=== PATIENT | male | born 1935 | race Caucasian/White ===

== ENCOUNTER → 2017-02-13 | Outpatient (CLI) | payer MEDICARE, BC, SELFPAY | PROVIDERS: Visit Provider Urology | DX: R97.20 Elevated prostate specific antigen [PSA] (principal); Z12.5 Encounter for screening for malignant neoplasm of prostate | CPT/HCPCS: 36415; 84153 ==

== ENCOUNTER 2017-02-20 11:22 | Outpatient (POV) | payer MEDICARE, BC, SELFPAY | END 2017-02-20 15:34 | disposition home or self-care (01) | PROVIDERS: Family Provider Internal Medicine Adolescent Medicine; PCP Internal Medicine Adolescent Medicine; Visit Provider Urology | DX: N41.1 Chronic prostatitis (principal); R97.20 Elevated prostate specific antigen [PSA] | CPT/HCPCS: 81002; 99213 ==

== ENCOUNTER 2017-03-02 17:37 | Emergency (ER) | payer MEDICARE, BC, SELFPAY ==
[2017-03-02 18:08] LABS: Apearance,Urine Cloudy (Clear); Bilirubin,Urine Negative (Negative); Blood, Urine 4+ (Negative); Color,Urine Yellow (Yellow); Glucose,Urine (UA) Negative (Negative); Ketones,Urine Negative (Negative); PH,Urine 5.5 (5.0-8.5); Protein,Urine Trace (Negative); Specific Gravity, Urine 1.025 (1.005-1.030); UTC Leukocyte Esterase,Urine Negative (Negative); UTC Nitrate,Urine Negative (Negative); Urobilinogen,Urine 0.2 EU/dl (0.2)
[2017-03-02 18:15] VITALS: BP 134/88; PULSE 108; RESP 22; TEMP 36.9; O2SAT 99; BMI 23.0
--- NOTE | 2017-03-02 18:39 | HMH.EDUTC ---
[facility] [place] Clinical Impression: Renal calculi Disposition: Home, Self-Care Condition on Discharge: Good Instructions: DI for Kidney Stones Additional Instructions: Lengthy discussion with patient. Since symptoms have resolved, he would like to be discharged. Agrees to follow up if symptoms return. if tonight, plans to try and see PCP during Sunday hours but if unable, agrees to return to [facility]. If severe or fever develops, agrees to go to ER. If throughout the week and symptoms return, plans to see Dr. Keenan. Agrees to increase fluid intake and monitor for any change in symtpoms. Referrals: Milton Smith MD [Primary Care Provider] - (Agrees to follow up if symptoms return. if tonight, plans to try and see PCP during Sunday hours but if unable, agrees to return to [facility]. If severe or fever develops, agrees to go to ER. If throughout the week and symptoms return, plans to see Dr. Keenan. ) Time of Disposition: 18:34 Medical Decision Making Vital Signs: 03/02/17 18:15 Temperature 98.4 F Temperature Source Temporal Artery Scan Pulse Rate [Brachial] 108 H Respiratory Rate 22 Blood Pressure [Right Arm] 134/88 Blood Pressure Mean [Right Arm] 103 Blood Pressure Source [Right Arm] Automatic Cuff Blood Pressure Position [Right Arm] Sitting 02 Sat by Pulse Oximetry 99 Oxygen Delivery Method Room Air - Lab Data Lab Results 03/02/17 18:07: Urine Color Yellow, Urine Appearance Cloudy, Urine pH 5.5, Ur Specific [place] 1.025, Urine Protein Trace, Urine Glucose (UA) Negative, Urine Ketones Negative, Urine Blood 4+, Urine Nitrate Negative, Urine Bilirubin Negative, Urine Urobilinogen 0.2, Ur Leukocyte Esterase Negative - Physician Consults Physician Consulted: Dr. Smith, PCP and Dr. Keenan, Urologist Time: 18:30 (Niether are motion picture printer) - Chandana Inquiry Pt receiving controlled substance: No - Reevaluation(s) Time: 18:31 Reevaluation #1: patient remains pain free and continues to no longer have the urge to urinate. He would not like me to contact urologist oncchu or MD palacios for Dr. Smith. they will not know me and I feel better . Pt wants to be discharged home and follow up with PCP or Dr. Keenan if symptoms return. Agrees to return to [facility] this weekend if 9a-9p or ER if overnight. [facility] [place] - General Stated complaint: possible kidney infection Time Seen by Provider: 03/02/17 18:00 Mode of Arrival: Ambulatory Source of Information: Patient Limitations: No Limitations Description of Symptoms (Recalled from Triage Doc. by RN): COULDNT URINATE STARTING AROUND NOON TODAY, DOESN'T FEEL. LIKE HE'S EMPTYING HIS BLADDER. SEE'S JIMMY SOTO Symptoms (Recalled from RN notes): No Resp Symptoms (Recalled from RN notes): No Skin Symptoms (Recalled from RN notes): No MS Symptoms (Recalled from RN notes): No Functional Status (Recalled from RN notes): NA - History of Present Illness Provider Complaint: c/o I think I might have a UTI . pain in right side of scrotum radiating to abdomen and urinary hesitancy. Symptoms started around noon w/ pain. Soon after he noticed urinary frequency w/ hesitancy but also urgency. No change urine color or smell. No treatment prior to arrival. Pain worse when sitting and improved w/ standing. Denies flank pain. Denies hx of renal stones. No N/V. Lengthy hx. Hx of requiring foleys in the past due to urinary retention. Pt of Dr. Keenan. Reports a hx of PSA that jumped from 4 to 12 and now on its way down. believes at 7 now. Had been on an antibiotic fo 30 days for urine but completed that pt reports. Since providing urine sample for nurse, pain immediately resolved and no longer has constant bladder pressure and urgency he was having at home. No pain with sitting or standing. I have tried several different things since I peed and can't reproduce the pain I had been having for hours . No longer having pain in scrotum. I don't know why but I am better now . - Related Data Home Medica
--- NOTE | 2017-03-02 18:42 | ED_ITS ---
[facility] [place] Clinical Impression: Renal calculi Disposition: Home, Self-Care Condition on Discharge: Good Instructions: DI for Kidney Stones Additional Instructions: Lengthy discussion with patient. Since symptoms have resolved, he would like to be discharged. Agrees to follow up if symptoms return. if tonight, plans to try and see PCP during Sunday hours but if unable, agrees to return to [facility]. If severe or fever develops, agrees to go to ER. If throughout the week and symptoms return, plans to see Dr. Keenan. Agrees to increase fluid intake and monitor for any change in symtpoms. Referrals: Milton Smith MD [Primary Care Provider] - (Agrees to follow up if symptoms return. if tonight, plans to try and see PCP during Sunday hours but if unable , agrees to return to [facility]. If severe or fever develops, agrees to go to ER. If throughout the week and symptoms return, plans to see Dr. Keenan. ) Time of Disposition: 18:34 Medical Decision Making Vital Signs: 03/02/17 18:15 Temperature 98.4 F Temperature Source Temporal Artery Scan Pulse Rate [Brachial] 108 H Respiratory Rate 22 Blood Pressure [Right Arm] 134/88 Blood Pressure Mean [Right Arm] 103 Blood Pressure Source [Right Arm] Automatic Cuff Blood Pressure Position [Right Arm] Sitting 02 Sat by Pulse Oximetry 99 Oxygen Delivery Method Room Air - Lab Data Lab Results 03/02/17 18:07: Urine Color Yellow, Urine Appearance Cloudy, Urine pH 5.5, Ur Specific [place] 1.025, Urine Protein Trace, Urine Glucose (UA) Negative, Urine Ketones Negative, Urine Blood 4+, Urine Nitrate Negative, Urine Bilirubin Negative, Urine Urobilinogen 0.2, Ur Leukocyte Esterase Negative - Physician Consults Physician Consulted: Dr. Smith, PCP and Dr. Keenan, Urologist Time: 18:30 (Niether are survey questionnaire designer) - Chandana Inquiry Pt receiving controlled substance: No - Reevaluation(s) Time: 18:31 Reevaluation #1: patient remains pain free and continues to no longer have the urge to urinate. He would not like me to contact urologist oncchu or MD palacios for Dr. Smith. they will not know me and I feel better . Pt wants to be discharged home and follow up with PCP or Dr. Keenan if symptoms return. Agrees to return to [facility] this weekend if 9a-9p or ER if overnight. [facility] [place] H[place] - General Stated complaint: possible kidney infection Time Seen by Provider: 03/02/17 18:00 Mode of Arrival: Ambulatory Source of Information: Patient Limitations: No Limitations Description of Symptoms (Recalled from Triage Doc. by RN): COULDNT URINATE STARTING AROUND NOON TODAY, DOESN'T FEEL. LIKE HE'S EMPTYING HIS BLADDER. SEE' S JIMMY SOTO Symptoms (Recalled from RN notes): No Resp Symptoms (Recalled from RN notes): No Skin Symptoms (Recalled from RN notes): No MS Symptoms (Recalled from RN notes): No Functional Status (Recalled from RN notes): NA - History of Present Illness Provider Complaint: c/o I think I might have a UTI . pain in right side of scrotum radiating to abdomen and urinary hesitancy. Symptoms started around noon w/ pain. Soon after he noticed urinary frequency w/ hesitancy but also urgency. No change urine color or smell. No treatment prior to arrival. Pain worse when sitting and improved w/ standing. Denies flank pain. Denies hx of renal stones. No N/V. Lengthy hx. Hx of requiring foleys in the past due to urinary retention. Pt of Dr. Keenan. Reports a hx of PSA that jumped from 4 to 12 and now on its way down. believes at 7 now. Had been on an antibio
== END 2017-03-02 18:35 | disposition home or self-care (01) ==
PROVIDERS: Emergency Provider Nurse Practitioner Family; Family Provider Internal Medicine Adolescent Medicine; PCP Internal Medicine Adolescent Medicine
DX: N20.0 Calculus of kidney (principal); Z87.442 Personal history of urinary calculi; I10 Essential (primary) hypertension; Z79.899 Other long term (current) drug therapy; I25.10 Atherosclerotic heart disease of native coronary artery without angina pectoris; E78.5 Hyperlipidemia, unspecified
CPT/HCPCS: G0463; 81003; 99202

== ENCOUNTER → 2017-06-05 09:53 | Outpatient (CLI) | payer MEDICARE, BC, SELFPAY ==
--- NOTE | 2017-06-05 10:00 | CA_ITS ---
PROCEDURE: 2-D M-mode and color Doppler study INDICATIONS FOR THE TEST: Chest pain COPD Heart Murmur Tobacco Smokingex Palpitations Fatigue Syncope Edema Hypertension+Diabetes Mellitus Rheumatic Fever SOB MEJIA+Obesity Hyperlipidemia+ Family History HD Additional History hx of CHF, stents PATIENT INFORMATION HEIGHT: 72 WEIGHT: 176 GENDER: Male B/P: 123/70 2-D/M-MODE INTERPRETATION: 2-D MEASUREMENTS OBSERVED VALUES IN CMS Right Ventricular Dimension (RVDd) 2.0 Interventricular Septum (Thickness)(IVsd) 0.9 Left Ventricular Internal Dimensions(LVIDd) 5.2 Left Ventricular Posterior Wall (Thickness)(LVPWd) 1.0 Aortic Root 3.3 Aortic Cusp Separation 2.4 Left Atrial Dimensions (LAD) 3.1 2D 1. Left atrium is mildly enlarged, left ventricle is mildly dilated, visually estimated ejection fraction approximately 25-30%, there is marked hypo to akinesis involving the mid to distal septum, anterior, anteroapical, apical and inferoapical wall. 2. The right atrium and right ventricle are normal size and contractility. 3. The aortic valve is minimally thickened and fibrosed. 4. The mitral and tricuspid valve leaflets are minimally thickened. 5. The pulmonic valve is poorly 6. No significant pericardial effusion noted. DOPPLER INTERROGATION: Doppler interrogation of the aortic, mitral and tricuspid valvular presence of mild mitral and tricuspid regurgitation. Tricuspid regurgitant jet velocity insufficient for calculation of the right ventricular systolic pressure, grade 1 diastolic dysfunction seen with tissue Doppler evidence of raised left atrial pressure. CONCLUSION: 1. Mildly enlarged left atrium, mildly dilated left ventricle, severely reduced left ventricular systolic function, visually estimated ejection fraction of 25-30% with multiple segmental wall motion abnormality described above, grade 1 diastolic dysfunction seen with tissue Doppler evidence of raised left atrial pressure. 2. Mild mitral and tricuspid regurgitation. 3. No significant pericardial effusion noted.
== END ==
PROVIDERS: Family Provider Internal Medicine Adolescent Medicine; PCP Internal Medicine Adolescent Medicine; Visit Provider Internal Medicine
DX: I25.2 Old myocardial infarction (principal); I42.9 Cardiomyopathy, unspecified; I50.22 Chronic systolic (congestive) heart failure; I25.10 Atherosclerotic heart disease of native coronary artery without angina pectoris; E78.2 Mixed hyperlipidemia
CPT/HCPCS: 93306

== ENCOUNTER 2017-06-22 09:46 | Observation (INO) ==
[2017-06-22 10:32] LABS: Basophils % 0.5 % (0.1-2.0); Eosinophils # 0.3 K/mm3 (0.0-0.4); Hematocrit 42.1 % (42.0-52.0); Hemoglobin 14.2 g/dL (14.1-18.0); Lymphocytes # 1.7 K/mm3 (0.7-4.5); Lymphocytes % 20.8 K/mm3 (10-50); Mean Corpuscular HGB Conc 33.7 g/dL (31.8-35.4); Mean Corpuscular Hemoglobin 33.4 pg (27.0-31.2); Mean Platelet Volume 7.6 fl (7.4-10.4); Monocytes # 0.7 K/mm3 (0.1-1.0); Monocytes % 8.3 % (1.7-9.3); Neutrophils # 5.6 K/mm3 (1.8-7.8); Neutrophils % 67.3 % (37.0-80.0); Platelet Count 306 K/mm3 (142-424); Red Blood Count 4.25 M/mm3 (4.60-6.20); White Blood Count 8.4 K/mm3 (4.8-10.8)
--- NOTE | 2017-06-22 12:30 | Progress Note ---
[facility] Anesthesia Checklist - Patient Identification Patient Identification: Arm Band - Structural Data Admitted From: Home Planned Operative Procedure/s: biventricular pacemaker Consent for Planned Operative Procedure(s) Verified: Yes Verified Documents: Surgical Consent, History and Physical - NPO Status Verified Time NPO: 00:00 - Additional verifications Anesthesia Reactions: No - Airway Assessment C-Spine Mobility Assessed: Yes (mp2) TMJ Mobility Assessed: Yes Dentition: Good Dentition - Neurological Assessment Level of Consciousness: Awake, Alert - Anesthesia Plan Anesthesia Risk discussed: Yes Anesthesia Plan: Verified ASA Class: III Anesthesia Type: General [facility] Anesthesia HX I have reviewed the patient's past medical history: Yes Medical History: Reports:: Congestive Heart Failure, Coronary Artery Disease, Hyperlipidemia, Hypertension Denies:: Cancer, Diabetes Mellitus Type 1, Diabetes Mellitus Type 2, Internal Pacemaker, MRSA, Seizures Other Medical History: Reports: Arthritis. Denies: Blood Transfusion Reaction Laterality Cases: Left: Arthroscopy Shoulder, Total Hip Replacement, Right: Arthroscopy Hip, Bilateral: Other (shoulder replacements) Other Surgeries: Yes: Other (Cardiac Cath-stents, cholecystectomy). No: Pacemaker Amputation: No Fractures: No *Family Hx:: Cancer, Coronary Artery Disease, Heart Attack, Hypertension, Stroke
--- NOTE | 2017-06-22 14:29 | Progress Note ---
[facility] Anesthesia Record Part I Intake, IV Amount: 500 Estimated blood loss (mL): 15 Urine output (mL): 0 Blood Products used (#): none Blood Pressure: 123/75 SaO2: 97 Pulse Rate: 80 Respiratory Rate: 16 Temperature: 97.0 F Patient is:: Awake Stable to PACU at:: 14:25
--- NOTE | 2017-06-22 14:30 | Progress Note ---
[facility] Anesthesia Record Part II Discharge Time: 14:55 Destination: Medical Surgical Department PACU nurse assessment reviewed?: Yes Patient Condition:: Good Anesthesia Complications:: None
--- NOTE | 2017-06-22 14:35 | Procedure Note ---
[facility] RADIO MECHANIC APPRENTICE-D - RADIO MECHANIC APPRENTICE-D Date of Procedure:: 06/22/17 Procedures:: 1. Pocket formation for biventricular pacemaker generator with cardiac resynchronization/defibrillator therapy. 2. Placement atrial sensing and pacing lead into the right atrial appendage. 3. Placement of right ventricular sensing pacing and shocking lead in the right ventricular apex. 4. Placement of left ventricular sensing pacing lead via the coronary sinus. 5. Permanent cardiac resynchronization therapy with ICD implantation/ biventricular pacemaker. Indication for test:: Systolic Congestive Heart Failure, <35% Wide QRS > 120ms [place] Heart [employer] Class 3 Informed consent:: Obtained prior to procedure. Complications:: None EBL:: Less than 10 ml. Technique:: 1% lidocaine with epinephrine used to anesthetize the left anterior aspect of the chest. Scalpel was used to make the initial cutaneous incision while electrocautery was used to dissect down into the fascia. The fascia was lifted off the pectoralis muscle and digitally manipulated creating a pocket for the pacemaker. The patient was then placed in Trendelenburg position and subclavian vein was accessed via the Seldinger technique on 3 separate occasions. 3 wires were left into the subclavian vein. The right ventricular pacing shocking coil sheath was placed into the subclavian vein and under fluoroscopic guidance the right lingular sensing pacing shocking lead was placed into the right ventricular apex secured into place with the distal screw. After achieving excellent numbers the lead was then secured into placing using 3-0 silk. The lead was secured to the fascia also with heavy silk suture. Prior to the right ventricular lead being secured into place the sheath was peeled away from the subclavian vein. Under fluoroscopic guidance the coronary sinus was cannulated and confirmed with an injection of contrast. An 0.014 wire was then placed distally in the inferior posterior segment of the left ventricle via the coronary sinus and the left ventricular lead was advanced. After achieving excellent thresholds and interrogation numbers the sheath was then peeled away and the lead was then secured into place using silk suture. Following this, the left ventricular coil was secured in place using heavy silk and also secured to the fascia and additional 7 [place] sheath was then placed over the existing wire and an atrial sensing placing coil was placed in the right atrial appendage after achieving excellent thresholds the sheath was peeled away and the lead was secured to the fascia using heavy silk. After achieving, hemostasis, Ancef was used to flush the pocket and the 3 leads were attached to the RADIO MECHANIC APPRENTICE-D generator. The generator was then secured into place by heavy silk suture. Monocryl was used to close the subcutaneous layers while nils were used to close the subcutaneous layers while nils were used to close the cutaneous layer. Pressurized and the patient was transferred to the postop holding area in stable condition. Impression:: 1. Successful pocket formation for biventricular pacemaker generator with cardiac resynchronization/defibrillator therapy. 2. Successful placement of right atrial sensing and pacing lead into the right atrial appendage. 3. Successful placement of a right ventricular sensing, pacing, and shocking lead in the right ventricular apex. 4. Successful placement of left ventricular sensing pacing lead via the coronary sinus. 5. Successful permanent cardiac resynchronization plus AICD generator device. Interrogation:: Generator model number [id number] serial number [id number] Atrial lead model number serial number [id number] model number [id number] Right Ventricular lead model number [id number] serial number [id number] Left Ventricular lead model number [id number]/86 serial number [id number] RA: P wave 3.3 mV Threshold 690 Ohms Impedance 1.25V pulse width 0.5ms RVA: R wave 8.8 mV Threshold 840 Ohms Impedance 0.5V pulse width 0.5ms LVA: R wave Threshold 1550 Ohms Impedance 0.5V pulse width 0.5ms Mode: DDDR with base tracking of 70 maximum tracking 110 Therapies: VT-1: 150; MONITOR VT-2: 180 ATP X3 @36 , 40 VF: 214 ATP W/C @36, 40 Plan:: 1.Post-op wound care.
--- NOTE | 2017-06-22 14:49 | Cardiology Report ---
PROCEDURE: 2-D study INDICATIONS FOR THE TEST: Chest pain COPD Heart Murmur Tobacco Smoking Palpitations Fatigue Syncope Edema Hypertension Diabetes Mellitus Rheumatic Fever SOB MEJIA Obesity Hyperlipidemia Family History HD Additional History S/P PACER BIV PATIENT INFORMATION HEIGHT: 72 WEIGHT:170 GENDER: Male B/P: 2-D/M-MODE INTERPRETATION: 2-D MEASUREMENTS OBSERVED VALUES IN CMS Right Ventricular Dimension (RVDd) Interventricular Septum (Thickness)(IVsd) Left Ventricular Internal Dimensions(LVIDd) Left Ventricular Posterior Wall (Thickness)(LVPWd) Aortic Root Aortic Cusp Separation Left Atrial Dimensions (LAD) 2D 1. Left atrium is mildly enlarged, left ventricle is normal size, visually estimated ejection fraction approximately 20-25%, there is marked hypo to akinesis involving mid to distal septum, anterior anteroapical and anterolateral wall. 2. The right atrium and right ventricle are normal size and contractility, there is a pacemaker lead seen in the right atrium and right ventricle. 3. The aortic valve is minimally thickened and fibrosed. 4. The mitral and tricuspid valve leaflets are grossly normal. 5. The pulmonic valve is poorly visualized. 6. There is trivial pericardial effusion and interior echo free space seen. DOPPLER INTERROGATION: Not applicable CONCLUSION: 1. Mildly enlarged left atrium, normal left ventricular size, visually estimated ejection fraction of 45% with multiple segmental wall motion abnormality described above 2. Trivial pericardial effusion and interior echo free space seen. 3. No obvious right ventricular collapse seen .
--- NOTE | 2017-06-22 15:32 | Pharmacy Consult Notes ---
[facility] Pharmacy VTE Monitoring - Patient Demographics Admission date: 06/22/17 Report Date: 06/22/17 Time: 15:32 Allergies/Adverse Reactions: Patient Allergies morphine Allergy (Intermediate, Verified 06/22/17 10:01) HALLUCINATIONS Height: 1.83 m Weight: 77.111 kg - VTE Risk Labs: VTE Related Lab Results Hgb 14.2 g/dL (14.1-18.0) 06/22/17 10:20 Hct 42.1 % (42.0-52.0) 06/22/17 10:20 Plt Count 306 K/mm3 (142-424) 06/22/17 10:20 BUN 33 mg/dL (7-18) H 06/22/17 10:20 Creatinine 1.74 mg/dL (0.70-1.30) H 06/22/17 10:20 Estimated Creat Clear 36 mL/min (0-300) 06/22/17 10:20 Clinical Trial Participant: No - Prophylaxis VTE Prophylaxis Ordered?: Yes Types of VTE Prophylaxis: TEDS Knee High
== END 2017-06-23 14:15 | disposition home or self-care (01) ==
LOC: OR 09:46 → 2ND 09:46
PROVIDERS: ADMIT Internal Medicine; ATTEND Internal Medicine

== ENCOUNTER → 2017-07-06 10:06 | Outpatient (CLI) | payer MEDICARE, BC, SELFPAY ==
[2017-07-06 10:38] LABS: Basophils # 0.1 K/mm3 (0-0.2); Basophils % 0.7 % (0.1-2.0); Eosinophils # 0.3 K/mm3 (0.0-0.4); Eosinophils % 3.5 % (0.1-12.0); Hematocrit 38.9 % (42.0-52.0); Hemoglobin 12.9 g/dL (14.1-18.0); Lymphocytes # 1.7 K/mm3 (0.7-4.5); Lymphocytes % 18.9 K/mm3 (10-50); Mean Corpuscular HGB Conc 33.1 g/dL (31.8-35.4); Mean Corpuscular Volume 99.8 fl (80-94); Mean Platelet Volume 7.4 fl (7.4-10.4); Monocytes # 0.7 K/mm3 (0.1-1.0); Monocytes % 8.1 % (1.7-9.3); Neutrophils # 6.3 K/mm3 (1.8-7.8); Neutrophils % 68.9 % (37.0-80.0); Platelet Count 297 K/mm3 (142-424); Red Blood Count 3.89 M/mm3 (4.60-6.20); Red Cell Distribution Width 12.8 % (11.5-17.5); White Blood Count 9.1 K/mm3 (4.8-10.8)
[2017-07-06 13:17] LABS: Alanine Aminotransferase 33 U/L (12-78); Albumin Level 3.9 gm/dL (3.4-5.0); Albumin/Globulin Ratio 1.1 (1.1-1.8); Alkaline Phosphatase 168 U/L (46-116); Anion Gap 17.4 mEq/L (5-15); Aspartate Amino Transferase 33 U/L (15-37); Bilirubin,Total 0.6 mg/dL (0.2-1.0); Blood Urea Nitrogen 44 mg/dL (7-18); Calcium 9.7 mg/dL (8.5-10.1); Carbon Dioxide 23 mmol/L (21.0-32.0); Chloride 99 mmol/L (98-107); Estimated Glomerular Filt Rate 36 ml/min (>60); GFR (African American) 44 ML/MIN (>60); Globulin 3.6 gm/dl (1.3-3.2); Glucose 94 mg/dL (74-106); Sodium 133 mmol/L (136-145); Thyroid Stimulating Hormone 7.29 uIU/ml (0.358-3.740); Total Protein,Serum 7.5 gm/dL (6.4-8.2)
[2017-07-06 13:19] LABS: Potassium 6.4 mmoL/L (3.5-5.1)
== END ==
PROVIDERS: Visit Provider Internal Medicine Adolescent Medicine
DX: R23.1 Pallor (principal); R53.83 Other fatigue
CPT/HCPCS: 36415; 80053; 83735; 84443; 85025

== ENCOUNTER 2017-07-06 14:15 | Outpatient (CLI) | payer MEDICARE, BC, SELFPAY ==
[2017-07-06 14:45] VITALS: BP 113/61; PULSE 90; RESP 18; O2SAT 98
[2017-07-06 15:15] VITALS: BP 110/59; PULSE 72; RESP 18
[2017-07-06 15:45] VITALS: BP 133/72; PULSE 78; RESP 18
[2017-07-06 16:15] VITALS: BP 135/75; PULSE 71; RESP 18
[2017-07-06 16:45] VITALS: BP 140/68; PULSE 84; RESP 18
== END 2017-07-06 16:55 | disposition home or self-care (01) ==
LOC: INF 15:08
PROVIDERS: Family Provider Internal Medicine Adolescent Medicine; PCP Internal Medicine Adolescent Medicine; Visit Provider Internal Medicine Adolescent Medicine
DX: E87.5 Hyperkalemia (principal); Z79.899 Other long term (current) drug therapy
CPT/HCPCS: 36415; 80053; 83735; 84443; 85025; 96360; 96361

== ENCOUNTER → 2017-07-09 09:53 | Outpatient (CLI) | payer MEDICARE, BC, SELFPAY ==
[2017-07-09 13:09] LABS: Anion Gap 15.8 mEq/L (5-15); Blood Urea Nitrogen 25 mg/dL (7-18); Carbon Dioxide 23 mmol/L (21.0-32.0); Chloride 102 mmol/L (98-107); Creatinine,Serum 1.38 mg/dL (0.70-1.30); Estimated Glomerular Filt Rate 49 ml/min (>60); GFR (African American) 60 ML/MIN (>60); Glucose 95 mg/dL (74-106); Potassium 4.8 mmoL/L (3.5-5.1); Sodium 136 mmol/L (136-145)
== END ==
PROVIDERS: Visit Provider Internal Medicine Adolescent Medicine
DX: E87.5 Hyperkalemia (principal)
CPT/HCPCS: 36415; 80048

== ENCOUNTER → 2017-08-07 06:59 | Outpatient (CLI) | payer MEDICARE, BC, SELFPAY ==
[2017-08-07 10:58] LABS: Prostate Specific Ag Screen 9.9 ng/mL (0.0-4.0)
== END ==
PROVIDERS: Visit Provider Urology
DX: Z12.5 Encounter for screening for malignant neoplasm of prostate (principal); R97.20 Elevated prostate specific antigen [PSA]
CPT/HCPCS: 36415; G0103

== ENCOUNTER → 2017-08-14 15:45 | Outpatient (REF) | payer MEDICARE, BC, SELFPAY | LOC: LAB 15:45 | PROVIDERS: Visit Provider Urology | DX: N39.9 Disorder of urinary system, unspecified (principal); R82.90 Unspecified abnormal findings in urine | CPT/HCPCS: 87086 ==

== ENCOUNTER → 2017-09-25 19:16 | Outpatient (REF) | payer MEDICARE, BC, SELFPAY | LOC: LAB 19:16 | PROVIDERS: Visit Provider Urology | DX: N39.0 Urinary tract infection, site not specified (principal) | CPT/HCPCS: 87086 ==

== ENCOUNTER → 2017-11-12 07:16 | Outpatient (CLI) | payer MEDICARE, BC, SELFPAY ==
[2017-11-12 09:04] LABS: Prostate Specific Ag, Diagnost 11.12 ng/mL (0.0-4.0)
== END ==
PROVIDERS: PCP Internal Medicine Adolescent Medicine; Visit Provider Urology
DX: Z12.5 Encounter for screening for malignant neoplasm of prostate (principal); R97.20 Elevated prostate specific antigen [PSA]
CPT/HCPCS: 36415; 84153

== ENCOUNTER → 2017-11-20 16:57 | Outpatient (REF) | payer MEDICARE, BC, SELFPAY | LOC: LAB 16:57 | PROVIDERS: Visit Provider Urology | DX: N30.20 Other chronic cystitis without hematuria (principal); R97.20 Elevated prostate specific antigen [PSA] | CPT/HCPCS: 87086; 87088; 87186 ==

== ENCOUNTER → 2017-12-19 08:20 | Outpatient (CLI) | payer MEDICARE, BC, SELFPAY ==
[2017-12-19 10:09] LABS: Prostate Specific Ag, Diagnost 7.71 ng/mL (0.0-4.0)
== END ==
PROVIDERS: PCP Internal Medicine Adolescent Medicine; Visit Provider Urology
DX: R97.20 Elevated prostate specific antigen [PSA] (principal)
CPT/HCPCS: 36415; 84153

== ENCOUNTER 2017-12-30 05:56 | Observation (INO) ==
[2017-12-30 06:30] LABS: Basophils # 0.1 K/mm3 (0-0.2); Basophils % 0.6 % (0.1-2.0); Eosinophils # 0.2 K/mm3 (0.0-0.4); Eosinophils % 2.4 % (0.1-12.0); Hematocrit 43.7 % (42.0-52.0); Hemoglobin 13.7 g/dL (14.1-18.0); Lymphocytes # 1.2 K/mm3 (0.7-4.5); Lymphocytes % 14.4 K/mm3 (10-50); Mean Corpuscular HGB Conc 31.4 g/dL (31.8-35.4); Mean Corpuscular Hemoglobin 33.4 pg (27.0-31.2); Mean Corpuscular Volume 106.3 fl (80-94); Mean Platelet Volume 8.1 fl (7.4-10.4); Monocytes # 0.7 K/mm3 (0.1-1.0); Monocytes % 8.8 % (1.7-9.3); Neutrophils # 6.3 K/mm3 (1.8-7.8); Neutrophils % 73.9 % (37.0-80.0); Platelet Count 222 K/mm3 (142-424); Red Blood Count 4.11 M/mm3 (4.60-6.20); Red Cell Distribution Width 14.5 % (11.5-17.5); White Blood Count 8.5 K/mm3 (4.8-10.8)
--- NOTE | 2017-12-30 06:34 | Emergency Department Note ---
ED Disposition Clinical Impression: Renal insufficiency Congestive heart failure Qualifiers: Heart failure type: unspecified Heart failure chronicity: acute on chronic Qualified Code(s): I50.9 - Heart failure, unspecified Disposition: Admitted as Observation Condition on Discharge: Good - Critical Care Critical Care Time: No Attestation: On 12/30/17, the high probability of a clinically significant, sudden or life threatening deterioration of the following system(s) required my full and direct attention, intervention and personal management. The time I documented below is in addition to time spent performing reported procedures but includes the following listed in this critical care notation. Medical Decision Making - Medical Records Medical records reviewed: Yes: I reviewed the patient's medical records. - Chandana Inquiry Pt receiving controlled substance: No Vital Signs: 12/30/17 06:02 12/30/17 07:18 Temperature 97.7 F Temperature Source Oral Pulse Rate [Right Radial] 100 H 90 Respiratory Rate 14 Blood Pressure [Right Arm] 138/85 134/90 Blood Pressure Mean [Right Arm] 102 104 Blood Pressure Source [Right Arm] Automatic Cuff Automatic Cuff Blood Pressure Position [Right Arm] Sitting Sitting 02 Sat by Pulse Oximetry 98 Oxygen Delivery Method Room Air - Lab Data Lab results reviewed: Yes: I reviewed the patient's lab results. Lab Results 12/30/17 06:15: WBC 8.5, RBC 4.11 L, Hgb 13.7 L, Hct 43.7, MCV 106.3 H, MCH 33.4 H, MCHC 31.4 L, RDW 14.5, Plt Count 222, MPV 8.1, Neut % (Auto) 73.9, Lymph % (Auto) 14.4, [place] % (Auto) 8.8, Eos % (Auto) 2.4, Baso % (Auto) 0.6, Neut # (Auto) 6.3, Lymph # (Auto) 1.2, [place] # (Auto) 0.7, Eos # (Auto) 0.2, Baso # (Auto) 0.1 12/30/17 06:15: Sodium 140, Potassium 4.3, Chloride 105, Carbon Dioxide 26, Anion Gap 13.3, BUN 24 H, Creatinine 1.42 H, Estimated Creat Clear 44, Estimated GFR 48 L, Est GFR ( Amer) 58 L, Glucose 82, Calcium 8.5, Total Bilirubin 0.8, AST 23, ALT 21, Alkaline Phosphatase 103, Troponin I 0.09 H, Total Protein 6.9, Albumin 3.3 L, Globulin 3.6 H, Albumin/Globulin Ratio 0.9 L 12/30/17 06:15: Lactate 1.4 12/30/17 06:15: B-Natriuretic Peptide 1300 H 12/30/17 06:15: TSH 3.00 D, Thyroxine (T4) 9.0 Result diagrams: 12/30/17 06:15 12/30/17 06:15 Orders (Tests/Meds): ED MEDICATIONS Discontinued Medications Generic Name Dose Route Start Last Admin Trade Name Freq PRN Reason Stop Dose Admin Furosemide 20 mg 12/30/17 06:47 12/30/17 06:50 Lasix 20mg/2ml Vial IV 12/30/17 06:48 20 mg ONCE ONE Administration Furosemide 40 mg 12/30/17 07:29 Lasix 40mg/4ml Vial IV 12/30/17 07:30 ONCE ONE ORDERS Category Date Time Status Blood Culture Stat Micro 12/30/17 06:15 Received - Radiology Data #1 Image(s): Chest Image Reviewed: Yes I reviewed the patient's radiology image Preliminary Findings: Abnormal (chf) - ECG Data Tracing #1 Pacemaker function: normal pacer function - Physician Consults Physician Consulted: jeannie Reason -: Admission Resp/SOB HPI - General Chief Complaint: Shortness of Breath/Dyspnea Stated Complaint: SOA Time Seen by Provider: 12/30/17 06:20 Mode of Arrival: Ambulatory Source of Information: Patient, Spouse, Medical Record Limitations: No Limitations Description of Symptoms (Recalled from ER Triage Doc. by RN): Pt reports difficulty breathing, non productive cough and wheezing for 1 week. Pt reports tonight his breathing was worse than its ever been. 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 with hx constanza recent pacemaker Complaint: shortness of breath Onset (ago): day(s) Severity: moderate Consistency/Duration: constant Relieving factors: upright position Exacerbating factors: lying flat Known history of: congestive heart failure Associated symptoms: cough Treatment prior to arrival: none - Related Data Home oxygen amount: none Home Medications Medication Instructions Recorded Confirmed aspirin 81 mg tablet,delayed 81 mg PO DAILY 03/02/17 12/30/17 release cyanocobalamin (vit B-12) 1,000 100 mcg IM MONTHLY ml 03/06/17 12/30/17 mcg/mL injection solution carvedilol 3.125 mg tablet 6.25 mg PO BID tab 08/14/17 12/30/17 Ciprofloxacin HCl [Ciprofloxacin 500 mg PO BID 12/30/17 12/30/17 500mg Tab] Allergies Allergy/AdvReac Type Severity Reaction Status Date / Time doxycycline Allergy Intermediate Verified 12/30/17 06:08 morphine Allergy Intermediate HALLUCINATI Verified 12/30/17 06:08 [facility] History I have reviewed the patient's past medical history: Yes Medical History: Reports:: Congestive Heart Failure, Coronary Artery Disease, Hyperlipidemia, Hypertension, Internal Pacemaker Denies:: Cancer, Diabetes Mellitus Type 1, Diabetes Mellitus Type 2, MRSA, Seizures Other Medical History: Reports: Arthritis. Denies: Blood Transfusion Reaction Comment: BPH, elevated prostate Laterality Cases: Left: Arthroscopy Shoulder, Total Hip Replacement, Bilateral: Arthroscopy Hip, Other Other Surgeries: Yes: Pacemaker, Other (Cardiac Cath-stents, cholecystectomy) Amputation: No Fractures: No - Social History Smoking Status: Never smoker Tobacco Type: cigarettes #Yrs smoked (if former smoker): 20 Alcohol Intake: never Alcohol Intake Frequency:: other Occupational Status: retired Housing: house Household Members: spouse - Psychiatric History Expresses thoughts of harming self/others: None Suicide Plan Description: No Plan Family Hx:: Cancer, Coronary Artery Disease, Heart Attack, Hypertension, Stroke Comment: father, brother, sister heart disease ROS Obtained: Yes All systems reviewed & no additional complaints - Constitutional Constitutional: Denies fever(s) - Eyes Eyes: Denies change in vision - ENT Ears, Nose, Mouth, and Throat: Denies sore throat - Cardiovascular Cardiovascular: Reports as per HPI, Denies chest pain, Reports dyspnea - Respiratory Respiratory: Yes cough, Yes non-productive cough, Yes dyspnea, No coughing up blood, No pain on inspiration - Gastrointestinal Gastrointestingal: Reports: abdominal pain - Genitourinary Male Genitourinary: Denies hematuria - Musculoskeletal Musculoskeletal: Denies joint pain, Denies joint swelling - Integumentary/Breasts Skin/Breast: Denies rash - Neurologic Neurologic: Denies seizure-like activity Physical Exam - General General appearance: alert, in no apparent distress - Head Head exam: normocephalic - Eye Eye exam: Present: PERRL, EOMI - ENT ENT exam: Present: mucous membranes dry - Neck Neck exam: Present: trachea midline - Respiratory Respiratory exam: Present: normal lung sounds bilaterally. Absent: respiratory distress - Cardiovascular Cardiovascular exam: Present: regular rate, systolic murmur, +S4 - Abdominal Exam Abdominal exam: Present: soft - Extremities Exam Extremities exam: Present: full ROM - Neurological Exam Neurological exam: Present: alert, oriented X3, CN II-XII intact - Psychiatric Psychiatric exam: Absent: anxious - Skin Skin exam: Present: rash
[2017-12-30 06:47] LABS: Albumin Level 3.3 gm/dL (3.4-5.0); Albumin/Globulin Ratio 0.9 (1.1-1.8); Anion Gap 13.3 mEq/L (5-15); Bilirubin,Total 0.8 mg/dL (0.2-1.0); Calcium 8.5 mg/dL (8.5-10.1); Globulin 3.6 gm/dl (1.3-3.2); Potassium 4.3 mmoL/L (3.5-5.1); Total Protein,Serum 6.9 gm/dL (6.4-8.2)
--- NOTE | 2017-12-30 08:05 | History & Physical Report ---
*Admission Date: 12/30/17 *Chief complaint: Shortness of breath when lying down *History of present illness: Pati is an 82-year-old male with history of earlier with reduced ejection fraction, recent pacemaker placement, chronic kidney disease, who presents with 1 week of worsening shortness of breath, orthopnea, and nonproductive cough. He reports last night was the worst night so far with wheezing and inability to lay down without feeling short of breath. Came to the ER with his for assessment. Patient denies fever, syncope, chest pain, cough, lower extremity edema. Complains of orthopnea and dyspnea with exertion. Has not felt like he has had much energy since placement of his pacemaker. 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 Current heart failure treatment consists of carvedilol 6.25 twice daily. Not on any other goal-directed therapy at this time including ACEi/ARB, statin, aspirin, spironolactone [facility] History I have reviewed the patient's past medical history: Yes Medical History: Reports:: Congestive Heart Failure, Coronary Artery Disease, Hyperlipidemia, Hypertension, Internal Pacemaker Denies:: Cancer, Diabetes Mellitus Type 1, Diabetes Mellitus Type 2, MRSA, Seizures Other Medical History: Reports: Arthritis. Denies: Blood Transfusion Reaction Laterality Cases: Left: Arthroscopy Shoulder, Total Hip Replacement, Bilateral: Arthroscopy Hip, Other Other Surgeries: Yes: Pacemaker, Other (Cardiac Cath-stents, cholecystectomy) Amputation: No Fractures: No - *Social History Smoking Status: Never smoker Tobacco Type: cigarettes #Yrs smoked (if former smoker): 20 Alcohol Intake: never Alcohol Intake Frequency:: other Occupational Status: retired Housing: house Household Members: spouse - Psychiatric History Expresses thoughts of harming self/others: None Suicide Plan Description: No Plan *Family Hx:: Cancer, Coronary Artery Disease, Heart Attack, Hypertension, Stroke Review of Systems - Review of Systems Review of systems:: pertinent systems reviewed and negative unless documented below - *Neurologic Denies seizure-like activity Meds Home Medications Medication Instructions Recorded Confirmed Type aspirin 81 mg tablet,delayed 81 mg PO DAILY 03/02/17 12/30/17 History release cyanocobalamin (vit B-12) 1,000 100 mcg IM MONTHLY ml 03/06/17 12/30/17 History mcg/mL injection solution Carvedilol [Carvedilol 6.25mg Tab] 6.25 mg PO BID 12/30/17 12/30/17 History Ciprofloxacin HCl [Ciprofloxacin 500 mg PO BID 12/30/17 12/30/17 History 500mg Tab] Allergies Allergy/AdvReac Type Severity Reaction Status Date / Time doxycycline Allergy Intermediate Verified 12/30/17 06:08 morphine Allergy Intermediate HALLUCINATI Verified 12/30/17 06:08 ONS Exam Vital signs and Labs for Last 24 Hours: Temp Pulse Resp BP Pulse Ox 97.7 F 95 H 16 148/101 H 97 12/30/17 06:02 12/30/17 07:46 12/30/17 07:46 12/30/17 07:46 12/30/17 07:46 Laboratory Results - last 24 hr 12/30/17 06:15: WBC 8.5, RBC 4.11 L, Hgb 13.7 L, Hct 43.7, MCV 106.3 H, MCH 33.4 H, MCHC 31.4 L, RDW 14.5, Plt Count 222, MPV 8.1, Neut % (Auto) 73.9, Lymph % (Auto) 14.4, [place] % (Auto) 8.8, Eos % (Auto) 2.4, Baso % (Auto) 0.6, Neut # (Auto) 6.3, Lymph # (Auto) 1.2, [place] # (Auto) 0.7, Eos # (Auto) 0.2, Baso # (Auto) 0.1 12/30/17 06:15: Sodium 140, Potassium 4.3, Chloride 105, Carbon Dioxide 26, Anion Gap 13.3, BUN 24 H, Creatinine 1.42 H, Estimated Creat Clear 44, Estimated GFR 48 L, Est GFR ( Amer) 58 L, Glucose 82, Calcium 8.5, Total Bilirubin 0.8, AST 23, ALT 21, Alkaline Phosphatase 103, Troponin I 0.09 H, Total Protein 6.9, Albumin 3.3 L, Globulin 3.6 H, Albumin/Globulin Ratio 0.9 L 12/30/17 06:15: Lactate 1.4 12/30/17 06:15: B-Natriuretic Peptide 1300 H 11/04/18 06:15: TSH 3.00 D, Thyroxine (T4) 9.0 I & O for Last 24 hours: Intake & Output 12/27/17 12/28/17 12/29/17 12/30/17 23:59 23:59 23:59 22:59 Output Total 300 / 300 Balance -300 / -300 Weight 75.75 kg - *Routine HEENT Exam Head: Present: normocephalic, atraumatic Eye: Present: EOMI, PERRL ENT: Present: mucous membranes moist - *Routine Neck Exam Present: supple. Absent: JVD - *Routine Respiratory Exam Present: CTA bilaterally. Absent: rhonchi, wheezes - *Routine Cardiovascular Exam Present: Normal S1, Normal S2, tachycardia. Absent: murmur - *Routine Abdominal Exam Present: soft, normoactive bowel sounds. Absent: tenderness - *Routine Rectal Exam Patient deferred: visual exam - *Routine Exam Patient deferred: penile exam - *Routine Extremities Exam Absent: cyanosis, clubbing, edema - *Routine Skin Exam Present: intact. Absent: cyanosis, erythema - *Routine Neurological Exam Present: alert, oriented X3, CN II-XII intact. Absent: altered mental status - Routine Psychiatric Exam Present: normal affect Assessment and Plan (1) Hypertension Current visit: Yes Status: Chronic Qualifiers: Hypertension type: essential hypertension Qualified Code(s): I10 - Essential (primary) hypertension Category: Medical Code(s): I10 - Essential (primary) hypertension Chart review shows patient has had normal pressures in the past however does have history of hypertension -Pressure elevated today above goal given history of heart failure -Initiate captopril 6.25mg 3 times daily to assess response. Hold parameters communicated to nursing for blood pressures less than 110/70 -If tolerates well will transition to lisinopril 2.5 or 5 mg daily (2) Congestive heart failure Current visit: Yes Status: Chronic Qualifiers: Heart failure type: unspecified Heart failure chronicity: acute on chronic Qualified Code(s): I50.9 - Heart failure, unspecified Category: Medical Code(s): I50.9 - Heart failure, unspecified Acute exacerbation of chronic heart failure - NYHA class III heart failure. Heart failure with reduced ejection fraction last echo 20-25% in May -Repeat echocardiogram ordered -Cardiology consult placed, appreciate recommendation -Patient currently on beta-danny and aspirin, suspect he would benefit from further optimization with HARLEY inhibitor, statin, spironolactone -Initiated captopril as previously mentioned -Holding on further interventions until cardiology sees patient -Diuresed x1 today, goal net -1 L (3) Renal insufficiency Current visit: Yes Status: Chronic Category: Medical Code(s): N28.9 - Disorder of kidney and ureter, unspecified Baseline creatinine 1.3-1.4 -At baseline today -Avoid nephrotoxins, monitor fluid status -Repeat labs in the morning (4) SOB (shortness of breath) Current visit: No Status: Acute Category: Medical Code(s): R06.02 - Shortness of breath Likely due to orthopnea and CHF exacerbation, oxygen if needed (5) HLD (hyperlipidemia) Current visit: No Status: Chronic Qualifiers: Hyperlipidemia type: pure hypercholesterolemia Qualified Code(s): E78.00 - Pure hypercholesterolemia, unspecified; E78.0 - Pure hypercholesterolemia Category: Medical Code(s): E78.5 - Hyperlipidemia, unspecified Per history, not currently on statin, will discuss initiating statin with cardiology
--- NOTE | 2017-12-30 09:33 | Pharmacy Consult Notes ---
[facility] Pharmacy VTE Monitoring - Patient Demographics Admission date: 12/30/17 Report Date: 12/30/17 Time: 09:33 Allergies/Adverse Reactions: Patient Allergies doxycycline Allergy (Intermediate, Verified 12/30/17 06:08) morphine Allergy (Intermediate, Verified 12/30/17 06:08) HALLUCINATIONS Height: 1.83 m Weight: 73.936 kg Patient Problems: Current Active Problems Congestive heart failure (Acute) Renal insufficiency (Acute) Hypertension (Acute) - VTE Risk Labs: VTE Related Lab Results Hgb 13.7 g/dL (14.1-18.0) L 12/30/17 06:15 Hct 43.7 % (42.0-52.0) 12/30/17 06:15 Plt Count 222 K/mm3 (142-424) 12/30/17 06:15 BUN 24 mg/dL (7-18) H 12/30/17 06:15 Creatinine 1.42 mg/dL (0.70-1.30) H 12/30/17 06:15 Estimated Creat Clear 44 mL/min (0-300) 12/30/17 06:15 VTE Score: 2 VTE Risk Level: Very Low Risk - Prophylaxis Types of VTE Prophylaxis: TEDS Knee High (GUILLAUME HOSE ORDERED)
[2017-12-31 07:24] LABS: Anion Gap 12.1 mEq/L (5-15); Calcium 8.9 mg/dL (8.5-10.1); Potassium 4.1 mmoL/L (3.5-5.1)
[2017-12-31 07:25] LABS: Basophils % 0.5 % (0.1-2.0); Eosinophils # 0.2 K/mm3 (0.0-0.4); Eosinophils % 2.9 % (0.1-12.0); Hemoglobin 13.6 g/dL (14.1-18.0); Lymphocytes # 1.4 K/mm3 (0.7-4.5); Lymphocytes % 17.9 K/mm3 (10-50); Mean Corpuscular HGB Conc 31.6 g/dL (31.8-35.4); Mean Corpuscular Hemoglobin 33.2 pg (27.0-31.2); Mean Corpuscular Volume 105.4 fl (80-94); Mean Platelet Volume 7.5 fl (7.4-10.4); Monocytes # 0.6 K/mm3 (0.1-1.0); Monocytes % 8.4 % (1.7-9.3); Neutrophils # 5.3 K/mm3 (1.8-7.8); Neutrophils % 70.3 % (37.0-80.0); Platelet Count 185 K/mm3 (142-424); Red Blood Count 4.08 M/mm3 (4.60-6.20); Red Cell Distribution Width 14.4 % (11.5-17.5); White Blood Count 7.5 K/mm3 (4.8-10.8)
--- NOTE | 2017-12-31 08:31 | Discharge Summary ---
General - General Admission date:: 12/30/17 Discharge date: 12/31/17 HPI HPI: Pati is an 82-year-old male with history of earlier with reduced ejection fraction, recent pacemaker placement, chronic kidney disease, who presents with 1 week of worsening shortness of breath, orthopnea, and nonproductive cough. He reports last night was the worst night so far with wheezing and inability to lay down without feeling short of breath. Came to the ER with his for assessment. Patient denies fever, syncope, chest pain, cough, lower extremity edema. Complains of orthopnea and dyspnea with exertion. Has not felt like he has had much energy since placement of his pacemaker. 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 Current heart failure treatment consists of carvedilol 6.25 twice daily. Not on any other goal-directed therapy at this time including ACEi/ARB, statin, aspirin, spironolactone Hospital Course Hospital Course: Patient was given intravenous Lasix and had a brisk response with a 4 pound weight loss. This morning he feels much better, reports no wheezing when he lies down flat, he was able to lay down comfortably. Has no oxygen requirement. Examination has improved as noted below. Plan will be to discharge patient home with very low-dose lisinopril, now that he is gained weight his blood pressure is hopefully a little higher and he can tolerate this medication. Of note previous blood pressure and diuretics have been held because of low blood pressure and orthostasis. We will also do low-dose Lasix at 20 mg daily for 1 week. I will see him in the office on Sunday. Objective Vital signs: Temp Pulse Resp BP Pulse Ox 98.3 F 111 H 18 142/83 H 96 12/31/17 08:00 12/31/17 08:00 12/31/17 08:00 12/31/17 08:00 12/31/17 08:00 Narrative: Patient is pleasant, alert. Oropharynx clear, no JVD. Heart rate regular. No murmurs. Abdomen soft and nontender. Lungs are clear and well-expanded. No rash or clubbing or edema. Able to move all extremities well. Results Labs on day of discharge: Labs from last 24 hours 12/31/17 12/31/17 12/30/17 06:35 06:35 14:01 WBC 7.5 RBC 4.08 L Hgb 13.6 L Hct 43.0 MCV 105.4 H MCH 33.2 H MCHC 31.6 L RDW 14.4 Plt Count 185 MPV 7.5 Neut % (Auto) 70.3 Lymph % (Auto) 17.9 [place] % (Auto) 8.4 Eos % (Auto) 2.9 Baso % (Auto) 0.5 Neut # (Auto) 5.3 Lymph # (Auto) 1.4 [place] # (Auto) 0.6 Eos # (Auto) 0.2 Baso # (Auto) 0.0 Sodium 138 Potassium 4.1 Chloride 103 Carbon Dioxide 27 Anion Gap 12.1 BUN 26 H Creatinine 1.40 H Estimated Creat Clear 42 Estimated GFR 49 L Est GFR ( Amer) 59 Glucose 89 Calcium 8.9 Magnesium 1.8 Troponin I 0.09 H 12/30/17 11:06 WBC RBC Hgb Hct MCV MCH MCHC RDW Plt Count MPV Neut % (Auto) Lymph % (Auto) [place] % (Auto) Eos % (Auto) Baso % (Auto) Neut # (Auto) Lymph # (Auto) [place] # (Auto) Eos # (Auto) Baso # (Auto) Sodium Potassium Chloride Carbon Dioxide Anion Gap BUN Creatinine Estimated Creat Clear Estimated GFR Est GFR ( Amer) Glucose Calcium Magnesium Troponin I 0.08 H DS: Diagnosis - Discharge Diagnosis (1) Hypertension Status: Chronic (2) Congestive heart failure Status: Chronic (3) Renal insufficiency Status: Chronic (4) SOB (shortness of breath) Status: Acute (5) HLD (hyperlipidemia) Status: Chronic Discharge Plan - Patient Discharge Instructions ACTIVITY: Continue current activity DIET: low salt diet - Follow up Plan Follow up with: Milton Smith MD [Primary Care Provider] - 01/04/18 Disposition: Home, Self-Halfway Medications: Home Medications Medication Instructions Recorded Confirmed Type aspirin 81 mg tablet,delayed 81 mg PO DAILY 03/02/17 12/30/17 History release cyanocobalamin (vit B-12) 1,000 100 mcg IM MONTHLY ml 03/06/17 12/30/17 History mcg/mL injection solution Carvedilol [Carvedilol 6.25mg Tab] 6.25 mg PO BID 12/30/17 12/30/17 History Ciprofloxacin HCl [Ciprofloxacin 500 mg PO BID 12/30/17 12/30/17 History 500mg Tab] Prescriptions/Medication Reconciliation: New Furosemide [Lasix 20mg tab] 20 mg PO DAILY #30 tab Lisinopril [Lisinopril 2.5mg Tab] 2.5 mg PO DAILY #30 tab Continue cyanocobalamin (vit B-12) 1,000 mcg/mL injection solution 100 mcg IM MONTHLY ml aspirin 81 mg tablet,delayed release 81 mg PO DAILY Carvedilol [Carvedilol 6.25mg Tab] 6.25 mg PO BID Discontinued Ciprofloxacin HCl [Ciprofloxacin 500mg Tab] 500 mg PO BID
--- NOTE | 2017-12-31 09:11 | Consult Report ---
History of Present Illness Consult date: 12/31/17 Requesting physician: Milton Smith Consult reason: congestive heart failure Chief complaint: SOA Additional Medical History:: 1. Hx of CAD A. Stress Cardiolite August 2010 showed mild reversibility in the anterior wall. B. VANNA to the ostium of OM1 of the circumflex and BMS for stent edge dissection in July 2008. C. Taxus stent to the mid LAD in June 2007. D. Liberte stent to the proximal circumflex May 2007. E. Angioplasty to LAD at distal diagonal bifurcation May 2007. F. Cardiac cath, 09/2016, 1. The left main artery normal 2. The left anterior descending artery has proximal long concentric 40% stenoses with a mid vessel focal mostly eccentric 50% stenosis followed by stents which are widely patent free of in-stent restenosis. Distally there a re 40 and 50% mid vessel distal stenoses. The first diagonal artery has an ostial 70-80% stenosis and is 1.5 mm in diameter 3. The circumflex artery is a dominant vessel and has a proximal 20% st enosis mid vessel luminal irregularities. The first obtuse marginal artery is bluntly occluded at mid vessel and is 2 mm in diameter with no distal collateralization 4. The right coronary artery is a nondominant vessel tortuous and has proximal 20% mid vessel 20 and 30% relatively smooth stenoses 5. The GRANT ventriculogram reveals left ventricular dilatation with ejection fraction 35% 6. The left ventricular end-diastolic pressure 15 mmHg 2. History of cardiomyopathy and heart failure. A. Ejection fraction estimated at 45-50% by echo October 2011 B. Echo, 12/2017, preliminary EF 35% C. Echo, 05/2017, Left atrium is mildly enlarged, left ventricle is mildly dilated, visually estimated ejection fraction approximately 25-30%, there is marked hypo to akinesis involving the mid to distal septum, anterior, anteroapical, apical and inferoapical wall. The right atrium and right ventricle are normal size and contractility. The aortic valve is minimally thickened and fibrosed. The mitral and tricuspid valve leaflets are minimally thickened. The pulmonic valve is poorly visualized. No significant pericardial effusion noted. Grade 1 diastolic dysfunction seen with tissue Doppler evidence of raised left atrial pressure. Mild mitral and tricuspid regurgitation. No significant pericardial effusion noted D. [facility]. Reji BiV AICD ALUMNI RELATIONS COORDINATOR placed, 05/2017 3. Hypertension. 4. Hyperlipidemia. 5. BPH 6. Colonic polyposis now s/p colectomy with colostomy 7. History of cholelithiasis and choledocholithiasis History of present illness: 82-year-old white male with history of coronary artery disease status post previous coronary stenting, ischemic cardia myopathy with history of by V AICD implantation earlier this year admitted for increasing shortness of breath. Patient gives a history of at least 1 week of increasing shortness of breath activity and lying down to the point of needing to sit up. Sunday night he did sleep in a recliner due to the shortness of breath and a rattling with breathing. Patient did receive IV Lasix during his admission with significant improvement. This a.m. he is able to lie nearly flat with no complaints. Cardiology consulted due to heart failure. Patient has had a difficult time tolerating goal-directed therapy for his ischemic cardiomyopathy due to symptomatic low blood pressure. Cardiac troponins noted to be mildly elevated, likely secondary to congestive heart failure. [facility] History Medical History: Reports:: Congestive Heart Failure, Coronary Artery Disease, Hyperlipidemia, Hypertension, Internal Pacemaker Denies:: Cancer, Diabetes Mellitus Type 1, Diabetes Mellitus Type 2, MRSA, Seizures Other Medical History: Reports: Arthritis. Denies: Blood Transfusion Reaction Laterality Cases: Left: Arthroscopy Shoulder, Total Hip Replacement, Bilateral: Arthroscopy Hip, Other Other Surgeries: Yes: Pacemaker, Other (Cardiac Cath-stents, cholecystectomy) Amputation: No Fractures: No - *Social History Educational Level: Attended High School Smoking Status: Never smoker Tobacco Type: cigarettes #Yrs smoked (if former smoker): 20 Alcohol Intake: never Alcohol Intake Frequency:: other Occupational Status: retired Housing: house Household Members: spouse - Psychiatric History Expresses thoughts of harming self/others: None Suicide Plan Description: No Plan *Family Hx:: Cancer, Coronary Artery Disease, Heart Attack, Hypertension, Stroke Meds Home Medications Medication Instructions Recorded Confirmed Type aspirin 81 mg tablet,delayed 81 mg PO DAILY 03/02/17 12/30/17 History release cyanocobalamin (vit B-12) 1,000 100 mcg IM MONTHLY ml 03/06/17 12/30/17 History mcg/mL injection solution Carvedilol [Carvedilol 6.25mg Tab] 6.25 mg PO BID 12/30/17 12/30/17 History Allergies Allergy/AdvReac Type Severity Reaction Status Date / Time doxycycline Allergy Intermediate Verified 12/30/17 06:08 morphine Allergy Intermediate HALLUCINATI Verified 12/30/17 06:08 ONS Review of Systems - *Cardiovascular Reports shortness of breath, Reports shortness of breath with activity - *Respiratory Reports shortness of breath, Reports shortness of breath with activity - *Gastrointestinal Denies heartburn, Denies loose stools - *Genitourinary Denies blood in urine - *Musculoskeletal Denies joint pain - *Neurologic Denies seizure-like activity Exam Vital signs and Labs for Last 24 Hours: Temp Pulse Resp BP Pulse Ox 98.3 F 111 H 18 142/83 H 96 12/31/17 08:00 12/31/17 08:00 12/31/17 08:00 12/31/17 08:00 12/31/17 08:00 Laboratory Results - last 24 hr 12/30/17 11:06: Troponin I 0.08 H 12/30/17 14:01: Troponin I 0.09 H 12/31/17 06:35: WBC 7.5, RBC 4.08 L, Hgb 13.6 L, Hct 43.0, MCV 105.4 H, MCH 33.2 H, MCHC 31.6 L, RDW 14.4, Plt Count 185, MPV 7.5, Neut % (Auto) 70.3, Lymph % (Auto) 17.9, [place] % (Auto) 8.4, Eos % (Auto) 2.9, Baso % (Auto) 0.5, Neut # (Auto) 5.3, Lymph # (Auto) 1.4, [place] # (Auto) 0.6, Eos # (Auto) 0.2, Baso # (Auto) 0.0 12/31/17 06:35: Sodium 138, Potassium 4.1, Chloride 103, Carbon Dioxide 27, Anion Gap 12.1, BUN 26 H, Creatinine 1.40 H, Estimated Creat Clear 42, Estimated GFR 49 L, Est GFR ( Amer) 59, Glucose 89, Calcium 8.9, Magnesium 1.8 I & O for Last 24 hours: Intake & Output 12/28/17 12/29/17 12/30/17 12/31/17 12:59 12:59 11:59 11:59 Intake Total 600 / 600 Output Total 1600 / 1600 Balance -1000 / -1000 Weight 159 lb - *Routine HEENT Exam Head: Present: normocephalic Eye: Present: EOMI, PERRL ENT: Present: mucous membranes moist - *Routine Neck Exam Present: supple. Absent: JVD, carotid bruit - *Routine Respiratory Exam Present: CTA bilaterally. Absent: accessory muscle use, rales, rhonchi, wheezes - *Routine Cardiovascular Exam Present: RRR. Absent: murmur, gallop, rubs - *Routine Abdominal Exam Present: soft. Absent: tenderness, distended, guarding - *Routine Extremities Exam Absent: edema, calf tenderness - *Routine Neurological Exam Present: alert, oriented X3, moving all extremities Assessment and Plan (1) Hypertension Current visit: Yes Status: Chronic Qualifiers: Hypertension type: essential hypertension Qualified Code(s): I10 - Essential (primary) hypertension Category: Medical Code(s): I10 - Essential (primary) hypertension (2) Congestive heart failure Current visit: Yes Status: Chronic Qualifiers: Heart failure type: combined systolic and diastolic Heart failure chronicity: acute on chronic Qualified Code(s): I50.43 - Acute on chronic combined systolic (congestive) and diastolic (congestive) heart failure Category: Medical Code(s): I50.9 - Heart failure, unspecified (3) Renal insufficiency Current visit: Yes Status: Chronic Category: Medical Code(s): N28.9 - Disorder of kidney and ureter, unspecified (4) SOB (shortness of breath) Current visit: No Status: Acute Category: Medical Code(s): R06.02 - Shortness of breath (5) HLD (hyperlipidemia) Current visit: No Status: Chronic Qualifiers: Hyperlipidemia type: pure hypercholesterolemia Qualified Code(s): E78.00 - Pure hypercholesterolemia, unspecified; E78.0 - Pure hypercholesterolemia Category: Medical Code(s): E78.5 - Hyperlipidemia, unspecified - Assessment and plan all Dx Assessment and Plan for all problems:: 1. Patient is significantly better today. Agree with discharge home. 2. Agree with trying to reinstitute low-dose HARLEY inhibitor with lisinopril 2.5 mg daily and Lasix 20-40 mg daily as tolerated. Continue Coreg 6.25 mg twice daily. Continue aspirin 81 mg daily. 3. We would like to see the patient back in the office in 1 week for follow-up. Consider adding or substituting low-dose spironolactone and additional medication in the form of digoxin if tolerated.
--- NOTE | 2017-12-31 21:24 | Cardiology Report ---
PROCEDURE: 2-D M-mode and color Doppler study INDICATIONS FOR THE TEST: Chest pain COPD Heart Murmur Tobacco Smoking Palpitations Fatigue Syncope EdemaX HypertensionXDiabetes Mellitus Rheumatic Fever SOBXDOE Obesity HyperlipidemiaX Family History HD Additional History CHF,ICD,CAD PATIENT INFORMATION HEIGHT: 72 WEIGHT:163 GENDER: Male B/P:148/100 2-D/M-MODE INTERPRETATION: 2-D MEASUREMENTS OBSERVED VALUES IN CMS Right Ventricular Dimension (RVDd) 1.9 Interventricular Septum (Thickness)(IVsd) 1.0 Left Ventricular Internal Dimensions(LVIDd) 6.1 Left Ventricular Posterior Wall (Thickness)(LVPWd) 1.0 Aortic Root 2.8 Aortic Cusp Separation 1.8 Left Atrial Dimensions (LAD) 3.7 2D 1. Left atrium is mildly enlarged, left ventricle is mildly dilated, severely reduced left ventricular systolic function, visually estimated ejection fraction 25-30%, there is marked hypokinesis involving mid to distal septum, anterior, anteroapical and apical wall. 2. The right atrium and right ventricle are normal size and contractility, there is a pacemaker lead seen in the right atrium and right ventricle. 3. The aortic valve is minimally thickened and fibrosed. 4. The mitral and tricuspid valve leaflets are minimally thickened. 5. The pulmonic valve is poorly visualized. 6. Trivial pericardial effusion and large left-sided pleural effusion seen. DOPPLER INTERROGATION: Doppler interrogation of the aortic, mitral and tricuspid valvular presence of mild mitral and tricuspid regurgitation, calculated right ventricular systolic pressure is 54 mmHg consistent with moderate pulmonary hypertension, grade 1 diastolic dysfunction seen with tissue Doppler evidence of raised left atrial pressure. CONCLUSION: 1. Mildly enlarged left atrium, mildly dilated left ventricle, severely reduced left ventricular systolic function, visually estimated ejection fraction of 25-30% with multiple segmental wall motion abnormality, grade 1 diastolic dysfunction seen with tissue Doppler evidence of raised left atrial pressure. 2. Mild mitral and tricuspid regurgitation, calculated right ventricular systolic pressure is 54 mmHg consistent with moderate pulmonary hypertension. 3. Trivial pericardial and large left-sided pleural effusion seen.
== END 2017-12-31 09:52 | disposition home or self-care (01) ==
LOC: ER 05:56 → 2ND 05:56
PROVIDERS: ADMIT Internal Medicine Adolescent Medicine; ATTEND Internal Medicine Adolescent Medicine

== ENCOUNTER → 2018-01-09 11:12 | Outpatient (CLI) | payer MEDICARE, BC, SELFPAY ==
--- NOTE | 2018-01-09 11:13 | NM_ITS ---
History and Indications: Coronary artery disease, previous ID, hypertension, family history, shortness of breath Procedure: Patient received a 0.4 mg of intravenous Lexiscan, resting heart rate was 76 bpm resting blood pressure 137/80, with intravenous Lexiscan maximum heart rate achieved was 103 bpm which is less than 85% of the maximum predicted heart rate and a blood pressure was 126/75. With Lexiscan no symptoms recorded. Electrocardiogram: Resting electrocardiogram showed the electronically paced rhythm with Lexiscan there is less than 1.[address] segment depression noted from the baseline EKG. The EKG portion of the Lexiscan Myoview is nondiagnostic. Cardiac stress and resting SPECT images: Cardiac stress and rest SPECT images were obtained using technetium 99 Myoview 32.0 mCi stress and 10.4 mCi at rest. Gated SPECT further analysis of segmental wall motion and calculation of the ejection fraction also done. Cardiac stress and resting SPECT images show an extensive area of myocardial scarring involving the anteroapical, apex and anterolateral. And posterobasal wall. There is no significant bea-infarct ischemia. Computer derived ejection fraction is 35% with marked hypo to akinesis involving the anteroapical apex and anterolateral, lateral and inferior wall. Right ventricle is normal size and contractility. Conclusion: 1. The EKG portion of the Lexiscan Myoview is nondiagnostic. 2. Scintigraphic evidence of myocardial scarring involving the anteroapical, apex, anterolateral, inferior and posterobasal wall without significant bea-infarct ischemia. Computer derived ejection fraction 35% with segmental wall motion abnormality described above, right ventricle is normal size and contractility. 3. Abnormal Lexiscan Myoview study.
--- NOTE | 2018-01-09 15:01 | HMH.ITSHM ---
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 []vit b12 asa lisinopril lasix carvedilol
[2018-01-09 16:05] LABS: Anion Gap 0.7 mEq/L (5-15); Blood Urea Nitrogen 21 mg/dL (7-18); Calcium 9.4 mg/dL (8.5-10.1); Carbon Dioxide 27 mmol/L (21.0-32.0); Chloride 108 mmol/L (98-107); Creatinine,Serum 1.32 mg/dL (0.70-1.30); Estimated Glomerular Filt Rate 52 ml/min (>60); GFR (African American) 63 ML/MIN (>60); Glucose 91 mg/dL (74-106); Potassium 4.7 mmoL/L (3.5-5.1); Sodium 131 mmol/L (136-145)
== END ==
PROVIDERS: PCP Internal Medicine Adolescent Medicine; Visit Provider Internal Medicine Cardiovascular Disease
DX: I25.10 Atherosclerotic heart disease of native coronary artery without angina pectoris (principal); E78.00 Pure hypercholesterolemia, unspecified; I10 Essential (primary) hypertension; I25.2 Old myocardial infarction; I25.5 Ischemic cardiomyopathy; I45.10 Unspecified right bundle-branch block; I50.22 Chronic systolic (congestive) heart failure; I50.43 Acute on chronic combined systolic (congestive) and diastolic (congestive) heart failure; N28.9 Disorder of kidney and ureter, unspecified; R06.09 Other forms of dyspnea; R53.83 Other fatigue
CPT/HCPCS: 36415; 78452; 80048; 83880; 93017; A9502; J2785

== ENCOUNTER 2018-04-02 15:41 | Inpatient (IN) ==
[2018-04-02 16:03] LABS: Basophils % 0.3 % (0.1-2.0); Eosinophils # 0.1 K/mm3 (0.0-0.4); Eosinophils % 1.4 % (0.1-12.0); Hematocrit 45.2 % (42.0-52.0); Hemoglobin 14.8 g/dL (14.1-18.0); Lymphocytes # 0.8 K/mm3 (0.7-4.5); Lymphocytes % 9.1 % (10-50); Mean Corpuscular HGB Conc 32.8 g/dL (31.8-35.4); Mean Corpuscular Hemoglobin 33.2 pg (27.0-31.2); Mean Corpuscular Volume 101.1 fl (80-94); Mean Platelet Volume 7.3 fl (7.4-10.4); Monocytes % 12.5 % (1.7-9.3); Neutrophils # 6.4 K/mm3 (1.8-7.8); Neutrophils % 76.7 % (37.0-80.0); Platelet Count 220 K/mm3 (142-424); Red Blood Count 4.47 M/mm3 (4.60-6.20); White Blood Count 8.3 K/mm3 (4.8-10.8)
[2018-04-02 16:08] LABS: Anion Gap 16.9 mEq/L (5-15); Calcium 9.8 mg/dL (8.5-10.1); Potassium 4.9 mmoL/L (3.5-5.1)
--- NOTE | 2018-04-02 17:13 | Emergency Department Note ---
ED Disposition Clinical Impression: Non-ST elevation SC (NSTEMI), Syncope and collapse Disposition: Admitted As Inpatient Condition on Discharge: Fair Referrals: Milton Smith MD [Primary Care Provider] - - Critical Care Critical Care Time: Yes Attestation: On 04/02/18, the high probability of a clinically significant, sudden or life threatening deterioration of the following system(s) required my full and direct attention, intervention and personal management. The time I documented below is in addition to time spent performing reported procedures but includes the following listed in this critical care notation. Total Critical Care Time: 40 Vital system(s) involved:: Circulatory Failure My critical care processes included: Assessment & monitoring of V/S, Initial and Re-exams, Data Review/Interpretation, Coordinating Care, Medication Orders and management, Documentation Medical Decision Making - Chandana Inquiry Pt receiving controlled substance: No Vital Signs: 04/02/18 15:47 04/02/18 17:44 Temperature 98 F Temperature Source Oral Pulse Rate [Right Radial] 106 H 63 Respiratory Rate 18 18 Blood Pressure [Right Arm] 107/64 L 133/72 Blood Pressure Mean [Right Arm] 78 92 Blood Pressure Source [Right Arm] Automatic Cuff Automatic Cuff Blood Pressure Position [Right Arm] Supine Sitting 02 Sat by Pulse Oximetry 99 Oxygen Delivery Method Room Air - Lab Data Lab Results 04/02/18 15:50: WBC 8.3, RBC 4.47 L, Hgb 14.8, Hct 45.2, MCV 101.1 H, MCH 33.2 H , MCHC 32.8, RDW 13.0, Plt Count 220, MPV 7.3 L, Neut % (Auto) 76.7, Lymph % (Auto) 9.1 L, [place] % (Auto) 12.5 H, Eos % (Auto) 1.4, Baso % (Auto) 0.3, Neut # (Auto) 6.4, Lymph # (Auto) 0.8, [place] # (Auto) 1.0, Eos # (Auto) 0.1, Baso # (Auto) 0.0 04/02/18 15:50: Sodium 134 L, Potassium 4.9, Chloride 97 L, Carbon Dioxide 25, Anion Gap 16.9 H, BUN 29 H, Creatinine 1.84 H, Estimated Creat Clear 33, Estimated GFR 35 L, Est GFR ( Amer) 43 L, Glucose 137 H, Calcium 9.8 04/02/18 16:00: Troponin I 0.73 H Result diagrams: 04/02/18 15:50 04/02/18 15:50 Orders (Tests/Meds): ED MEDICATIONS Generic Name Dose Route Start Last Admin Trade Name Freq PRN Reason Stop Dose Admin Sodium Chloride 1,000 mls @ 999 mls/hr 04/02/18 17:30 04/02/18 17:20 Sod Chlor 0.9% 1000ml Bag IV 04/02/18 18:30 999 mls/hr .[id number] SHAYAN Administration Discontinued Medications Generic Name Dose Route Start Last Admin Trade Name Freq PRN Reason Stop Dose Admin Aspirin 324 mg 04/02/18 18:11 04/02/18 18:12 Aspirin 81mg Chewable Tablet PO 04/02/18 18:12 324 mg ONCE ONE Administration Ticagrelor 180 mg 04/02/18 18:29 04/02/18 18:39 Brilinta 90mg Tablet PO 04/02/18 18:30 180 mg ONCE ONE Administration ORDERS Category Date Time Status CT head/brain wo con Stat Cat Scan 04/02/18 17:22 Taken XR chest AP Stat Exams 04/02/18 17:22 Taken 12-lead EKG Request [ECG Request by /Wiley] Stat Y 04/02/18 15:54 Ordered - Radiology Data #1 Image(s): Chest Image Reviewed: Yes I reviewed the patient's radiology image Preliminary Findings: Normal/NAD - CT Data CT Scan: Head Time Received: 18:[address] Reviewed: Yes: I have viewed the radiologist's interpretation Findings Narrative: CT scan interpreted by [facility] radiologist. Faxed report received and reviewed: No acute intracranial hemorrhage. No intra-axial mass or regional mass-effect. - ECG Data Tracing #1 EKG interpreted by Rory Perez MD: Rhythm: Ventricular paced rhythm Rate: 97 No evidence of acute ischemia or injury - Physician Consults Physician Consulted: Lei Time: 18:28 Reason -: Cardiology Eval/Care Comment/Response: Brilinta 180 mg. Likely cardiac cath tomorrow Additional Consult: Sarah Time: 18:35 Reason -: Admission Comment/Response: Agrees to admit the patient to the hospital. We discussed the patient's clinical information, including history, exam, laboratory and radiology results and ED course. Per hospital procedure, I will write temporary bridge inpatient orders on the patient. Specific orders requested by the admitting physician: Per cardiology - NIYA Score for Non-Stemi Age of Patient: 80-89 years old Heart Rate: 90-109 bpm Systolic Blood Pressure: 100-119 mmHg Serum Creatinine: 1.60-1.99 mg/dl CHF Kill[place] Class: I-No CHF Other Risk Factors: Elevated Cardiac Enzymes or Biomarkers Non-Stemi Risk Score: 176 General Adult HPI - General Chief complaint: Syncope Stated complaint: Keeps passing out Time Seen by Provider: 04/02/18 17:13 Mode of Arrival: Ambulatory Limitations: No Limitations Description of Symptoms (Recalled from ER Triage Doc. by RN): syncope - History of Present Illness HPI narrative: Brought in for syncope. states that she heard a thud and found him passed out on the floor. She says he was only unconscious briefly. She got him into a chair and then he passed out again. She says she thinks he scraped his left elbow and hit his head the first time that he passed out. She was able to hold him in the chair the second time, so he did not fall. He does not remember the syncopal episode. He states that he had chest pain from 3 PM yesterday until he went to bed. He says that he took a Tums and it went away for about an hour and then came back. He took another Tums and it went away and did not return, although he says he is feels a little sore where he had the pain. No shortness of breath or diaphoresis. Today he has been weak and nauseated all day long and is not gotten out of bed until the above-noted syncopal episode. He denies chest pain today. Denies shortness of breath today. Denies current cough, fever, vomiting, or diarrhea. Patient has a pacemaker. No prior history of syncope. - Related Data Home Medications Medication Instructions Recorded Confirmed aspirin 81 mg tablet,delayed 81 mg PO DAILY 03/02/17 01/04/18 release cyanocobalamin (vit B-12) 1,000 100 mcg IM MONTHLY ml 03/06/17 01/04/18 mcg/mL injection solution Carvedilol [Carvedilol 6.25mg Tab] 6.25 mg PO BID 12/30/17 01/04/18 Furosemide [Lasix 20mg tab] 20 mg PO DAILY 04/02/18 Lisinopril [Lisinopril 2.5mg Tab] 2.5 mg PO DAILY 04/02/18 Allergies Allergy/AdvReac Type Severity Reaction Status Date / Time doxycycline Allergy Intermediate Verified 12/30/17 06:08 morphine Allergy Intermediate HALLUCINATI Verified 12/30/17 06:08 ONS [facility] History - Hepatitis A Screen Drug use history?: No High risk sexual behaviors?: No History of sexually transmitted infection?: No Currently employed?: No Childcare worker?: No Do you have indoor plumbing?: Yes Do you have electricity?: Yes Attestation statement:: This patient has been screened for Hepatitis A risk factors. I have reviewed the patient's past medical history: Yes Medical History: Reports:: Congestive Heart Failure, Coronary Artery Disease, Hyperlipidemia, Hypertension, Internal Pacemaker Denies:: Cancer, Diabetes Mellitus Type 1, Diabetes Mellitus Type 2, MRSA, Seizures Other Medical History: Reports: Arthritis. Denies: Blood Transfusion Reaction Comment: BPH, elevated prostate Laterality Cases: Left: Arthroscopy Shoulder, Total Hip Replacement, Bilateral: Arthroscopy Hip, Other Other Surgeries: Yes: Pacemaker, Other (Cardiac Cath-stents, cholecystectomy) Amputation: No Fractures: No - Social History Smoking Status: Never smoker Tobacco Type: cigarettes #Yrs smoked (if former smoker): 20 Alcohol Intake: never Alcohol Intake Frequency:: other Occupational Status: retired Housing: house Household Members: spouse Family Hx:: Cancer, Coronary Artery Disease, Heart Attack, Hypertension, Stroke Comment: father, brother, sister heart disease ROS Obtained: Yes All systems reviewed & no additional complaints - Constitutional Constitutional: Denies fever(s), Reports malaise, Reports weakness - Cardiovascular Cardiovascular: Reports chest pain, Reports fainting - Respiratory Respiratory: No dyspnea - Gastrointestinal Gastrointestingal: Reports: nausea. Denies: diarrhea, vomiting - Musculoskeletal Musculoskeletal: Denies neck pain - Neurologic Neurologic: Denies headache(s) Physical Exam - General General appearance: alert, in no apparent distress - Head Head exam: atraumatic, normocephalic - Eye Eye exam: Present: normal appearance, PERRL, EOMI - ENT ENT exam: Present: mucous membranes moist - Neck Neck exam: Present: normal inspection, full ROM, trachea midline. Absent: tenderness - Chest Chest inspection: Present: normal inspection, symmetric chest wall rise - Respiratory Respiratory exam: Present: normal lung sounds bilaterally. Absent: respiratory distress - Cardiovascular Cardiovascular exam: Present: regular rate, normal rhythm, normal heart sounds - Abdominal Exam Abdominal exam: Present: soft. Absent: distention, tenderness, guarding, rebound, rigidity - Extremities Exam Extremities exam: Present: tenderness, other (Abrasion left elbow, full range of motion without pain) - Neurological Exam Neurological exam: Present: alert, oriented X3, CN II-XII intact. Absent: motor sensory deficit - Psychiatric Psychiatric exam: Present: normal affect, normal mood - Skin Skin exam: Present: warm, dry
--- NOTE | 2018-04-03 07:56 | Pharmacy Consult Notes ---
[facility] Pharmacy VTE Monitoring - Patient Demographics Admission date: 04/02/18 Report Date: 04/03/18 Time: 07:56 Allergies/Adverse Reactions: Patient Allergies doxycycline Allergy (Intermediate, Verified 12/30/17 06:08) morphine Allergy (Intermediate, Verified 12/30/17 06:08) HALLUCINATIONS Height: 1.83 m Weight: 77.564 kg Patient Problems: Current Active Problems Non-ST elevation [place] (NSTEMI) (Acute) Syncope and collapse (Acute) - VTE Risk Labs: VTE Related Lab Results Hgb 14.8 g/dL (14.1-18.0) 04/02/18 15:50 Hct 45.2 % (42.0-52.0) 04/02/18 15:50 Plt Count 220 K/mm3 (142-424) 04/02/18 15:50 BUN 29 mg/dL (7-18) H 04/02/18 15:50 Creatinine 1.84 mg/dL (0.70-1.30) H 04/02/18 15:50 Estimated Creat Clear 33 mL/min (50-200) 04/02/18 15:50 Was VTE Risk Assessment Performed: Yes VTE Risk Level: Moderate Risk Clinical Trial Participant: No - Prophylaxis VTE Prophylaxis Ordered?: Yes Types of VTE Prophylaxis: TEDS Knee High
--- NOTE | 2018-04-03 08:04 | History & Physical Report ---
*Admission Date: 04/02/18 *Chief complaint: Chest pain/syncope *History of present illness: 83-year-old white male history of coronary disease, CHF-systolic, chronic-and hypertension who the day before admission began having some chest pain at rest. He took some Tums tablets which improved symptomatically returned. He went to bed and slept well but the next morning, yesterday he was unable to get out of bed because of weakness. He was able to get up but then did had a syncopal episode. Brought to the emergency department. Found to have elevated troponin levels consult with non-STEMI and admit hospital for further evaluation This morning he is symptom-free except for weakness. [facility] History I have reviewed the patient's past medical history: Yes Medical History: Reports:: Arrhythmia, Congestive Heart Failure, Coronary Artery Disease, Hyperlipidemia, Hypertension, Internal Pacemaker Denies:: Cancer, Diabetes Mellitus Type 1, Diabetes Mellitus Type 2, MRSA, Seizures Have you ever received a pneumonia vaccine?: Yes Have you received a flu vaccine this season?: Yes Other Medical History: Reports: Arthritis. Denies: Blood Transfusion Reaction Laterality Cases: Left: Arthroscopy Shoulder, Bilateral: Arthroscopy Hip, Total Hip Replacement, Other Other Surgeries: Yes: Cholecystectomy, Colonoscopy, Colostomy, Hernia Repair, Pacemaker, Other (Cardiac Cath-stents, cholecystectomy) Amputation: No Fractures: No - *Social History Educational Level: Completed High School Smoking Status: Former smoker Tobacco Type: cigarettes #Yrs smoked (if former smoker): 10 Alcohol Intake: never Alcohol Intake Frequency:: other Occupational Status: retired Housing: house Household Members: spouse Travel in the last 8 weeks: None - Psychiatric History Expresses thoughts of harming self/others: None Suicide Plan Description: No Plan *Family Hx:: Cancer, Coronary Artery Disease, Heart Attack, Hypertension, Stroke Review of Systems - Review of Systems Review of systems:: pertinent systems reviewed and negative unless documented below - Constitutional Reports daytime sleepiness, Denies anorexia, Denies body ache(s), Denies chills - Eyes Denies blind spots, Denies blurry vision, Denies change in vision - ENT Denies abnormal hearing - *Cardiovascular Reports chest pain, Reports chest pain at rest, Reports chest pain with activity, Reports shortness of breath, Reports shortness of breath with activity, Reports lightheadedness, Denies irregular heart rhythm, Denies leg swelling - *Respiratory Denies change in phlegm color, Denies chest congestion, Denies cough - *Gastrointestinal Denies abdominal pain, Denies belching, Denies bloating - *Genitourinary Denies difficulty urinating - *Musculoskeletal Denies abnormal walking - Integumentary/Breasts Denies acne - *Neurologic Reports fainting, Reports weakness, Denies abnormal walking, Denies headache(s) - Psychiatric Denies abnormal sleep pattern - Endocrine Denies cold intolerance - Hematologic/Lymphatic Denies easy bleeding Meds Home Medications Medication Instructions Recorded Confirmed Type aspirin 81 mg tablet,delayed 81 mg PO DAILY 03/02/17 04/02/18 History release cyanocobalamin (vit B-12) 1,000 100 mcg IM MONTHLY ml 03/06/17 04/02/18 History mcg/mL injection solution Carvedilol [Carvedilol 6.25mg Tab] 6.25 mg PO BID 12/30/17 04/02/18 History Furosemide [Lasix 20mg tab] 20 mg PO DAILY 04/02/18 04/02/18 History Lisinopril [Lisinopril 2.5mg Tab] 2.5 mg PO DAILY 04/02/18 04/02/18 History Allergies Allergy/AdvReac Type Severity Reaction Status Date / Time doxycycline Allergy Intermediate Verified 12/30/17 06:08 morphine Allergy Intermediate HALLUCINATI Verified 12/30/17 06:08 ONS Exam Vital signs and Labs for Last 24 Hours: Temp Pulse Resp BP Pulse Ox 98.6 F 85 18 102/59 L 94 L 04/03/18 04:05 04/03/18 04:05 04/03/18 04:05 04/03/18 04:05 04/03/18 04:05 Laboratory Results - last 24 hr 04/02/18 15:50: WBC 8.3, RBC 4.47 L, Hgb 14.8, Hct 45.2, MCV 101.1 H, MCH 33.2 H , MCHC 32.8, RDW 13.0, Plt Count 220, MPV 7.3 L, Neut % (Auto) 76.7, Lymph % (Auto) 9.1 L, [place] % (Auto) 12.5 H, Eos % (Auto) 1.4, Baso % (Auto) 0.3, Neut # (Auto) 6.4, Lymph # (Auto) 0.8, [place] # (Auto) 1.0, Eos # (Auto) 0.1, Baso # (Auto) 0.0 04/02/18 15:50: Sodium 134 L, Potassium 4.9, Chloride 97 L, Carbon Dioxide 25, Anion Gap 16.9 H, BUN 29 H, Creatinine 1.84 H, Estimated Creat Clear 33, Estimated GFR 35 L, Est GFR ( Amer) 43 L, Glucose 137 H, Calcium 9.8 04/02/18 16:00: Troponin I 0.73 H 04/02/18 21:41: Troponin I 0.71 H 04/03/18 00:45: Troponin I 0.87 H I & O for Last 24 hours: Intake & Output 03/31/18 04/01/18 04/02/18 04/03/18 11:59 11:59 11:59 11:59 Intake Total 370 / 370 Balance 370 / 370 Weight 170 lb 15.989 oz Narrative: Patient is awake, is normal pleasant self, oriented x3. No JVD. Oropharynx clear and moist, otherwise ENT exam is normal, lungs are clear bilaterally, heart rate regular. No murmurs or rubs. Pacemaker site looks good. Abdomen soft and nontender. No edema, clubbing or cyanosis. Neurologic examination intact including cranial nerves and peripheral strength. No skin breakdown. Assessment and Plan (1) Non-ST elevation [place] (NSTEMI) Current visit: Yes Status: Acute Category: Medical Code(s): I21.4 - Non-ST elevation (NSTEMI) myocardial infarction Agree with admission for cardiology evaluation for left heart cath. (2) Syncope and collapse Current visit: Yes Status: Acute Category: Medical Code(s): R55 - Syncope and collapse No further symptomatology and close observation. (3) Congestive heart failure Current visit: No Status: Chronic Qualifiers: Heart failure type: combined systolic and diastolic Heart failure chronicity: acute on chronic Qualified Code(s): I50.43 - Acute on chronic combined systolic (congestive) and diastolic (congestive) heart failure Category: Medical Code(s): I50.9 - Heart failure, unspecified Currently asymptomatic. Evaluate data from left heart cath.
--- NOTE | 2018-04-03 10:14 | Consult Report ---
History of Present Illness Consult date: 04/03/18 (at 0945) Requesting physician: Milton Smith Consult reason: chest pain Chief complaint: chest pain, syncope and weakness History of present illness: This is an 83-year-old white male who presented to the emergency department with complaints of syncope, weakness and chest pain. The patient states that the day before yesterday he had sudden onset of chest pain. He states that this was in the center of his chest burning sensation. The patient states that this started while he was sitting in his recliner. He got up and went to lay in the bed and the pain did not improve so he got up and took some Tums. This did improve his symptoms and he laid back down. The chest pain recurred and he took an additional dose of times and his symptoms resolved and did not recur. The following morning the patient woke up and he was very fatigued and weak. He states that he just did not even feel like getting out of bed he was so tired. The patient states that he pretty much slept the entire morning and when he did get out of bed he went to the bathroom. [place] standing at the [place] he had sudden onset of dizziness profound fatigue. The patient states that he was unable to control himself and had a syncopal episode. His states that she did witness this and he did lose consciousness for only a few seconds. She states that she was able to get him up in a chair and then he passed out again for a few seconds and then came to. This morning he has had no recurrence of his chest pain or pressure. He still complains of fatigue but states that this is not as bad as it was yesterday. He denies any shortness of breath or edema. No fever chills nausea vomiting diarrhea PND orthopnea today. He does report that when he was having the chest pain it was associated with clamminess and nausea but no vomiting. The pain was a 7 out of 10 and it did not radiate. [facility] History Medical History: Reports:: Arrhythmia, Atherosclerotic Heart Disease, Congestive Heart Failure, Coronary Artery Disease, Hyperlipidemia, Hypertension, Internal Pacemaker (AICD) Denies:: Cancer, Diabetes Mellitus Type 1, Diabetes Mellitus Type 2, MRSA, Seizures Have you ever received a pneumonia vaccine?: Yes Have you received a flu vaccine this season?: Yes Other Medical History: Reports: Arthritis. Denies: Blood Transfusion Reaction Laterality Cases: Left: Arthroscopy Shoulder, Bilateral: Arthroscopy Hip, Total Hip Replacement, Other Other Surgeries: Yes: Cholecystectomy, Colonoscopy, Colostomy, Hernia Repair, Pacemaker, Other (Cardiac Cath-stents, cholecystectomy) Amputation: No Fractures: No - *Social History Educational Level: Completed High School Smoking Status: Former smoker Tobacco Type: cigarettes #Yrs smoked (if former smoker): 10 Alcohol Intake: never Alcohol Intake Frequency:: other Occupational Status: retired Housing: house Household Members: spouse Travel in the last 8 weeks: None - Psychiatric History Expresses thoughts of harming self/others: None Suicide Plan Description: No Plan *Family Hx:: Cancer, Coronary Artery Disease, Heart Attack, Hypertension, Stroke Meds Home Medications Medication Instructions Recorded Confirmed Type aspirin 81 mg tablet,delayed 81 mg PO DAILY 03/02/17 04/02/18 History release cyanocobalamin (vit B-12) 1,000 1,000 mcg IM MONTHLY ml 03/06/17 04/03/18 History mcg/mL injection solution Carvedilol [Carvedilol 6.25mg Tab] 6.25 mg PO BID 12/30/17 04/02/18 History Furosemide [Lasix 20mg tab] 20 mg PO DAILY 04/02/18 04/02/18 History Lisinopril [Lisinopril 2.5mg Tab] 2.5 mg PO DAILY 04/02/18 04/02/18 History Allergies Allergy/AdvReac Type Severity Reaction Status Date / Time doxycycline Allergy Intermediate Verified 12/30/17 06:08 morphine Allergy Intermediate HALLUCINATI Verified 12/30/17 06:08 ONS Review of Systems - Review of Systems Review of systems:: pertinent systems reviewed and negative unless documented below - Constitutional Reports fatigue, Reports lack of energy, Reports weakness - *Cardiovascular Reports chest pain, Reports chest pain at rest, Reports chest pain with activity - *Gastrointestinal Reports nausea - Integumentary/Breasts Comments: Diaphoresis - *Neurologic Reports fainting, Reports weakness, Denies abnormal walking, Denies abnormal hearing, Denies headache(s) Exam Vital signs and Labs for Last 24 Hours: Temp Pulse Resp BP Pulse Ox 97.7 F 87 18 130/74 98 04/03/18 08:00 04/03/18 08:00 04/03/18 08:00 04/03/18 08:00 04/03/18 08:00 Laboratory Results - last 24 hr 04/02/18 15:50: WBC 8.3, RBC 4.47 L, Hgb 14.8, Hct 45.2, MCV 101.1 H, MCH 33.2 H , MCHC 32.8, RDW 13.0, Plt Count 220, MPV 7.3 L, Neut % (Auto) 76.7, Lymph % (Auto) 9.1 L, [place] % (Auto) 12.5 H, Eos % (Auto) 1.4, Baso % (Auto) 0.3, Neut # (Auto) 6.4, Lymph # (Auto) 0.8, [place] # (Auto) 1.0, Eos # (Auto) 0.1, Baso # (Auto) 0.0 04/02/18 15:50: Sodium 134 L, Potassium 4.9, Chloride 97 L, Carbon Dioxide 25, Anion Gap 16.9 H, BUN 29 H, Creatinine 1.84 H, Estimated Creat Clear 33, Estimated GFR 35 L, Est GFR ( Amer) 43 L, Glucose 137 H, Calcium 9.8 04/02/18 16:00: Troponin I 0.73 H 04/02/18 21:41: Troponin I 0.71 H 04/03/18 00:45: Troponin I 0.87 H I & O for Last 24 hours: Intake & Output 03/31/18 04/01/18 04/02/18 04/03/18 23:59 23:59 23:59 23:59 Intake Total 250 / 250 360 / 360 Balance 250 / 250 360 / 360 Weight 170 lb 5 oz 170 lb 15.989 oz Narrative: His EKG shows V pacing with a rate of 97. - Constitutional no acute distress, average body habitus, cooperative - *Routine HEENT Exam Head: Present: normocephalic, atraumatic Eye: Present: EOMI, PERRL ENT: Present: mucous membranes moist - *Routine Neck Exam Present: supple, full ROM, normal carotid upstroke. Absent: JVD, carotid bruit, lymphadenopathy - *Routine Respiratory Exam Present: CTA bilaterally - *Routine Cardiovascular Exam Present: RRR, Normal S1, Normal S2. Absent: murmur, gallop - *Routine Abdominal Exam Present: soft, normoactive bowel sounds. Absent: tenderness - *Routine Extremities Exam Present: full ROM, pulses intact, normal capillary refill. Absent: cyanosis, clubbing, edema - *Routine Skin Exam Present: intact, warm. Absent: rash - *Routine Neurological Exam Present: alert, oriented X3, CN II-XII intact. Absent: sensory deficit, motor deficit - Detailed Eye Exam Eyelids: Left normal inspection Assessment and Plan (1) Non-ST elevation [place] (NSTEMI) Current visit: Yes Status: Acute Category: Medical Code(s): I21.4 - Non-ST elevation (NSTEMI) myocardial infarction (2) Syncope and collapse Current visit: Yes Status: Acute Category: Medical Code(s): R55 - Syncope and collapse (3) Congestive heart failure Current visit: No Status: Chronic Qualifiers: Heart failure type: combined systolic and diastolic Heart failure chronicity: acute on chronic Qualified Code(s): I50.43 - Acute on chronic combined systolic (congestive) and diastolic (congestive) heart failure Category: Medical Code(s): I50.9 - Heart failure, unspecified (4) Coronary artery disease Current visit: Yes Status: Chronic Category: Medical Code(s): I25.10 - Atherosclerotic heart disease of [place] coronary artery without angina pectoris (5) Hypertensive heart disease Current visit: Yes Status: Chronic Category: Medical Code(s): I11.9 - Hypertensive heart disease without heart failure (6) AICD (automatic cardioverter/defibrillator) present Current visit: Yes Status: Chronic Category: Surgical Code(s): Z95.810 - Presence of automatic (implantable) cardiac defibrillator (7) HLD (hyperlipidemia) Current visit: No Status: Chronic Qualifiers: Hyperlipidemia type: pure hypercholesterolemia Qualified Code(s): E78.00 - Pure hypercholesterolemia, unspecified; E78.0 - Pure hypercholesterolemia Category: Medical Code(s): E78.5 - Hyperlipidemia, unspecified (8) Systolic heart failure Current visit: No Status: Chronic Qualifiers: Heart failure chronicity: chronic Qualified Code(s): I50.22 - Chronic systolic (congestive) heart failure Category: Medical Code(s): I50.20 - Unspecified systolic (congestive) heart failure - Assessment and plan all Dx Assessment and Plan for all problems:: Plan: 1. The patient was admitted with chest pain and syncope. The patient had chest pain at rest with profound fatigue and 2 episodes of syncope following his chest pain. See HPI. The patient is having typical angina/class IV angina. He has known coronary artery disease action. We will plan to proceed with left cardiac catheterization to evaluate for coronary artery disease. 2. The patient has been educated on the risks and benefits of proceeding with cardiac catheterization with right radial access. The patient has verbalized understanding and is agreeable in proceeding with the procedure. 3. The patient will remain n.p.o. in preparation for left cardiac catheterization. 4. Premedications will be administered to the patient prior to his left cardiac catheterization. 5. No IV fluids given his systolic congestive heart failure. 6. Coronary artery disease is present. 7. Blood pressure is well controlled. 8. His LDL goal is less than 55. We will get a liver and lipid panel. 9. The patient does have congestive heart failure and has an AICD in place. 10. Further recommendations will be made pending the patient response to treatment and the results of his left cardiac catheterization later today. Thank you opportunity to help participate in the care of this patient.
[2018-04-04 06:46] LABS: Basophils % 0.4 % (0.1-2.0); Eosinophils # 0.3 K/mm3 (0.0-0.4); Eosinophils % 4.3 % (0.1-12.0); Hematocrit 37.8 % (42.0-52.0); Hemoglobin 12.3 g/dL (14.1-18.0); Lymphocytes # 1.1 K/mm3 (0.7-4.5); Lymphocytes % 14.5 % (10-50); Mean Corpuscular HGB Conc 32.6 g/dL (31.8-35.4); Mean Corpuscular Hemoglobin 32.9 pg (27.0-31.2); Mean Corpuscular Volume 101.2 fl (80-94); Monocytes # 0.8 K/mm3 (0.1-1.0); Monocytes % 10.6 % (1.7-9.3); Neutrophils # 5.1 K/mm3 (1.8-7.8); Neutrophils % 70.3 % (37.0-80.0); Platelet Count 161 K/mm3 (142-424); Red Blood Count 3.73 M/mm3 (4.60-6.20); Red Cell Distribution Width 13.3 % (11.5-17.5); White Blood Count 7.3 K/mm3 (4.8-10.8)
[2018-04-04 07:02] LABS: Albumin Level 2.8 gm/dL (3.4-5.0); Anion Gap 15.1 mEq/L (5-15); Bilirubin,Direct 3.2 mg/dL (0.0-0.2); Bilirubin,Indirect 0.8 mg/dL (0.0-0.9); Chol/HDL Ratio 6.7 (1-3.5); Potassium 4.1 mmoL/L (3.5-5.1); Total Protein,Serum 6.3 gm/dL (6.4-8.2)
[2018-04-04 07:13] LABS: Calcium 8.8 mg/dL (8.5-10.1)
--- NOTE | 2018-04-04 08:22 | Progress Note ---
Subjective Date: 04/04/18 Time: 08:18 Principal diagnosis: NSTEMI Interval history: 83 yo WM in bed in NAD. No chest pain overnight. Still weak but improved. No further syncope. Exam Vital signs and Labs for Last 24 Hours: Temp Pulse Resp BP Pulse Ox 98.0 F 92 H 16 116/71 95 04/04/18 08:00 04/04/18 08:00 04/04/18 08:00 04/04/18 08:00 04/04/18 08:00 Laboratory Results - last 24 hr 04/04/18 06:03: WBC 7.3, RBC 3.73 L, Hgb 12.3 L, Hct 37.8 L, MCV 101.2 H, MCH 32.9 H, MCHC 32.6, RDW 13.3, Plt Count 161 D, MPV 7.0 L, Neut % (Auto) 70.3, Lymph % (Auto) 14.5, [place] % (Auto) 10.6 H, Eos % (Auto) 4.3, Baso % (Auto) 0.4, Neut # (Auto) 5.1, Lymph # (Auto) 1.1, [place] # (Auto) 0.8, Eos # (Auto) 0.3, Baso # (Auto) 0.0 04/04/18 06:03: Sodium 135 L, Potassium 4.1, Chloride 101, Carbon Dioxide 23, Anion Gap 15.1 H, BUN 22 H, Creatinine 1.55 H, Estimated Creat Clear 40, Estimated GFR 43 L, Est GFR ( Amer) 52 L D, Glucose 95, Calcium 8.8 D, Total Bilirubin 4.0 H, Direct Bilirubin 3.2 H, Indirect Bilirubin 0.8, AST 97 H, ALT 129 H, Alkaline Phosphatase 192 H, Total Protein 6.3 L, Albumin 2.8 L, Triglycerides 106, Cholesterol 120 L, LDL Cholesterol 81, VLDL Cholesterol 21, HDL Cholesterol 18 L, Cholesterol/HDL Ratio 6.7 H I & O for Last 24 hours: Intake & Output 04/01/18 04/02/18 04/03/18 04/04/18 11:59 11:59 11:59 11:59 Intake Total 610 / 610 840 / 840 Balance 610 / 610 840 / 840 Weight 170 lb 15.989 oz 169 lb 3 oz - *Routine HEENT Exam Head: Present: normocephalic Eye: Present: EOMI, PERRL ENT: Present: mucous membranes moist - *Routine Respiratory Exam Present: CTA bilaterally. Absent: accessory muscle use, rales, rhonchi, wheezes - *Routine Cardiovascular Exam Present: RRR. Absent: murmur, gallop, rubs - *Routine Extremities Exam Absent: edema, calf tenderness - *Routine Neurological Exam Present: alert, oriented X3, moving all extremities Progress Note: A&P (1) Non-ST elevation [place] (NSTEMI) Status: Acute Current Visit: Yes (2) Syncope and collapse Status: Acute Current Visit: Yes (3) Congestive heart failure Status: Chronic Current Visit: No (4) Coronary artery disease Status: Chronic Current Visit: Yes (5) Hypertensive heart disease Status: Chronic Current Visit: Yes (6) AICD (automatic cardioverter/defibrillator) present Status: Chronic Current Visit: Yes (7) HLD (hyperlipidemia) Status: Chronic Current Visit: No (8) Systolic heart failure Status: Chronic Current Visit: No Assessment and Plan for All Diagnoses:: OK for discharge home from Cardiology standpoint. No arrhythmias noted on telemetry. Cath reviewed with moderate CAD and no need for intervention. Medical therapy for CAD and Cardiomyopathy (EF 40-45%). Home on ASA and Brilinta, Coreg, lasix and lisinopril. RTC in 1-2 wks.
--- NOTE | 2018-04-04 09:31 | Discharge Summary ---
General - General Admission date:: 04/02/18 Discharge date: 04/04/18 HPI HPI: 83-year-old white male history of coronary disease, CHF-systolic, chronic-and hypertension who the day before admission began having some chest pain at rest. He took some Tums tablets which improved symptomatically returned. He went to bed and slept well but the next morning, yesterday he was unable to get out of bed because of weakness. He was able to get up but then did had a syncopal episode. Brought to the emergency department. Found to have elevated troponin levels consult with non-STEMI and admit hospital for further evaluation This morning he is symptom-free except for weakness. Hospital Course Hospital Course: Patient was admitted for cardiology consult. He was seen by Dr. Odom and taken for left heart cath. He was found to have moderate CAD with EF 40-45%, no intervention was warranted. See cath report for complete details. Telemetry was uneventful through they night. He denies any further chest pain. He does have some shortness of breath with ambulation which is at baseline, denies chest pain or dizziness. He is tolerating oral intake well. Discharge home with addition of Brilinta. See med rec for complete list. FU with myself in one week. FU with Cardiology in 1-2 weeks. Objective Vital signs: Temp Pulse Resp BP Pulse Ox 98.0 F 92 H 16 116/71 95 04/04/18 08:00 04/04/18 08:00 04/04/18 08:00 04/04/18 08:00 04/04/18 08:00 Narrative: Alert and oriented x3. Rate and rhythm regular. PPM site unremarkable. Lung sounds with fine crackles bilateral bases. Abdomen soft and nontender. No LE edema. Results Labs on day of discharge: Labs from last 24 hours 04/04/18 04/04/18 06:03 06:03 WBC 7.3 RBC 3.73 L Hgb 12.3 L Hct 37.8 L MCV 101.2 H MCH 32.9 H MCHC 32.6 RDW 13.3 Plt Count 161 D MPV 7.0 L Neut % (Auto) 70.3 Lymph % (Auto) 14.5 [place] % (Auto) 10.6 H Eos % (Auto) 4.3 Baso % (Auto) 0.4 Neut # (Auto) 5.1 Lymph # (Auto) 1.1 [place] # (Auto) 0.8 Eos # (Auto) 0.3 Baso # (Auto) 0.0 Sodium 135 L Potassium 4.1 Chloride 101 Carbon Dioxide 23 Anion Gap 15.1 H BUN 22 H Creatinine 1.55 H Estimated Creat Clear 40 Estimated GFR 43 L Est GFR ( Amer) 52 L D Glucose 95 Calcium 8.8 D Total Bilirubin 4.0 H Direct Bilirubin 3.2 H Indirect Bilirubin 0.8 AST 97 H ALT 129 H Alkaline Phosphatase 192 H Total Protein 6.3 L Albumin 2.8 L Triglycerides 106 Cholesterol 120 L LDL Cholesterol 81 VLDL Cholesterol 21 HDL Cholesterol 18 L Cholesterol/HDL Ratio 6.7 H DS: Diagnosis - Discharge Diagnosis (1) Non-ST elevation [place] (NSTEMI) Status: Acute (2) Syncope and collapse Status: Acute (3) Congestive heart failure Status: Chronic (4) Coronary artery disease Status: Chronic (5) Hypertensive heart disease Status: Chronic (6) AICD (automatic cardioverter/defibrillator) present Status: Chronic (7) HLD (hyperlipidemia) Status: Chronic (8) Systolic heart failure Status: Chronic Discharge Plan - Patient Discharge Instructions ACTIVITY: Other (medical laboratory 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 restrictions) DIET: continue same diet Patient Instructions: DI for Heart Attack, Heart-Healthy Diet, DI for Cardiac Catheterization, DI for Surgical Site Infection - Follow up Plan Follow up with: Priscilla Jimenez APRN [Nurse Practitioner] - 1 week Felton Odom MD [Staff Physician] - 1 week Disposition: Home, Self-Retirement Medications: Home Medications Medication Instructions Recorded Confirmed Type aspirin 81 mg tablet,delayed 81 mg PO DAILY 03/02/17 04/02/18 History release cyanocobalamin (vit B-12) 1,000 1,000 mcg IM MONTHLY ml 03/06/17 04/03/18 History mcg/mL injection solution Carvedilol [Carvedilol 6.25mg Tab] 6.25 mg PO BID 12/30/17 04/02/18 History Furosemide [Lasix 20mg tab] 20 mg PO DAILY 04/02/18 04/02/18 History Lisinopril [Lisinopril 2.5mg Tab] 2.5 mg PO DAILY 04/02/18 04/02/18 History Ticagrelor [Brilinta 90mg Tablet] 90 mg PO BID #60 tablet 04/04/18 Rx Prescriptions/Medication Reconciliation: New Ticagrelor [Brilinta 90mg Tablet] 90 mg PO BID #60 tablet Continue cyanocobalamin (vit B-12) 1,000 mcg/mL injection solution 1,000 mcg IM MONTHLY ml aspirin 81 mg tablet,delayed release 81 mg PO DAILY Carvedilol [Carvedilol 6.25mg Tab] 6.25 mg PO BID Lisinopril [Lisinopril 2.5mg Tab] 2.5 mg PO DAILY Furosemide [Lasix 20mg tab] 20 mg PO DAILY
--- NOTE | 2018-04-04 16:04 | Cardiology Report ---
PROCEDURE: 2-D M-mode and color Doppler study INDICATIONS FOR THE TEST: Chest pain + COPD Heart Murmur Tobacco Smoking Palpitations Fatigue+ Syncope Edema Hypertension+Diabetes Mellitus Rheumatic Fever SOB MEJIA Obesity Hyperlipidemia+ Family History HD Additional History cad, chf, aicd, PATIENT INFORMATION HEIGHT: 72 WEIGHT:170 GENDER: Male B/P:130/74 2-D/M-MODE INTERPRETATION: 2-D MEASUREMENTS OBSERVED VALUES IN CMS Right Ventricular Dimension (RVDd) 2.2 Interventricular Septum (Thickness)(IVsd) 1.2 Left Ventricular Internal Dimensions(LVIDd) 5.3 Left Ventricular Posterior Wall (Thickness)(LVPWd) 0.8 Aortic Root 3.5 Aortic Cusp Separation 1.9 Left Atrial Dimensions (LAD) 3.3 2D 1. Left atrium is mildly enlarged, left ventricle is mildly dilated, there is reduced left ventricular systolic function, visually estimated ejection fraction 30%, left ventricle is globally adequate. 2. The right atrium and right ventricle are mildly enlarged with normal contractility, there is an ICD lead seen right atrium and right ventricle. 3. The aortic valve is thickened and calcified leaflet continue to display good mobility. 4. The mitral and tricuspid valve leaflets are minimally thickened. 5. The pulmonic valve is poorly present. 6. No significant pericardial effusion noted. DOPPLER INTERROGATION: Doppler interrogation of the aortic, mitral and tricuspid valvular presence of mild mitral and tricuspid regurgitation, calculated right ventricular systolic pressure is 46 mm, consistent moderate pulmonary hypertension, grade 1 diastolic dysfunction seen with tissue Doppler evidence of raised left atrial pressure. CONCLUSION: 1. Mildly enlarged left atrium, mildly dilated left ventricle, visually estimated ejection fraction 30% left ventricle is globally hypokinetic. Grade 1 diastolic dysfunction seen with tissue Doppler evidence of raised left atrial pressure. 2. Mildly enlarged right ventricle with normal contractility. 3. Thickened and calcified aortic valve without aortic stenosis or aortic insufficiency. 4. Mild mitral and tricuspid regurgitation, calculated right ventricular systolic pressure is 46 mmHg consistent with moderate pulmonary hypertension. 5. No significant pericardial effusion noted.
== END 2018-04-04 11:11 | disposition home or self-care (01) | DRG 280 ==
LOC: 2ND 15:41 → ER 15:41 → OBSVTOIN 19:32 → 2ND 19:33
PROVIDERS: ADMIT Internal Medicine Adolescent Medicine; ATTEND Internal Medicine Adolescent Medicine
CPT/HCPCS: 36415; 70450; 71010; 71045; 80048; 80061; 80076; 84484; 85025; 93005; 93306; 93458; 96365; 99152; 99284; C1725; C1769; J1644; Q9966

== ENCOUNTER → 2018-04-10 11:05 | Outpatient (CLI) | payer MEDICARE, BC, SELFPAY ==
[2018-04-10 12:38] LABS: Free Thyroxine Index 2.9 ug/dL (5.93-13.13); T4 (Thyroxine) 8.8 ug/dl (4.7-13.3); Thyroid Stimulating Hormone 7.27 uIU/ml (0.358-3.740); Triiodothryronine (T3) Uptake 33 % (31-39)
== END ==
PROVIDERS: Visit Provider Internal Medicine
DX: E78.00 Pure hypercholesterolemia, unspecified (principal); I11.9 Hypertensive heart disease without heart failure; I21.4 Non-ST elevation (NSTEMI) myocardial infarction; I25.10 Atherosclerotic heart disease of native coronary artery without angina pectoris; I25.2 Old myocardial infarction; I25.5 Ischemic cardiomyopathy; I45.10 Unspecified right bundle-branch block; I50.43 Acute on chronic combined systolic (congestive) and diastolic (congestive) heart failure; R06.02 Shortness of breath; R06.09 Other forms of dyspnea; R53.83 Other fatigue; R55 Syncope and collapse; Z95.810 Presence of automatic (implantable) cardiac defibrillator
CPT/HCPCS: 36415; 84436; 84443; 84479

== ENCOUNTER → 2018-05-27 08:09 | Outpatient (CLI) | payer MEDICARE, BC, SELFPAY ==
[2018-05-27 12:35] LABS: Thyroid Stimulating Hormone 5.11 uIU/ml (0.358-3.740)
== END ==
PROVIDERS: Visit Provider Urology
DX: E03.9 Hypothyroidism, unspecified (principal)
CPT/HCPCS: 36415; 84443

== ENCOUNTER → 2018-06-25 10:13 | Outpatient (CLI) | payer MEDICARE, BC, SELFPAY ==
[2018-06-25 14:05] LABS: Free T4 (Free Thyroxine) 0.81 ng/dl (0.76-1.46)
== END ==
PROVIDERS: Visit Provider Urology
DX: E78.5 Hyperlipidemia, unspecified (principal); I21.4 Non-ST elevation (NSTEMI) myocardial infarction; I25.10 Atherosclerotic heart disease of native coronary artery without angina pectoris; I50.20 Unspecified systolic (congestive) heart failure; R06.00 Dyspnea, unspecified; Z79.899 Other long term (current) drug therapy; Z95.810 Presence of automatic (implantable) cardiac defibrillator; R39.89 Other symptoms and signs involving the genitourinary system
CPT/HCPCS: 36415; 84439; 87086

== ENCOUNTER → 2018-06-25 16:13 | Outpatient (CLI) | payer MEDICARE, BC, SELFPAY | PROVIDERS: Visit Provider Urology | DX: E03.9 Hypothyroidism, unspecified (principal); R39.89 Other symptoms and signs involving the genitourinary system | CPT/HCPCS: 36415; 84439; 87086 ==

== ENCOUNTER → 2018-06-26 09:42 | Outpatient (CLI) | payer MEDICARE, BC, SELFPAY ==
[2018-06-26 14:33] LABS: Anion Gap 18.2 mEq/L (5-15); Blood Urea Nitrogen 35 mg/dL (7-18); Calcium 9.7 mg/dL (8.5-10.1); Carbon Dioxide 23 mmol/L (21.0-32.0); Chloride 101 mmol/L (98-107); Estimated Glomerular Filt Rate 30 ml/min (>60); GFR (African American) 37 ML/MIN (>60); Glucose 101 mg/dL (74-106); Potassium 5.2 mmoL/L (3.5-5.1); Sodium 137 mmol/L (136-145); Thyroid Stimulating Hormone 5.83 uIU/ml (0.358-3.740)
== END ==
PROVIDERS: Visit Provider Urology
DX: E03.9 Hypothyroidism, unspecified (principal); I25.10 Atherosclerotic heart disease of native coronary artery without angina pectoris; R53.83 Other fatigue
CPT/HCPCS: 36415; 80048; 84443

== ENCOUNTER → 2018-08-08 07:32 | Outpatient (CLI) | payer MEDICARE, BC, SELFPAY ==
[2018-08-08 08:04] LABS: Basophils # 0.1 K/mm3 (0-0.2); Basophils % 0.6 % (0.1-2.0); Eosinophils # 0.2 K/mm3 (0.0-0.4); Eosinophils % 2.5 % (0.1-12.0); Hematocrit 45.3 % (42.0-52.0); Hemoglobin 14.9 g/dL (14.1-18.0); Lymphocytes # 1.7 K/mm3 (0.7-4.5); Mean Corpuscular Hemoglobin 32.3 pg (27.0-31.2); Mean Corpuscular Volume 98.2 fl (80-94); Mean Platelet Volume 6.9 fl (7.4-10.4); Monocytes # 0.7 K/mm3 (0.1-1.0); Monocytes % 8.9 % (1.7-9.3); Neutrophils # 5.4 K/mm3 (1.8-7.8); Platelet Count 271 K/mm3 (142-424); Red Blood Count 4.61 M/mm3 (4.60-6.20); Red Cell Distribution Width 12.5 % (11.5-17.5); White Blood Count 8.1 K/mm3 (4.8-10.8)
[2018-08-08 13:18] LABS: Alanine Aminotransferase 45 U/L (12-78); Albumin Level 3.9 gm/dL (3.4-5.0); Albumin/Globulin Ratio 1.1 (1.1-1.8); Alkaline Phosphatase 164 U/L (46-116); Anion Gap 17.1 mEq/L (5-15); Aspartate Amino Transferase 36 U/L (15-37); Bilirubin,Total 0.6 mg/dL (0.2-1.0); Blood Urea Nitrogen 33 mg/dL (7-18); Calcium 9.3 mg/dL (8.5-10.1); Carbon Dioxide 22 mmol/L (21.0-32.0); Chloride 103 mmol/L (98-107); Chol/HDL Ratio 3.9 (1-3.5); Cholesterol 130 mg/dL (140-200); Creatinine,Serum 1.97 mg/dL (0.70-1.30); Estimated Glomerular Filt Rate 33 ml/min (>60); Free Thyroxine Index 2.2 ug/dL (5.93-13.13); GFR (African American) 40 ML/MIN (>60); Globulin 3.6 gm/dl (1.3-3.2); Glucose 93 mg/dL (74-106); HDL Cholesterol 33 mg/dL (27-67); LDL Cholesterol 78 mg/dL (0-130); Potassium 5.1 mmoL/L (3.5-5.1); Sodium 137 mmol/L (136-145); Thyroid Stimulating Hormone 6.01 uIU/ml (0.358-3.740); Total Protein,Serum 7.5 gm/dL (6.4-8.2); Triglycerides 95 mg/dL (30-200); Triiodothryronine (T3) Uptake 31 % (31-39); VLDL Cholesterol 19 mg/dL (0-40)
== END ==
PROVIDERS: Visit Provider Internal Medicine Adolescent Medicine
DX: E87.5 Hyperkalemia (principal); I25.10 Atherosclerotic heart disease of native coronary artery without angina pectoris; E03.9 Hypothyroidism, unspecified
CPT/HCPCS: 36415; 80053; 80061; 84436; 84443; 84479; 85025

== ENCOUNTER 2018-09-28 08:25 | Observation (INO) ==
--- NOTE | 2018-09-28 08:43 | Emergency Department Note ---
ED Disposition Clinical Impression: Acute kidney injury, Dehydration, Dyspnea on exertion Fatigue Qualifiers: Fatigue type: chronic, unspecified Qualified Code(s): R53.82 - Chronic fatigue, unspecified Disposition: Admitted as Observation Condition on Discharge: Good Referrals: Milton Smith MD [Primary Care Provider] - - Critical Care Critical Care Time: No Attestation: On 09/28/18, the high probability of a clinically significant, sudden or life threatening deterioration of the following system(s) required my full and direct attention, intervention and personal management. The time I documented below is in addition to time spent performing reported procedures but includes the following listed in this critical care notation. Medical Decision Making - Chandana Inquiry Pt receiving controlled substance: No Vital Signs: 09/28/18 08:30 09/28/18 09:33 09/28/18 10:35 Temperature 97.8 F Temperature Source Oral Pulse Rate [Right Radial] 112 H 83 70 Respiratory Rate 24 20 20 Blood Pressure [Right Arm] 131/84 108/72 L 104/68 L Blood Pressure Mean [Right Arm] 99 84 80 Blood Pressure Source [Right Arm] Automatic Cuff Automatic Cuff Automatic Cuff Blood Pressure Position [Right Arm] Sitting Sitting Sitting 02 Sat by Pulse Oximetry 99 98 97 Oxygen Delivery Method Room Air Room Air Room Air - Lab Data Lab Results 09/28/18 08:45: WBC 8.3, RBC 4.67, Hgb 15.4, Hct 46.2, MCV 98.9 H, MCH 33.1 H, MCHC 33.4, RDW 13.2, Plt Count 331, MPV 6.8 L, Neut % (Auto) 73.1, Lymph % (Auto) 16.2, Fisher % (Auto) 8.0, Eos % (Auto) 2.1, Baso % (Auto) 0.5, Neut # (Auto) 6.1, Lymph # (Auto) 1.4, Fisher # (Auto) 0.7, Eos # (Auto) 0.2, Baso # (Auto) 0.0 09/28/18 08:45: Sodium 132 L, Potassium 5.1, Chloride 97 L, Carbon Dioxide 23, A nion Gap 17.1 H, BUN 45 H, Creatinine 2.49 H, Estimated Creat Clear 25, Estimated GFR 25 L, Est GFR ( Amer) 30 L, Glucose 110 H, Calcium 10.0, Total Bilirubin 0.7, AST 30, ALT 48, Alkaline Phosphatase 164 H, Troponin I 0.04, Total Protein 8.3 H, Albumin 3.9, Globulin 4.4 H, Albumin/Globulin Ratio 0.9 L 09/28/18 08:45: TSH 7.54 H D Result diagrams: 09/28/18 08:45 09/28/18 08:45 Orders (Tests/Meds): ED MEDICATIONS Discontinued Medications Generic Name Dose Route Start Last Admin Trade Name Freq PRN Reason Stop Dose Admin Sodium Chloride 500 ml 09/28/18 10:10 09/28/18 10:15 Sod Chlor 0.9% 1000ml Bag IV 09/28/18 10:11 500 ml BOLUS ONE Administration - Radiology Data #1 Image(s): Chest Image Reviewed: Yes I have reviewed radiologist's interpretation FINDINGS: Biventricular and right atrial pacemaker present from the left subclavian approach. Normal heart size. There are minimal atelectatic or fibrotic changes in the left lung base. The remaining lungs are clear. There are degenerative changes of the shoulders there has been a prior left shoulder replacement. IMPRESSION: As above, no change with no acute finding Dictated By: Keith Krishnamurthy MD 09/28/18 0928 - ECG Data Tracing #1 EKG interpreted by Rory Perez MD: Rhythm: Ventricular paced rhythm, demand pacer Rate: 90 Ectopy: none - Physician Consults Physician Consulted: Sarah Time: 10:10 Reason -: Pt condition Comment/Response: Requests normal saline 500 cc bolus. Reassess at that time. If patient feels up to going home, he will follow-up in the office next week. If patient does not feel well enough to go home, he will admit. - Reevaluation(s) Time: 11:28 Reevaluation #1: States he walked to the bathroom after IV fluid bolus complete. Did not feel any different. Discussed admission and he is agreeable. Medical Decision Narrative: 8:30 AM: While on the phone with Dr. Smith about a different patient, advised hi that Mr. Krueger had just signed in. States H/O CHF with recurrent exacerbations. Recent heart cath. Call him back when workup complete, he is in office until noon. General Adult HPI - General Stated complaint: SOA Time Seen by Provider: 09/28/18 09:16 - History of Present Illness HPI narrative: Patient complains of fatigue. States that for the last couple of days he feels extremely worn out, cannot hardly get going in the morning for the past 2 days. Had to rest 3 times while putting on his close this morning. With even minimal exertion he becomes extremely fatigued and has to breathe hard. He says however that "it is not difficult to breathe". Denies chest pain. Denies current illness such as fever, cough, vomiting, diarrhea. He says this is not problem, it has happened recurrently in the past. He is not sure what the cause was previously but notes that he has heart problems. He has a pacemaker, defibrillator. - Related Data Home Medications Medication Instructions Recorded Confirmed aspirin 81 mg tablet,delayed 81 mg PO DAILY 03/02/17 09/28/18 release cyanocobalamin (vit B-12) 1,000 1,000 mcg IM MONTHLY ml 03/06/17 09/28/18 mcg/mL injection solution Levothyroxine Sodium 25 mcg PO DAILY 09/28/18 09/28/18 [Levothyroxine 25mcg (0.025mg) Tab] Previous Rx's Medication Instructions Recorded furosemide 20 mg tablet 20 mg PO DAILY #30 tab 05/13/18 Allergies Allergy/AdvReac Type Severity Reaction Status Date / Time doxycycline Allergy Intermediate Verified 09/28/18 08:43 morphine Allergy Intermediate HALLUCINATI Verified 09/28/18 08:43 O[facility] History - Hepatitis A Screen Attestation statement:: This patient has been screened for Hepatitis A risk factors. I have reviewed the patient's past medical history: Yes Medical History: Reports:: Arrhythmia, Atherosclerotic Heart Disease, Congestive Heart Failure, Coronary Artery Disease, Hyperlipidemia, Hypertension, Internal Pacemaker, Myocardial Infarction Denies:: Cancer, Diabetes Mellitus Type 1, Diabetes Mellitus Type 2, MRSA, Seizures Other Medical History: Reports: Arthritis. Denies: Blood Transfusion Reaction Comment: BPH, elevated prostate Laterality Cases: Other Surgeries: Yes: Cardiac Catheterization, Cholecystectomy, Colonoscopy, Colostomy, Coronary Stent (x4), Hernia Repair, Pacemaker, Other (Cardiac Cath- stents, cholecystectomy) Amputation: No Fractures: No Comment: L Shoulder rx, L hip rx (x2), Ileostomy, Prostate Surgery, Cystoscopy, Clot evacuation - Social History Smoking Status: Former smoker Tobacco Type: cigarettes #Yrs smoked (if former smoker): 10 Alcohol Intake: never Alcohol Intake Frequency:: other Substance Use Type: denies use Occupational Status: retired Housing: house Household Members: spouse Family Hx:: Cancer, Coronary Artery Disease, Heart Attack, Hypertension, Stroke Comment: father, brother, sister heart disease ROS Obtained: Yes All systems reviewed & no additional complaints - Constitutional Constitutional: Reports fatigue, Denies fever(s), Reports lethargy, Reports malaise, Reports weakness - ENT Ears, Nose, Mouth, and Throat: Reports dry mouth (chronic) - Cardiovascular Cardiovascular: Denies chest pain, Denies edema - Respiratory Respiratory: Yes dyspnea on exertion, No excessive phlegm production, No coughing up blood Physical Exam - General General appearance: alert, in no apparent distress - Head Head exam: atraumatic, normocephalic - Eye Eye exam: Present: normal appearance, EOMI - ENT ENT exam: Present: mucous membranes dry - Neck Neck exam: Present: normal inspection, trachea midline - Chest Chest inspection: Present: normal inspection, symmetric chest wall rise - Respiratory Respiratory exam: Present: normal lung sounds bilaterally. Absent: respiratory distress - Cardiovascular Cardiovascular exam: Present: regular rate, normal rhythm, normal heart sounds - Abdominal Exam Abdominal exam: Present: soft, normal bowel sounds. Absent: distention, tenderness - Extremities Exam Extremities exam: Present: normal inspection. Absent: pedal edema - Neurological Exam Neurological exam: Present: alert, oriented X3, CN II-XII intact. Absent: motor sensory deficit - Psychiatric Psychiatric exam: Present: normal affect, normal mood - Skin Skin exam: Present: warm, dry
[2018-09-28 08:59] LABS: Basophils % 0.5 % (0.1-2.0); Eosinophils # 0.2 K/mm3 (0.0-0.4); Eosinophils % 2.1 % (0.1-12.0); Hematocrit 46.2 % (42.0-52.0); Hemoglobin 15.4 g/dL (14.1-18.0); Lymphocytes # 1.4 K/mm3 (0.7-4.5); Lymphocytes % 16.2 % (10-50); Mean Corpuscular HGB Conc 33.4 g/dL (31.8-35.4); Mean Corpuscular Volume 98.9 fl (80-94); Mean Platelet Volume 6.8 fl (7.4-10.4); Monocytes # 0.7 K/mm3 (0.1-1.0); Neutrophils # 6.1 K/mm3 (1.8-7.8); Neutrophils % 73.1 % (37.0-80.0); Platelet Count 331 K/mm3 (142-424); Red Blood Count 4.67 M/mm3 (4.60-6.20); Red Cell Distribution Width 13.2 % (11.5-17.5); White Blood Count 8.3 K/mm3 (4.8-10.8)
[2018-09-28 09:12] LABS: Albumin Level 3.9 gm/dL (3.4-5.0); Albumin/Globulin Ratio 0.9 (1.1-1.8); Anion Gap 17.1 mEq/L (5-15); Bilirubin,Total 0.7 mg/dL (0.2-1.0); Globulin 4.4 gm/dl (1.3-3.2); Total Protein,Serum 8.3 gm/dL (6.4-8.2)
[2018-09-29 07:44] LABS: Anion Gap 14.5 mEq/L (5-15)
--- NOTE | 2018-09-29 08:53 | H&P/Discharge Summary ---
General - General Admission date:: 09/28/18 Discharge date: 09/29/18 *Admission Date: 09/28/18 *Chief complaint: Weakness/fatigue *History of present illness: 83-year-old white male with ischemic cardiomyopathy, status post pacemaker placement, placed on furosemide by cardiology service several months ago, has been taking this at night for some reason, and over the past couple of weeks has noticed increasing lethargy, fatigue and dry mouth. Came to the emergency department on the day of admission with a chief complaint of dry mouth and fatigue. Found to have acute kidney injury with creatinine of 2.6 which is markedly over his baseline admitted for IV fluids and further testing as indicated. [facility] History I have reviewed the patient's past medical history: Yes Medical History: Reports:: Arrhythmia, Atherosclerotic Heart Disease, Atrial Fibrillation, Congestive Heart Failure, Coronary Artery Disease, Hyperlipidemia, Hypertension, Internal Pacemaker, Myocardial Infarction Denies:: Cancer, Diabetes Mellitus Type 1, Diabetes Mellitus Type 2, MRSA, Seizures *Have you ever received a pneumonia vaccine?: Yes *Have you received a flu vaccine this season?: Yes Other Medical History: Reports: Arthritis, Hypothyroidism, Thyroid Disease. Denies: Blood Transfusion Reaction Laterality Cases: Left: Arthroscopy Shoulder, Bilateral: Arthroscopy Hip, Total Hip Replacement, Other Other Surgeries: Yes: Cardiac Catheterization, Cholecystectomy, Colonoscopy, Colostomy, Coronary Stent (x4), Hernia Repair, Pacemaker, Other (Cardiac Cath- stents, cholecystectomy) Amputation: No Fractures: No - *Social History Smoking Status: Former smoker Tobacco Type: cigarettes # Packs/Day (cigarettes): 1 #Yrs smoked (if former smoker): 10 Alcohol Intake: former Alcohol Intake Frequency:: other Substance Use Type: denies use *Occupational Status:: retired Housing: house Household Members: spouse *Travel in the last 8 weeks: None Family Hx:: Cancer, Coronary Artery Disease, Heart Attack, Hypertension, Stroke Review of Systems - Review of Systems Review of systems:: pertinent systems reviewed and negative unless documented below This morning patient feels much better. Does complain of global weakness but no specific neurologic complaints. Denies cardiac symptoms of palpitations or chest pain. Denies pulmonary symptoms of shortness of air or wheezing. Denies GI or complaints. Denies musculoskeletal complaints. - *Neurologic Reports weakness Exam Vital signs and Labs for Last 24 Hours: Temp Pulse Resp BP Pulse Ox 97.4 F L 70 18 122/73 100 09/29/18 08:00 09/29/18 08:00 09/29/18 08:00 09/29/18 08:00 09/29/18 08:00 Laboratory Results - last 24 hr 09/28/18 08:45: WBC 8.3, RBC 4.67, Hgb 15.4, Hct 46.2, MCV 98.9 H, MCH 33.1 H, MCHC 33.4, RDW 13.2, Plt Count 331, MPV 6.8 L, Neut % (Auto) 73.1, Lymph % (Auto) 16.2, Duc[place]ne % (Auto) 8.0, Eos % (Auto) 2.1, Baso % (Auto) 0.5, Neut # (Auto) 6.1, Lymph # (Auto) 1.4, Duc[place]ne # (Auto) 0.7, Eos # (Auto) 0.2, Baso # (Auto) 0.0 09/28/18 08:45: Sodium 132 L, Potassium 5.1, Chloride 97 L, Carbon Dioxide 23, Anion Gap 17.1 H, BUN 45 H, Creatinine 2.49 H, Estimated Creat Clear 25, Estimated GFR 25 L, Est GFR ( Amer) 30 L, Glucose 110 H, Calcium 10.0, Total Bilirubin 0.7, AST 30, ALT 48, Alkaline Phosphatase 164 H, Troponin I 0.04, Total Protein 8.3 H, Albumin 3.9, Globulin 4.4 H, Albumin/Globulin Ratio 0.9 L 09/28/18 08:45: TSH 7.54 H D 09/28/18 08:45: B-Natriuretic Peptide 60 09/29/18 07:10: Sodium 133 L, Potassium 4.5, Chloride 99, Carbon Dioxide 24, Anion Gap 14.5, BUN 35 H, Creatinine 1.71 H D, Estimated Creat Clear 34, Estimated GFR 39 L, Est GFR ( Amer) 47 L D, Glucose 90, Calcium 9.0 I & O for Last 24 hours: Intake & Output 09/26/18 09/27/18 09/28/18 09/29/18 11:59 11:59 11:59 11:59 Intake Total 1671 / 1671 Balance 1671 / 1671 Weight 170 lb 158 lb 5 oz Narrative: Alert, pleasant. Oriented x3. Lungs have good air expansion. Heart rate regular. Pacemaker site appears normal. Abdomen soft and nontender. Able to move all extremities. Cranial nerves intact. No JVD and oropharynx is moist. Perfusion is good in all 4 extremities. Hospital Course Hospital Course: Patient admitted to hospital. Given IV fluids overnight. This morning creatinine is vastly improved. Blood pressure acceptable. Plan will be to discharge patient home. I have asked him to stop his furosemide. I will follow-up in my office in 3 days with lab work at that point. Results Labs on day of discharge: Labs from last 24 hours 09/29/18 09/28/18 09/28/18 07:10 08:45 08:45 WBC RBC Hgb Hct MCV MCH MCHC RDW Plt Count MPV Neut % (Auto) Lymph % (Auto) Duc[place]ne % (Auto) Eos % (Auto) Baso % (Auto) Neut # (Auto) Lymph # (Auto) Duc[place]ne # (Auto) Eos # (Auto) Baso # (Auto) Sodium 133 L Potassium 4.5 Chloride 99 Carbon Dioxide 24 Anion Gap 14.5 BUN 35 H Creatinine 1.71 H D Estimated Creat Clear 34 Estimated GFR 39 L Est GFR ( Amer) 47 L D Glucose 90 Calcium 9.0 Total Bilirubin AST ALT Alkaline Phosphatase Troponin I B-Natriuretic Peptide 60 Total Protein Albumin Globulin Albumin/Globulin Ratio TSH 7.54 H D 09/28/18 09/28/18 08:45 08:45 WBC 8.3 RBC 4.67 Hgb 15.4 Hct 46.2 MCV 98.9 H MCH 33.1 H MCHC 33.4 RDW 13.2 Plt Count 331 MPV 6.8 L Neut % (Auto) 73.1 Lymph % (Auto) 16.2 Duchesne % (Auto) 8.0 Eos % (Auto) 2.1 Baso % (Auto) 0.5 Neut # (Auto) 6.1 Lymph # (Auto) 1.4 Duc[place]ne # (Auto) 0.7 Eos # (Auto) 0.2 Baso # (Auto) 0.0 Sodium 132 L Potassium 5.1 Chloride 97 L Carbon Dioxide 23 Anion Gap 17.1 H BUN 45 H Creatinine 2.49 H Estimated Creat Clear 25 Estimated GFR 25 L Est GFR ( Amer) 30 L Glucose 110 H Calcium 10.0 Total Bilirubin 0.7 AST 30 ALT 48 Alkaline Phosphatase 164 H Troponin I 0.04 B-Natriuretic Peptide Total Protein 8.3 H Albumin 3.9 Globulin 4.4 H Albumin/Globulin Ratio 0.9 L TSH DS: Diagnosis - Discharge Diagnosis (1) Ischemic cardiomyopathy Status: Acute (2) Acute kidney injury Status: Acute (3) Dehydration Status: Acute Discharge Plan - Patient Discharge Instructions ACTIVITY: Continue current activity DIET: continue same diet Patient Instructions: DI for Dehydration -- Adult, Acute Renal Failure - Follow up Plan Follow up with: Milton Smith MD [Primary Care Provider] - 10/02/18 2:00 pm Disposition: Home, Self-[facility] Medications: Home Medications Medication Instructions Recorded Confirmed Type aspirin 81 mg tablet,delayed 81 mg PO DAILY 03/02/17 09/28/18 History release cyanocobalamin (vit B-12) 1,000 1,000 mcg IM MONTHLY ml 03/06/17 09/28/18 History mcg/mL injection solution furosemide 20 mg tablet 20 mg PO DAILY #30 tab 05/13/18 09/28/18 Rx Carvedilol [Carvedilol 6.25mg Tab] 6.25 mg PO BID 09/28/18 09/28/18 History Levothyroxine Sodium 25 mcg PO DAILY 09/28/18 09/28/18 History [Levothyroxine 25mcg (0.025mg) Tab] Levothyroxine Sodium 50 mcg PO DAILY #30 tab 09/29/18 Rx [Levothyroxine 50mcg (0.05mg) Tab] Prescriptions/Medication Reconciliation: New Levothyroxine Sodium [Levothyroxine 50mcg (0.05mg) Tab] 50 mcg PO DAILY #30 tab Continued cyanocobalamin (vit B-12) 1,000 mcg/mL injection solution 1,000 mcg IM MONTHLY ml aspirin 81 mg tablet,delayed release 81 mg PO DAILY Carvedilol [Carvedilol 6.25mg Tab] 6.25 mg PO BID Discontinued furosemide 20 mg tablet 20 mg PO DAILY #30 tab Levothyroxine Sodium [Levothyroxine 25mcg (0.025mg) Tab] 25 mcg PO DAILY
== END 2018-09-29 11:17 | disposition home or self-care (01) ==
LOC: ER 08:25 → 2ND 08:25
PROVIDERS: ADMIT Internal Medicine Adolescent Medicine; ATTEND Internal Medicine Adolescent Medicine
CPT/HCPCS: 71010; 71045; 80048; 80053; 83880; 84443; 84484; 85025; 93005; 96365; 99284; G0378

== ENCOUNTER → 2018-10-02 11:25 | Outpatient (CLI) | payer MEDICARE, BC, SELFPAY ==
[2018-10-02 11:52] LABS: Anion Gap 16.2 mEq/L (5-15); Blood Urea Nitrogen 29 mg/dL (7-18); Calcium 9.7 mg/dL (8.5-10.1); Carbon Dioxide 23 mmol/L (21.0-32.0); Chloride 99 mmol/L (98-107); Creatinine,Serum 1.95 mg/dL (0.70-1.30); Estimated Glomerular Filt Rate 33 ml/min (>60); GFR (African American) 40 ML/MIN (>60); Glucose 90 mg/dL (74-106); Potassium 5.2 mmoL/L (3.5-5.1); Sodium 133 mmol/L (136-145)
[2018-10-02 11:57] LABS: Basophils # 0.1 K/mm3 (0-0.2); Basophils % 0.6 % (0.1-2.0); Eosinophils # 0.3 K/mm3 (0.0-0.4); Eosinophils % 2.9 % (0.1-12.0); Hematocrit 44.2 % (42.0-52.0); Hemoglobin 14.8 g/dL (14.1-18.0); Lymphocytes # 1.6 K/mm3 (0.7-4.5); Lymphocytes % 18.6 % (10-50); Mean Corpuscular HGB Conc 33.4 g/dL (31.8-35.4); Mean Corpuscular Hemoglobin 33.4 pg (27.0-31.2); Mean Corpuscular Volume 99.9 fl (80-94); Mean Platelet Volume 6.7 fl (7.4-10.4); Monocytes # 0.8 K/mm3 (0.1-1.0); Monocytes % 9.5 % (1.7-9.3); Neutrophils # 5.8 K/mm3 (1.8-7.8); Neutrophils % 68.4 % (37.0-80.0); Platelet Count 303 K/mm3 (142-424); Red Blood Count 4.43 M/mm3 (4.60-6.20); Red Cell Distribution Width 13.1 % (11.5-17.5); White Blood Count 8.5 K/mm3 (4.8-10.8)
== END ==
PROVIDERS: Visit Provider Internal Medicine Adolescent Medicine
DX: N17.9 Acute kidney failure, unspecified (principal)
CPT/HCPCS: 36415; 80048; 85025

== ENCOUNTER → 2018-10-08 08:44 | Outpatient (CLI) | payer MEDICARE, BC, SELFPAY ==
[2018-10-08 14:04] LABS: Anion Gap 19.4 mEq/L (5-15); Blood Urea Nitrogen 44 mg/dL (7-18); Calcium 9.7 mg/dL (8.5-10.1); Carbon Dioxide 20 mmol/L (21.0-32.0); Chloride 95 mmol/L (98-107); Creatinine,Serum 2.35 mg/dL (0.70-1.30); Estimated Glomerular Filt Rate 27 ml/min (>60); GFR (African American) 32 ML/MIN (>60); Glucose 103 mg/dL (74-106); Potassium 5.4 mmoL/L (3.5-5.1); Sodium 129 mmol/L (136-145)
== END ==
PROVIDERS: Visit Provider Internal Medicine Adolescent Medicine
DX: N17.9 Acute kidney failure, unspecified (principal)
CPT/HCPCS: 36415; 80048

== ENCOUNTER 2018-10-09 10:32 | Observation (INO) ==
--- NOTE | 2018-10-09 11:26 | Pharmacy Consult Notes ---
[facility] Pharmacy VTE Monitoring - Patient Demographics Admission date: 10/09/18 Report Date: 10/09/18 Time: 11:26 Allergies/Adverse Reactions: Patient Allergies doxycycline Allergy (Intermediate, Verified 09/28/18 08:43) morphine Allergy (Intermediate, Verified 09/28/18 08:43) HALLUCINATIONS Height: 1.83 m Weight: 72.235 kg - VTE Risk Clinical Trial Participant: No - Prophylaxis VTE Prophylaxis Ordered?: Yes Types of VTE Prophylaxis: TEDS Knee High
[2018-10-09 11:54] LABS: Basophils # 0.1 K/mm3 (0-0.2); Basophils % 0.6 % (0.1-2.0); Eosinophils # 0.2 K/mm3 (0.0-0.4); Eosinophils % 2.6 % (0.1-12.0); Hematocrit 47.4 % (42.0-52.0); Hemoglobin 15.5 g/dL (14.1-18.0); Lymphocytes # 1.2 K/mm3 (0.7-4.5); Lymphocytes % 14.5 % (10-50); Mean Corpuscular HGB Conc 32.6 g/dL (31.8-35.4); Mean Platelet Volume 6.9 fl (7.4-10.4); Monocytes # 0.6 K/mm3 (0.1-1.0); Monocytes % 6.8 % (1.7-9.3); Neutrophils # 6.2 K/mm3 (1.8-7.8); Neutrophils % 75.4 % (37.0-80.0); Platelet Count 357 K/mm3 (142-424); Red Blood Count 4.79 M/mm3 (4.60-6.20); Red Cell Distribution Width 13.2 % (11.5-17.5); White Blood Count 8.2 K/mm3 (4.8-10.8)
--- NOTE | 2018-10-09 11:59 | History & Physical Report ---
*Admission Date: 10/09/18 *Chief complaint: Weakness, fatigue *History of present illness: Patient here for followup of his recent admission to the hospital with acute kidney injury and prerenal azotemia, initially felt better last week and his creatinine had remained stable around 1.7. His back for a recheck and have labs done yesterday. Unfortunately, has lost 3 pounds, continues to feel very weak and fatigued. He wakes up in the morning and almost immediately feels tired. He notes that he has been "drinking enough water to float." His agrees that he has ramped up his fluid intake. In the office I reviewed his labs from yesterday showing sodium 129, creatinine elevated to 2.35, I will admit patient for IV saline, nephrology consultation and further renal evaluation. [facility] History I have reviewed the patient's past medical history: Yes Medical History: Reports:: Arrhythmia, Atherosclerotic Heart Disease, Atrial Fibrillation, Congestive Heart Failure (EF 20-30%), Coronary Artery Disease, Hyperlipidemia, Hypertension, Internal Pacemaker, Myocardial Infarction Denies:: Cancer, Diabetes Mellitus Type 1, Diabetes Mellitus Type 2, MRSA, Seizures *Have you ever received a pneumonia vaccine?: Yes *Have you received a flu vaccine this season?: Yes Other Medical History: Reports: Arthritis, Hypothyroidism, Thyroid Disease. Denies: Blood Transfusion Reaction Comment:: Poor toleration of diuretics and HARLEY-I in past - low bp and fatigue Laterality Cases: Left: Arthroscopy Shoulder, Bilateral: Arthroscopy Hip, Total Hip Replacement, Other Other Surgeries: Yes: Cardiac Catheterization, Cholecystectomy, Colonoscopy, Colostomy, Coronary Stent (x4), Hernia Repair, Pacemaker, Other (Cardiac Cath- stents, cholecystectomy) Amputation: No Fractures: No - *Social History Educational Level: Completed High School Smoking Status: Former smoker Tobacco Type: cigarettes # Packs/Day (cigarettes): 1 #Yrs smoked (if former smoker): 10 Alcohol Intake: never Alcohol Intake Frequency:: other Substance Use Type: denies use *Occupational Status:: retired Housing: house Household Members: spouse *Travel in the last 8 weeks: None - Psychiatric History Expresses thoughts of harming self/others: None Suicide Plan Description: No Plan Family Hx:: Cancer, Coronary Artery Disease, Heart Attack, Hypertension, Stroke Review of Systems - Review of Systems Review of systems:: pertinent systems reviewed and negative unless documented below - Constitutional Reports fatigue, Reports lack of energy, Reports malaise, Denies anorexia, Denies body ache(s), Denies fever(s), Denies night sweats - Eyes Denies blind spots, Denies blurry vision - ENT Denies abnormal hearing, Denies poor balance, Denies ear discharge, Denies ear pain - *Cardiovascular Reports shortness of breath, Reports shortness of breath with activity, Denies chest pain, Denies chest pain with activity, Denies leg pain with activity, Denies excessive sweating, Denies generalized swelling, Denies irregular heart rhythm, Denies shortness of breath when lying down, Denies rapid, pounding, or irregular heartbeat - *Respiratory Reports shortness of breath with activity, Denies change in phlegm color, Denies chest congestion, Denies shortness of breath, Denies excessive phlegm production - *Gastrointestinal Denies abdominal pain, Denies change in stools, Denies loose stools - *Genitourinary Denies difficulty urinating, Denies painful urination, Denies blood in urine, Denies decreased urination - *Musculoskeletal Denies joint pain Meds Home Medications Medication Instructions Recorded Confirmed Type aspirin 81 mg tablet,delayed 81 mg PO DAILY 03/02/17 10/09/18 History release cyanocobalamin (vit B-12) 1,000 1,000 mcg IM MONTHLY ml 03/06/17 10/09/18 History mcg/mL injection solution Carvedilol [Carvedilol 6.25mg Tab] 6.25 mg PO BID 09/28/18 10/09/18 History Levothyroxine Sodium 50 mcg PO DAILY #30 tab 09/29/18 10/09/18 Rx [Levothyroxine 50mcg (0.05mg) Tab] Allergies Allergy/AdvReac Type Severity Reaction Status Date / Time doxycycline Allergy Intermediate Verified 09/28/18 08:43 morphine Allergy Intermediate HALLUCINATI Verified 09/28/18 08:43 ONS Exam Vital signs and Labs for Last 24 Hours: Temp Pulse Resp BP Pulse Ox 98.0 F 87 18 124/75 99 10/09/18 11:07 10/09/18 11:07 10/09/18 11:07 10/09/18 11:07 10/09/18 11:07 I & O for Last 24 hours: Intake & Output 10/06/18 10/07/18 10/08/18 10/09/18 11:59 11:59 11:59 11:59 Weight 159 lb 4 oz - Constitutional no acute distress, average body habitus, thin, chronically ill appearing - *Routine HEENT Exam Head: Present: normocephalic Eye: Present: EOMI, conjunctivae pink ENT: Present: mucous membranes moist, dentition normal - *Routine Neck Exam Present: supple. Absent: lymphadenopathy - *Routine Respiratory Exam Present: CTA bilaterally - *Routine Cardiovascular Exam Present: RRR - *Routine Abdominal Exam Present: soft, normoactive bowel sounds. Absent: tenderness - *Routine Extremities Exam Absent: cyanosis, clubbing, edema - *Routine Skin Exam Present: warm. Absent: rash - *Routine Neurological Exam Present: alert, oriented X3 Assessment and Plan (1) Hyponatremia Current visit: Yes Status: Acute Category: Medical Code(s): E87.1 - Hypo- osmolality and hyponatremia ADmit to [facility] for NS infusion... renal evaluation (2) Acute kidney injury Current visit: No Status: Acute Category: Medical Code(s): N17.9 - Acute kidney failure, unspecified Creatinine up yesterday... repeat today... Renal evaluation today (3) Dehydration Current visit: No Status: Acute Category: Medical Code(s): E86.0 - Dehydration (4) Ischemic cardiomyopathy Current visit: No Status: Acute Category: Medical Code(s): I25.5 - Ischemic cardiomyopathy Stable... close monitoring with IVF
[2018-10-09 13:25] LABS: Calcium 9.8 mg/dL (8.5-10.1)
[2018-10-09 13:55] LABS: Phosphorous 4.2 mg/dL (2.4-4.9)
--- NOTE | 2018-10-09 14:18 | Electrocardiograph Report ---
APPROVED REPORT Exam: Resting ECG HR:76 bpm ECG Measurements Heart Rate 76 AXES [place] 114 P 66 QRSd 140 QRS 265 QT 418 T84 QTc 470 <Conclusion> Electronic ventricular pacemaker Electronically signed by : Milton Smith, 10/09/2018 13:44:40
[2018-10-09 18:35] LABS: Microscopic, Urine URINE MICROSCOPIC (MICROSCOPIC)
[2018-10-09 18:37] LABS: Appearance,Urine CLEAR (Clear); Bilirubin,Urine Negative (Negative); Blood, Urine Negative (Negative); Color,Urine YELLOW (Yellow); Glucose,Urine (UA) Negative (Negative); Ketones,Urine Negative (Negative); Leukocyte Esterase,Urine TRACE (Negative); PH,Urine 5.5 (5.0-8.5); Protein,Urine Negative (Negative); Urobilinogen,Urine 0.2 EU/dl (0.2)
[2018-10-09 18:51] LABS: Bacteria,Urine Trace /lpf; Squamous Epithelial Cell,Urine Occasional #/hpf (0-5)
[2018-10-09 18:52] LABS: Fine Granular Casts,Urine Occasional #/lpf (0)
[2018-10-10 07:18] LABS: Anion Gap 13.9 mEq/L (5-15)
[2018-10-10 07:59] LABS: Calcium 8.8 mg/dL (8.5-10.1)
--- NOTE | 2018-10-10 08:39 | Progress Note ---
Internal Medicine - PN: Subj *Date: 10/10/18 *Time: 08:37 Interval history: Patient feels better than yesterday, continues to feel somewhat tired, oral intake has been good. Exam Vital signs and Labs for Last 24 Hours: Temp Pulse Resp BP Pulse Ox 97.9 F 71 17 109/67 L 97 10/10/18 03:53 10/10/18 03:53 10/10/18 03:53 10/10/18 03:53 10/10/18 03:53 Laboratory Results - last 24 hr 10/09/18 11:20: WBC 8.2, RBC 4.79, Hgb 15.5, Hct 47.4, MCV 99.0 H, MCH 32.3 H, MCHC 32.6, RDW 13.2, Plt Count 357, MPV 6.9 L, Neut % (Auto) 75.4, Lymph % (Auto) 14.5, [place] % (Auto) 6.8, Eos % (Auto) 2.6, Baso % (Auto) 0.6, Neut # (Auto) 6.2, Lymph # (Auto) 1.2, [place] # (Auto) 0.6, Eos # (Auto) 0.2, Baso # (Auto) 0.1 10/09/18 11:20: Sodium 131 L, Potassium 5.0, Chloride 97 L, Carbon Dioxide 19 L, Anion Gap 20.0 H, BUN 50 H, Creatinine 2.30 H, Estimated Creat Clear 25, Estimated GFR 27 L, Est GFR ( Amer) 33 L, Glucose 67 L, Calcium 9.8, Phosphorus 4.2, Magnesium 2.1 10/09/18 15:25: Urine Eosinophils Absent 10/09/18 15:25: Urine Color Yellow, Urine Appearance Clear, Urine pH 5.5, Ur Specific [place] 1.020, Urine Protein Negative, Urine Glucose (UA) Negative, Urine Ketones Negative, Urine Blood Negative, Urine Nitrate Positive, Urine Bilirubin Negative, Urine Urobilinogen 0.2, Ur Leukocyte Esterase Trace, Urine WBC 10-20, Ur Squamous Epith Cells Occasional, Urine Bacteria Trace, Hyaline Casts 3-5, Fine Granular Casts Occasional 10/10/18 06:55: Sodium 134 L, Potassium 4.9, Chloride 102, Carbon Dioxide 23 D, BUN 37 H D, Creatinine 1.69 H D, Glucose 86 D, Calcium 8.8 D I & O for Last 24 hours: Intake & Output 10/07/18 10/08/18 10/09/18 10/10/18 11:59 11:59 11:59 11:59 Intake Total 1998 Output Total 200 / 200 Balance 1799 / 179 Weight 159 lb 4 oz 159 lb 5 oz Narrative: Patient is pleasant, oriented, appears slightly fatigued. Hydration status however, is good. Lungs are clear, heart rate regular. Pacemaker site looks normal. Abdomen soft and nontender. No JVD. Oropharynx clear. No distal edema and perfusion is good. Assessment and Plan (1) Hyponatremia Current visit: Yes Status: Acute Category: Medical Code(s): E87.1 - Hypo- osmolality and hyponatremia (2) Acute kidney injury Current visit: No Status: Acute Category: Medical Code(s): N17.9 - Acute kidney failure, unspecified (3) Dehydration Current visit: No Status: Acute Category: Medical Code(s): E86.0 - Dehydration (4) Ischemic cardiomyopathy Current visit: No Status: Acute Category: Medical Code(s): I25.5 - Ischemic cardiomyopathy - Assessment and plan all Dx Assessment and Plan for all problems:: Patient has improved with IV saline. Kidney function has improved and his hyponatremia has essentially resolved. However I am very concerned about patient's continued hyponatremia and electrolyte disturbance, unfortunately nephrology consultation is unavailable as was scheduled yesterday, but fortunately patient's kidneys appear normal on ultrasonography and urinalysis is unrevealing. I plan to start low-dose Aldactone today to see if this will help with sodium retention and fluid balance, continue normal saline at a lower rate and possible discharge tomorrow.
[2018-10-11 07:17] LABS: Basophils % 0.4 % (0.1-2.0); Eosinophils # 0.2 K/mm3 (0.0-0.4); Eosinophils % 2.8 % (0.1-12.0); Hematocrit 38.5 % (42.0-52.0); Hemoglobin 12.5 g/dL (14.1-18.0); Lymphocytes % 16.1 % (10-50); Mean Corpuscular HGB Conc 32.5 g/dL (31.8-35.4); Mean Corpuscular Volume 99.5 fl (80-94); Mean Platelet Volume 6.8 fl (7.4-10.4); Monocytes # 0.7 K/mm3 (0.1-1.0); Monocytes % 11.3 % (1.7-9.3); Neutrophils # 4.5 K/mm3 (1.8-7.8); Neutrophils % 69.4 % (37.0-80.0); Platelet Count 246 K/mm3 (142-424); Red Blood Count 3.87 M/mm3 (4.60-6.20); Red Cell Distribution Width 13.4 % (11.5-17.5); White Blood Count 6.4 K/mm3 (4.8-10.8)
[2018-10-11 07:23] LABS: Anion Gap 13.6 mEq/L (5-15); Calcium 8.9 mg/dL (8.5-10.1)
--- NOTE | 2018-10-11 08:37 | Discharge Summary ---
General - General Admission date:: 10/09/18 Discharge date: 10/11/18 HPI HPI: Patient here for followup of his recent admission to the hospital with acute kidney injury and prerenal azotemia, initially felt better last week and his creatinine had remained stable around 1.7. His back for a recheck and have labs done yesterday. Unfortunately, has lost 3 pounds, continues to feel very weak and fatigued. He wakes up in the morning and almost immediately feels tired. He notes that he has been "drinking enough water to float." His agrees that he has ramped up his fluid intake. In the office I reviewed his labs from yesterday showing sodium 129, creatinine elevated to 2.35, I will admit patient for IV saline, nephrology consultation and further renal evaluation. Hospital Course Hospital Course: Patient was admitted and did well with IV fluids. His hyponatremia resolved and his acute kidney injury also resolved. Given the patient's repetitive pattern of hyponatremia in the face of seemingly adequate oral intake and his CHF history I started spironolactone 25 mg twice daily to help with electrolyte imbalance and possible renin/angiotensin issues given his intolerance to HARLEY inhibitors. He tolerated this well overnight with minimal IV fluid administration and this morning his creatinine is slightly improved and his sodium levels remained normal. Plan will be to discharge home on carvedilol, Aldactone and regular aspirin dosage. I will see him in 3 days with a BMP that morning. Objective Vital signs: Temp Pulse Resp BP Pulse Ox 98.2 F 75 18 119/69 98 10/11/18 04:00 10/11/18 04:00 10/11/18 04:00 10/11/18 04:00 10/11/18 04:00 Narrative: Patient is pleasant, alert, lungs are clear bilaterally, heart rate regular without murmurs. No rashes noted. No edema. Oropharynx clear. No JVD. Neurologically intact and pleasant. Results Labs on day of discharge: Labs from last 24 hours 10/11/18 10/11/18 10/10/18 06:55 06:55 06:55 WBC 6.4 RBC 3.87 L Hgb 12.5 L Hct 38.5 L MCV 99.5 H MCH 32.4 H MCHC 32.5 RDW 13.4 Plt Count 246 D MPV 6.8 L Neut % (Auto) 69.4 Lymph % (Auto) 16.1 [place] % (Auto) 11.3 H Eos % (Auto) 2.8 Baso % (Auto) 0.4 Neut # (Auto) 4.5 Lymph # (Auto) 1.0 [place] # (Auto) 0.7 Eos # (Auto) 0.2 Baso # (Auto) 0.0 Sodium 134 L Potassium 4.6 Chloride 102 Carbon Dioxide 23 Anion Gap 13.6 13.9 BUN 27 H D Creatinine 1.60 H Estimated Creat Clear 36 34 Estimated GFR 42 L 39 L Est GFR ( Amer) 50 L 47 L D Glucose 89 Calcium 8.9 Preliminary micro results at discharge 10/09/18 15:25 Urine Culture - Preliminary Urine,Clean Catch NO GROWTH AFTER 24 HOURS DS: Diagnosis - Discharge Diagnosis (1) Hyponatremia Status: Resolved (2) Acute kidney injury Status: Resolved (3) Dehydration Status: Resolved (4) Ischemic cardiomyopathy Status: Chronic Discharge Plan - Patient Discharge Instructions ACTIVITY: Continue current activity DIET: continue same diet Patient Instructions: Acute Renal Failure, DI for Hyponatremia, Hyponatremia- Adult - Follow up Plan Follow up with: Milton Smith MD [Primary Care Provider] - 10/14/18 Disposition: Home, Self-Alf Medications: Home Medications Medication Instructions Recorded Confirmed Type aspirin 81 mg tablet,delayed 81 mg PO DAILY 03/02/17 10/09/18 History release cyanocobalamin (vit B-12) 1,000 1,000 mcg IM MONTHLY ml 03/06/17 10/09/18 History mcg/mL injection solution Carvedilol [Carvedilol 6.25mg Tab] 6.25 mg PO BID 09/28/18 10/09/18 History Levothyroxine Sodium 50 mcg PO DAILY #30 tab 09/29/18 10/09/18 Rx [Levothyroxine 50mcg (0.05mg) Tab] Spironolactone [Aldactone 25mg Tab] 25 mg PO BID #60 tab 10/11/18 Rx Prescriptions/Medication Reconciliation: New Spironolactone [Aldactone 25mg Tab] 25 mg PO BID #60 tab Continued cyanocobalamin (vit B-12) 1,000 mcg/mL injection solution 1,000 mcg IM MONTHLY ml aspirin 81 mg tablet,delayed release 81 mg PO DAILY Carvedilol [Carvedilol 6.25mg Tab] 6.25 mg PO BID Levothyroxine Sodium [Levothyroxine 50mcg (0.05mg) Tab] 50 mcg PO DAILY #30 tab Other Amb Orders: Basic Metabolic Panel Time Frame: 10/14/18, Facility: [facility], Location: Laboratory - Problem Reconciliation Problems Reviewed?: Yes
[2018-10-11 09:21] VITALS: BP 121/59
== END 2018-10-11 12:28 | disposition home or self-care (01) ==
LOC: 2ND
PROVIDERS: ADMIT Internal Medicine Adolescent Medicine; ATTEND Internal Medicine Adolescent Medicine
DX: N39.0 Urinary tract infection, site not specified; Z79.899 Other long term (current) drug therapy; I48.91 Unspecified atrial fibrillation; E86.0 Dehydration; Z95.5 Presence of coronary angioplasty implant and graft; I11.0 Hypertensive heart disease with heart failure; N17.9 Acute kidney failure, unspecified; I25.10 Atherosclerotic heart disease of native coronary artery without angina pectoris; I25.5 Ischemic cardiomyopathy; Z87.891 Personal history of nicotine dependence; I25.2 Old myocardial infarction; E87.1 Hypo-osmolality and hyponatremia; I50.9 Heart failure, unspecified; Z95.0 Presence of cardiac pacemaker; E03.9 Hypothyroidism, unspecified
CPT/HCPCS: 36415; 76770; 80048; 81001; 83735; 84100; 85025; 87086; 87088; 87186; 87205; 93005; G0378

== ENCOUNTER → 2018-10-14 08:18 | Outpatient (CLI) | payer MEDICARE, BC, SELFPAY ==
[2018-10-14 10:18] LABS: Anion Gap 18.2 mEq/L (5-15); Blood Urea Nitrogen 30 mg/dL (7-18); Calcium 9.4 mg/dL (8.5-10.1); Carbon Dioxide 22 mmol/L (21.0-32.0); Chloride 103 mmol/L (98-107); Creatinine,Serum 1.92 mg/dL (0.70-1.30); Estimated Glomerular Filt Rate 34 ml/min (>60); GFR (African American) 41 ML/MIN (>60); Glucose 93 mg/dL (74-106); Potassium 5.2 mmoL/L (3.5-5.1); Sodium 138 mmol/L (136-145)
[2018-10-14 10:41] LABS: Basophils % 0.4 % (0.1-2.0); Eosinophils # 0.6 K/mm3 (0.0-0.4); Eosinophils % 8.1 % (0.1-12.0); Hematocrit 41.6 % (42.0-52.0); Hemoglobin 13.3 g/dL (14.1-18.0); Lymphocytes # 0.7 K/mm3 (0.7-4.5); Mean Corpuscular Hemoglobin 32.2 pg (27.0-31.2); Mean Corpuscular Volume 100.8 fl (80-94); Mean Platelet Volume 7.3 fl (7.4-10.4); Monocytes # 0.9 K/mm3 (0.1-1.0); Monocytes % 11.1 % (1.7-9.3); Neutrophils # 5.7 K/mm3 (1.8-7.8); Neutrophils % 71.4 % (37.0-80.0); Platelet Count 287 K/mm3 (142-424); Red Blood Count 4.13 M/mm3 (4.60-6.20); Red Cell Distribution Width 13.4 % (11.5-17.5); White Blood Count 7.9 K/mm3 (4.8-10.8)
== END ==
PROVIDERS: Visit Provider Internal Medicine Adolescent Medicine
DX: N17.9 Acute kidney failure, unspecified (principal); I50.22 Chronic systolic (congestive) heart failure
CPT/HCPCS: 36415; 80048; 85025

== ENCOUNTER 2018-10-21 08:06 | Inpatient (IN) ==
[2018-10-21 08:26] LABS: Basophils % 0.3 % (0.1-2.0); Eosinophils # 1.1 K/mm3 (0.0-0.4); Eosinophils % 11.9 % (0.1-12.0); Hematocrit 40.5 % (42.0-52.0); Lymphocytes # 1.8 K/mm3 (0.7-4.5); Mean Corpuscular Volume 100.5 fl (80-94); Mean Platelet Volume 7.7 fl (7.4-10.4); Monocytes # 0.6 K/mm3 (0.1-1.0); Monocytes % 6.5 % (1.7-9.3); Neutrophils # 5.6 K/mm3 (1.8-7.8); Neutrophils % 61.3 % (37.0-80.0); Platelet Count 308 K/mm3 (142-424); Red Blood Count 4.03 M/mm3 (4.60-6.20); Red Cell Distribution Width 13.3 % (11.5-17.5); White Blood Count 9.2 K/mm3 (4.8-10.8)
[2018-10-21 08:34] LABS: Anion Gap 19.2 mEq/L (5-15); Blood Urea Nitrogen 55 mg/dL (7-18); Calcium 9.5 mg/dL (8.5-10.1); Carbon Dioxide 21 mmol/L (21.0-32.0); Chloride 97 mmol/L (98-107); Glucose 111 mg/dL (74-106); Sodium 132 mmol/L (136-145)
--- NOTE | 2018-10-21 11:48 | Pharmacy Consult Notes ---
[facility] Pharmacy VTE Monitoring - Patient Demographics Admission date: 10/21/18 Report Date: 10/21/18 Time: 11:48 Allergies/Adverse Reactions: Patient Allergies doxycycline Allergy (Intermediate, Verified 09/28/18 08:43) morphine Allergy (Intermediate, Verified 09/28/18 08:43) HALLUCINATIONS Height: 1.83 m Weight: 72.206 kg - VTE Risk Labs: VTE Related Lab Results Hgb 13.0 g/dL (14.1-18.0) L 10/21/18 08:08 Hct 40.5 % (42.0-52.0) L 10/21/18 08:08 Plt Count 308 K/mm3 (142-424) 10/21/18 08:08 BUN 55 mg/dL (7-18) H 10/21/18 08:08 Creatinine 4.04 mg/dL (0.70-1.30) H 10/21/18 08:08 Was VTE Risk Assessment Performed: Yes VTE Score: 4 VTE Risk Level: Low Risk - Prophylaxis VTE Prophylaxis Ordered?: Yes Types of VTE Prophylaxis: TEDS Knee High Location of Applied Device: Bilateral Lower Extremeties - VTE Diagnosis Confirmed Treatment or plan recommended: Continue Current Treatment
--- NOTE | 2018-10-21 13:56 | History & Physical Report ---
*Admission Date: 10/21/18 *Chief complaint: Acute kidney injury *History of present illness: 83-year-old white male with history of diverting colostomy for resection of colon cancer many years ago, ischemic cardiomyopathy with baseline ejection fraction 20 to 30%, and chronic renal insufficiency, stage II at baseline, who over the past couple of months has struggled with increasing problems with dehydration, hyponatremia and recurrent elevation of creatinine. He is required a couple of admissions to hospital for IV fluids, and most recently was discharged last week. Because of hyponatremia and need for ongoing CHF therapy we started spironolactone on patient at a low dose initially he tolerated this well but over the weekend became somewhat more tired. Came to the office today, labs were checked with creatinine elevation up to 4.04, which is well over his baseline-more than doubled. Patient is admitted to hospital for IV fluids and cessation of this medication. Of note patient has been off lisinopril for the past several weeks because of hyponatremia and kidney injury, and we have also discontinued Lasix because of the above problems. His only medication before starting spironolactone was low- dose carvedilol and levothyroxine and aspirin therapy. Previous admissions included a renal ultrasound which was unremarkable except for some cortical thinning consistent with medical renal disease. No evidence of obstruction was noted. He also had a urinary tract infection at that point and has a history of BPH with recurrent prostatitis, this has been treated and his symptoms have improved. He reports no symptoms of obstruction because of hesitancy or nocturia. Plan to be to admit to hospital for IV fluids and further medication adjustment. [facility] History I have reviewed the patient's past medical history: Yes Medical History: Reports:: Arrhythmia, Atherosclerotic Heart Disease, Atrial Fibrillation, Congestive Heart Failure (EF 20-30%), Coronary Artery Disease, Hyperlipidemia, Hypertension, Internal Pacemaker, Myocardial Infarction Denies:: Cancer, Diabetes Mellitus Type 1, Diabetes Mellitus Type 2, MRSA, Seizures *Have you ever received a pneumonia vaccine?: Yes *Have you received a flu vaccine this season?: No Other Medical History: Reports: Arthritis, Hypothyroidism, Thyroid Disease. Denies: Blood Transfusion Reaction Laterality Cases: Left: Arthroscopy Shoulder, Bilateral: Arthroscopy Hip, Total Hip Replacement, Other Other Surgeries: Yes: Cardiac Catheterization, Cholecystectomy, Colonoscopy, Colostomy, Coronary Stent (x4), Hernia Repair, Pacemaker, Other (Cardiac Cath- stents, cholecystectomy) Amputation: No Fractures: No - *Social History Educational Level: Completed High School Smoking Status: Former smoker Tobacco Type: cigarettes # Packs/Day (cigarettes): 1 #Yrs smoked (if former smoker): 10 Alcohol Intake: never Alcohol Intake Frequency:: other Substance Use Type: denies use *Occupational Status:: retired Housing: house Household Members: spouse *Travel in the last 8 weeks: None - Psychiatric History Expresses thoughts of harming self/others: None Family Hx:: Cancer, Coronary Artery Disease, Heart Attack, Hypertension, Stroke Review of Systems - Review of Systems Review of systems:: pertinent systems reviewed and negative unless documented below - Constitutional Reports fatigue, Reports weakness, Denies anorexia, Denies fever(s), Denies headache(s) - Eyes Denies blind spots, Denies blurry vision - ENT Denies poor balance - *Cardiovascular Denies chest pain, Denies excessive sweating, Denies shortness of breath - *Respiratory Reports shortness of breath with activity, Denies change in phlegm color, Denies excessive phlegm production - *Gastrointestinal Denies abdominal pain, Denies change in stools - *Genitourinary Denies difficulty urinating, Denies blood in urine, Denies decreased urination - *Musculoskeletal Denies abnormal walking, Denies joint pain Meds Home Medications Medication Instructions Recorded Confirmed Type aspirin 81 mg tablet,delayed 81 mg PO DAILY 03/02/17 10/21/18 History release cyanocobalamin (vit B-12) 1,000 1,000 mcg IM MONTHLY ml 03/06/17 10/21/18 Hi story mcg/mL injection solution Carvedilol [Carvedilol 6.25mg Tab] 3.125 mg PO BID 09/28/18 10/21/18 History Levothyroxine Sodium 50 mcg PO DAILY 10/21/18 10/21/18 History [Levothyroxine 50mcg (0.05mg) Tab] Spironolactone [Aldactone 25mg Tab] 25 mg PO BID 10/21/18 10/21/18 History Allergies Allergy/AdvReac Type Severity Reaction Status Date / Time doxycycline Allergy Intermediate Verified 09/28/18 08:43 morphine Allergy Intermediate HALLUCINATI Verified 09/28/18 08:43 ONS Exam Vital signs and Labs for Last 24 Hours: Temp Pulse Resp BP Pulse Ox 97.9 F 74 20 127/79 100 10/21/18 10:09 10/21/18 10:09 10/21/18 10:09 10/21/18 10:09 10/21/18 10:09 Laboratory Results - last 24 hr 10/21/18 08:08: Sodium 132 L, Potassium 5.2 H, Chloride 97 L, Carbon Dioxide 21, Anion Gap 19.2 H, BUN 55 H, Creatinine 4.04 H, Estimated GFR 14 L*, Est GFR ( Amer) 17 L*, Glucose 111 H, Calcium 9.5 10/21/18 08:08: WBC 9.2, RBC 4.03 L, Hgb 13.0 L, Hct 40.5 L, MCV 100.5 H, MCH 32.2 H, MCHC 32.0, RDW 13.3, Plt Count 308, MPV 7.7, Neut % (Auto) 61.3, Lymph % (Auto) 20.0, [place] % (Auto) 6.5, Eos % (Auto) 11.9, Baso % (Auto) 0.3, Neut # (Auto) 5.6, Lymph # (Auto) 1.8, [place] # (Auto) 0.6, Eos # (Auto) 1.1 H, Baso # (Auto) 0.0 I & O for Last 24 hours: Intake & Output 10/19/18 10/20/18 10/21/18 10/22/18 11:59 11:59 11:59 11:59 Weight 159 lb 3 oz Narrative: Patient is pleasant. Talkative. Alert, oriented x3. Cranial nerves are intact. Lungs are clear with good air movement. Heart rate regular. Abdomen soft, colostomy bag in the right lower quadrant seems to be functioning well. Good distal perfusion. Slightly poor skin turgor. Peripheral nerves show good power and sensation. Assessment and Plan (1) CAD (coronary artery disease) Current visit: No Status: Chronic Qualifiers: Coronary Disease-Associated Artery/Lesion type: [place] artery [place] vs. transplanted heart: [place] heart Associated angina: without angina Qualified Code(s): I25.10 - Atherosclerotic heart disease of [place] coronary artery withou t angina pectoris Category: Medical Code(s): I25.10 - Atherosclerotic heart disease of [place] coronary artery without angina pectoris Stable on current medication. However, I wonder if carvedilol could be causing some hyponatremia issues in the long-term as this is been his only consistent medication over time. Hold beta-danny tonight. Rehydrate. (2) Hypothyroidism Current visit: No Status: Chronic Qualifiers: Hypothyroidism type: unspecified Qualified Code(s): E03.9 - Hypothyroidism, unspecified Category: Medical Code(s): E03.9 - Hypothyroidism, unspecified (3) Renal insufficiency Current visit: No Status: Chronic Category: Medical Code(s): N28.9 - Disorder of kidney and ureter, unspecified Significant elevation of creatinine. Cautious IV fluids. Hold Aldactone. (4) Systolic heart failure Current visit: No Status: Chronic Qualifiers: Heart failure chronicity: chronic Qualified Code(s): I50.22 - Chronic systolic (congestive) heart failure Category: Medical Code(s): I50.20 - Unspecified systolic (congestive) heart failure Secondary to ischemic disease. See plan above (5) Acute kidney injury Current visit: No Status: Resolved Category: Medical Code(s): N17.9 - Acute kidney failure, unspecified
--- NOTE | 2018-10-21 16:05 | Electrocardiograph Report ---
APPROVED REPORT Exam: Resting ECG HR:74 bpm ECG Measurements Heart Rate 74 AXES [place] 114 P 56 QRSd 136 QRS -85 QT 442 T87 QTc 490 <Conclusion> Electronic ventricular pacemaker Electronically signed by : José Miguel Monterroso, 10/21/2018 16:04:46
[2018-10-22 06:14] LABS: Basophils % 0.3 % (0.1-2.0); Eosinophils # 0.8 K/mm3 (0.0-0.4); Hematocrit 35.2 % (42.0-52.0); Lymphocytes # 1.8 K/mm3 (0.7-4.5); Lymphocytes % 21.4 % (10-50); Mean Corpuscular HGB Conc 31.9 g/dL (31.8-35.4); Mean Corpuscular Volume 100.4 fl (80-94); Mean Platelet Volume 6.9 fl (7.4-10.4); Monocytes # 0.6 K/mm3 (0.1-1.0); Monocytes % 7.4 % (1.7-9.3); Platelet Count 252 K/mm3 (142-424); Red Blood Count 3.51 M/mm3 (4.60-6.20); Red Cell Distribution Width 13.3 % (11.5-17.5); White Blood Count 8.3 K/mm3 (4.8-10.8)
[2018-10-22 06:19] LABS: Anion Gap 14.9 mEq/L (5-15)
[2018-10-22 07:01] LABS: Calcium 8.3 mg/dL (8.5-10.1)
[2018-10-22 07:05] LABS: Hemoglobin 11.4 g/dL (14.1-18.0)
--- NOTE | 2018-10-22 07:14 | Progress Note ---
Internal Medicine - PN: Subj *Date: 10/22/18 *Time: 09:01 Interval history: No acute events overnight. Blood pressure stable. Improvement in renal function with rehydration. No fevers, emesis, SOA, diarrhea. Exam Vital signs and Labs for Last 24 Hours: Temp Pulse Resp BP Pulse Ox 97.8 F 80 16 115/57 L 98 10/22/18 04:00 10/22/18 04:00 10/22/18 04:00 10/22/18 04:00 10/22/18 04:00 Laboratory Results - last 24 hr 10/21/18 08:08: Sodium 132 L, Potassium 5.2 H, Chloride 97 L, Carbon Dioxide 21, Anion Gap 19.2 H, BUN 55 H, Creatinine 4.04 H, Estimated GFR 14 L*, Est GFR ( Amer) 17 L*, Glucose 111 H, Calcium 9.5 10/21/18 08:08: WBC 9.2, RBC 4.03 L, Hgb 13.0 L, Hct 40.5 L, MCV 100.5 H, MCH 32.2 H, MCHC 32.0, RDW 13.3, Plt Count 308, MPV 7.7, Neut % (Auto) 61.3, Lymph % (Auto) 20.0, [place] % (Auto) 6.5, Eos % (Auto) 11.9, Baso % (Auto) 0.3, Neut # (Auto) 5.6, Lymph # (Auto) 1.8, [place] # (Auto) 0.6, Eos # (Auto) 1.1 H, Baso # (Auto) 0.0 10/22/18 05:35: WBC 8.3, RBC 3.51 L, Hgb 11.4 L D, Hct 35.2 L, MCV 100.4 H, MCH 32.1 H, MCHC 31.9, RDW 13.3, Plt Count 252, MPV 6.9 L, Neut % (Auto) 61.0, Lymph % (Auto) 21.4, [place] % (Auto) 7.4, Eos % (Auto) 10.0, Baso % (Auto) 0.3, Neut # (Auto) 5.0, Lymph # (Auto) 1.8, [place] # (Auto) 0.6, Eos # (Auto) 0.8 H, Baso # (Auto) 0.0 10/22/18 05:35: Sodium 135 L, Potassium 4.9, Chloride 105, Carbon Dioxide 20 L, Anion Gap 14.9, BUN 45 H, Creatinine 2.62 H D, Estimated Creat Clear 22, Estimated GFR 24 L, Est GFR ( Amer) 28 L D, Glucose 84 D, Calcium 8.3 L D I & O for Last 24 hours: Intake & Output 10/19/18 10/20/18 10/21/18 10/22/18 23:59 23:59 23:59 23:59 Intake Total 251 / 251 1824 / 1824 Output Total 400 / 400 Balance 251 / 251 1424 / 1424 Weight 72.206 kg 71.838 kg Narrative: Patient is pleasant. Talkative. Alert, oriented x3. Cranial nerves are intact. Lungs are clear with good air movement. Heart rate regular. Abdomen soft, colostomy bag in the right lower quadrant seems to be functioning well. Good distal perfusion. Improved skin turgor Assessment and Plan (1) CAD (coronary artery disease) Current visit: No Status: Chronic Qualifiers: Coronary Disease-Associated Artery/Lesion type: [place] artery [place] vs. [place] ansplanted heart: [place] heart Associated angina: without angina Qualified Code(s): I25.10 - Atherosclerotic heart disease of [place] coronary artery without angina pectoris Category: Medical Code(s): I25.10 - Atherosclerotic heart disease of [place] coronary artery without angina pectoris (2) Hypothyroidism Current visit: No Status: Chronic Qualifiers: Hypothyroidism type: unspecified Qualified Code(s): E03.9 - Hypothyroidism, unspecified Category: Medical Code(s): E03.9 - Hypothyroidism, unspecified (3) Renal insufficiency Current visit: No Status: Chronic Category: Medical Code(s): N28.9 - Disorder of kidney and ureter, unspecified (4) Systolic heart failure Current visit: No Status: Chronic Qualifiers: Heart failure chronicity: chronic Qualified Code(s): I50.22 - Chronic systolic (congestive) heart failure Category: Medical Code(s): I50.20 - Unspecified systolic (congestive) heart failure (5) Acute kidney injury Current visit: No Status: Resolved Category: Medical Code(s): N17.9 - Acute kidney failure, unspecified - Assessment and plan all Dx Assessment and Plan for all problems:: Significant improvement in kidney function, still not back to baseline. Blood pressure doing well with holding medications. Continues to require inpatient management. Will monitor for another 24 hours. If shows improvement in kidney function again and tolerance of p.o. nutrition/fluids with stable blood pressure, will plan for discharge tomorrow
[2018-10-23 06:29] LABS: Basophils % 0.3 % (0.1-2.0); Eosinophils # 0.8 K/mm3 (0.0-0.4); Eosinophils % 10.7 % (0.1-12.0); Hematocrit 34.5 % (42.0-52.0); Lymphocytes # 1.7 K/mm3 (0.7-4.5); Lymphocytes % 22.8 % (10-50); Monocytes # 0.6 K/mm3 (0.1-1.0); Monocytes % 8.6 % (1.7-9.3); Neutrophils # 4.2 K/mm3 (1.8-7.8); Neutrophils % 57.6 % (37.0-80.0); Platelet Count 250 K/mm3 (142-424); Red Blood Count 3.38 M/mm3 (4.60-6.20); Red Cell Distribution Width 13.4 % (11.5-17.5); White Blood Count 7.3 K/mm3 (4.8-10.8)
[2018-10-23 06:47] LABS: Anion Gap 13.8 mEq/L (5-15); Calcium 8.4 mg/dL (8.5-10.1)
--- NOTE | 2018-10-23 07:38 | Progress Note ---
Internal Medicine - PN: Subj *Date: 10/23/18 *Time: 07:37 Interval history: Patient overall feels good. Eating and drinking well. IV infusing easily. No signs or symptoms of fluid overload. Exam Vital signs and Labs for Last 24 Hours: Temp Pulse Resp BP Pulse Ox 98.4 F 82 18 118/66 98 10/23/18 04:00 10/23/18 04:00 10/23/18 04:00 10/23/18 04:00 10/23/18 04:00 Laboratory Results - last 24 hr 10/23/18 05:34: WBC 7.3, RBC 3.38 L, Hgb 11.0 L, Hct 34.5 L, MCV 102.0 H, MCH 32.7 H, MCHC 32.0, RDW 13.4, Plt Count 250, MPV 7.0 L, Neut % (Auto) 57.6, Lymph % (Auto) 22.8, [place] % (Auto) 8.6, Eos % (Auto) 10.7, Baso % (Auto) 0.3, Neut # (Auto) 4.2, Lymph # (Auto) 1.7, [place] # (Auto) 0.6, Eos # (Auto) 0.8 H, Baso # (Auto) 0.0 10/23/18 05:34: Sodium 140, Potassium 4.8, Chloride 110 H, Carbon Dioxide 21, Anion Gap 13.8, BUN 30 H D, Creatinine 1.86 H D, Estimated Creat Clear 32, Estimated GFR 35 L, Est GFR ( Amer) 42 L D, Glucose 85, Calcium 8.4 L I & O for Last 24 hours: Intake & Output 10/20/18 10/21/18 10/22/18 10/23/18 11:59 11:59 11:59 11:59 Intake Total 2315 / 2315 1819 / 1819 Output Total 400 / 400 700 / 700 Balance 1914 / 1914 1119 / 1119 Weight 159 lb 3 oz 158 lb 6 oz 164 lb 3 oz Narrative: Lungs are clear. Heart rate regular. Previous murmur noted. Abdomen soft. No JVD. Oropharynx clear. No edema noted in the feet. Alert, oriented. Neurologic exam intact. Assessment and Plan (1) CAD (coronary artery disease) Current visit: No Status: Chronic Qualifiers: Coronary Disease-Associated Artery/Lesion type: [place] artery [place] vs. transplanted heart: [place] heart Associated angina: without angina Qualified Code(s): I25.10 - Atherosclerotic heart disease of [place] coronary artery without angina pectoris Category: Medical Code(s): I25.10 - Atherosclerotic heart disease of [place] coronary artery without angina pectoris (2) Hypothyroidism Current visit: No Status: Chronic Qualifiers: Hypothyroidism type: unspecified Qualified Code(s): E03.9 - Hypothyroidism, unspecified Category: Medical Code(s): E03.9 - Hypothyroidism, unspecified (3) Renal insufficiency Current visit: No Status: Chronic Category: Medical Code(s): N28.9 - Disorder of kidney and ureter, unspecified (4) Systolic heart failure Current visit: No Status: Chronic Qualifiers: Heart failure chronicity: chronic Qualified Code(s): I50.22 - Chronic systolic (congestive) heart failure Category: Medical Code(s): I50.20 - Unspecified systolic (congestive) heart failure (5) Acute kidney injury Current visit: No Status: Resolved Category: Medical Code(s): N17.9 - Acute kidney failure, unspecified - Assessment and plan all Dx Assessment and Plan for all problems:: Overall improving. Stop IV fluids. Hold on blood pressure reduction medicine to see if this improves kidney perfusion. I discussed the case by phone yesterday with Dr. Galdamez and nephrology who suggested checking cortisol and continuing off blood pressure medication. If patient able to do well without IV fluids will consider discharge tomorrow on no blood pressure medication.
[2018-10-24 06:47] LABS: Anion Gap 14.2 mEq/L (5-15); Calcium 8.5 mg/dL (8.5-10.1)
--- NOTE | 2018-10-24 08:37 | Discharge Summary ---
General - General Admission date:: 10/21/18 Discharge date: 10/24/18 HPI HPI: 83-year-old white male with history of diverting colostomy for resection of colon cancer many years ago, ischemic cardiomyopathy with baseline ejection fraction 20 to 30%, and chronic renal insufficiency, stage II at baseline, who over the past couple of months has struggled with increasing problems with dehydration, hyponatremia and recurrent elevation of creatinine. He is required a couple of admissions to hospital for IV fluids, and most recently was discharged last week. Because of hyponatremia and need for ongoing CHF therapy we started spironolactone on patient at a low dose initially he tolerated this well but over the weekend became somewhat more tired. Came to the office today, labs were checked with creatinine elevation up to 4.04, which is well over his baseline-more than doubled. Patient is admitted to hospital for IV fluids and cessation of this medication. Of note patient has been off lisinopril for the past several weeks because of hyponatremia and kidney injury, and we have also discontinued Lasix because of the above problems. His only medication before starting spironolactone was low- dose carvedilol and levothyroxine and aspirin therapy. Previous admissions included a renal ultrasound which was unremarkable except for some cortical thinning consistent with medical renal disease. No evidence of obstruction was noted. He also had a urinary tract infection at that point and has a history of BPH with recurrent prostatitis, this has been treated and his symptoms have improved. He reports no symptoms of obstruction because of hesitancy or nocturia. Plan to be to admit to hospital for IV fluids and further medication adjustment. Hospital Course Hospital Course: Patient was admitted, IV fluids were administered to reverse his acute kidney injury and this was successful. Obviously diuretics were held. Because of his persistently low-but at goal for his CHF-blood pressure carvedilol was also discontinued, hopefully to help low flow state the kidneys. Over the next couple of days he improved. And yesterday we discontinued IV fluids and only administered levothyroxine and aspirin. This morning his creatinine is continued to improve, down to 1.68. Blood pressure is acceptable. Plan to be discharged home on no medications except levothyroxine and aspirin. I will see him on Sunday with a BMP and monitor blood pressure. If blood pressure rises to intolerable levels would consider different agent other than carvedilol which perhaps has caused a low flow state with abnormal perfusion to the kidneys. Objective Vital signs: Temp Pulse Resp BP Pulse Ox 97.4 F L 87 15 124/69 99 10/24/18 04:00 10/24/18 04:00 10/24/18 04:00 10/24/18 04:00 10/24/18 04:00 Narrative: Patient is, as always, very pleasant, talkative, knowledgeable about his condition. Feels good. Lungs have good air movement. Heart rate regular. Abdomen soft, no edema or clubbing. Neurologically intact. Skin intact. ENT negative, no JVD. Results Labs on day of discharge: Labs from last 24 hours 10/24/18 06:08 Sodium 137 Potassium 4.2 Chloride 106 Carbon Dioxide 21 Anion Gap 14.2 BUN 21 H D Creatinine 1.63 H Estimated Creat Clear 37 Estimated GFR 41 L Est GFR ( Amer) 49 L Glucose 92 Calcium 8.5 DS: Diagnosis - Discharge Diagnosis (1) CAD (coronary artery disease) Status: Chronic (2) Hypothyroidism Status: Chronic (3) Renal insufficiency Status: Resolved (4) Systolic heart failure Status: Chronic (5) Acute kidney injury Status: Resolved Discharge Plan - Patient Discharge Instructions ACTIVITY: Continue current activity DIET: continue same diet Patient Instructions: Acute Renal Failure - Follow up Plan Follow up with: Milton Smith MD [Primary Care Provider] - 10/28/18 4:00 pm Disposition: Home, Self-Prison Medications: Home Medications Medication Instructions Recorded Confirmed Type aspirin 81 mg tablet,delayed 81 mg PO DAILY 03/02/17 10/21/18 History release cyanocobalamin (vit B-12) 1,000 1,000 mcg IM MONTHLY ml 03/06/17 10/21/18 History mcg/mL injection solution Carvedilol [Carvedilol 6.25mg Tab] 3.125 mg PO BID 09/28/18 10/21/18 History Levothyroxine Sodium 50 mcg PO DAILY 10/21/18 10/21/18 History [Levothyroxine 50mcg (0.05mg) Tab] Spironolactone [Aldactone 25mg Tab] 25 mg PO BID 10/21/18 10/21/18 History Prescriptions/Medication Reconciliation: Continued cyanocobalamin (vit B-12) 1,000 mcg/mL injection solution 1,000 mcg IM MONTHLY ml aspirin 81 mg tablet,delayed release 81 mg PO DAILY Levothyroxine Sodium [Levothyroxine 50mcg (0.05mg) Tab] 50 mcg PO DAILY Discontinued Carvedilol [Carvedilol 6.25mg Tab] 3.125 mg PO BID Spironolactone [Aldactone 25mg Tab] 25 mg PO BID Other Amb Orders: Basic Metabolic Panel Time Frame: 10/28/18, Location: None Selected - Problem Reconciliation Problems Reviewed?: Yes
== END 2018-10-24 10:10 | disposition home or self-care (01) | DRG 683 ==
LOC: 2ND 08:06 → LAB 08:06 → OBSVTOIN 09:16 → 2ND 09:33
PROVIDERS: ADMIT Internal Medicine Adolescent Medicine; ATTEND Internal Medicine Adolescent Medicine
DX: T50.0X5A Adverse effect of mineralocorticoids and their antagonists, initial encounter; I48.91 Unspecified atrial fibrillation; I25.10 Atherosclerotic heart disease of native coronary artery without angina pectoris; E03.9 Hypothyroidism, unspecified; I25.2 Old myocardial infarction; N17.9 Acute kidney failure, unspecified; Z95.5 Presence of coronary angioplasty implant and graft; I50.22 Chronic systolic (congestive) heart failure; I11.0 Hypertensive heart disease with heart failure; Z95.0 Presence of cardiac pacemaker; T44.7X5A Adverse effect of beta-adrenoreceptor antagonists, initial encounter

== ENCOUNTER → 2018-10-28 14:00 | Outpatient (CLI) | payer MEDICARE, BC, SELFPAY ==
[2018-10-28 14:27] LABS: Blood Urea Nitrogen 26 mg/dL (7-18); Calcium 8.9 mg/dL (8.5-10.1); Carbon Dioxide 23 mmol/L (21.0-32.0); Chloride 102 mmol/L (98-107); Creatinine,Serum 1.66 mg/dL (0.70-1.30); Estimated Glomerular Filt Rate 40 ml/min (>60); GFR (African American) 48 ML/MIN (>60); Glucose 94 mg/dL (74-106); Sodium 138 mmol/L (136-145)
== END ==
LOC: OUTP 14:02 → LAB 14:04
PROVIDERS: PCP Internal Medicine Adolescent Medicine; Visit Provider Internal Medicine Adolescent Medicine
DX: N28.9 Disorder of kidney and ureter, unspecified (principal)
CPT/HCPCS: 80048

== ENCOUNTER 2018-11-04 07:17 | Outpatient (CLI) | payer MEDICARE, BC, SELFPAY ==
[2018-11-04] VITALS (8 sets, daily range): BP systolic 115–151; BP diastolic 72–90; PULSE 82–99; RESP 18–22; TEMP 36.6–36.7; O2SAT 96–99
[2018-11-04 07:33] LABS: Basophils # 0.1 K/mm3 (0-0.2); Basophils % 0.7 % (0.1-2.0); Eosinophils # 0.3 K/mm3 (0.0-0.4); Eosinophils % 3.3 % (0.1-12.0); Hematocrit 42.2 % (42.0-52.0); Lymphocytes # 1.6 K/mm3 (0.7-4.5); Mean Corpuscular HGB Conc 33.1 g/dL (31.8-35.4); Mean Corpuscular Hemoglobin 33.1 pg (27.0-31.2); Mean Corpuscular Volume 100.1 fl (80-94); Monocytes # 0.8 K/mm3 (0.1-1.0); Monocytes % 10.1 % (1.7-9.3); Neutrophils # 5.3 K/mm3 (1.8-7.8); Neutrophils % 65.9 % (37.0-80.0); Platelet Count 380 K/mm3 (142-424); Red Blood Count 4.22 M/mm3 (4.60-6.20); Red Cell Distribution Width 13.3 % (11.5-17.5); White Blood Count 8.1 K/mm3 (4.8-10.8)
[2018-11-04 09:27] LABS: Alanine Aminotransferase 67 U/L (12-78); Albumin Level 3.9 gm/dL (3.4-5.0); Alkaline Phosphatase 162 U/L (46-116); Anion Gap 21.5 mEq/L (5-15); Aspartate Amino Transferase 46 U/L (15-37); Bilirubin,Total 0.8 mg/dL (0.2-1.0); Blood Urea Nitrogen 40 mg/dL (7-18); Calcium 9.6 mg/dL (8.5-10.1); Carbon Dioxide 19 mmol/L (21.0-32.0); Chloride 95 mmol/L (98-107); Creatinine,Serum 2.45 mg/dL (0.70-1.30); Estimated Glomerular Filt Rate 25 ml/min (>60); GFR (African American) 31 ML/MIN (>60); Globulin 3.8 gm/dl (1.3-3.2); Glucose 108 mg/dL (74-106); Potassium 5.5 mmoL/L (3.5-5.1); Sodium 130 mmol/L (136-145); Total Protein,Serum 7.7 gm/dL (6.4-8.2)
== END 2018-11-04 13:45 | disposition home or self-care (01) ==
LOC: LAB 07:18 → INF 10:11
PROVIDERS: PCP Internal Medicine Adolescent Medicine; Visit Provider Internal Medicine Adolescent Medicine
DX: I50.22 Chronic systolic (congestive) heart failure (principal); N18.2 Chronic kidney disease, stage 2 (mild)
CPT/HCPCS: 36415; 80053; 85025; 96360; 96361; J2405

== ENCOUNTER 2018-11-06 07:34 | Outpatient (CLI) | payer MEDICARE, BC, SELFPAY ==
[2018-11-06 08:29] LABS: Anion Gap 16.7 mEq/L (5-15); Blood Urea Nitrogen 29 mg/dL (7-18); Calcium 9.3 mg/dL (8.5-10.1); Carbon Dioxide 22 mmol/L (21.0-32.0); Chloride 100 mmol/L (98-107); Creatinine,Serum 1.89 mg/dL (0.70-1.30); Estimated Glomerular Filt Rate 34 ml/min (>60); GFR (African American) 42 ML/MIN (>60); Glucose 92 mg/dL (74-106); Potassium 4.7 mmoL/L (3.5-5.1); Sodium 134 mmol/L (136-145)
[2018-11-06 10:10] VITALS: BP 113/66; PULSE 104; RESP 24; TEMP 36.4; O2SAT 99
[2018-11-06 10:50] VITALS: BP 124/75; PULSE 95; RESP 20; O2SAT 100
[2018-11-06 11:45] VITALS: BP 127/76; PULSE 89; RESP 20; O2SAT 99
[2018-11-06 13:00] VITALS: BP 124/68; PULSE 88; RESP 20; O2SAT 99
[2018-11-06 14:15] VITALS: BP 128/70; PULSE 89; RESP 20; O2SAT 99
== END 2018-11-06 14:10 | disposition home or self-care (01) ==
PROVIDERS: Visit Provider Internal Medicine Adolescent Medicine
DX: N17.9 Acute kidney failure, unspecified (principal)
CPT/HCPCS: 36415; 80048; 96360; 96361; 96365; 96366

== ENCOUNTER 2018-11-09 08:05 | Outpatient (CLI) | payer MEDICARE, BC, SELFPAY ==
[2018-11-09 08:10] VITALS: BP 134/79; PULSE 95; RESP 17; TEMP 36.8; O2SAT 99
[2018-11-09 08:40] VITALS: BMI 21.8
[2018-11-09 13:07] VITALS: BP 130/75; PULSE 95; RESP 17; TEMP 36.8; O2SAT 99
== END 2018-11-09 13:09 | disposition hospice, home (50) ==
LOC: INF 08:07
PROVIDERS: PCP Internal Medicine Adolescent Medicine; Visit Provider Internal Medicine Adolescent Medicine
DX: I50.22 Chronic systolic (congestive) heart failure (principal); N18.2 Chronic kidney disease, stage 2 (mild)
CPT/HCPCS: 96360; 96361

== ENCOUNTER → 2018-11-11 07:32 | Outpatient (CLI) | payer MEDICARE, BC, SELFPAY ==
[2018-11-11 10:34] LABS: Anion Gap 19.2 mEq/L (5-15); Blood Urea Nitrogen 14 mg/dL (7-18); Calcium 9.3 mg/dL (8.5-10.1); Carbon Dioxide 20 mmol/L (21.0-32.0); Chloride 102 mmol/L (98-107); Creatinine,Serum 1.49 mg/dL (0.70-1.30); Estimated Glomerular Filt Rate 45 ml/min (>60); GFR (African American) 55 ML/MIN (>60); Glucose 87 mg/dL (74-106); Potassium 4.2 mmoL/L (3.5-5.1); Sodium 137 mmol/L (136-145)
== END ==
PROVIDERS: Visit Provider Internal Medicine Adolescent Medicine
DX: I50.22 Chronic systolic (congestive) heart failure (principal); N18.2 Chronic kidney disease, stage 2 (mild)
CPT/HCPCS: 36415; 80048

== ENCOUNTER 2018-11-14 08:47 | Outpatient (CLI) | payer MEDICARE, BC, SELFPAY ==
[2018-11-14 08:40] VITALS: BP 131/72; PULSE 115; RESP 18; O2SAT 97
[2018-11-14 09:50] VITALS: BP 146/88; PULSE 93; RESP 18; O2SAT 96
[2018-11-14 11:00] VITALS: BP 163/114; PULSE 86; RESP 18
[2018-11-14 12:00] VITALS: BP 157/96; PULSE 94; RESP 18
[2018-11-14 12:55] VITALS: BP 136/71; PULSE 94; RESP 18
== END 2018-11-14 12:55 | disposition home or self-care (01) ==
LOC: INF 08:47
PROVIDERS: PCP Internal Medicine Adolescent Medicine; Visit Provider Internal Medicine Adolescent Medicine
DX: N17.9 Acute kidney failure, unspecified (principal)
CPT/HCPCS: 96360; 96361

== ENCOUNTER 2018-11-18 08:31 | Outpatient (CLI) | payer MEDICARE, BC, SELFPAY ==
[2018-11-18 10:10] VITALS: BP 139/94; PULSE 104; RESP 20; TEMP 36.9; O2SAT 95
[2018-11-18 10:33] LABS: Anion Gap 18.3 mEq/L (5-15); Blood Urea Nitrogen 19 mg/dL (7-18); Calcium 9.2 mg/dL (8.5-10.1); Carbon Dioxide 22 mmol/L (21.0-32.0); Chloride 101 mmol/L (98-107); Creatinine,Serum 1.65 mg/dL (0.70-1.30); Estimated Glomerular Filt Rate 40 ml/min (>60); GFR (African American) 49 ML/MIN (>60); Glucose 104 mg/dL (74-106); Potassium 4.3 mmoL/L (3.5-5.1); Sodium 137 mmol/L (136-145)
[2018-11-18 11:10] VITALS: BP 138/74; PULSE 68; RESP 20; TEMP 36.9; O2SAT 98
[2018-11-18 12:10] VITALS: BP 138/74; PULSE 68; RESP 20; TEMP 36.9; O2SAT 95
[2018-11-18 13:10] VITALS: BP 112/74; PULSE 68; RESP 20; TEMP 36.9; O2SAT 95
[2018-11-18 14:00] VITALS: BP 110/74; PULSE 68; RESP 20; TEMP 36.9
== END 2018-11-18 14:10 | disposition home or self-care (01) ==
LOC: LAB 08:32 → INF 08:44
PROVIDERS: PCP Internal Medicine Adolescent Medicine; Visit Provider Nurse Practitioner Family
DX: I50.22 Chronic systolic (congestive) heart failure (principal); N18.2 Chronic kidney disease, stage 2 (mild)
CPT/HCPCS: 36415; 80048; 96360; 96361

== ENCOUNTER 2018-11-22 08:07 | Outpatient (CLI) | payer MEDICARE, BC, SELFPAY ==
[2018-11-22 08:09] VITALS: BMI 21.7
[2018-11-22 08:37] VITALS: BP 143/84; PULSE 90; RESP 18; O2SAT 97
[2018-11-22 08:46] LABS: Basophils # 0.1 K/mm3 (0-0.2); Basophils % 0.8 % (0.1-2.0); Eosinophils # 0.3 K/mm3 (0.0-0.4); Eosinophils % 5.1 % (0.1-12.0); Hematocrit 39.2 % (42.0-52.0); Hemoglobin 11.8 g/dL (14.1-18.0); Lymphocytes # 1.2 K/mm3 (0.7-4.5); Lymphocytes % 18.6 % (10-50); Mean Corpuscular HGB Conc 30.2 g/dL (31.8-35.4); Mean Corpuscular Hemoglobin 31.6 pg (27.0-31.2); Mean Corpuscular Volume 104.6 fl (80-94); Mean Platelet Volume 7.7 fl (7.4-10.4); Monocytes # 0.5 K/mm3 (0.1-1.0); Monocytes % 7.5 % (1.7-9.3); Neutrophils # 4.4 K/mm3 (1.8-7.8); Platelet Count 340 K/mm3 (142-424); Red Blood Count 3.75 M/mm3 (4.60-6.20); Red Cell Distribution Width 14.3 % (11.5-17.5); White Blood Count 6.5 K/mm3 (4.8-10.8)
[2018-11-22 08:55] LABS: Anion Gap 15.5 mEq/L (5-15); Blood Urea Nitrogen 25 mg/dL (7-18); Calcium 9.3 mg/dL (8.5-10.1); Carbon Dioxide 23 mmol/L (21.0-32.0); Chloride 102 mmol/L (98-107); Creatinine Clearance Estimated 31 mL/min (50-200); Creatinine,Serum 1.86 mg/dL (0.70-1.30); Estimated Glomerular Filt Rate 35 ml/min (>60); GFR (African American) 42 ML/MIN (>60); Glucose 107 mg/dL (74-106); Potassium 4.5 mmoL/L (3.5-5.1); Sodium 136 mmol/L (136-145)
[2018-11-22 09:30] VITALS: BP 150/86; PULSE 85; RESP 18
[2018-11-22 10:39] VITALS: BP 147/85; PULSE 79; RESP 18
[2018-11-22 11:30] VITALS: BP 154/84; PULSE 70; RESP 18
[2018-11-22 12:40] VITALS: BP 134/67; PULSE 78; RESP 18; O2SAT 96
[2018-11-22 13:02] LABS: Creatinine,Urine Random 231 mg/dL (20-320)
[2018-11-22 20:48] LABS: Microscopic, Urine URINE MICROSCOPIC (MICROSCOPIC)
[2018-11-22 20:50] LABS: Appearance,Urine CLEAR (Clear); Bilirubin,Urine Negative (Negative); Blood, Urine Negative (Negative); Color,Urine YELLOW (Yellow); Glucose,Urine (UA) Negative (Negative); Ketones,Urine Negative (Negative); Leukocyte Esterase,Urine Negative (Negative); Nitrate,Urine Negative (Negative); PH,Urine 5.5 (5.0-8.5); Protein,Urine Negative (Negative); Specific Gravity, Urine 1.025 (1.005-1.030); Urobilinogen,Urine 0.2 EU/dl (0.2)
[2018-11-22 20:58] LABS: Bacteria,Urine 4+ /lpf; Squamous Epithelial Cell,Urine Occasional #/hpf (0-5); WBC,Urine Occasional #/hpf (0-3)
[2018-11-22 20:59] LABS: Amorphous Sediment,Urine 3+ /lpf
[2018-11-23 15:37] LABS: Vitamin D 25 Hydroxy 27.2 ng/mL (30.0-100.0)
[2018-11-26 07:02] LABS: Parathyroid Hormone Intact 19 pg/mL (15-65)
[2018-11-26 14:14] LABS: Albumin, U 14.9 % (.); Alpha-1-Globulin, U 1.8 % (.); Alpha-2-Globulin, U 15.3 % (.); Beta Globulin, U 34.1 % (.); Gamma Globulin, U 33.9 % (.); M-Spike, % Not Observed % (Not Observed); Protein,Total,Urine 16.9 mg/dL (Not Estab.)
== END 2018-11-22 12:40 | disposition home or self-care (01) ==
LOC: INF 08:07
PROVIDERS: Internal Medicine Nephrology; Visit Provider Internal Medicine Adolescent Medicine
DX: N18.3 Chronic kidney disease, stage 3 (moderate) (principal); N17.9 Acute kidney failure, unspecified; R82.90 Unspecified abnormal findings in urine
CPT/HCPCS: 80048; 81001; 82570; 82652; 83970; 84156; 84166; 85025; 87086; 96360; 96361

== ENCOUNTER → 2018-11-28 15:28 | Outpatient (POV) | payer MEDICARE, BC, SELFPAY | PROVIDERS: Visit Provider Internal Medicine Nephrology | DX: Z00.00 Encounter for general adult medical examination without abnormal findings (principal) ==

== ENCOUNTER 2018-11-29 08:00 | Outpatient (CLI) | payer MEDICARE, BC, SELFPAY ==
[2018-11-29] VITALS (8 sets, daily range): BP systolic 107–141; BP diastolic 72–79; PULSE 69–90; RESP 16–18; O2SAT 99
== END 2018-11-29 12:20 | disposition home or self-care (01) ==
LOC: INF 08:28
PROVIDERS: Visit Provider Internal Medicine Adolescent Medicine
DX: N17.9 Acute kidney failure, unspecified (principal)
CPT/HCPCS: 96360; 96361

== ENCOUNTER 2018-12-06 07:59 | Outpatient (CLI) | payer MEDICARE, BC, SELFPAY ==
[2018-12-06 08:05] VITALS: BP 130/81; PULSE 94; RESP 18; O2SAT 99
[2018-12-06 10:10] VITALS: BP 156/90; PULSE 70; RESP 18
[2018-12-06 12:10] VITALS: BP 139/69; PULSE 88; O2SAT 96
== END 2018-12-06 12:10 | disposition home or self-care (01) ==
LOC: INF 07:59
PROVIDERS: Visit Provider Internal Medicine Adolescent Medicine
DX: N17.9 Acute kidney failure, unspecified (principal)
CPT/HCPCS: 96360; 96361

== ENCOUNTER 2018-12-13 08:00 | Outpatient (CLI) | payer MEDICARE, BC, SELFPAY ==
[2018-12-13] VITALS (9 sets, daily range): BP systolic 112–138; BP diastolic 64–77; PULSE 69–90; RESP 16–18; O2SAT 100
== END 2018-12-13 12:30 | disposition home or self-care (01) ==
LOC: INF 08:06
PROVIDERS: Visit Provider Internal Medicine Adolescent Medicine
DX: N17.9 Acute kidney failure, unspecified (principal)
CPT/HCPCS: 96360; 96361

== ENCOUNTER 2018-12-20 07:04 | Outpatient (CLI) | payer MEDICARE, BC, SELFPAY ==
[2018-12-20] VITALS (10 sets, daily range): BP systolic 106–125; BP diastolic 56–74; PULSE 69–79; RESP 16–20; TEMP 36.5–36.6; O2SAT 96–98
[2018-12-20 08:34] LABS: Prostate Specific Ag Screen 11.8 ng/mL (0.0-4.0)
== END 2018-12-20 12:45 | disposition home or self-care (01) ==
LOC: INF 07:05
PROVIDERS: Visit Provider Internal Medicine Adolescent Medicine
DX: Z12.5 Encounter for screening for malignant neoplasm of prostate (principal); N40.0 Benign prostatic hyperplasia without lower urinary tract symptoms; N17.9 Acute kidney failure, unspecified
CPT/HCPCS: 36415; 96360; 96361; G0103

== ENCOUNTER 2018-12-25 06:10 | Inpatient (IN) ==
[2018-12-25 06:41] LABS: Microscopic, Urine URINE MICROSCOPIC (MICROSCOPIC)
[2018-12-25 06:43] LABS: Appearance,Urine SL CLOUDY (Clear); Blood, Urine Negative (Negative); Color,Urine DK YELLOW (Yellow); Glucose,Urine (UA) Negative (Negative); Ketones,Urine TRACE (Negative); Leukocyte Esterase,Urine 1+ (Negative); Protein,Urine TRACE (Negative); Specific Gravity, Urine 1.025 (1.005-1.030); Urobilinogen,Urine 0.2 EU/dl (0.2)
[2018-12-25 06:49] LABS: Basophils % 0.4 % (0.1-2.0); Eosinophils # 0.3 K/mm3 (0.0-0.4); Eosinophils % 2.9 % (0.1-12.0); Hematocrit 46.6 % (42.0-52.0); Hemoglobin 15.2 g/dL (14.1-18.0); Lymphocytes # 1.5 K/mm3 (0.7-4.5); Lymphocytes % 17.8 % (10-50); Mean Corpuscular HGB Conc 32.7 g/dL (31.8-35.4); Mean Corpuscular Volume 102.6 fl (80-94); Mean Platelet Volume 7.8 fl (7.4-10.4); Monocytes # 0.8 K/mm3 (0.1-1.0); Neutrophils % 69.9 % (37.0-80.0); Platelet Count 454 K/mm3 (142-424); Red Blood Count 4.54 M/mm3 (4.60-6.20); Red Cell Distribution Width 12.9 % (11.5-17.5); White Blood Count 8.5 K/mm3 (4.8-10.8)
[2018-12-25 06:51] LABS: Bilirubin,Urine Negative (Negative)
[2018-12-25 06:52] LABS: Bacteria,Urine 1+ /lpf; RBC,Urine Occasional #/hpf (0-3)
[2018-12-25 07:06] LABS: Albumin Level 4.2 gm/dL (3.4-5.0); Albumin/Globulin Ratio 0.8 (1.1-1.8); Bilirubin,Total 0.6 mg/dL (0.2-1.0); Total Protein,Serum 9.2 gm/dL (6.4-8.2)
--- NOTE | 2018-12-25 07:15 | Emergency Department Note ---
ED Disposition Clinical Impression: ERWIN (acute kidney injury), Right bundle branch block UTI (urinary tract infection) Qualifiers: Urinary tract infection type: site unspecified Hematuria presence: without hematuria Qualified Code(s): N39.0 - Urinary tract infection, site not specified Disposition: Admitted as Observation Condition on Discharge: Fair - Critical Care Critical Care Time: No Attestation: On 12/25/18, the high probability of a clinically significant, sudden or life threatening deterioration of the following system(s) required my full and direct attention, intervention and personal management. The time I documented below is in addition to time spent performing reported procedures but includes the following listed in this critical care notation. Medical Decision Making - Medical Records Medical records reviewed: Yes: I reviewed the patient's medical records. - Chandana Inquiry Pt receiving controlled substance: No Vital Signs: 12/25/18 06:27 12/25/18 07:07 Temperature 97.8 F Temperature Source Oral Pulse Rate [Right Radial] 102 H 77 Respiratory Rate 20 Blood Pressure [Right Arm] 139/83 117/70 Blood Pressure Mean [Right Arm] 101 85 Blood Pressure Source [Right Arm] Automatic Cuff Blood Pressure Position [Right Arm] Sitting 02 Sat by Pulse Oximetry 98 Oxygen Delivery Method Room Air - Lab Data Lab results reviewed: Yes: I reviewed the patient's lab results. Lab Results 12/25/18 06:25: Urine Color Dk yellow, Urine Appearance Sl cloudy, Urine pH 6.0, Ur Specific [place] 1.025, Urine Protein Trace, Urine Glucose (UA) Negative, Urine Ketones Trace, Urine Blood Negative, Urine Nitrate Positive, Urine Bilirubin Negative, Urine Urobilinogen 0.2, Ur Leukocyte Esterase 1+ A, Urine RBC Occasional, Urine WBC 10-20, Ur Squamous Epith Cells 3-5, Urine Bacteria 1+ 12/25/18 06:30: Influenza Type A Ag Negative, Influenza Type B Ag Negative 12/25/18 06:32: WBC 8.5, RBC 4.54 L, Hgb 15.2, Hct 46.6, MCV 102.6 H, MCH 33.5 H , MCHC 32.7, RDW 12.9, Plt Count 454 H, MPV 7.8, Neut % (Auto) 69.9, Lymph % (Auto) 17.8, [place] % (Auto) 9.0, Eos % (Auto) 2.9, Baso % (Auto) 0.4, Neut # (Auto) 6.0, Lymph # (Auto) 1.5, [place] # (Auto) 0.8, Eos # (Auto) 0.3, Baso # (Auto) 0.0 12/25/18 06:32: Sodium 129 L, Potassium 5.0, Chloride 94 L, Carbon Dioxide 20 L, Anion Gap 20.0 H, BUN 54 H, Creatinine 3.56 H, Estimated Creat Clear 16, Estimated GFR 17 L*, Est GFR ( Amer) 20 L, Glucose 110 H, Calcium 10.0, Total Bilirubin 0.6, AST 36, ALT 44, Alkaline Phosphatase 174 H, Troponin I 0.10 H, Total Protein 9.2 H, Albumin 4.2, Globulin 5.0 H, Albumin/Globulin Ratio 0.8 L 12/25/18 06:32: Lactate 2.9 H Result diagrams: 12/25/18 06:32 12/25/18 06:32 Orders (Tests/Meds): ED MEDICATIONS Generic Name Dose Route Start Last Admin Trade Name Freq PRN Reason Stop Dose Admin Sodium Chloride 1,000 mls @ 999 mls/hr 12/25/18 06:45 12/25/18 07:06 Sod Chlor 0.9% 1000ml Bag IV 12/25/18 07:45 999 mls/hr .[id number] SHAYAN Administration Sodium Chloride 1,000 mls @ 150 mls/hr 12/25/18 07:30 Sod Chlor 0.9% 1000ml Bag IV 01/24/19 07:29 .[id number] SHAYAN Levofloxacin/Dextrose 500 mg in 100 mls @ 100 mls/hr 12/25/18 07:30 Levaquin 500mg/100ml Premix IV 01/08/19 07:29 Q24H SHAYAN Protocol ORDERS Category Date Time Status CT head/brain wo con Stat Cat Scan 12/25/18 06:32 Taken XR chest AP Stat Exams 12/25/18 06:32 Taken B-Type Natriuretic Peptide Stat Lab 12/25/18 06:32 Received Blood Culture Stat Micro 12/25/18 06:35 Received Urine Culture Stat Micro 12/25/18 06:25 Received - Radiology Data #1 Image(s): Chest Image Reviewed: Yes I reviewed the patient's radiology image Preliminary Findings: Abnormal (chronic changes ) - CT Data CT Scan: Head Time Received: 07:[address] Reviewed: Yes: I have viewed the radiologist's interpretation Preliminary Findings: Abnormal (hyperdense mca) - ECG Data Tracing #1 Arrhythmias present: sinus tach Ischemic changes: non-specific ST-T wave changes Conduction abnormalities present: RBBB - Physician Consults Physician Consulted: silviano Reason -: Admission Weakness HPI - General Chief complaint: Weakness Stated complaint: Weakness, SOB Time Seen by Provider: 12/25/18 06:50 Mode of Arrival: Wheelchair Source of Information: Patient Limitations: Physical Limitations Description of Symptoms (Recalled from ER Triage Doc. by RN): pt states that he receives regular iv fluid infusions here due to recurrent dehydration. pt states that he has been decreased to one infusion per week. pt states that his last one was on sunday. pt states that sunday night he began feeling weak and having shortness of breath and doesnt feel like "holding his head up." pt and family deny fever. - History of Present Illness HPI Narrative: this wm who has been getting op iv fluids with last about 5 days ago presents with weakness but no vomiting and no fever - he has sob but feels it is at baseline - has known renal disease MD Complaint: generalized weakness Onset (ago): day(s) Duration: constant Location: generalized Migration: none Severity: moderate Associated symptoms: denies other symptoms - Related Data Home Medications Medication Instructions Recorded Confirmed aspirin 81 mg tablet,delayed 81 mg PO DAILY 03/02/17 12/25/18 release cyanocobalamin (vit B-12) 1,000 1,000 mcg IM MONTHLY ml 03/06/17 12/25/18 mcg/mL injection solution Carvedilol [Carvedilol 3.125mg Tab] 3.125 mg PO BID 11/29/18 12/25/18 Previous Rx's Medication Instructions Recorded levothyroxine 50 mcg tablet 50 mcg PO DAILY #30 tab 11/04/18 Allergies Allergy/AdvReac Type Severity Reaction Status Date / Time doxycycline Allergy Intermediate Verified 12/25/18 06:31 morphine Allergy Intermediate HALLUCINATI Verified 12/25/18 06:31 [facility] History - Hepatitis A Screen Drug use history?: No High risk sexual behaviors?: No History of sexually transmitted infection?: No Currently employed?: No Childcare worker?: No Do you have indoor plumbing?: Yes Do you have electricity?: Yes Attestation statement:: This patient has been screened for Hepatitis A risk factors. I have reviewed the patient's past medical history: Yes Medical History: Reports:: Arrhythmia, Atherosclerotic Heart Disease, Atrial Fibrillation, Congestive Heart Failure (EF 20-30%), Coronary Artery Disease, Hyperlipidemia, Hypertension, Internal Pacemaker, Myocardial Infarction Denies:: Cancer, Diabetes Mellitus Type 1, Diabetes Mellitus Type 2, MRSA, Seizures Other Medical History: Reports: Anemia, Arthritis, Hypothyroidism, Thyroid Disease. Denies: Blood Transfusion Reaction Comment: Poor toleration of diuretics and HARLEY-I in past - low bp and fatigue Laterality Cases: Left: Arthroscopy Shoulder, Bilateral: Arthroscopy Hip, Total Hip Replacement, Other Other Surgeries: Yes: Cardiac Catheterization, Cholecystectomy, Colonoscopy, Colon Resection, Colostomy, Coronary Stent, Hernia Repair, Pacemaker, Other (Cardiac Cath-stents, cholecystectomy) Amputation: No Fractures: No Comment: L Shoulder rx, L hip rx (x2), Ileostomy, Prostate Surgery, Cystoscopy, Clot evacuation - Social History Smoking Status: Former smoker Tobacco Type: cigarettes # Packs/Day (cigarettes): 1 #Yrs smoked (if former smoker): 10 Alcohol Intake: never Alcohol Intake Frequency:: 0-2 drinks per day Substance Use Type: denies use Occupational Status: retired Housing: house Household Members: spouse Family Hx:: Cancer, Coronary Artery Disease, Heart Attack, Hypertension, Stroke Comment: father, brother, sister heart disease ROS Obtained: Yes All systems reviewed & no additional complaints - Constitutional Constitutional: Reports as per HPI, Denies fever(s), Reports weakness - Eyes Eyes: Denies change in vision - ENT Ears, Nose, Mouth, and Throat: Denies sore throat - Cardiovascular Cardiovascular: Denies chest pain, Reports dyspnea - Respiratory Respiratory: No cough - Gastrointestinal Gastrointestingal: Denies: abdominal pain - Genitourinary Male Genitourinary: Denies hematuria - Musculoskeletal Musculoskeletal: Denies joint swelling - Integumentary/Breasts Skin/Breast: Denies rash - Neurologic Neurologic: Denies focal weakness, Denies seizure-like activity, Reports w eakness Physical Exam - General General appearance: alert, in no apparent distress - Head Head exam: normocephalic - Eye Eye exam: Present: PERRL, EOMI. Absent: scleral icterus - ENT ENT exam: Present: mucous membranes dry - Neck Neck exam: Present: trachea midline - Respiratory Respiratory exam: Present: other (dec bs bilat ). Absent: respiratory distress - Cardiovascular Cardiovascular exam: Present: regular rate, systolic murmur, +S4 - Abdominal Exam Abdominal exam: Present: soft, other (ileosty) - Extremities Exam Extremities exam: Absent: pedal edema, calf tenderness - Neurological Exam Neurological exam: Present: alert, oriented X3, CN II-XII intact - Psychiatric Psychiatric exam: Present: normal affect - Skin Skin exam: Absent: rash
--- NOTE | 2018-12-25 07:48 | Pharmacy Consult Notes ---
[facility] Pharmacy VTE Monitoring - Patient Demographics Admission date: 12/25/18 Report Date: 12/25/18 Time: 07:48 Allergies/Adverse Reactions: Patient Allergies doxycycline Allergy (Intermediate, Verified 12/25/18 06:31) morphine Allergy (Intermediate, Verified 12/25/18 06:31) HALLUCINATIONS Height: 1.83 m Weight: 72.575 kg Patient Problems: Current Active Problems (Last Reviewed 04/03/18 @ 09:53 by Anaid Johnson RN) ERWIN (acute kidney injury) (Acute) UTI (urinary tract infection) (Acute) Right bundle branch block (Acute) - VTE Risk Labs: VTE Related Lab Results Hgb 15.2 g/dL (14.1-18.0) 12/25/18 06:32 Hct 46.6 % (42.0-52.0) 12/25/18 06:32 Plt Count 454 K/mm3 (142-424) H 12/25/18 06:32 BUN 54 mg/dL (7-18) H 12/25/18 06:32 Creatinine 3.56 mg/dL (0.70-1.30) H 12/25/18 06:32 Estimated Creat Clear 16 mL/min (50-200) 12/25/18 06:32 - Prophylaxis VTE Prophylaxis Ordered?: Yes Types of VTE Prophylaxis: TEDS Knee High Location of Applied Device: Bilateral Lower Extremeties - VTE Diagnosis Confirmed Treatment or plan recommended: Continue Current Treatment
--- NOTE | 2018-12-25 17:42 | History & Physical Report ---
*Admission Date: 12/25/18 *Chief complaint: Weakness/dysuria *History of present illness: 83-year-old white male with history of CHF, ejection fraction in the mid 20 range, currently maintained on low-dose carvedilol, with history of several non- STEMI's, as well as a colostomy in the remote past with chronic volume loss and chronic acute kidney injury/prerenal azotemia. He has been managed over the past 4 months with twice weekly volume infusions with normal saline in the outpatient setting which has kept his creatinine below 2.0. He is done well with this, and we have also referred him to [facility] nephrology who has agreed with this approach, and have scheduled him for some other diagnostic testing and reevaluation in the next couple of weeks. Unfortunately, over the past week he did not get a saline infusion, has felt very weak and rundown, noticed that he had a fever and some diarrhea through his colostomy bag over the last 48 hours and came to the emergency department this morning where he was hypotensive, creatinine above 3 and had evidence of a urinary tract infection. Admitted to the hospital for IV fluids and IV antibiotics. [facility] History I have reviewed the patient's past medical history: Yes Medical History: Reports:: Arrhythmia, Atherosclerotic Heart Disease, Atrial Fibrillation, Congestive Heart Failure, Coronary Artery Disease, Hyperlipidemia, Hypertension, Internal Pacemaker, Myocardial Infarction Denies:: Cancer, Diabetes Mellitus Type 1, Diabetes Mellitus Type 2, MRSA, Seizures *Have you ever received a pneumonia vaccine?: Yes *Have you received a flu vaccine this season?: Yes Other Medical History: Reports: Anemia, Arthritis, Hypothyroidism, Thyroid Disease. Denies: Blood Transfusion Reaction Laterality Cases: Left: Arthroscopy Shoulder, Bilateral: Arthroscopy Hip, Total Hip Replacement, Other Other Surgeries: Yes: Cardiac Catheterization, Cholecystectomy, Colonoscopy, Colon Resection, Colostomy, Coronary Stent, Hernia Repair, Pacemaker, Other (Cardiac Cath-stents, cholecystectomy) Amputation: No Fractures: No - *Social History Educational Level: Completed High School Smoking Status: Former smoker Tobacco Type: cigarettes # Packs/Day (cigarettes): 1 #Yrs smoked (if former smoker): 10 Smoking End Date: 50 years ago Alcohol Intake: never Alcohol Intake Frequency:: 0-2 drinks per day Substance Use Type: denies use *Occupational Status:: retired Housing: house Household Members: spouse *Travel in the last 8 weeks: None Family Hx:: Cancer, Heart Attack, Hyperlipidemia, Hypertension, Kidney Disease, Stroke Review of Systems - Review of Systems Review of systems:: pertinent systems reviewed and negative unless documented below - Constitutional Reports anorexia, Reports body ache(s), Reports fatigue, Reports fever(s), Reports weakness, Denies headache(s), Denies increased appetite, Denies weight gain - Eyes Denies blind spots, Denies dry eyes - ENT Denies abnormal hearing, Denies poor balance - *Cardiovascular Denies chest pain, Denies excessive sweating, Denies shortness of breath, Denies generalized swelling - *Respiratory Denies change in phlegm color, Denies chest congestion, Denies cough, Denies shortness of breath - *Gastrointestinal Reports change in stools, Denies abdominal pain - *Genitourinary Reports difficulty urinating, Reports decreased urination, Denies frequent nighttime urination - *Musculoskeletal Denies abnormal walking - *Neurologic Reports weakness, Denies localized weakness, Denies seizure-like activity Meds Home Medications Medication Instructions Recorded Confirmed Type aspirin 81 mg tablet,delayed 81 mg PO DAILY 03/02/17 12/25/18 History release cyanocobalamin (vit B-12) 1,000 1,000 mcg IM MONTHLY ml 03/06/17 12/25/18 History mcg/mL injection solution levothyroxine 50 mcg tablet 50 mcg PO DAILY #30 tab 11/04/18 12/25/18 Rx Carvedilol [Carvedilol 3.125mg Tab] 3.125 mg PO BID 11/29/18 12/25/18 History Allergies Allergy/AdvReac Type Severity Reaction Status Date / Time doxycycline Allergy Intermediate Verified 12/25/18 06:31 morphine Allergy Intermediate HALLUCINATI Verified 12/25/18 06:31 ONS Exam Vital signs and Labs for Last 24 Hours: Temp Pulse Resp BP Pulse Ox 98.3 F 73 16 107/57 L 98 12/25/18 15:51 12/25/18 15:51 12/25/18 15:51 12/25/18 15:51 12/25/18 15:51 Laboratory Results - last 24 hr 12/25/18 06:25: Urine Color Dk yellow, Urine Appearance Sl cloudy, Urine pH 6.0, Ur Specific [place] 1.025, Urine Protein Trace, Urine Glucose (UA) Negative, Urine Ketones Trace, Urine Blood Negative, Urine Nitrate Positive, Urine Bilirubin Negative, Urine Urobilinogen 0.2, Ur Leukocyte Esterase 1+ A, Urine RBC Occasional, Urine WBC 10-20, Ur Squamous Epith Cells 3-5, Urine Bacteria 1+ 12/25/18 06:30: Influenza Type A Ag Negative, Influenza Type B Ag Negative 12/25/18 06:32: WBC 8.5, RBC 4.54 L, Hgb 15.2, Hct 46.6, MCV 102.6 H, MCH 33.5 H , MCHC 32.7, RDW 12.9, Plt Count 454 H, MPV 7.8, Neut % (Auto) 69.9, Lymph % (Auto) 17.8, [place] % (Auto) 9.0, Eos % (Auto) 2.9, Baso % (Auto) 0.4, Neut # (Aut o) 6.0, Lymph # (Auto) 1.5, [place] # (Auto) 0.8, Eos # (Auto) 0.3, Baso # (Auto) 0.0 12/25/18 06:32: Sodium 129 L, Potassium 5.0, Chloride 94 L, Carbon Dioxide 20 L, Anion Gap 20.0 H, BUN 54 H, Creatinine 3.56 H, Estimated Creat Clear 16, Estimated GFR 17 L*, Est GFR ( Amer) 20 L, Glucose 110 H, Calcium 10.0, Total Bilirubin 0.6, AST 36, ALT 44, Alkaline Phosphatase 174 H, Troponin I 0.10 H, Total Protein 9.2 H, Albumin 4.2, Globulin 5.0 H, Albumin/Globulin Ratio 0.8 L 12/25/18 06:32: Lactate 2.9 H 12/25/18 06:32: B-Natriuretic Peptide 62 12/25/18 10:55: Lactate 2.7 H 12/25/18 13:49: Lactate 1.6 I & O for Last 24 hours: Intake & Output 12/23/18 12/24/18 12/25/18 12/26/18 11:59 11:59 11:59 11:59 Intake Total 240 / 240 Output Total 400 / 400 Balance -160 / -160 Weight 148 lb 3.997 oz Narrative: Patient is pleasant, alert, oriented x3. Appears fatigued and dehydrated. Dry oral mucosa, flat neck veins. No sinus tenderness. Lungs have good air movement. Heart rate regular, rate controlled, soft 2/6 ejection murmur as previously noted. Good distal perfusion, skin is dry but intact. Neurologic exam nonfocal. Colostomy bag in the right lower quadrant functioning well. Assessment and Plan (1) ERWIN (acute kidney injury) Current visit: Yes Status: Acute Category: Medical Code(s): N17.9 - Acute kidney failure, unspecified Significant ERWIN related to probable volume loss. Cautiously replace with normal saline. Follow electrolytes tomorrow. (2) UTI (urinary tract infection) Current visit: Yes Status: Acute Qualifiers: Urinary tract infection type: site unspecified Hematuria presence: without hematuria Qualified Code(s): N39.0 - Urinary tract infection, site not specified Category: Medical Code(s): N39.0 - Urinary tract infection, site not specified Antibiotics started. Await urine and blood cultures (3) Syncope and collapse Current visit: No Status: Acute Category: Medical Code(s): R55 - Syncope and collapse From volume loss. Replace as noted. (4) Systolic CHF, chronic Current visit: Yes Status: Acute Category: Medical Code(s): I50.22 - Chronic systolic (congestive) heart failure Very cautiously watch fluid status given history of reduced EF
[2018-12-26 06:20] LABS: Basophils % 0.5 % (0.1-2.0); Eosinophils # 0.3 K/mm3 (0.0-0.4); Eosinophils % 3.7 % (0.1-12.0); Hematocrit 37.3 % (42.0-52.0); Lymphocytes # 1.4 K/mm3 (0.7-4.5); Mean Corpuscular HGB Conc 31.9 g/dL (31.8-35.4); Mean Corpuscular Volume 102.7 fl (80-94); Mean Platelet Volume 7.9 fl (7.4-10.4); Monocytes # 0.6 K/mm3 (0.1-1.0); Monocytes % 8.4 % (1.7-9.3); Neutrophils # 4.9 K/mm3 (1.8-7.8); Neutrophils % 68.4 % (37.0-80.0); Platelet Count 268 K/mm3 (142-424); Red Blood Count 3.63 M/mm3 (4.60-6.20); White Blood Count 7.1 K/mm3 (4.8-10.8)
[2018-12-26 06:29] LABS: Anion Gap 13.5 mEq/L (5-15)
[2018-12-26 06:58] LABS: Calcium 8.4 mg/dL (8.5-10.1)
[2018-12-26 07:06] LABS: Hemoglobin 11.8 g/dL (14.1-18.0)
--- NOTE | 2018-12-26 09:03 | Discharge Summary ---
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 He has been managed over the past 4 months with twice weekly volume infusions with normal saline in the outpatient setting which has kept his creatinine below 2.0. He is done well with this, and we have also referred him to [facility] nephrology who has agreed with this approach, and have scheduled him for some other diagnostic testing and reevaluation in the next couple of weeks. Unfortunately, over the past week he did not get a saline infusion, has felt very weak and rundown, noticed that he had a fever and some diarrhea through his colostomy bag over the last 48 hours and came to the emergency department this morning where he was hypotensive, creatinine above 3 and had evidence of a ur inary tract infection. Admitted to the hospital for IV fluids and IV antibiotics. <Cory Dixon - 12/26/18 09:03> Hospital Course Hospital Course: Admitted to [facility] - IV infusions given... felt better... treated with IV abx for UA abnormalities. [place] better - creatinine improved.... Urine and blood cultures negative. DC today with PO levaquin for 5 days, f/u with NS infusion next week and with nephrology next week. <Milton Smith - 12/27/18 08:12> Objective Vital signs: Temp Pulse Resp BP Pulse Ox 97.8 F 89 17 118/67 99 12/27/18 04:00 12/27/18 04:00 12/27/18 04:00 12/27/18 04:00 12/27/18 04:00 <Milton Smith - 12/27/18 08:12> Temp Pulse Resp BP Pulse Ox 97.8 F 76 18 109/64 L 100 12/26/18 04:00 12/26/18 04:00 12/26/18 04:00 12/26/18 04:00 12/26/18 04:00 <Cory Dixon - 12/26/18 09:03> no acute distress, average body habitus <Milton Smith - 12/27/18 08:12> - *Routine HEENT Exam Head: Present: normocephalic <Milton Smith 12/27/18 08:12> Eye: Present: EOMI, PERRL. Absent: scleral injection <Milton Smith 08:12> - *Routine Neck Exam Present: supple, full ROM <Milton Smith 12/27/18 08:12> - *Routine Respiratory Exam Present: CTA bilaterally. Absent: accessory muscle use <Milton Smith 12/27/18 08:12> - *Routine Cardiovascular Exam Present: RRR <Milton Smith 12/27/18 08:12> - *Routine Abdominal Exam Present: soft <Milton Smith 12/27/18 08:12> - *Routine Extremities Exam Absent: cyanosis, clubbing, edema <Milton Smith 12/27/18 08:12> Results Labs on day of discharge: Labs from last 24 hours 12/27/18 12/27/18 12/27/18 06:34 06:34 06:34 WBC 6.1 RBC 3.22 L Hgb 10.6 L Hct 34.0 L MCV 105.6 H MCH 32.8 H MCHC 31.1 L RDW 13.0 Plt Count 245 MPV 7.4 Neut % (Auto) 67.2 Lymph % (Auto) 19.2 [place] % (Auto) 9.3 Eos % (Auto) 3.9 Baso % (Auto) 0.4 Neut # (Auto) 4.1 Lymph # (Auto) 1.2 [place] # (Auto) 0.6 Eos # (Auto) 0.2 Baso # (Auto) 0.0 Sodium 136 Potassium 4.1 Chloride 108 H Carbon Dioxide 19 L Anion Gap 13.1 BUN 31 H D Creatinine 1.60 H D Estimated Creat Clear 35 Estimated GFR 42 L Est GFR ( Amer) 50 L D Glucose 82 Calcium 7.9 L Magnesium 1.3 L D Preliminary micro results at discharge 12/25/18 06:35 Blood Culture - Preliminary Blood NO GROWTH AFTER 48 HOURS 12/25/18 06:35 Blood Culture - Preliminary Blood NO GROWTH AFTER 48 HOURS <Milton Smith - 12/27/18 08:12> Labs from last 24 hours 12/26/18 12/26/18 12/25/18 06:04 06:04 13:49 WBC 7.1 RBC 3.63 L Hgb 11.8 L D Hct 37.3 L MCV 102.7 H MCH 32.7 H MCHC 31.9 RDW 13.0 Plt Count 268 D MPV 7.9 Neut % (Auto) 68.4 Lymph % (Auto) 19.0 [place] % (Auto) 8.4 Eos % (Auto) 3.7 Baso % (Auto) 0.5 Neut # (Auto) 4.9 Lymph # (Auto) 1.4 [place] # (Auto) 0.6 Eos # (Auto) 0.3 Baso # (Auto) 0.0 Sodium 131 L Potassium 4.5 Chloride 102 Carbon Dioxide 20 L Anion Gap 13.5 BUN 48 H Creatinine 2.15 H D Estimated Creat Clear 26 Estimated GFR 30 L Est GFR ( Amer) 36 L D Glucose 83 D Lactate 1.6 Calcium 8.4 L D Magnesium 1.5 12/25/18 10:55 WBC RBC Hgb Hct MCV MCH MCHC RDW Plt Count MPV Neut % (Auto) Lymph % (Auto) [place] % (Auto) Eos % (Auto) Baso % (Auto) Neut # (Auto) Lymph # (Auto) [place] # (Auto) Eos # (Auto) Baso # (Auto) Sodium Potassium Chloride Carbon Dioxide Anion Gap BUN Creatinine Estimated Creat Clear Estimated GFR Est GFR ( Amer) Glucose Lactate 2.7 H Calcium Magnesium Preliminary micro results at discharge 12/25/18 06:25 Urine Culture - Preliminary Urine,Clean Catch NO GROWTH AFTER 24 HOURS <Cory Dixon - 12/26/18 09:03> DS: Diagnosis - Discharge Diagnosis (1) ERWIN (acute kidney injury) Status: Acute (2) UTI (urinary tract infection) Status: Acute (3) Syncope and collapse Status: Acute (4) Systolic CHF, chronic Status: Acute <Cory Dixon - 12/26/18 09:03> (1) ERWIN (acute kidney injury) Status: Acute (2) UTI (urinary tract infection) Status: Acute (3) Syncope and collapse Status: Acute (4) Systolic CHF, chronic Status: Acute <iMlton Smith - 12/27/18 08:12> Discharge Plan - Patient Discharge Instructions ACTIVITY: Continue current activity <Milton Smith - 12/27/18 08:12> DIET: continue same diet <Milton Smith - 12/27/18 08:12> Patient Instructions: Urinary Tract Infection, Heart Failure, DI for Acute Kidney Injury <Milton Smith - 12/27/18 08:12> Forms: <Milton Smith - 12/27/18 08:12> - Follow up Plan Follow up with: Milton Smith MD [Primary Care Provider] - 01/03/19 11:00 am <Milton Smith - 12/27/18 08:12> Disposition: Home, Self-Care <Milton Smith - 12/27/18 08:12> Home Medications: Home Medications Medication Instructions Recorded Confirmed Type aspirin 81 mg tablet,delayed 81 mg PO DAILY 03/02/17 12/25/18 History release cyanocobalamin (vit B-12) 1,000 1,000 mcg IM MONTHLY ml 03/06/17 12/25/18 History mcg/mL injection solution levothyroxine 50 mcg tablet 50 mcg PO DAILY #30 tab 11/04/18 12/25/18 Rx Carvedilol [Carvedilol 3.125mg Tab] 3.125 mg PO BID 11/29/18 12/25/18 History levoFLOXacin [Levaquin 250mg 250 mg PO DAILY #5 tab 12/27/18 Rx tab] <Milton Smith - 12/27/18 08:12> Prescriptions/Medication Reconciliation: New levoFLOXacin [Levaquin 250mg tab] 250 mg PO DAILY #5 tab Continued cyanocobalamin (vit B-12) 1,000 mcg/mL injection solution 1,000 mcg IM MONTHLY ml aspirin 81 mg tablet,delayed release 81 mg PO DAILY levothyroxine 50 mcg tablet 50 mcg PO DAILY #30 tab Carvedilol [Carvedilol 3.125mg Tab] 3.125 mg PO BID <Milton Smith - 11/01/19 08:12> - Problem Reconciliation Problems Reviewed?: Yes <Milton Smith - 12/27/18 08:12> Yes <Cory Dixon - 12/26/18 09:03>
--- NOTE | 2018-12-26 13:39 | Progress Note ---
Internal Medicine - PN: Subj *Date: 12/26/18 *Time: 08:30 Interval history: Pati is Exam Vital signs and Labs for Last 24 Hours: Temp Pulse Resp BP Pulse Ox 97.7 F 91 H 20 109/51 L 99 12/26/18 08:00 12/26/18 08:00 12/26/18 08:00 12/26/18 08:00 12/26/18 08:00 Laboratory Results - last 24 hr 12/25/18 13:49: Lactate 1.6 12/26/18 06:04: WBC 7.1, RBC 3.63 L, Hgb 11.8 L D, Hct 37.3 L, MCV 102.7 H, MCH 32.7 H, MCHC 31.9, RDW 13.0, Plt Count 268 D, MPV 7.9, Neut % (Auto) 68.4, Lymph % (Auto) 19.0, [place] % (Auto) 8.4, Eos % (Auto) 3.7, Baso % (Auto) 0.5, Neut # (Auto) 4.9, Lymph # (Auto) 1.4, [place] # (Auto) 0.6, Eos # (Auto) 0.3, Baso # (Auto) 0.0 12/26/18 06:04: Sodium 131 L, Potassium 4.5, Chloride 102, Carbon Dioxide 20 L, Anion Gap 13.5, BUN 48 H, Creatinine 2.15 H D, Estimated Creat Clear 26, Estimated GFR 30 L, Est GFR ( Amer) 36 L D, Glucose 83 D, Calcium 8.4 L D, Magnesium 1.5 I & O for Last 24 hours: Intake & Output 12/23/18 12/24/18 12/25/18 12/26/18 23:59 23:59 23:59 23:59 Intake Total 1842 / 1842 2257 / 2257 Output Total 400 / 400 Balance 1442 / 1442 2257 / 2257 Weight 67.245 kg 69.173 kg Microbiology Reports for the Last 24 Hours: Microbiology 12/25/18 06:25 Urine,Clean Catch Urine Culture - Preliminary NO GROWTH AFTER 24 HOURS Narrative: Patient is pleasant, alert, oriented x3. Appears fatigued, but in no acute distress MMM Lungs have good air movement. Heart rate regular, rate controlled, soft 2/6 ejection murmur as previously noted. Good distal perfusion, skin is dry but intact. Neurologic exam nonfocal. Colostomy bag in the right lower quadrant functioning well. Assessment and Plan (1) ERWIN (acute kidney injury) Current visit: Yes Status: Acute Category: Medical Code(s): N17.9 - Acute kidney failure, unspecified Significant improvement, baseline creatinine 1.6-1.8. 2.1 this morning with significant improvement over admission. We will plan to resume biweekly outpatient infusions after discharge (2) UTI (urinary tract infection) Current visit: Yes Status: Acute Qualifiers: Urinary tract infection type: site unspecified Hematuria presence: without hematuria Qualified Code(s): N39.0 - Urinary tract infection, site not specified Category: Medical Code(s): N39.0 - Urinary tract infection, site not specified Urine culture with no growth at 24 hours. If no growth by 48 hours, will not treat any further for UTI (3) Syncope and collapse Current visit: No Status: Acute Category: Medical Code(s): R55 - Syncope and collapse (4) Systolic CHF, chronic Current visit: Yes Status: Acute Category: Medical Code(s): I50.22 - Chronic systolic (congestive) heart failure - Assessment and plan all Dx Assessment and Plan for all problems:: 83-year-old gentleman with chronic kidney disease, high output ostomy, admitted for dehydration and ERWIN. Kidney function with significant improvement. Plan to keep 1 more night to finish an additional dose of IV antibiotics and monitor for kidney improvement in the morning. Further management pending assessment in the morning
[2018-12-27 07:07] LABS: Basophils % 0.4 % (0.1-2.0); Eosinophils # 0.2 K/mm3 (0.0-0.4); Eosinophils % 3.9 % (0.1-12.0); Hemoglobin 10.6 g/dL (14.1-18.0); Lymphocytes # 1.2 K/mm3 (0.7-4.5); Lymphocytes % 19.2 % (10-50); Mean Corpuscular HGB Conc 31.1 g/dL (31.8-35.4); Mean Corpuscular Volume 105.6 fl (80-94); Mean Platelet Volume 7.4 fl (7.4-10.4); Monocytes # 0.6 K/mm3 (0.1-1.0); Monocytes % 9.3 % (1.7-9.3); Neutrophils # 4.1 K/mm3 (1.8-7.8); Neutrophils % 67.2 % (37.0-80.0); Platelet Count 245 K/mm3 (142-424); Red Blood Count 3.22 M/mm3 (4.60-6.20); White Blood Count 6.1 K/mm3 (4.8-10.8)
[2018-12-27 07:33] LABS: Anion Gap 13.1 mEq/L (5-15); Calcium 7.9 mg/dL (8.5-10.1)
[2018-12-27 09:12] LABS: Microscopic, Urine URINE MICROSCOPIC (MICROSCOPIC)
[2018-12-27 09:40] LABS: Appearance,Urine SL CLOUDY (Clear); Bilirubin,Urine Negative (Negative); Blood, Urine Negative (Negative); Color,Urine YELLOW (Yellow); Glucose,Urine (UA) Negative (Negative); Ketones,Urine Negative (Negative); Leukocyte Esterase,Urine 2+ (Negative); PH,Urine 5.5 (5.0-8.5); Protein,Urine Negative (Negative); Specific Gravity, Urine 1.025 (1.005-1.030); Urobilinogen,Urine 0.2 EU/dl (0.2)
[2018-12-27 10:05] LABS: Bacteria,Urine 1+ /lpf; WBC,Urine 20-50 #/hpf (0-3)
--- NOTE | 2018-12-28 11:37 | Electrocardiograph Report ---
APPROVED REPORT Exam: Resting ECG HR:102 bpm ECG Measurements Heart Rate 102 AXES VT 128 P 64 QRSd 162 QRS -82 QT 386 T86 QTc 503 <Conclusion> Sinus tachycardia Left axis deviation Right bundle branch block LAHB Abnormal ECG Electronically signed by : José Miguel Monterroso, 12/28/2018 11:37:33
== END 2018-12-27 10:28 | disposition home or self-care (01) | DRG 291 ==
LOC: ER 06:10 → 2ND 07:23
PROVIDERS: ADMIT Internal Medicine Adolescent Medicine; ATTEND Internal Medicine Adolescent Medicine
CPT/HCPCS: 36415; 70450; 71010; 71045; 80048; 80053; 81001; 82570; 83605; 83735; 83880; 84155; 84484; 85025; 87040; 87086; 87088; 87186; 87275; 87276; 93005; 96365; 96367; 99285; J1956

== ENCOUNTER 2018-12-31 08:02 | Outpatient (CLI) | payer MEDICARE, BC, SELFPAY ==
[2018-12-31 08:04] VITALS: BMI 21.7
[2018-12-31 08:15] VITALS: BP 149/76; PULSE 98; RESP 18; O2SAT 99
[2018-12-31 08:37] LABS: Anion Gap 13.9 mEq/L (5-15); Blood Urea Nitrogen 17 mg/dL (7-18); Calcium 8.6 mg/dL (8.5-10.1); Carbon Dioxide 24 mmol/L (21.0-32.0); Chloride 103 mmol/L (98-107); Creatinine Clearance Estimated 38 mL/min (50-200); Creatinine,Serum 1.52 mg/dL (0.70-1.30); Estimated Glomerular Filt Rate 44 ml/min (>60); GFR (African American) 53 ML/MIN (>60); Glucose 109 mg/dL (74-106); Potassium 3.9 mmoL/L (3.5-5.1); Sodium 137 mmol/L (136-145)
[2018-12-31 09:15] VITALS: BP 141/76; PULSE 78; RESP 18
[2018-12-31 10:15] VITALS: BP 134/72; PULSE 86; RESP 18
== END 2018-12-31 10:15 | disposition home or self-care (01) ==
LOC: INF 08:02
PROVIDERS: Visit Provider Internal Medicine Adolescent Medicine
DX: N18.2 Chronic kidney disease, stage 2 (mild) (principal)
CPT/HCPCS: 80048; 96360; 96361

== ENCOUNTER → 2019-01-02 14:23 | Outpatient (POV) | payer MEDICARE, BC, SELFPAY | PROVIDERS: Visit Provider Internal Medicine Nephrology | DX: Z00.00 Encounter for general adult medical examination without abnormal findings (principal) ==

== ENCOUNTER 2019-01-03 08:12 | Outpatient (CLI) | payer MEDICARE, BC, SELFPAY ==
[2019-01-03 08:25] VITALS: BP 119/72; PULSE 85; RESP 18; TEMP 36.7; O2SAT 100
[2019-01-03 08:55] VITALS: BP 131/65; PULSE 69; RESP 18
[2019-01-03 09:25] VITALS: BP 128/67; PULSE 73; RESP 18
[2019-01-03 09:55] VITALS: BP 134/78; PULSE 72; RESP 18
[2019-01-03 10:25] VITALS: BP 134/71; PULSE 69; RESP 18
== END 2019-01-03 10:35 | disposition home or self-care (01) ==
LOC: INF 08:12
PROVIDERS: Visit Provider Internal Medicine Adolescent Medicine
DX: N18.9 Chronic kidney disease, unspecified (principal)
CPT/HCPCS: 96360; 96361

== ENCOUNTER 2019-01-07 08:06 | Outpatient (CLI) | payer MEDICARE, BC, SELFPAY ==
[2019-01-07 08:15] VITALS: BP 141/69; PULSE 90; RESP 18; O2SAT 98
[2019-01-07 10:20] VITALS: BP 137/78; PULSE 83; RESP 18; O2SAT 98
== END 2019-01-07 10:20 | disposition home or self-care (01) ==
LOC: INF 08:06
PROVIDERS: Visit Provider Internal Medicine Adolescent Medicine
DX: N18.9 Chronic kidney disease, unspecified (principal)
CPT/HCPCS: 96360; 96361

== ENCOUNTER 2019-01-14 08:04 | Outpatient (CLI) | payer MEDICARE, BC, SELFPAY ==
[2019-01-14 08:36] VITALS: BP 134/73; PULSE 94; RESP 18; TEMP 36.6; O2SAT 97
[2019-01-14 08:56] VITALS: BP 131/70; PULSE 91; RESP 18; O2SAT 98
[2019-01-14 09:26] VITALS: BP 136/74; PULSE 90; RESP 18; O2SAT 97
[2019-01-14 09:56] VITALS: BP 132/71; PULSE 93; RESP 18; O2SAT 98
[2019-01-14 10:35] VITALS: BP 132/63; PULSE 86; RESP 18; O2SAT 97
== END 2019-01-14 10:39 | disposition home or self-care (01) ==
LOC: INF 08:04
PROVIDERS: Visit Provider Internal Medicine Adolescent Medicine
DX: N18.9 Chronic kidney disease, unspecified (principal); E86.0 Dehydration
CPT/HCPCS: 96360; 96361

== ENCOUNTER 2019-01-17 08:00 | Outpatient (CLI) | payer MEDICARE, BC, SELFPAY ==
[2019-01-17 08:25] VITALS: BP 112/74; PULSE 94; RESP 18; O2SAT 98
[2019-01-17 08:55] VITALS: BP 124/60; PULSE 86; RESP 16
[2019-01-17 09:25] VITALS: BP 122/67; PULSE 73; RESP 16
[2019-01-17 09:55] VITALS: BP 118/69; PULSE 77; RESP 16
[2019-01-17 10:25] VITALS: BP 115/69; PULSE 73; RESP 16
== END 2019-01-17 10:40 | disposition home or self-care (01) ==
LOC: INF 08:08
PROVIDERS: Visit Provider Internal Medicine Adolescent Medicine
DX: N18.9 Chronic kidney disease, unspecified (principal)
CPT/HCPCS: 96360; 96361; J1642

== ENCOUNTER 2019-01-20 08:04 | Outpatient (CLI) | payer MEDICARE, BC, SELFPAY ==
[2019-01-20 08:20] VITALS: BP 135/76; PULSE 92; RESP 18
[2019-01-20 10:28] VITALS: BP 135/71; PULSE 76; RESP 18
== END 2019-01-20 10:28 | disposition home or self-care (01) ==
LOC: INF 08:05
PROVIDERS: Visit Provider Internal Medicine Adolescent Medicine
DX: N18.9 Chronic kidney disease, unspecified (principal)
CPT/HCPCS: 96360; 96361; J1642

== ENCOUNTER 2019-01-22 08:00 | Outpatient (CLI) | payer MEDICARE, BC, SELFPAY ==
[2019-01-22 08:04] VITALS: BMI 21.7
[2019-01-22 08:25] VITALS: BP 139/69; PULSE 81; RESP 18; O2SAT 98
[2019-01-22 10:30] VITALS: BP 145/75; PULSE 70; RESP 18
[2019-01-22 14:33] LABS: Prostate Specific Ag, Diagnost 9.52 ng/mL (0.0-4.0)
== END 2019-01-22 12:45 | disposition home or self-care (01) ==
LOC: INF 08:00
PROVIDERS: Urology; Visit Provider Internal Medicine Adolescent Medicine
DX: N18.9 Chronic kidney disease, unspecified (principal); R97.20 Elevated prostate specific antigen [PSA]
CPT/HCPCS: 84153; 96360; 96361; 96375; J1642

== ENCOUNTER 2019-01-27 08:07 | Outpatient (CLI) | payer MEDICARE, BC, SELFPAY ==
[2019-01-27 08:15] VITALS: BP 123/72; PULSE 79; RESP 18; TEMP 36.6; O2SAT 99
[2019-01-27 08:45] VITALS: BP 122/75; PULSE 75; RESP 18; TEMP 36.6; O2SAT 100
[2019-01-27 09:15] VITALS: BP 129/72; PULSE 72; RESP 16; TEMP 36.6; O2SAT 99
[2019-01-27 09:45] VITALS: BP 132/74; PULSE 70; RESP 16; TEMP 36.7; O2SAT 99
[2019-01-27 10:15] VITALS: BP 125/76; PULSE 72; RESP 18; TEMP 36.7; O2SAT 98
[2019-01-27 10:25] VITALS: BP 128/72; PULSE 75; RESP 18; TEMP 36.7; O2SAT 100
== END 2019-01-27 10:25 | disposition home or self-care (01) ==
LOC: INF 08:07
PROVIDERS: Visit Provider Internal Medicine Adolescent Medicine
DX: N18.9 Chronic kidney disease, unspecified (principal)
CPT/HCPCS: 96360; 96361; J1642

== ENCOUNTER 2019-01-31 10:07 | Outpatient (CLI) | payer MEDICARE, BC, SELFPAY ==
[2019-01-31 10:15] VITALS: BP 153/82; PULSE 79; RESP 18; O2SAT 99
[2019-01-31 12:29] VITALS: BP 143/81; PULSE 83; RESP 18; O2SAT 99
== END 2019-01-31 12:29 | disposition home or self-care (01) ==
LOC: INF 10:07
PROVIDERS: Visit Provider Internal Medicine Adolescent Medicine
DX: N18.9 Chronic kidney disease, unspecified (principal)
CPT/HCPCS: 96360; 96361; J1642

== ENCOUNTER 2019-02-04 08:56 | Outpatient (CLI) | payer MEDICARE, BC, SELFPAY ==
[2019-02-04 08:25] VITALS: BP 137/78; PULSE 92; RESP 18; TEMP 36.6; O2SAT 98
[2019-02-04 09:17] VITALS: BP 132/80; PULSE 85; RESP 18; TEMP 36.7; O2SAT 98
[2019-02-04 10:25] VITALS: BP 124/73; PULSE 79; RESP 16; TEMP 36.6; O2SAT 97
== END 2019-02-04 10:30 | disposition home or self-care (01) ==
LOC: INF 08:57
PROVIDERS: PCP Internal Medicine Adolescent Medicine; Visit Provider Internal Medicine Adolescent Medicine
DX: N18.9 Chronic kidney disease, unspecified (principal)
CPT/HCPCS: 96360; 96361; J1642

== ENCOUNTER 2019-02-07 08:12 | Outpatient (CLI) | payer MEDICARE, BC, SELFPAY ==
[2019-02-07 08:19] VITALS: BP 129/77; PULSE 92; RESP 18; TEMP 36.6; O2SAT 98
[2019-02-07 09:00] VITALS: BP 125/75; PULSE 90; RESP 18; TEMP 36.6; O2SAT 98
[2019-02-07 09:45] VITALS: BP 132/76; PULSE 80; RESP 16
[2019-02-07 10:20] VITALS: BP 119/68; PULSE 79; RESP 18; TEMP 36.7; O2SAT 97
== END 2019-02-07 10:25 | disposition home or self-care (01) ==
LOC: INF 08:12
PROVIDERS: Visit Provider Internal Medicine Adolescent Medicine
DX: N18.9 Chronic kidney disease, unspecified (principal)
CPT/HCPCS: 96360; 96361; J1642

== ENCOUNTER 2019-02-11 08:49 | Outpatient (CLI) | payer MEDICARE, BC, SELFPAY ==
[2019-02-11 09:11] VITALS: BP 109/73; PULSE 84; RESP 18; TEMP 36.4; O2SAT 99
[2019-02-11 09:30] VITALS: BP 124/73; PULSE 75; RESP 18; TEMP 36.6; O2SAT 98
[2019-02-11 10:00] VITALS: BP 112/69; PULSE 78; RESP 20; TEMP 36.6; O2SAT 99
[2019-02-11 10:30] VITALS: BP 119/72; PULSE 75; RESP 20; TEMP 36.6; O2SAT 98
[2019-02-11 10:50] VITALS: BP 126/65; PULSE 80; RESP 18; TEMP 36.5; O2SAT 99
== END 2019-02-11 10:55 | disposition home or self-care (01) ==
LOC: INF 08:49
PROVIDERS: Visit Provider Internal Medicine Adolescent Medicine
DX: E86.0 Dehydration (principal); N18.9 Chronic kidney disease, unspecified
CPT/HCPCS: 96360; 96361; J1642

== ENCOUNTER 2019-02-14 08:00 | Outpatient (CLI) | payer MEDICARE, BC, SELFPAY ==
[2019-02-14 08:20] VITALS: BP 130/73; PULSE 87; RESP 18; O2SAT 99
[2019-02-14 08:50] VITALS: BP 124/73; PULSE 83; RESP 18
[2019-02-14 09:20] VITALS: BP 106/83; PULSE 80; RESP 18
[2019-02-14 10:20] VITALS: BP 131/76; PULSE 78; RESP 18
== END 2019-02-14 10:30 | disposition home or self-care (01) ==
LOC: INF 08:09
PROVIDERS: Visit Provider Internal Medicine Adolescent Medicine
DX: N18.9 Chronic kidney disease, unspecified (principal); E86.0 Dehydration
CPT/HCPCS: 96360; 96361; J1642

== ENCOUNTER 2019-02-17 08:09 | Outpatient (CLI) | payer MEDICARE, BC, SELFPAY ==
[2019-02-17 08:17] VITALS: BP 125/76; PULSE 93; RESP 18
[2019-02-17 10:31] VITALS: BP 144/62; PULSE 82; RESP 18
== END 2019-02-17 10:31 | disposition home or self-care (01) ==
LOC: INF 08:09
PROVIDERS: Visit Provider Internal Medicine Adolescent Medicine
DX: N18.9 Chronic kidney disease, unspecified (principal); E86.0 Dehydration
CPT/HCPCS: 96360; 96361; J1642

== ENCOUNTER 2019-02-21 08:00 | Outpatient (CLI) | payer MEDICARE, BC, SELFPAY ==
[2019-02-21 08:15] VITALS: BP 124/80; PULSE 89; RESP 18; O2SAT 98
[2019-02-21 08:45] VITALS: BP 116/67; PULSE 86; RESP 18
[2019-02-21 09:15] VITALS: BP 127/75; PULSE 81; RESP 16
[2019-02-21 09:45] VITALS: BP 121/66; PULSE 73; RESP 16
[2019-02-21 10:15] VITALS: BP 115/67; PULSE 74; RESP 16
== END 2019-02-21 10:30 | disposition home or self-care (01) ==
LOC: INF 08:09
PROVIDERS: Visit Provider Internal Medicine Adolescent Medicine
DX: N18.9 Chronic kidney disease, unspecified (principal)
CPT/HCPCS: 96360; 96361; J1642

== ENCOUNTER 2019-02-25 08:11 | Outpatient (CLI) | payer MEDICARE, BC, SELFPAY ==
[2019-02-25 08:15] VITALS: BP 131/67; PULSE 95; RESP 18
[2019-02-25 10:25] VITALS: BP 139/69; PULSE 84; RESP 18
== END 2019-02-25 10:31 | disposition home or self-care (01) ==
LOC: INF 08:11
PROVIDERS: Visit Provider Internal Medicine Adolescent Medicine
DX: N18.9 Chronic kidney disease, unspecified (principal); Z45.2 Encounter for adjustment and management of vascular access device
CPT/HCPCS: 96360; 96361; J1642

== ENCOUNTER 2019-02-28 08:13 | Outpatient (CLI) | payer MEDICARE, BC, SELFPAY ==
[2019-02-28 08:23] VITALS: BP 125/72; PULSE 80; RESP 18; TEMP 36.3; O2SAT 98
[2019-02-28 09:20] VITALS: BP 106/60; PULSE 74; RESP 18; TEMP 36.6; O2SAT 98
[2019-02-28 10:30] VITALS: BP 129/69; PULSE 75; RESP 16; TEMP 36.5; O2SAT 99
== END 2019-02-28 10:30 | disposition home or self-care (01) ==
LOC: INF 08:13
PROVIDERS: Visit Provider Internal Medicine Adolescent Medicine
DX: N18.9 Chronic kidney disease, unspecified (principal); E86.0 Dehydration
CPT/HCPCS: 96360; 96361; J1642

== ENCOUNTER 2019-03-04 08:14 | Outpatient (CLI) | payer MEDICARE, BC, SELFPAY ==
[2019-03-04 08:26] VITALS: BP 126/75; PULSE 86; RESP 18; TEMP 36.4; O2SAT 99
[2019-03-04 09:15] VITALS: BP 132/76; PULSE 79; RESP 18; TEMP 36.6; O2SAT 98
[2019-03-04 10:25] VITALS: BP 129/78; PULSE 82; RESP 18; TEMP 36.6; O2SAT 99
== END 2019-03-04 10:28 | disposition home or self-care (01) ==
LOC: INF 08:15
PROVIDERS: Visit Provider Internal Medicine Adolescent Medicine
DX: N18.9 Chronic kidney disease, unspecified (principal); E86.0 Dehydration
CPT/HCPCS: 96360; 96361; J1642

== ENCOUNTER → 2019-03-09 11:00 | Observation (INO) ==
[2019-03-05 17:42] LABS: Basophils % 0.1 % (0.1-2.0); Eosinophils # 0.2 K/mm3 (0.0-0.4); Eosinophils % 1.8 % (0.1-12.0); Hematocrit 39.1 % (42.0-52.0); Hemoglobin 12.6 g/dL (14.1-18.0); Lymphocytes # 1.3 K/mm3 (0.7-4.5); Lymphocytes % 10.9 % (10-50); Mean Corpuscular HGB Conc 32.3 g/dL (31.8-35.4); Mean Corpuscular Volume 100.9 fl (80-94); Mean Platelet Volume 7.7 fl (7.4-10.4); Monocytes # 0.8 K/mm3 (0.1-1.0); Monocytes % 6.5 % (1.7-9.3); Neutrophils # 9.9 K/mm3 (1.8-7.8); Neutrophils % 80.6 % (37.0-80.0); Platelet Count 244 K/mm3 (142-424); Red Blood Count 3.88 M/mm3 (4.60-6.20); Red Cell Distribution Width 13.1 % (11.5-17.5); White Blood Count 12.2 K/mm3 (4.8-10.8)
[2019-03-05 17:54] LABS: Anion Gap 18.4 mEq/L (5-15); Calcium 8.8 mg/dL (8.5-10.1)
[2019-03-05 18:00] LABS: Microscopic, Urine URINE MICROSCOPIC (MICROSCOPIC)
[2019-03-05 18:04] LABS: Appearance,Urine CLEAR (Clear); Bilirubin,Urine Negative (Negative); Blood, Urine 3+ (Negative); Color,Urine YELLOW (Yellow); Glucose,Urine (UA) Negative (Negative); Ketones,Urine Negative (Negative); Leukocyte Esterase,Urine Negative (Negative); PH,Urine 5.5 (5.0-8.5); Protein,Urine 2+ (Negative); Urobilinogen,Urine 0.2 EU/dl (0.2)
--- NOTE | 2019-03-05 18:18 | History & Physical Report ---
*Admission Date: 03/05/19 *Chief complaint: Difficulty urinating, left flank pain *History of present illness: 84-year-old white male with history of stage III NYHA CHF, chronic kidney disease secondary to recurrent prerenal azotemia/acute kidney injury currently receiving saline infusions 2 times weekly in the [facility] infusion department through [facility], and hypothyroidism along with colostomy in the remote past, who presented to my office today with a chief complaint of being unable to urinate over the past 12 hours. He reports that over the past 12 hours has been feeling poorly, some vague abdominal pain centered in the left flank, and has not had a good movement from his colostomy. He is also been unable to relieve his sensation of bladder fullness. In the office he was found to have normal vital signs and be in no acute distress but urine sample that he was able to produce in a very small amount revealed hematuria, and he had left flank tenderness. He was added to hospital for further diagnostic testing. [facility] History I have reviewed the patient's past medical history: Yes Medical History: Reports:: Arrhythmia, Atherosclerotic Heart Disease, Atrial Fibrillation, Cardiomyopathy, Congestive Heart Failure, Coronary Artery Disease, Hyperlipidemia, Hypertension, Internal Pacemaker, Myocardial Infarction Denies:: Cancer, Diabetes Mellitus Type 1, Diabetes Mellitus Type 2, MRSA, Seizures *Have you ever received a pneumonia vaccine?: Yes *Have you received a flu vaccine this season?: Yes Other Medical History: Reports: Anemia, Arthritis, Hypothyroidism, Thyroid Disease. Denies: Blood Transfusion Reaction Laterality Cases: Left: Arthroscopy Shoulder, Bilateral: Arthroscopy Hip, Total Hip Replacement, Other Other Surgeries: Yes: Cardiac Catheterization, Cardiac Surgery, Cholecystectomy, Colonoscopy, Colon Resection, Colostomy, Coronary Stent, Hernia Repair, Pacemaker, Other (Cardiac Cath-stents, cholecystectomy) Amputation: No Fractures: No - *Social History Smoking Status: Former smoker Tobacco Type: cigarettes # Packs/Day (cigarettes): 1 #Yrs smoked (if former smoker): 10 Alcohol Intake: never Alcohol Intake Frequency:: 0-2 drinks per day Substance Use Type: denies use *Occupational Status:: retired Housing: house Household Members: spouse *Travel in the last 8 weeks: None Family Hx:: Cancer, Heart Attack, Hyperlipidemia, Hypertension, Kidney Disease, Stroke Review of Systems - Review of Systems Review of systems:: pertinent systems reviewed and negative unless documented below Patient denies symptoms other than dysuria, difficulty urinating and abdominal pain. Otherwise 10 point review of systems otherwise negative Meds Home Medications Medication Instructions Recorded Confirmed Type aspirin 81 mg tablet,delayed 81 mg PO DAILY 03/02/17 03/04/19 History release cyanocobalamin (vitamin B-12) 1,000 mcg IM MONTHLY ml 03/06/17 02/21/19 History 1,000 mcg/mL injection solution levothyroxine 50 mcg tablet 50 mcg PO DAILY #30 tab 11/04/18 03/04/19 Rx carvediloL [Carvedilol 3.125mg Tab] 3.125 mg PO BID 11/29/18 03/04/19 History Allergies Allergy/AdvReac Type Severity Reaction Status Date / Time doxycycline Allergy Intermediate Verified 03/04/19 08:51 morphine Allergy Intermediate HALLUCINATI Verified 03/04/19 08:51 ONS Exam Vital signs and Labs for Last 24 Hours: Temp Pulse Resp BP Pulse Ox 97.8 F 101 H 21 151/86 H 99 03/05/19 16:22 03/05/19 16:22 03/05/19 16:22 03/05/19 16:22 03/05/19 16:22 Laboratory Results - last 24 hr 03/05/19 17:30: WBC 12.2 H, RBC 3.88 L, Hgb 12.6 L, Hct 39.1 L, MCV 100.9 H, MCH 32.6 H, MCHC 32.3, RDW 13.1, Plt Count 244, MPV 7.7, Neut % (Auto) 80.6 H, Lymph % (Auto) 10.9, [place] % (Auto) 6.5, Eos % (Auto) 1.8, Baso % (Auto) 0.1, Neut # (Auto) 9.9 H, Lymph # (Auto) 1.3, [place] # (Auto) 0.8, Eos # (Auto) 0.2, Baso # (Auto) 0.0 03/05/19 17:30: Sodium 138, Potassium 4.4, Chloride 104, Carbon Dioxide 20 L, Anion Gap 18.4 H, BUN 21 H, Creatinine 1.55 H, Estimated Creat Clear 36, Estimated GFR 43 L, Est GFR ( Amer) 52 L, Glucose 98, Calcium 8.8, Magnesium 1.4 03/05/19 17:50: Urine Color Yellow, Urine Appearance Clear, Urine pH 5.5, Ur Specific [place] 1.020, Urine Protein 2+, Urine Glucose (UA) Negative, Urine Ketones Negative, Urine Blood 3+, Urine Nitrate Negative, Urine Bilirubin Negative, Urine Urobilinogen 0.2, Ur Leukocyte Esterase Negative I & O for Last 24 hours: Intake & Output 03/03/19 03/04/19 03/05/19 03/06/19 11:59 11:59 11:59 11:59 Weight 157 lb 8 oz Narrative: Patient is alert. Pleasant. Oriented x3. Appears slightly dehydrated but has no vital sign abnormalities. No JVD. Lungs have good air movement. Heart rate regular. Pacemaker site looks good and is in appropriate position. Abdomen is soft and nontender. Minimal left flank tenderness. No right-sided tenderness. Suprapubic area slightly distended. Patient has no distal edema or clubbing, skin turgor is appropriate Neurologic exam intact Assessment and Plan (1) Hypothyroidism (acquired) Current visit: Yes Status: Acute Category: Medical Code(s): E03.9 - Hypothyroidism, unspecified Clinically euthyroid, continue current thyroid replacement at hospital, does complicate all aspects of his care (2) Hematuria Current visit: Yes Status: Acute Category: Medical Code(s): R31.9 - Hematuria, unspecified Patient subjected to stone protocol kidney CT scan. Initial reading does not show stone, questionable passed stone versus some kinking of the left ureter with evident hydronephrosis. Urology consultation tomorrow. Seth catheter has been placed, and is draining bloody urine. (3) Colostomy status Current visit: Yes Status: Acute Category: Surgical Code(s): Z93.3 - Colostomy status Complicates all aspects of his care (4) Renal calculi Current visit: No Status: Acute Category: Medical Code(s): N20.0 - Calculus of kidney Remote history, possible recurrence? (5) Systolic CHF, chronic Current visit: No Status: Acute Category: Medical Code(s): I50.22 - Chronic systolic (congestive) heart failure Currently euvolemic. Continue low-dose beta-danny (6) Kidney disease, chronic, stage III (GFR 30-59 ml/min) Current visit: Yes Status: Acute Category: Medical Code(s): N18.3 - Chronic kidney disease, stage 3 (moderate) Complicates all aspects of his care. Appears to be stable. May need further saline infusions depending on colostomy output status
[2019-03-05 18:40] LABS: Bacteria,Urine Trace /lpf; RBC,Urine TNTC #/hpf (0-3); Squamous Epithelial Cell,Urine Occasional #/hpf (0-5); WBC,Urine Occasional #/hpf (0-3)
[2019-03-06 06:28] LABS: Basophils % 0.3 % (0.1-2.0); Eosinophils # 0.3 K/mm3 (0.0-0.4); Eosinophils % 3.6 % (0.1-12.0); Hemoglobin 11.8 g/dL (14.1-18.0); Lymphocytes # 1.5 K/mm3 (0.7-4.5); Lymphocytes % 16.2 % (10-50); Mean Corpuscular HGB Conc 32.9 g/dL (31.8-35.4); Mean Corpuscular Volume 101.2 fl (80-94); Mean Platelet Volume 8.4 fl (7.4-10.4); Monocytes # 0.9 K/mm3 (0.1-1.0); Monocytes % 9.1 % (1.7-9.3); Neutrophils # 6.7 K/mm3 (1.8-7.8); Neutrophils % 70.8 % (37.0-80.0); Platelet Count 238 K/mm3 (142-424); Red Blood Count 3.56 M/mm3 (4.60-6.20); Red Cell Distribution Width 13.1 % (11.5-17.5); White Blood Count 9.5 K/mm3 (4.8-10.8)
[2019-03-06 06:55] LABS: Anion Gap 13.3 mEq/L (5-15); Calcium 8.6 mg/dL (8.5-10.1)
--- NOTE | 2019-03-06 07:52 | Pharmacy Consult Notes ---
[facility] Pharmacy VTE Monitoring - Patient Demographics Admission date: 03/05/19 Report Date: 03/06/19 Time: 07:52 Allergies/Adverse Reactions: Patient Allergies doxycycline Allergy (Intermediate, Verified 03/04/19 08:51) morphine Allergy (Intermediate, Verified 03/04/19 08:51) HALLUCINATIONS Height: 1.83 m Weight: 71.668 kg Patient Problems: Current Active Problems (Last Reviewed 04/03/18 @ 09:53 by Anaid Johnson RN) Hypothyroidism (acquired) (Acute) Hematuria (Acute) Colostomy status (Acute) Kidney disease, chronic, stage III (GFR 30-59 ml/min) (Acute) - VTE Risk Labs: VTE Related Lab Results Hgb 11.8 g/dL (14.1-18.0) L 03/06/19 06:14 Hct 36.0 % (42.0-52.0) L 03/06/19 06:14 Plt Count 238 K/mm3 (142-424) 03/06/19 06:14 BUN 19 mg/dL (7-18) H 03/06/19 06:14 Creatinine 1.38 mg/dL (0.70-1.30) H 03/06/19 06:14 Estimated Creat Clear 41 mL/min (50-200) 03/06/19 06:14 VTE Risk Level: Very Low Risk - Prophylaxis VTE Prophylaxis Ordered?: Yes Types of VTE Prophylaxis: TEDS Knee High Location of Applied Device: Bilateral Lower Extremeties - VTE Diagnosis Confirmed Treatment or plan recommended: Continue Current Treatment
--- NOTE | 2019-03-06 08:19 | Progress Note ---
Internal Medicine - PN: Carolyn *Date: 03/06/19 *Time: 08:18 Interval history: Patient rested overnight. No CP -- no SOA Exam Vital signs and Labs for Last 24 Hours: Temp Pulse Resp BP Pulse Ox 98.2 F 82 16 130/74 97 03/06/19 04:00 03/06/19 04:00 03/06/19 04:00 03/06/19 04:00 03/06/19 04:00 Laboratory Results - last 24 hr 03/05/19 17:30: WBC 12.2 H, RBC 3.88 L, Hgb 12.6 L, Hct 39.1 L, MCV 100.9 H, MCH 32.6 H, MCHC 32.3, RDW 13.1, Plt Count 244, MPV 7.7, Neut % (Auto) 80.6 H, Lymph % (Auto) 10.9, [place] % (Auto) 6.5, Eos % (Auto) 1.8, Baso % (Auto) 0.1, Neut # (Auto) 9.9 H, Lymph # (Auto) 1.3, [place] # (Auto) 0.8, Eos # (Auto) 0.2, Baso # (Auto) 0.0 03/05/19 17:30: Sodium 138, Potassium 4.4, Chloride 104, Carbon Dioxide 20 L, Anion Gap 18.4 H, BUN 21 H, Creatinine 1.55 H, Estimated Creat Clear 36, Estimated GFR 43 L, Est GFR ( Amer) 52 L, Glucose 98, Calcium 8.8, Magnesium 1.4 03/05/19 17:50: Urine Color Yellow, Urine Appearance Clear, Urine pH 5.5, Ur Specific [place] 1.020, Urine Protein 2+, Urine Glucose (UA) Negative, Urine Ketones Negative, Urine Blood 3+, Urine Nitrate Negative, Urine Bilirubin Negative, Urine Urobilinogen 0.2, Ur Leukocyte Esterase Negative, Urine RBC Tntc, Urine WBC Occasional, Ur Squamous Epith Cells Occasional, Urine Bacteria Trace 03/06/19 06:14: WBC 9.5, RBC 3.56 L, Hgb 11.8 L, Hct 36.0 L, MCV 101.2 H, MCH 33.3 H, MCHC 32.9, RDW 13.1, Plt Count 238, MPV 8.4, Neut % (Auto) 70.8, Lymph % (Auto) 16.2, [place] % (Auto) 9.1, Eos % (Auto) 3.6, Baso % (Auto) 0.3, Neut # (Auto) 6.7, Lymph # (Auto) 1.5, [place] # (Auto) 0.9, Eos # (Auto) 0.3, Baso # (Auto) 0.0 03/06/19 06:14: Sodium 138, Potassium 4.3, Chloride 107, Carbon Dioxide 22, Anion Gap 13.3, BUN 19 H, Creatinine 1.38 H, Estimated Creat Clear 41, Estimated GFR 49 L, Est GFR ( Amer) 60, Glucose 87, Calcium 8.6 I & O for Last 24 hours: Intake & Output 03/03/19 03/04/19 03/05/19 03/06/19 11:59 11:59 11:59 11:59 Intake Total 647 / 647 Output Total 800 / 800 Balance -153 / -153 Weight 158 lb Narrative: Patient is pleasant, oriented x3. Lungs clear. Heart rate regular. Abdomen soft, colostomy bag empty. Seth catheter draining dark-colored bloody urine. No distal edema or clubbing. Assessment and Plan (1) Hypothyroidism (acquired) Current visit: Yes Status: Acute Category: Medical Code(s): E03.9 - Hypothyroidism, unspecified (2) Hematuria Current visit: Yes Status: Acute Category: Medical Code(s): R31.9 - Hematuria, unspecified (3) Colostomy status Current visit: Yes Status: Acute Category: Surgical Code(s): Z93.3 - Colostomy status (4) Renal calculi Current visit: No Status: Acute Category: Medical Code(s): N20.0 - Calculus of kidney (5) Systolic CHF, chronic Current visit: No Status: Acute Category: Medical Code(s): I50.22 - Chronic systolic (congestive) heart failure (6) Kidney disease, chronic, stage III (GFR 30-59 ml/min) Current visit: Yes Status: Acute Category: Medical Code(s): N18.3 - Chronic kidney disease, stage 3 (moderate) - Assessment and plan all Dx Assessment and Plan for all problems:: Kidney function looks good. Better than baseline. Await urology evaluation for abnormal ureter/possible kidney stone work-up
--- NOTE | 2019-03-06 12:56 | Electrocardiograph Report ---
APPROVED REPORT Exam: Resting ECG HR:87 bpm ECG Measurements Heart Rate 87 AXES [place] 116 P 49 QRSd 136 QRS -81 QT 406 T77 QTc 488 <Conclusion> Electronic ventricular pacemaker Electronically signed by : Milton Smith, 03/06/2019 12:56:13
--- NOTE | 2019-03-06 16:35 | Consult Report ---
*Admission Date: 03/05/19 *Reason for consult:: Left renal colic with possible left ureteral stone *History of present illness: 84-year-old white male admitted last evening with left renal colic. CT scan shows a possible 3 mm stone at the left UVJ. He has had a history of a hip replacement in foreign bodies there obscure the pelvic CT somewhat. There is evidence of hydroureteronephrosis on the left side however. White count is normal and is kidney function is slightly elevated at 1.38. His urinalysis does show 3+ blood. He was admitted for pain control and today feels better. A Seth catheter was placed due to some difficulty urinating at the time he came in. There is dark bloody urine in the bag today. He states that this began after the catheter was placed. Patient is on aspirin. [facility] History Medical History: Reports:: Arrhythmia, Atherosclerotic Heart Disease, Atrial Fibrillation, Cardiomyopathy, Congestive Heart Failure, Coronary Artery Disease, Hyperlipidemia, Hypertension, Internal Pacemaker, Myocardial Infarction Denies:: Cancer, Diabetes Mellitus Type 1, Diabetes Mellitus Type 2, MRSA, Seizures *Have you ever received a pneumonia vaccine?: Yes *Have you received a flu vaccine this season?: Yes Other Medical History: Reports: Anemia, Arthritis, Hypothyroidism, Thyroid Disease. Denies: Blood Transfusion Reaction Laterality Cases: Left: Arthroscopy Shoulder, Bilateral: Arthroscopy Hip, Total Hip Replacement, Other Other Surgeries: Yes: Cardiac Catheterization, Cardiac Surgery, Cholecystectomy, Colonoscopy, Colon Resection, Colostomy, Coronary Stent, Hernia Repair, Pacemaker, Other (Cardiac Cath-stents, cholecystectomy) Amputation: No Fractures: No - *Social History Educational Level: Completed High School Smoking Status: Former smoker Tobacco Type: cigarettes # Packs/Day (cigarettes): 1 #Yrs smoked (if former smoker): 10 Alcohol Intake: never Alcohol Intake Frequency:: 0-2 drinks per day Substance Use Type: denies use *Occupational Status:: retired Housing: house Household Members: spouse *Travel in the last 8 weeks: None Family Hx:: Cancer, Heart Attack, Hyperlipidemia, Hypertension, Kidney Disease, Stroke Review of Systems - Review of Systems Review of systems:: pertinent systems reviewed and negative unless documented below Meds Home Medications Medication Instructions Recorded Confirmed Type aspirin 81 mg tablet,delayed 81 mg PO DAILY 03/02/17 03/05/19 History release cyanocobalamin (vitamin B-12) 1,000 mcg IM MONTHLY ml 03/06/17 03/05/19 History 1,000 mcg/mL injection solution levothyroxine 50 mcg tablet 50 mcg PO DAILY #30 tab 11/04/18 03/05/19 Rx carvediloL [Carvedilol 6.25mg Tab] 3.125 mg PO BID 03/06/19 03/06/19 History Allergies Allergy/AdvReac Type Severity Reaction Status Date / Time doxycycline Allergy Intermediate Verified 03/04/19 08:51 morphine Allergy Intermediate HALLUCINATI Verified 03/04/19 08:51 ONS Exam Vital signs and Labs for Last 24 Hours: Temp Pulse Resp BP Pulse Ox 98.1 F 96 H 16 132/76 98 03/06/19 15:56 03/06/19 15:56 03/06/19 15:56 03/06/19 15:56 03/06/19 15:56 Laboratory Results - last 24 hr 03/05/19 17:30: WBC 12.2 H, RBC 3.88 L, Hgb 12.6 L, Hct 39.1 L, MCV 100.9 H, MCH 32.6 H, MCHC 32.3, RDW 13.1, Plt Count 244, MPV 7.7, Neut % (Auto) 80.6 H, Lymph % (Auto) 10.9, Grady % (Auto) 6.5, Eos % (Auto) 1.8, Baso % (Auto) 0.1, Neut # (Auto) 9.9 H, Lymph # (Auto) 1.3, Grady # (Auto) 0.8, Eos # (Auto) 0.2, Baso # (Auto) 0.0 03/05/19 17:30: Sodium 138, Potassium 4.4, Chloride 104, Carbon Dioxide 20 L, Anion Gap 18.4 H, BUN 21 H, Creatinine 1.55 H, Estimated Creat Clear 36, Estimated GFR 43 L, Est GFR ( Amer) 52 L, Glucose 98, Calcium 8.8, Magnesium 1.4 03/05/19 17:50: Urine Color Yellow, Urine Appearance Clear, Urine pH 5.5, Ur Specific Central 1.020, Urine Protein 2+, Urine Glucose (UA) Negative, Urine Ketones Negative, Urine Blood 3+, Urine Nitrate Negative, Urine Bilirubin Negative, Urine Urobilinogen 0.2, Ur Leukocyte Esterase Negative, Urine RBC Tntc, Urine WBC Occasional, Ur Squamous Epith Cells Occasional, Urine Bacteria Trace 03/06/19 06:14: WBC 9.5, RBC 3.56 L, Hgb 11.8 L, Hct 36.0 L, MCV 101.2 H, MCH 33.3 H, MCHC 32.9, RDW 13.1, Plt Count 238, MPV 8.4, Neut % (Auto) 70.8, Lymph % (Auto) 16.2, Grady % (Auto) 9.1, Eos % (Auto) 3.6, Baso % (Auto) 0.3, Neut # (Auto) 6.7, Lymph # (Auto) 1.5, Grady # (Auto) 0.9, Eos # (Auto) 0.3, Baso # (Auto) 0.0 03/06/19 06:14: Sodium 138, Potassium 4.3, Chloride 107, Carbon Dioxide 22, Anion Gap 13.3, BUN 19 H, Creatinine 1.38 H, Estimated Creat Clear 41, Estimated GFR 49 L, Est GFR ( Amer) 60, Glucose 87, Calcium 8.6 I & O for Last 24 hours: Intake & Output 03/03/19 03/04/19 03/05/19 03/06/19 23:59 23:59 23:59 23:59 Intake Total 153 / 153 734 / 734 Output Total 1200 / 1200 Balance 153 / 153 -466 / -466 Weight 71.441 kg 71.668 kg Narrative: Well-nourished white male in no apparent distress Pupils equal round reactive to light Head is normocephalic Neck is symmetric Normal respiratory effort Abdomen normal to visual inspection Alert and oriented x3 Internal Medicine - CN: Reslt - Labs CBC & Chem 7: 03/06/19 06:14 03/06/19 06:14 Labs: Short CBC 03/05/19 03/06/19 Range/Units 17:30 06:14 WBC 12.2 H 9.5 (4.8-10.8) K/mm3 Hgb 12.6 L 11.8 L (14.1-18.0) g/dL Hct 39.1 L 36.0 L (42.0-52.0) % Plt Count 244 238 (142-424) K/mm3 [facility] 03/05/19 03/06/19 17:30 06:14 Sodium 138 138 Potassium 4.4 4.3 Chloride 104 107 Carbon Dioxide 20 L 22 BUN 21 H 19 H Creatinine 1.55 H 1.38 H Glucose 98 87 Calcium 8.8 8.6 Urine 03/05/19 Range/Units 17:50 Urine Color Yellow (Yellow) Urine Appearance Clear (Clear) Urine pH 5.5 (5.0-8.5) Ur Specific Central 1.020 (1.005-1.030) Urine Protein 2+ (Negative) Urine Glucose (UA) Negative (Negative) Assessment and Plan (1) Hypothyroidism (acquired) Current visit: Yes Status: Acute Category: Medical Code(s): E03.9 - Hypothyroidism, unspecified (2) Hematuria Current visit: Yes Status: Acute Category: Medical Code(s): R31.9 - Hematuria, unspecified (3) Colostomy status Current visit: Yes Status: Acute Category: Surgical Code(s): Z93.3 - Colostomy status (4) Renal calculi Current visit: No Status: Acute Category: Medical Code(s): N20.0 - Calculus of kidney (5) Systolic CHF, chronic Current visit: No Status: Acute Category: Medical Code(s): I50.22 - Chronic systolic (congestive) heart failure (6) Kidney disease, chronic, stage III (GFR 30-59 ml/min) Current visit: Yes Status: Acute Category: Medical Code(s): N18.3 - Chronic kidney disease, stage 3 (moderate) (7) Ureteral stone with hydronephrosis Current visit: Yes Status: Acute Category: Medical Code(s): N13.2 - Hydronephrosis with renal and ureteral calculous obstruction - Assessment and plan all Dx Assessment and Plan for all problems:: 84-year-old white male with 3 mm left UVJ stone. Patient feels much better today than it did at presentation. We discussed treatment options at this time. We decided to observe overnight in hopes that he will passed a stone while here. We will strain his urine. Will reassess in the morning. Seth placement is the likely cause of current blood in his urine. Recommend keeping that overnight.
--- NOTE | 2019-03-07 08:53 | Progress Note ---
Internal Medicine - PN: Subj *Date: 03/07/19 *Time: 08:52 Interval history: Patient feels good, has eaten well. Seth catheter has cleared in regards to drainage. Has some pain in the Seth when he sits up in a chair Exam Vital signs and Labs for Last 24 Hours: Temp Pulse Resp BP Pulse Ox 97.6 F 101 H 18 130/77 99 03/07/19 08:00 03/07/19 08:00 03/07/19 08:00 03/07/19 08:00 03/07/19 08:00 I & O for Last 24 hours: Intake & Output 03/04/19 03/05/19 03/06/19 03/07/19 11:59 11:59 11:59 11:59 Intake Total 647 / 647 2399 / 2399 Output Total 800 / 800 400 / 400 Balance -153 / -153 1998 Weight 158 lb 160 lb 1 oz Narrative: Heart rate regular. Lungs clear, abdomen soft. No edema. Seth catheter draining clear yellow urine Assessment and Plan (1) Hypothyroidism (acquired) Current visit: Yes Status: Acute Category: Medical Code(s): E03.9 - Hypothyroidism, unspecified (2) Hematuria Current visit: Yes Status: Acute Category: Medical Code(s): R31.9 - Hematuria, unspecified (3) Colostomy status Current visit: Yes Status: Acute Category: Surgical Code(s): Z93.3 - Colostomy status (4) Renal calculi Current visit: No Status: Acute Category: Medical Code(s): N20.0 - Calculus of kidney (5) Systolic CHF, chronic Current visit: No Status: Acute Category: Medical Code(s): I50.22 - Chroni c systolic (congestive) heart failure (6) Kidney disease, chronic, stage III (GFR 30-59 ml/min) Current visit: Yes Status: Acute Category: Medical Code(s): N18.3 - Chronic kidney disease, stage 3 (moderate) (7) Ureteral stone with hydronephrosis Current visit: Yes Status: Acute Category: Medical Code(s): N13.2 - Hydronephrosis with renal and ureteral calculous obstruction - Assessment and plan all Dx Assessment and Plan for all problems:: Ureteral stone may have passed. Follow-up with urology today. Hopefully catheter can come out.
--- NOTE | 2019-03-07 14:43 | Progress Note ---
[facility] Anesthesia Checklist - Patient Identification Patient Identification: Arm Band, Verbal (Name & ) - Structural Data Admitted From: Inpatient Planned Operative Procedure/s: Cystoscopy Consent for Planned Operative Procedure(s) Verified: Yes Verified Documents: Surgical Consent, History and Physical - NPO Status Verified Time NPO: 00:00 - Chart Verification Results Verified: CBC, BMP - Additional verifications Anesthesia Reactions: No Hx Blood Transfusions: Yes Blood Transfusion Reaction: No - Airway Assessment C-Spine Mobility Assessed: Yes (limited neck ROM) TMJ Mobility Assessed: Yes Dentition: Poor Dentition - Neurological Assessment Level of Consciousness: Awake, Alert, Appropriate, Follows Commands Hx Seizures: No Numbness or tingling in extremities: No - Anesthesia Plan Anesthesia Risk discussed: Yes Anesthesia Plan: Verified ASA Class: III Anesthesia Type: General [facility] History I have reviewed the patient's past medical history: Yes Medical History: Reports:: Arrhythmia, Atherosclerotic Heart Disease, Atrial Fibrillation, Cardiomyopathy, Congestive Heart Failure, Coronary Artery Disease, Hyperlipidemia, Hypertension, Internal Pacemaker, Myocardial Infarction Denies:: Cancer, Diabetes Mellitus Type 1, Diabetes Mellitus Type 2, MRSA, Seizures *Have you ever received a pneumonia vaccine?: Yes *Have you received a flu vaccine this season?: Yes Other Medical History: Reports: Anemia, Arthritis, Hypothyroidism, Thyroid Disease. Denies: Blood Transfusion Reaction Anesthesia experience/problems:: none Laterality Cases: Left: Arthroscopy Shoulder, Bilateral: Arthroscopy Hip, Total Hip Replacement, Other Other Surgeries: Yes: Cardiac Catheterization, Cardiac Surgery, Cholecystectomy, Colonoscopy, Colon Resection, Colostomy, Coronary Stent, Hernia Repair, Pacemaker, Other (Cardiac Cath-stents, cholecystectomy) Amputation: No Fractures: No - *Social History Educational Level: Completed High School Smoking Status: Former smoker Tobacco Type: cigarettes # Packs/Day (cigarettes): 1 #Yrs smoked (if former smoker): 10 Alcohol Intake: never Alcohol Intake Frequency:: 0-2 drinks per day Substance Use Type: denies use *Occupational Status:: retired Housing: house Household Members: spouse *Travel in the last 8 weeks: None Family Hx:: Cancer, Heart Attack, Hyperlipidemia, Hypertension, Kidney Disease, Stroke
--- NOTE | 2019-03-07 15:42 | Progress Note ---
[facility] Anesthesia Record Part I Intake, IV Amount: 400 Estimated blood loss (mL): 0 Urine output (mL): 0 Blood Products used (#): none Blood Pressure: 123/69 SaO2: 96 Pulse Rate: 85 Respiratory Rate: 20 Temperature: 97.5 F Patient is:: Drowsy, Stable Stable to PACU at:: 15:37
--- NOTE | 2019-03-07 16:25 | Operative Note ---
Date of procedure: 03/07/19 Pre-op Diagnosis:: Left flank pain Post-op Diagnosis:: Multiple bladder stones Procedure performed:: Cystolitholopaxy multiple bladder stones/left ureteroscopy Surgeon:: Artemio Marcelino MD ETL ANALYST:: Milton Malcolm Anesthesia: GETA Estimated blood loss (mL): 0 Clinical Note:: 84-year-old white male admitted with left renal colic. CT scan indicates possible small left distal ureteral stone. Operative findings:: Multiple bladder stones were identified in the bladder. No evidence of a ureteral stone on the left side was noted. Operative note:: Patient taken to the operating room after informed consent was obtained. Placed in the operating table in the supine position general anesthesia administered. The indwelling Seth catheter was removed. Preoperative antibiotics and sequential compression devices placed. He was then placed into the dorsal lithotomy position and padded appropriately. Prepped in the standard surgical fashion. A 22 Welsh cystoscope was placed into the urethra and passed to the prostatic urethra where evidence of a prior TURP was noted. The bladder neck was a little tight but we were able to pass the 22 scope and no difficulty. The bladder was examined in a systematic fashion. Of note were multiple stones in the base of the bladder. They were orange in color and is an aggregate size of over 2 cm. Most of the stones were pea-sized. No mucosal abnormalities were noted. Ureteral orifices noted in their normal anatomic position. There was evidence of some trabeculation. The rigid graspers were attached to the 30 degree lens and smaller stones were able to be removed without difficulty. Some of the larger stones had to be broken with the graspers and then removed. We were able to fragment and removed all the stone fragments with use of the grasping forceps and all the debris was irrigated free with the Urovac. We then turned our attention to the left ureter. A 0.035 guidewire passed into the left ureteral orifice and into the renal pelvis without difficulty. The ureteral orifice was too narrow for the rigid cystoscope to pass so it was dilated with a 4 x 15 mm UroMax balloon dilator for 1 minute. The balloon then deflated and removed and the rigid ureteroscope was replaced and we were able to pass the scope up to the mid ureter now and no evidence of a stone was noted. There was some stenosis of the mid ureter but I was able to visualize above the stenosis as it was not that tight and there is no evidence of a stone above that. Scope then removed and the cystoscope was replaced. There was reflux of urine from the left ureteral orifice so a stent was not placed. No residual stones were noted in the bladder. The cystoscope removed and a 18 Welsh coud Seth was passed into the bladder without difficulty. 10 cc placed into the balloon. Urojet was placed into the urethra prior to the Seth. Patient tolerated procedure well there are no complications. Specimens were sent off for analysis. Condition: stable Disposition: PACU Specimens:: Bladder stones Complications:: None
--- NOTE | 2019-03-07 19:48 | Progress Note ---
[facility] Anesthesia Record Part II Discharge Time: 16:07 Destination: Surgical Day Care (OP Surgery) PACU nurse assessment reviewed?: Yes Patient Condition:: Good Anesthesia Complications:: None Swallowing reflex intact?: Yes Cyanosis?: No Blood Pressure: 157/86 Pulse Rate: 94 Temperature: 98.3 F Mental Status: Alert & Oriented Pain level:: 0 Nausea and/or vomitting:: None Intake, IV Amount: 0
--- NOTE | 2019-03-08 09:38 | Progress Note ---
Internal Medicine - PN: Subj *Date: 03/08/19 *Time: 09:37 Interval history: Patient did well overnight after urologic procedure. Procedure note reviewed and appreciated. Patient's urine has been somewhat tea colored but good urine flow in the Seth bag. He has no complaints of cardiac or pulmonary issues or GI complaints. Exam Vital signs and Labs for Last 24 Hours: Temp Pulse Resp BP Pulse Ox 98.2 F 73 16 132/77 97 03/08/19 08:00 03/08/19 08:00 03/08/19 08:00 03/08/19 08:00 03/08/19 08:00 I & O for Last 24 hours: Intake & Output 03/05/19 03/06/19 03/07/19 03/08/19 11:59 11:59 11:59 11:59 Intake Total 647 / 647 2399 / 2399 2158 / 2158 Output Total 800 / 800 400 / 400 1275 / 1275 Balance -153 / -153 1998 883 / 883 Weight 158 lb 160 lb 1 oz 160 lb 7 oz Narrative: Pleasant, talkative, heart rate regular, lungs clear, abdomen soft, Seth catheter draining tea colored urine. No edema or clubbing. Neurologically intact Assessment and Plan (1) Hypothyroidism (acquired) Current visit: Yes Status: Acute Category: Medical Code(s): E03.9 - Hypothyroidism, unspecified (2) Hematuria Current visit: Yes Status: Acute Category: Medical Code(s): R31.9 - Hematuria, unspecified (3) Colostomy status Current visit: Yes Status: Acute Category: Surgical Code(s): Z93.3 - Colostomy status (4) Renal calculi Current visit: No Status: Acute Category: Medical Code(s): N20.0 - Calculus of kidney (5) Systolic CHF, chronic Current visit: No Status: Acute Category: Medical Code(s): I50.22 - Child Welfare Consultant yu systolic (congestive) heart failure (6) Kidney disease, chronic, stage III (GFR 30-59 ml/min) Current visit: Yes Status: Acute Category: Medical Code(s): N18.3 - Chronic kidney disease, stage 3 (moderate) (7) Ureteral stone with hydronephrosis Current visit: Yes Status: Acute Category: Medical Code(s): N13.2 - Hydronephrosis with renal and ureteral calculous obstruction - Assessment and plan all Dx Assessment and Plan for all problems:: Multiple stones removed yesterday. Ureter seem to be clear, please see urology op note for details. Plan for voiding trial today with removal of catheter. If able to urinate well and normal labs tomorrow will DC.
[2019-03-09 06:23] LABS: Basophils % 0.2 % (0.1-2.0); Eosinophils # 0.2 K/mm3 (0.0-0.4); Eosinophils % 1.3 % (0.1-12.0); Hematocrit 35.8 % (42.0-52.0); Hemoglobin 11.4 g/dL (14.1-18.0); Lymphocytes # 1.8 K/mm3 (0.7-4.5); Lymphocytes % 14.4 % (10-50); Mean Corpuscular HGB Conc 31.9 g/dL (31.8-35.4); Mean Corpuscular Volume 102.3 fl (80-94); Mean Platelet Volume 8.2 fl (7.4-10.4); Monocytes # 0.8 K/mm3 (0.1-1.0); Monocytes % 6.5 % (1.7-9.3); Neutrophils # 9.5 K/mm3 (1.8-7.8); Neutrophils % 77.6 % (37.0-80.0); Platelet Count 260 K/mm3 (142-424); White Blood Count 12.2 K/mm3 (4.8-10.8)
[2019-03-09 06:29] LABS: Anion Gap 15.7 mEq/L (5-15); Calcium 8.2 mg/dL (8.5-10.1)
--- NOTE | 2019-03-09 07:57 | Discharge Summary ---
General - General Admission date:: 03/05/19 Discharge date: 03/09/19 HPI HPI: 84-year-old white male with history of stage III NYHA CHF, chronic kidney disease secondary to recurrent prerenal azotemia/acute kidney injury currently receiving saline infusions 2 times weekly in the [facility] infusion department through [facility], and hypothyroidism along with colostomy in the remote past, who presented to my office today with a chief complaint of being unable to urinate over the past 12 hours. He reports that over the past 12 hours has been feeling poorly, some vague abdominal pain centered in the left flank, and has not had a good movement from his colostomy. He is also been unable to relieve his sensation of bladder fullness. In the office he was found to have normal vital signs and be in no acute distress but urine sample that he was able to produce in a very small amount revealed hematuria, and he had left flank tenderness. He was added to hospital for further diagnostic testing. Hospital Course Hospital Course: Seth catheter was placed, with some difficulty, but urine flow was restored. CT scan showed evidence of distal ureter stone and urology was consulted. They performed ureteroscopy which revealed multiple stones in the bladder, the left ureter was dilated but not stented and no stones were visualized proximal to the dilatation area. Please see report below. Patient taken to the operating room after informed consent was obtained. Placed in the operating table in the supine position general anesthesia administered. The indwelling Seth catheter was removed. Preoperative antibiotics and sequential compression devices placed. He was then placed into the dorsal lithotomy position and padded appropriately. Prepped in the standard surgical fashion. A 22 Italian cystoscope was placed into the urethra and passed to the prostatic urethra where evidence of a prior TURP was noted. The bladder neck was a little tight but we were able to pass the 22 scope and no difficulty. The bladder was examined in a systematic fashion. Of note were multiple stones in the base of the bladder. They were orange in color and is an aggregate size of over 2 cm. Most of the stones were pea-sized. No mucosal abnormalities were noted. Ureteral orifices noted in their normal anatomic position. There was evidence of some trabeculation. The rigid graspers were attached to the 30 degree lens and smaller stones were able to be removed without difficulty. Some of the larger stones had to be broken with the graspers and then removed. We were able to fragment and removed all the stone fragments with use of the grasping forceps and all the debris was irrigated free with the Urovac. We then turned our attention to the left ureter. A 0.035 guidewire passed into the left ureteral orifice and into the renal pelvis without difficulty. The ureteral orifice was too narrow for the rigid cystoscope to pass so it was dilated with a 4 x 15 mm UroMax balloon dilator for 1 minute. The balloon then deflated and removed and the rigid ureteroscope was replaced and we were able to pass the scope up to the mid ureter now and no evidence of a stone was noted. There was some stenosis of the mid ureter but I was able to visualize above the stenosis as it was not that tight and there is no evidence of a stone above that. Scope then removed and the cystoscope was replaced. There was reflux of urine from the left ureteral orifice so a stent was not placed. No residual stones were noted in the bladder. The cystoscope removed and a 18 Italian coud Seth was passed into the bladder without difficulty. 10 cc placed into the balloon. Urojet was placed into the urethra prior to the Seth. Patient tolerated procedure well there are no complications. Specimens were sent off for analysis. Patient was watched overnight, Seth catheter was removed the next morning he was able to void throughout the day. This morning he is doing well, voiding well, no blood. He will be discharged home with his current medications and close follow-up in my office. Objective Vital signs: Temp Pulse Resp BP Pulse Ox 97.8 F 78 17 123/73 98 03/09/19 04:00 03/09/19 04:00 03/09/19 04:00 03/09/19 04:00 03/09/19 04:00 no acute distress, thin - *Routine HEENT Exam Head: Present: normocephalic, atraumatic Eye: Present: EOMI, PERRL - *Routine Neck Exam Present: supple - *Routine Respiratory Exam Present: CTA bilaterally. Absent: accessory muscle use - *Routine Cardiovascular Exam Present: RRR, Normal S1, Normal S2 - *Routine Abdominal Exam Present: soft, normoactive bowel sounds. Absent: tenderness - *Routine Extremities Exam Present: edema. Absent: cyanosis, clubbing - *Routine Skin Exam Present: intact, cyanosis Results Labs on day of discharge: Labs from last 24 hours 03/09/19 03/09/19 05:45 05:45 WBC 12.2 H D RBC 3.50 L Hgb 11.4 L Hct 35.8 L MCV 102.3 H MCH 32.6 H MCHC 31.9 RDW 13.0 Plt Count 260 MPV 8.2 Neut % (Auto) 77.6 Lymph % (Auto) 14.4 [place] % (Auto) 6.5 Eos % (Auto) 1.3 Baso % (Auto) 0.2 Neut # (Auto) 9.5 H Lymph # (Auto) 1.8 [place] # (Auto) 0.8 Eos # (Auto) 0.2 Baso # (Auto) 0.0 Sodium 136 Potassium 3.7 Chloride 104 Carbon Dioxide 20 L Anion Gap 15.7 H BUN 30 H D Creatinine 1.42 H Estimated Creat Clear 42 Estimated GFR 48 L Est GFR ( Amer) 58 L Glucose 88 Calcium 8.2 L DS: Diagnosis - Discharge Diagnosis (1) Hypothyroidism (acquired) Status: Chronic (2) Hematuria Status: Resolved (3) Colostomy status Status: Chronic (4) Renal calculi Status: Resolved (5) Systolic CHF, chronic Status: Chronic (6) Kidney disease, chronic, stage III (GFR 30-59 ml/min) Status: Chronic (7) Ureteral stone with hydronephrosis Status: Resolved Discharge Plan - Patient Discharge Instructions ACTIVITY: Continue current activity DIET: continue same diet Patient Instructions: DI for Hematuria, DI for Flank Pain - Follow up Plan Follow up with: Milton Smith MD [Primary Care Provider] - Disposition: Home, Self-Custodial Medications: Home Medications Medication Instructions Recorded Confirmed Type aspirin 81 mg tablet,delayed 81 mg PO DAILY 03/02/17 03/05/19 History release cyanocobalamin (vitamin B-12) 1,000 mcg IM MONTHLY ml 03/06/17 03/05/19 History 1,000 mcg/mL injection solution levothyroxine 50 mcg tablet 50 mcg PO DAILY #30 tab 11/04/18 03/05/19 Rx carvediloL [Carvedilol 6.25mg Tab] 3.125 mg PO BID 03/06/19 03/06/19 History Prescriptions/Medication Reconciliation: Continued cyanocobalamin (vitamin B-12) 1,000 mcg/mL injection solution 1,000 mcg IM MONTHLY ml aspirin 81 mg tablet,delayed release 81 mg PO DAILY levothyroxine 50 mcg tablet 50 mcg PO DAILY #30 tab carvediloL [Carvedilol 6.25mg Tab] 3.125 mg PO BID - Problem Reconciliation Problems Reviewed?: Yes
== END | disposition home or self-care (01) ==
LOC: 2ND
PROVIDERS: ADMIT Internal Medicine Adolescent Medicine; ATTEND Internal Medicine Adolescent Medicine
DX: Z95.0 Presence of cardiac pacemaker; I13.0 Hypertensive heart and chronic kidney disease with heart failure and stage 1 through stage 4 chronic kidney disease, or unspecified chronic kidney disease; Z88.1 Allergy status to other antibiotic agents; Z79.899 Other long term (current) drug therapy; E03.9 Hypothyroidism, unspecified; Z82.49 Family history of ischemic heart disease and other diseases of the circulatory system; Z87.891 Personal history of nicotine dependence; N13.2 Hydronephrosis with renal and ureteral calculous obstruction; R31.9 Hematuria, unspecified; N18.3 Chronic kidney disease, stage 3 (moderate); N21.0 Calculus in bladder; I25.2 Old myocardial infarction; I50.22 Chronic systolic (congestive) heart failure; Z95.5 Presence of coronary angioplasty implant and graft; Z93.3 Colostomy status; Z88.5 Allergy status to narcotic agent; I25.10 Atherosclerotic heart disease of native coronary artery without angina pectoris; I48.91 Unspecified atrial fibrillation
CPT/HCPCS: 36415; 74000; 74018; 74176; 74450; 80048; 81001; 82370; 83735; 85025; 93005; G0378; J1642; J2405; Q9967

== ENCOUNTER 2019-03-11 08:24 | Outpatient (CLI) | payer MEDICARE, BC, SELFPAY ==
[2019-03-11 08:20] VITALS: BP 142/71; PULSE 84; RESP 18; TEMP 36.4; O2SAT 99
[2019-03-11 08:26] VITALS: BMI 21.7
[2019-03-11 08:50] VITALS: BP 135/74; PULSE 79; RESP 18; TEMP 36.6; O2SAT 98
[2019-03-11 08:58] LABS: Basophils % 0.4 % (0.1-2.0); Eosinophils # 0.3 K/mm3 (0.0-0.4); Eosinophils % 4.7 % (0.1-12.0); Hemoglobin 11.1 g/dL (14.1-18.0); Lymphocytes # 1.5 K/mm3 (0.7-4.5); Lymphocytes % 20.8 % (10-50); Mean Corpuscular HGB Conc 32.6 g/dL (31.8-35.4); Mean Corpuscular Hemoglobin 32.8 pg (27.0-31.2); Mean Corpuscular Volume 100.7 fl (80-94); Mean Platelet Volume 8.2 fl (7.4-10.4); Monocytes # 0.7 K/mm3 (0.1-1.0); Monocytes % 10.2 % (1.7-9.3); Neutrophils # 4.4 K/mm3 (1.8-7.8); Neutrophils % 63.8 % (37.0-80.0); Platelet Count 255 K/mm3 (142-424); Red Blood Count 3.38 M/mm3 (4.60-6.20); Red Cell Distribution Width 13.1 % (11.5-17.5)
[2019-03-11 09:15] LABS: Alanine Aminotransferase 69 U/L (12-78); Albumin Level 2.8 gm/dL (3.4-5.0); Albumin/Globulin Ratio 0.8 (1.1-1.8); Alkaline Phosphatase 161 U/L (46-116); Anion Gap 14.9 mEq/L (5-15); Aspartate Amino Transferase 105 U/L (15-37); Bilirubin,Total 0.6 mg/dL (0.2-1.0); Blood Urea Nitrogen 19 mg/dL (7-18); Calcium 8.5 mg/dL (8.5-10.1); Carbon Dioxide 22 mmol/L (21.0-32.0); Chloride 104 mmol/L (98-107); Creatinine Clearance Estimated 47 mL/min (50-200); Creatinine,Serum 1.25 mg/dL (0.70-1.30); Estimated Glomerular Filt Rate 55 ml/min (>60); Free Thyroxine Index 3.3 ug/dL (5.93-13.13); GFR (African American) 67 ML/MIN (>60); Globulin 3.3 gm/dl (1.3-3.2); Glucose 134 mg/dL (74-106); Potassium 3.9 mmoL/L (3.5-5.1); Sodium 137 mmol/L (136-145); T4 (Thyroxine) 8.2 ug/dl (4.7-13.3); Thyroid Stimulating Hormone 1.66 uIU/ml (0.358-3.740); Total Protein,Serum 6.1 gm/dL (6.4-8.2); Triiodothryronine (T3) Uptake 40 % (31-39)
[2019-03-11 09:20] VITALS: BP 140/72; PULSE 80; RESP 16
[2019-03-11 09:50] VITALS: BP 138/79; PULSE 74; RESP 18; TEMP 36.6; O2SAT 99
[2019-03-11 10:35] VITALS: BP 140/76; PULSE 76; RESP 18; TEMP 36.6; O2SAT 98
== END 2019-03-11 10:35 | disposition home or self-care (01) ==
LOC: INF 08:24
PROVIDERS: Visit Provider Internal Medicine Adolescent Medicine
DX: N18.2 Chronic kidney disease, stage 2 (mild) (principal); I50.22 Chronic systolic (congestive) heart failure; E03.9 Hypothyroidism, unspecified
CPT/HCPCS: 80053; 84436; 84443; 84479; 85025; 96360; 96361; J1642

== ENCOUNTER 2019-03-14 08:06 | Outpatient (CLI) | payer MEDICARE, BC, SELFPAY ==
[2019-03-14 08:10] VITALS: BP 127/80; PULSE 89; RESP 18
[2019-03-14 10:30] VITALS: BP 131/76; PULSE 85; RESP 18
== END 2019-03-14 10:30 | disposition home or self-care (01) ==
LOC: INF 08:06
PROVIDERS: Visit Provider Internal Medicine Adolescent Medicine
DX: N18.9 Chronic kidney disease, unspecified (principal)
CPT/HCPCS: 96360; 96361; J1642

== ENCOUNTER 2019-03-18 08:05 | Outpatient (CLI) | payer MEDICARE, BC, SELFPAY ==
[2019-03-18 08:10] VITALS: BP 142/71; PULSE 89; RESP 18; O2SAT 100
[2019-03-18 10:21] VITALS: BP 138/80; PULSE 84; RESP 18
== END 2019-03-18 10:22 | disposition home or self-care (01) ==
LOC: INF 08:05
PROVIDERS: Visit Provider Internal Medicine Adolescent Medicine
DX: N18.9 Chronic kidney disease, unspecified (principal); E86.0 Dehydration
CPT/HCPCS: 96360; 96361; J1642

== ENCOUNTER 2019-03-21 08:09 | Outpatient (CLI) | payer MEDICARE, BC, SELFPAY ==
[2019-03-21 08:18] VITALS: BMI 21.9
[2019-03-21 08:22] VITALS: BP 137/74; PULSE 83; RESP 18; O2SAT 98
[2019-03-21 10:30] VITALS: BP 126/79; PULSE 85; RESP 18
[2019-03-22 09:46] LABS: PSA, Free 1.14 ng/mL; Prostate Specific Ag 9.8 ng/mL (0.0-4.0)
== END 2019-03-21 10:30 | disposition home or self-care (01) ==
LOC: INF 08:09
PROVIDERS: Urology; Visit Provider Internal Medicine Adolescent Medicine
DX: N18.9 Chronic kidney disease, unspecified (principal); R97.20 Elevated prostate specific antigen [PSA]
CPT/HCPCS: 84153; 84154; 96360; 96361; J1642

== ENCOUNTER 2019-03-25 07:59 | Outpatient (CLI) | payer MEDICARE, BC, SELFPAY ==
[2019-03-25 08:10] VITALS: BP 140/78; PULSE 89; RESP 18; O2SAT 98
[2019-03-25 10:15] VITALS: BP 138/91; PULSE 89; RESP 18; O2SAT 98
== END 2019-03-25 10:16 | disposition home or self-care (01) ==
LOC: INF 07:59
PROVIDERS: Visit Provider Internal Medicine Adolescent Medicine
DX: N18.9 Chronic kidney disease, unspecified (principal)
CPT/HCPCS: 96360; 96361; J1642

== ENCOUNTER 2019-03-27 08:15 | Outpatient (CLI) | payer MEDICARE, BC, SELFPAY ==
[2019-03-27 08:30] VITALS: BP 119/70; PULSE 85; RESP 18; TEMP 36.4; O2SAT 99
[2019-03-27 09:00] VITALS: BP 122/69; PULSE 84; RESP 18; O2SAT 98
[2019-03-27 09:30] VITALS: BP 117/69; PULSE 81; RESP 20; O2SAT 99
[2019-03-27 10:00] VITALS: BP 116/70; PULSE 80; RESP 20; O2SAT 98
[2019-03-27 10:30] VITALS: BP 121/73; PULSE 86; RESP 20; O2SAT 99
== END 2019-03-27 10:30 | disposition home or self-care (01) ==
LOC: INF 08:15
PROVIDERS: Visit Provider Internal Medicine Adolescent Medicine
DX: N18.9 Chronic kidney disease, unspecified (principal)
CPT/HCPCS: 96360; 96361; J1642

== ENCOUNTER 2019-04-01 07:59 | Outpatient (CLI) | payer MEDICARE, BC, SELFPAY ==
[2019-04-01 08:05] VITALS: BP 131/68; PULSE 93; RESP 18; TEMP 36.3; O2SAT 97
[2019-04-01 09:00] VITALS: BP 114/66; PULSE 80; RESP 18; TEMP 36.6; O2SAT 98
[2019-04-01 10:15] VITALS: BP 122/76; PULSE 75; RESP 18; TEMP 36.6; O2SAT 98
== END 2019-04-01 10:15 | disposition home or self-care (01) ==
LOC: INF 07:59
PROVIDERS: Visit Provider Internal Medicine Adolescent Medicine
DX: N18.9 Chronic kidney disease, unspecified (principal)
CPT/HCPCS: 96360; 96361; J1642

== ENCOUNTER 2019-04-04 07:58 | Outpatient (CLI) | payer MEDICARE, BC, SELFPAY ==
[2019-04-04 08:07] VITALS: BP 138/76; PULSE 84; RESP 18; O2SAT 98
[2019-04-04 10:10] VITALS: BP 135/88; PULSE 90; RESP 18; O2SAT 100
== END 2019-04-04 10:10 | disposition home or self-care (01) ==
LOC: INF 07:58
PROVIDERS: Visit Provider Internal Medicine Adolescent Medicine
DX: N18.9 Chronic kidney disease, unspecified (principal)
CPT/HCPCS: 96360; 96361; J1642

== ENCOUNTER 2019-04-08 08:02 | Outpatient (CLI) | payer MEDICARE, BC, SELFPAY ==
[2019-04-08 08:05] VITALS: BP 137/76; PULSE 89; RESP 18; TEMP 36.4; O2SAT 97
[2019-04-08 09:05] VITALS: BP 129/71; PULSE 86; RESP 18; TEMP 36.6; O2SAT 98
[2019-04-08 10:15] VITALS: BP 135/74; PULSE 82; RESP 16; TEMP 36.6; O2SAT 98
== END 2019-04-08 10:22 | disposition home or self-care (01) ==
LOC: INF 08:02
PROVIDERS: Visit Provider Internal Medicine Adolescent Medicine
DX: N18.9 Chronic kidney disease, unspecified (principal)
CPT/HCPCS: 96360; 96361; J1642

== ENCOUNTER 2019-04-11 08:07 | Outpatient (CLI) | payer MEDICARE, BC, SELFPAY ==
[2019-04-11 08:15] VITALS: BP 132/71; PULSE 68; RESP 18; O2SAT 99
[2019-04-11 10:30] VITALS: BP 141/84; PULSE 82; RESP 18
== END 2019-04-11 10:30 | disposition home or self-care (01) ==
LOC: INF 08:07
PROVIDERS: Visit Provider Internal Medicine Adolescent Medicine
DX: N18.9 Chronic kidney disease, unspecified (principal)
CPT/HCPCS: 96360; 96361; J1642

== ENCOUNTER 2019-04-15 08:04 | Outpatient (CLI) | payer MEDICARE, BC, SELFPAY ==
[2019-04-15 08:12] VITALS: BP 139/77; PULSE 89; RESP 18
[2019-04-15 10:20] VITALS: BP 139/84; PULSE 85; RESP 18
== END 2019-04-15 10:20 | disposition home or self-care (01) ==
LOC: INF 08:04
PROVIDERS: Visit Provider Internal Medicine Adolescent Medicine
DX: N18.9 Chronic kidney disease, unspecified (principal)
CPT/HCPCS: 96360; 96361; J1642

== ENCOUNTER 2019-04-18 08:10 | Outpatient (CLI) | payer MEDICARE, BC, SELFPAY ==
[2019-04-18 08:22] VITALS: BP 137/80; PULSE 89; RESP 18; TEMP 36.4; O2SAT 98
[2019-04-18 09:50] VITALS: BP 134/81; PULSE 87; RESP 18; TEMP 36.5; O2SAT 99
[2019-04-18 10:30] VITALS: BP 132/75; PULSE 85; RESP 16; TEMP 36.5; O2SAT 98
== END 2019-04-18 10:30 | disposition home or self-care (01) ==
LOC: INF 08:10
PROVIDERS: Visit Provider Internal Medicine Adolescent Medicine
DX: Z45.2 Encounter for adjustment and management of vascular access device (principal); N18.9 Chronic kidney disease, unspecified
CPT/HCPCS: 96360; 96361; J1642

== ENCOUNTER 2019-04-22 08:12 | Outpatient (CLI) | payer MEDICARE, BC, SELFPAY ==
[2019-04-22 08:20] VITALS: BP 121/75; PULSE 90; RESP 20; TEMP 36.9; O2SAT 95
[2019-04-22 09:20] VITALS: BP 110/70; PULSE 88; RESP 20; TEMP 36.9; O2SAT 95
[2019-04-22 10:20] VITALS: BP 110/70; PULSE 78; RESP 20; TEMP 36.9; O2SAT 95
== END 2019-04-22 10:30 | disposition home or self-care (01) ==
LOC: INF 08:12
PROVIDERS: Visit Provider Internal Medicine Adolescent Medicine
DX: N18.9 Chronic kidney disease, unspecified (principal)
CPT/HCPCS: 96360; 96361; J1642

== ENCOUNTER 2019-04-25 08:01 | Outpatient (CLI) | payer MEDICARE, BC, SELFPAY ==
[2019-04-25 08:09] VITALS: BP 135/70; PULSE 92; RESP 18; TEMP 36.5; O2SAT 98
[2019-04-25 09:00] VITALS: BP 121/74; PULSE 86; RESP 18; TEMP 36.6; O2SAT 98
[2019-04-25 10:15] VITALS: BP 141/82; PULSE 82; RESP 16; TEMP 36.6; O2SAT 99
== END 2019-04-25 10:20 | disposition home or self-care (01) ==
LOC: INF 08:01
PROVIDERS: Visit Provider Internal Medicine Adolescent Medicine
DX: N18.9 Chronic kidney disease, unspecified (principal)
CPT/HCPCS: 96360; 96361; J1642

== ENCOUNTER 2019-04-29 08:05 | Outpatient (CLI) | payer MEDICARE, BC, SELFPAY ==
[2019-04-29 08:06] VITALS: BMI 21.1
[2019-04-29 08:15] VITALS: BP 123/64; PULSE 86; RESP 18; O2SAT 99
[2019-04-29 08:27] LABS: Basophils # 0.1 K/mm3 (0-0.2); Basophils % 0.7 % (0.1-2.0); Eosinophils # 0.4 K/mm3 (0.0-0.4); Eosinophils % 6.3 % (0.1-12.0); Hematocrit 41.4 % (42.0-52.0); Hemoglobin 13.2 g/dL (14.1-18.0); Lymphocytes # 1.4 K/mm3 (0.7-4.5); Lymphocytes % 20.3 % (10-50); Mean Corpuscular HGB Conc 31.9 g/dL (31.8-35.4); Mean Corpuscular Hemoglobin 32.6 pg (27.0-31.2); Mean Corpuscular Volume 102.2 fl (80-94); Mean Platelet Volume 7.9 fl (7.4-10.4); Monocytes # 0.7 K/mm3 (0.1-1.0); Monocytes % 9.5 % (1.7-9.3); Neutrophils # 4.5 K/mm3 (1.8-7.8); Neutrophils % 63.3 % (37.0-80.0); Platelet Count 229 K/mm3 (142-424); Red Blood Count 4.05 M/mm3 (4.60-6.20)
[2019-04-29 08:29] LABS: Chloride 106 mmol/L (98-107); Sodium 140 mmol/L (136-145)
[2019-04-29 08:30] LABS: Albumin Level 3.9 g/dl (3.5-5.0); Potassium 4.6 mmoL/L (3.5-5.1)
[2019-04-29 08:32] LABS: Anion Gap 15.6 mEq/L (5-15); Blood Urea Nitrogen 19 mg/dl (9-20); Carbon Dioxide 23 mmol/L (22.0-30.0); Creatinine Clearance Estimated 41 mL/min (50-200); Estimated Glomerular Filt Rate 48 ml/min (>60); GFR (African American) 59 ML/MIN (>60)
[2019-04-29 08:33] LABS: Calcium 9.3 mg/dl (8.4-10.2); Glucose 98 mg/dl (74-100); Phosphorous 3.6 mg/dl (2.5-4.5)
[2019-04-29 10:25] VITALS: BP 141/82; PULSE 72; RESP 18; O2SAT 98
[2019-04-29 11:33] LABS: Microscopic, Urine URINE MICROSCOPIC (MICROSCOPIC)
[2019-04-29 11:36] LABS: Appearance,Urine CLEAR (Clear); Bilirubin,Urine Negative (Negative); Blood, Urine Negative (Negative); Color,Urine YELLOW (Yellow); Glucose,Urine (UA) Negative (Negative); Ketones,Urine Negative (Negative); Leukocyte Esterase,Urine Negative (Negative); Nitrate,Urine Negative (Negative); Protein,Urine Negative (Negative); Specific Gravity, Urine >= 1.030 (1.005-1.030); Urobilinogen,Urine 0.2 EU/dl (0.2)
[2019-04-29 11:49] LABS: Creatinine,Urine Random 180 mg/dL (Not Estab.)
[2019-04-29 11:52] LABS: Bacteria,Urine Trace /lpf; Squamous Epithelial Cell,Urine Occasional #/hpf (0-5)
== END 2019-04-29 10:25 | disposition home or self-care (01) ==
LOC: INF 08:05
PROVIDERS: Internal Medicine Nephrology; Visit Provider Internal Medicine Adolescent Medicine
DX: N18.3 Chronic kidney disease, stage 3 (moderate) (principal)
CPT/HCPCS: 80069; 81001; 82570; 84155; 85025; 96360; 96361; J1642

== ENCOUNTER 2019-05-02 08:00 | Outpatient (CLI) | payer MEDICARE, BC, SELFPAY ==
[2019-05-02 08:15] VITALS: BP 128/75; PULSE 85; RESP 18; O2SAT 97
[2019-05-02 10:25] VITALS: BP 139/74; PULSE 83; RESP 18; O2SAT 98
== END 2019-05-02 10:25 | disposition home or self-care (01) ==
LOC: INF 08:11
PROVIDERS: Visit Provider Internal Medicine Adolescent Medicine
DX: N18.9 Chronic kidney disease, unspecified (principal)
CPT/HCPCS: 96360; 96361; J1642

== ENCOUNTER 2019-05-04 15:24 | Observation (INO) ==
--- NOTE | 2019-05-04 15:46 | Emergency Department Note ---
ED Disposition Clinical Impression: Acute dyspnea, Dyspnea on minimal exertion, AICD (automatic cardioverter/defibrillator) present, Dyspnea on exertion Acute exacerbation of CHF (congestive heart failure) Qualifiers: Heart failure type: unspecified Qualified Code(s): I50.9 - Heart failure, unspecified Congestive heart failure Qualifiers: Heart failure type: unspecified Heart failure chronicity: acute on chronic Qualified Code(s): I50.9 - Heart failure, unspecified Disposition: Admitted as Observation Condition on Discharge: Fair Referrals: Milton Smith MD [Primary Care Provider] - Time of Disposition: 18:43 - Critical Care Critical Care Time: No Attestation: On 05/04/19, the high probability of a clinically significant, sudden or life threatening deterioration of the following system(s) required my full and direct attention, intervention and personal management. The time I documented below is in addition to time spent performing reported procedures but includes the following listed in this critical care notation. Medical Decision Making - Chandana Inquiry Pt receiving controlled substance: No Vital Signs: 05/04/19 15:25 Temperature 98.3 F Temperature Source Oral Pulse Rate [Radial] 102 H Respiratory Rate 20 Blood Pressure [Right Arm] 139/67 Blood Pressure Mean [Right Arm] 91 Blood Pressure Source [Right Arm] Automatic Cuff Blood Pressure Position [Right Arm] Sitting 02 Sat by Pulse Oximetry 94 L Oxygen Delivery Method Room Air - Lab Data Lab results reviewed: Yes: I reviewed the patient's lab results. Lab Results 05/04/19 15:30: WBC 8.0, RBC 3.96 L, Hgb 12.9 L, Hct 39.4 L, MCV 99.7 H, MCH 32.7 H, MCHC 32.8, RDW 13.0, Plt Count 228, MPV 8.0, Neut % (Auto) 69.2, Lymph % (Auto) 18.5, [place] % (Auto) 9.6 H, Eos % (Auto) 2.4, Baso % (Auto) 0.3, Neut # (Auto) 5.6, Lymph # (Auto) 1.5, [place] # (Auto) 0.8, Eos # (Auto) 0.2, Baso # (Auto) 0.0 05/04/19 15:30: Sodium 135 L, Potassium 4.6, Chloride 105, Carbon Dioxide 21 L, Anion Gap 13.6, BUN 20, Creatinine 1.50 H, Estimated Creat Clear 39, Estimated GFR 45 L, Est GFR ( Amer) 54 L, Glucose 123 H, Calcium 9.3, Total Bilirubin 0.7, AST 26, ALT 14, Alkaline Phosphatase 86, Total Protein 6.6, Albumin 3.8, Globulin 2.8, Albumin/Globulin Ratio 1.4 05/04/19 15:30: Lactate 2.1 05/04/19 15:30: D-Dimer 1440 H* 05/04/19 15:30: NT-Pro-B Natriuret Pep 4840 H Result diagrams: 05/04/19 15:30 05/04/19 15:30 Orders (Tests/Meds): ED MEDICATIONS Generic Name Dose Route Start Last Admin Trade Name Freq PRN Reason Stop Dose Admin Sodium Chloride 1,000 mls @ 999 mls/hr 05/04/19 17:45 05/04/19 17:53 Sod Chlor 0.9% 1000ml Bag IV 05/04/19 18:45 999 mls/hr .[id number] SHAYAN Administration Discontinued Medications Generic Name Dose Route Start Last Admin Trade Name Freq PRN Reason Stop Dose Admin Furosemide 40 mg 05/04/19 18:28 Lasix 40mg/4ml Vial IV 05/04/19 18:29 ONCE ONE Ioversol 70 ml 05/04/19 17:37 05/04/19 17:40 Rad-Optiray 350 150ml Vial IV 05/04/19 17:38 70 ml ONCE ONE Administration Sodium Chloride 10 ml 05/04/19 17:37 05/04/19 17:39 Rad-Saline Flush 10ml Syringe IV 05/04/19 17:38 10 ml ONCE ONE Administration ORDERS Category Date Time Status CTA Chest [CT angio chest] Stat Cat Scan 05/04/19 16:42 Taken XR chest 2V Stat Exams 05/04/19 15:35 Taken Urinalysis and Microscopic Stat Lab 05/04/19 16:48 Ordered Blood Culture Stat Micro 05/04/19 15:35 Received 12-lead EKG Request [ECG Request by /Wiley] Stat Y 05/04/19 15:35 Ordered - Radiology Data #1 Image(s): Chest Image Reviewed: Yes I reviewed the patient's radiology image Mild bibasilar haziness suggestive of pulmonary congestion - CT Data CT Scan: Chest Time Received: 18:[address] Reviewed: Yes: I have reviewed the patient's CT results Findings Narrative: No evidence of pulmonary embolism. Increased interlobular septal thickening in both lungs suspicious for pulmonary edema. Small bilateral pleural effusion. Age-indeterminate loss of height of the T7 vertebral body. - ECG Data Tracing #1 Electronic pacemaker beat with a heart rate of 96 bpm. - Physician Consults Physician Consulted: Dr. Mathis Time: 18:43 Reason -: Admission Comment/Response: Discussed with Dr. Mathis regarding the patient and plan to get the patient admitted to the floor. Resp/SOB HPI - General Chief Complaint: Shortness of Breath/Dyspnea Stated Complaint: SOB Time Seen by Provider: 05/04/19 15:35 Mode of Arrival: Ambulatory Source of Information: Patient Limitations: No Limitations Description of Symptoms (Recalled from ER Triage Doc. by RN): Shortness of breath for approx 1 week. States he just feels winded. - History of Present Illness 84-year-old male presents with chief complaint of having shortness of breath for the last 1 week. He states he has been having shortness of breath with minimal exertion. Even while continuing minimal conversing he gets short of breath. By walking up to 10 to 15 feet he gets short of breath. Shortness of breath has been getting persistent. Denies having any fever or chills. Denies having any nausea or vomiting. Denies having any increased swelling of the legs. Denies having any acute weight gain. Denies having any chest pain. Patient has history of coronary artery disease with pacemaker in place. MD Complaint: shortness of breath Onset (ago): week(s) Severity: moderate Consistency/Duration: constant Relieving factors: rest Exacerbating factors: exertion Associated symptoms: denies other symptoms Treatment prior to arrival: none - Related Data Home Medications Medication Instructions Recorded Confirmed aspirin 81 mg tablet,delayed 81 mg PO DAILY 03/02/17 05/02/19 release cyanocobalamin (vitamin B-12) 1,000 mcg IM MONTHLY ml 03/06/17 05/02/19 1,000 mcg/mL injection solution carvediloL [Carvedilol 6.25mg Tab] 3.125 mg PO BID 03/06/19 05/02/19 Previous Rx's Medication Instructions Recorded levothyroxine 50 mcg tablet 50 mcg PO DAILY #30 tab 11/04/18 Allergies Allergy/AdvReac Type Severity Reaction Status Date / Time doxycycline Allergy Intermediate Verified 04/18/19 09:51 morphine Allergy Intermediate HALLUCINATI Verified 04/18/19 09:51 ONS [facility] History - Hepatitis A Screen Drug use history?: No High risk sexual behaviors?: No History of sexually transmitted infection?: No Currently employed?: No Childcare worker?: No Do you have indoor plumbing?: Yes Do you have electricity?: Yes Attestation statement:: This patient has been screened for Hepatitis A risk factors. I have reviewed the patient's past medical history: Yes Medical History: Reports:: Arrhythmia, Atherosclerotic Heart Disease, Atrial Fibrillation, Cardiomyopathy, Congestive Heart Failure, Coronary Artery Disease, Hyperlipidemia, Hypertension, Internal Pacemaker, Myocardial Infarction, Palpitations Denies:: Cancer, Diabetes Mellitus Type 1, Diabetes Mellitus Type 2, MRSA, Seizures Other Medical History: Reports: Anemia, Arthritis, Hypothyroidism, Thyroid Disease. Denies: Blood Transfusion Reaction Comment: Poor toleration of diuretics and HARLEY-I in past - low bp and fatigue Laterality Cases: Left: Arthroscopy Shoulder, Bilateral: Arthroscopy Hip, Total Hip Replacement, Other Other Surgeries: Yes: Appendectomy, Cancer Surgery, Cardiac Catheterization, Cardiac Surgery, Cholecystectomy, Colonoscopy, Colon Resection, Coronary Stent, EGD, Hernia Repair (bilateral inguinal hernia), Pacemaker, Other (ileostomy)Comment Only: Colostomy (ileostomy) Amputation: No Fractures: No Comment: L Shoulder rx, L hip rx (x2), Ileostomy, Prostate Surgery, Cystoscopy, Clot evacuation,defibrillator - Social History Educational Level: Completed High School Smoking Status: Never smoker Tobacco Type: cigarettes # Packs/Day (cigarettes): 1 #Yrs smoked (if former smoker): 10 Alcohol Intake: never Alcohol Intake Frequency:: 0-2 drinks per day Substance Use Type: denies use Occupational Status: other Housing: house Household Members: spouse Family Hx:: Cancer, Heart Attack, Hyperlipidemia, Hypertension, Kidney Disease, Stroke Comment: father, brother, sister heart disease ROS Obtained: Yes All systems reviewed & no additional complaints Physical Exam - General General appearance: alert, in no apparent distress - Head Head exam: atraumatic, normocephalic, normal inspection - Eye Eye exam: Present: normal appearance, PERRL, EOMI - ENT ENT exam: Present: normal exam, normal oropharynx, mucous membranes moist, normal external ear exam - Neck Neck exam: Present: normal inspection, full ROM, trachea midline - Chest Chest inspection: Present: normal inspection, symmetric chest wall rise. Absent: tenderness - Respiratory Respiratory exam: Present: normal lung sounds bilaterally. Absent: respiratory distress - Cardiovascular Cardiovascular exam: Present: regular rate, normal rhythm. Absent: JVD - Abdominal Exam Abdominal exam: Present: soft, normal bowel sounds. Absent: distention, tenderness, guarding - Extremities Exam Extremities exam: Present: normal inspection, full ROM, normal capillary refill. Absent: calf tenderness - Back Exam Back exam: Present: normal inspection, full ROM. Absent: tenderness - Neurological Exam Neurological exam: Present: alert, oriented X3, CN II-XII intact - Psychiatric Psychiatric exam: Present: normal affect, normal mood - Skin Skin exam: Present: warm, dry, intact, normal color
[2019-05-04 16:10] LABS: Albumin Level 3.8 g/dl (3.5-5.0); Albumin/Globulin Ratio 1.4 (1.1-1.8); Anion Gap 13.6 mEq/L (5-15); Basophils % 0.3 % (0.1-2.0); Bilirubin,Total 0.7 mg/dl (0.2-1.3); Calcium 9.3 mg/dl (8.4-10.2); Eosinophils # 0.2 K/mm3 (0.0-0.4); Eosinophils % 2.4 % (0.1-12.0); Globulin 2.8 g/dL (1.3-3.2); Hematocrit 39.4 % (42.0-52.0); Hemoglobin 12.9 g/dL (14.1-18.0); Lymphocytes # 1.5 K/mm3 (0.7-4.5); Lymphocytes % 18.5 % (10-50); Mean Corpuscular HGB Conc 32.8 g/dL (31.8-35.4); Mean Corpuscular Volume 99.7 fl (80-94); Monocytes # 0.8 K/mm3 (0.1-1.0); Monocytes % 9.6 % (1.7-9.3); Neutrophils # 5.6 K/mm3 (1.8-7.8); Neutrophils % 69.2 % (37.0-80.0); Platelet Count 228 K/mm3 (142-424); Red Blood Count 3.96 M/mm3 (4.60-6.20); Total Protein,Serum 6.6 g/dl (6.3-8.2)
[2019-05-04 19:01] LABS: Microscopic, Urine URINE MICROSCOPIC (MICROSCOPIC)
[2019-05-04 19:21] LABS: Appearance,Urine CLEAR (Clear); Bilirubin,Urine Negative (Negative); Blood, Urine Negative (Negative); Color,Urine YELLOW (Yellow); Glucose,Urine (UA) Negative (Negative); Ketones,Urine Negative (Negative); Leukocyte Esterase,Urine Negative (Negative); Protein,Urine Negative (Negative); Urobilinogen,Urine 0.2 EU/dl (0.2)
[2019-05-04 19:23] LABS: Amorphous Sediment,Urine Trace /lpf
[2019-05-05 04:18] LABS: Basophils # 0.1 K/mm3 (0-0.2); Basophils % 0.8 % (0.1-2.0); Eosinophils # 0.4 K/mm3 (0.0-0.4); Eosinophils % 5.8 % (0.1-12.0); Hematocrit 37.2 % (42.0-52.0); Hemoglobin 12.3 g/dL (14.1-18.0); Lymphocytes # 1.6 K/mm3 (0.7-4.5); Mean Corpuscular Volume 98.7 fl (80-94); Mean Platelet Volume 8.2 fl (7.4-10.4); Monocytes # 0.8 K/mm3 (0.1-1.0); Monocytes % 10.5 % (1.7-9.3); Neutrophils # 4.4 K/mm3 (1.8-7.8); Platelet Count 199 K/mm3 (142-424); Red Blood Count 3.77 M/mm3 (4.60-6.20); White Blood Count 7.3 K/mm3 (4.8-10.8)
[2019-05-05 04:32] LABS: Anion Gap 11.2 mEq/L (5-15)
--- NOTE | 2019-05-05 07:25 | Pharmacy Consult Notes ---
[facility] Pharmacy VTE Monitoring - Patient Demographics Admission date: 05/05/19 Report Date: 05/05/19 Time: 07:24 Allergies/Adverse Reactions: Patient Allergies doxycycline Allergy (Intermediate, Verified 04/18/19 09:51) morphine Allergy (Intermediate, Verified 04/18/19 09:51) HALLUCINATIONS Height: 1.83 m Weight: 71.441 kg Patient Problems: Current Active Problems (Last Reviewed 04/03/18 @ 09:53 by Anaid Johnson RN) Congestive heart failure (Chronic) AICD (automatic cardioverter/defibrillator) present (Chronic) Dyspnea on exertion (Acute) Acute dyspnea (Acute) Dyspnea on minimal exertion (Acute) Acute exacerbation of CHF (congestive heart failure) (Acute) - VTE Risk Labs: VTE Related Lab Results Hgb 12.3 g/dL (14.1-18.0) L 05/05/19 04:07 Hct 37.2 % (42.0-52.0) L 05/05/19 04:07 Plt Count 199 K/mm3 (142-424) 05/05/19 04:07 BUN 22 mg/dl (9-20) H 05/05/19 04:07 Creatinine 1.60 mg/dl (0.66-1.25) H 05/05/19 04:07 Estimated Creat Clear 35 mL/min (50-200) 05/05/19 04:07 Was VTE Risk Assessment Performed: Yes VTE Score: 7 VTE Risk Level: Moderate Risk Clinical Trial Participant: No - Prophylaxis VTE Prophylaxis Ordered?: Yes Types of VTE Prophylaxis: TEDS Knee High
--- NOTE | 2019-05-05 08:02 | History & Physical Report ---
*Admission Date: 05/05/19 *Chief complaint: Dyspnea on exertion *History of present illness: 84-year-old white male with history of CHF with ejection fraction 20 to 25% with short gut syndrome/chronic renal insufficiency currently managed with recurrent saline infusions as an outpatient who has been fairly stable over the past year. Unfortunately he has been doing more physical activity with a recent illness of his , and may have been not as compliant with dietary restrictions and has become short of air over the past week or so. This has become increasingly problematic with exertion and at rest. Came to the emergency department. Noted to have effusions and pulmonary edema on chest x-ray, elevated BNP levels, admitted to hospital for CHF exacerbation. Of note d-dimer levels were also high, and CT angiogram was negative in the ER for pulmonary embolism. [facility] History I have reviewed the patient's past medical history: Yes Medical History: Reports:: Arrhythmia, Atherosclerotic Heart Disease, Atrial Fibrillation, Cardiomyopathy, Congestive Heart Failure, Coronary Artery Disease, Hyperlipidemia, Hypertension, Internal Pacemaker, Myocardial Infarction, Palpitations Denies:: Cancer, Diabetes Mellitus Type 1, Diabetes Mellitus Type 2, MRSA, Seizures *Have you ever received a pneumonia vaccine?: Yes *Have you received a flu vaccine this season?: Yes Other Medical History: Reports: Anemia, Arthritis, Hypothyroidism, Thyroid Disease. Denies: Blood Transfusion Reaction Laterality Cases: Left: Arthroscopy Shoulder, Bilateral: Arthroscopy Hip, Total Hip Replacement, Other Other Surgeries: Yes: Appendectomy, Cancer Surgery, Cardiac Catheterization, Cardiac Surgery, Cholecystectomy, Colonoscopy, Colon Resection, Coronary Stent, EGD, Hernia Repair (bilateral inguinal hernia), Pacemaker, Other (ileostomy, Kidney stones removed)Comment Only: Colostomy (ileostomy) Amputation: No Fractures: No - *Social History Educational Level: Completed High School Smoking Status: Never smoker Tobacco Type: cigarettes # Packs/Day (cigarettes): 1 #Yrs smoked (if former smoker): 10 Alcohol Intake: never Alcohol Intake Frequency:: 0-2 drinks per day Substance Use Type: denies use *Occupational Status:: retired Housing: house Household Members: spouse *Travel in the last 8 weeks: None Family Hx:: Cancer, Heart Attack, Hypertension, Stroke Review of Systems - Review of Systems Review of systems:: pertinent systems reviewed and negative unless documented below Meds Home Medications Medication Instructions Recorded Confirmed Type aspirin 81 mg tablet,delayed 81 mg PO DAILY 03/02/17 05/04/19 History release cyanocobalamin (vitamin B-12) 1,000 mcg IM MONTHLY ml 03/06/17 05/04/19 History 1,000 mcg/mL injection solution levothyroxine 50 mcg tablet 50 mcg PO DAILY #30 tab 11/04/18 05/04/19 Rx carvediloL [Carvedilol 6.25mg Tab] 3.125 mg PO BID 03/06/19 05/04/19 History Allergies Allergy/AdvReac Type Severity Reaction Status Date / Time doxycycline Allergy Intermediate Verified 04/18/19 09:51 morphine Allergy Intermediate HALLUCINATI Verified 04/18/19 09:51 ONS Exam Vital signs and Labs for Last 24 Hours: Temp Pulse Resp BP Pulse Ox 97.7 F 87 16 125/77 95 05/05/19 04:04 05/05/19 04:04 05/05/19 04:04 05/05/19 04:04 05/05/19 04:04 Laboratory Results - last 24 hr 05/04/19 15:30: WBC 8.0, RBC 3.96 L, Hgb 12.9 L, Hct 39.4 L, MCV 99.7 H, MCH 32.7 H, MCHC 32.8, RDW 13.0, Plt Count 228, MPV 8.0, Neut % (Auto) 69.2, Lymph % (Auto) 18.5, [place] % (Auto) 9.6 H, Eos % (Auto) 2.4, Baso % (Auto) 0.3, Neut # (Auto) 5.6, Lymph # (Auto) 1.5, [place] # (Auto) 0.8, Eos # (Auto) 0.2, Baso # (Auto) 0.0 05/04/19 15:30: Sodium 135 L, Potassium 4.6, Chloride 105, Carbon Dioxide 21 L, Anion Gap 13.6, BUN 20, Creatinine 1.50 H, Estimated Creat Clear 39, Estimated GFR 45 L, Est GFR ( Amer) 54 L, Glucose 123 H, Calcium 9.3, Total Bilirubin 0.7, AST 26, ALT 14, Alkaline Phosphatase 86, Total Protein 6.6, Albumin 3.8, Globulin 2.8, Albumin/Globulin Ratio 1.4 05/04/19 15:30: Lactate 2.1 05/04/19 15:30: D-Dimer 1440 H* 05/04/19 15:30: NT-Pro-B Natriuret Pep 4840 H 05/04/19 18:58: Urine Color Yellow, Urine Appearance Clear, Urine pH 5.0, Ur Specific [place] 1.020, Urine Protein Negative, Urine Glucose (UA) Negative, Urine Ketones Negative, Urine Blood Negative, Urine Nitrate Negative, Urine Bilirubin Negative, Urine Urobilinogen 0.2, Ur Leukocyte Esterase Negative, Urine WBC 3-5, Amorphous Sediment Trace 05/04/19 20:10: Lactate 1.0 05/04/19 22:15: Troponin I 0.06 H 05/05/19 04:07: WBC 7.3, RBC 3.77 L, Hgb 12.3 L, Hct 37.2 L, MCV 98.7 H, MCH 32.5 H, MCHC 33.0, RDW 13.0, Plt Count 199, MPV 8.2, Neut % (Auto) 61.0, Lymph % (Auto) 22.0, [place] % (Auto) 10.5 H, Eos % (Auto) 5.8, Baso % (Auto) 0.8, Neut # (Auto) 4.4, Lymph # (Auto) 1.6, [place] # (Auto) 0.8, Eos # (Auto) 0.4, Baso # (Auto) 0.1 05/05/19 04:07: Sodium 135 L, Potassium 4.2, Chloride 106, Carbon Dioxide 22, Anion Gap 11.2, BUN 22 H, Creatinine 1.60 H, Estimated Creat Clear 35, Estimated GFR 41 L, Est GFR ( Amer) 50 L, Glucose 85 D, Calcium 9.0, Troponin I 0.05 H I & O for Last 24 hours: Intake & Output 05/02/19 05/03/19 05/04/19 05/05/19 10:59 10:59 11:59 11:59 Intake Total 1500 / 1500 Output Total 1500 / 1500 Balance 0 / 0 Weight 157 lb 8 oz Narrative: Patient is pleasant, alert, oriented x3. No JVD. Lungs have good air movement. Minimal rhonchi in both bases. Heart rate regular. Abdomen soft and nontender. No peripheral edema. No neurologic deficits. Assessment and Plan (1) Acute exacerbation of CHF (congestive heart failure) Current visit: Yes Status: Acute Qualifiers: Heart failure type: unspecified Qualified Code(s): I50.9 - Heart failure, unspecified Category: Medical Code(s): I50.9 - Heart failure, unspecified CHF exacerbation. Repeat echocardiogram today. Input from cardiology appreciated. If echo worsens we will get formal consult. Change carvedilol to bisoprolol. Follow labs tomorrow morning.
--- NOTE | 2019-05-05 08:41 | Electrocardiograph Report ---
APPROVED REPORT Exam: Resting ECG HR:96 bpm ECG Measurements Heart Rate 96 AXES [place] 118 P 46 QRSd 120 QRS -90 QT 402 T72 QTc 507 <Conclusion> Electronic ventricular pacemaker Electronically signed by : José Miguel Monterroso, 05/05/2019 08:41:38
[2019-05-06 06:24] LABS: Basophils # 0.1 K/mm3 (0-0.2); Basophils % 0.7 % (0.1-2.0); Eosinophils # 0.5 K/mm3 (0.0-0.4); Hematocrit 40.7 % (42.0-52.0); Lymphocytes # 1.8 K/mm3 (0.7-4.5); Mean Corpuscular HGB Conc 31.8 g/dL (31.8-35.4); Mean Corpuscular Volume 101.3 fl (80-94); Mean Platelet Volume 7.7 fl (7.4-10.4); Monocytes # 0.8 K/mm3 (0.1-1.0); Monocytes % 9.3 % (1.7-9.3); Neutrophils # 5.1 K/mm3 (1.8-7.8); Neutrophils % 61.9 % (37.0-80.0); Platelet Count 226 K/mm3 (142-424); Red Blood Count 4.02 M/mm3 (4.60-6.20); Red Cell Distribution Width 13.1 % (11.5-17.5); White Blood Count 8.3 K/mm3 (4.8-10.8)
--- NOTE | 2019-05-06 09:18 | Discharge Summary ---
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 Unfortunately he has been doing more physical activity with a recent illness of his , and may have been not as compliant with dietary restrictions and has become short of air over the past week or so. This has become increasingly problematic with exertion and at rest. Came to the emergency department. Noted to have effusions and pulmonary edema on chest x-ray, elevated BNP levels, admitted to hospital for CHF exacerbation. Of note d-dimer levels were also high, and CT angiogram was negative in the ER for pulmonary embolism. Hospital Course Hospital Course: Patient was admitted, diuresed with IV Lasix with a 2 pound weight loss and resultant improvement in his dyspnea symptoms. Echocardiogram was repeated which revealed EF 35 to 40%, slightly improved over baseline. We switched his carvedilol to bisoprolol to drop pulse rate a little lower to allow his pacemaker to capture more beats and to hopefully drive heart rate and this was successful. He felt much better this morning. Patient will be discharged home today. I will see him on Sunday after his saline infusion which we will cut down to 500 mL's and review BMP and BNP date at that point. Objective Vital signs: Temp Pulse Resp BP Pulse Ox 97.9 F 80 18 114/70 96 05/06/19 07:57 05/06/19 07:57 05/06/19 08:00 05/06/19 07:57 05/06/19 08:00 no acute distress - *Routine HEENT Exam Head: Present: normocephalic Eye: Present: EOMI, PERRL ENT: Present: mucous membranes moist - *Routine Neck Exam Present: supple - *Routine Respiratory Exam Present: CTA bilaterally - *Routine Cardiovascular Exam Present: RRR - *Routine Abdominal Exam Present: soft, normoactive bowel sounds. Absent: tenderness - *Routine Extremities Exam Absent: cyanosis, clubbing, edema - *Routine Skin Exam Present: warm. Absent: rash - Detailed Eye Exam Eyelids: Bilateral normal inspection Results Labs on day of discharge: Labs from last 24 hours 05/06/19 05/06/19 05/05/19 06:00 06:00 11:19 WBC 8.3 RBC 4.02 L Hgb 13.0 L Hct 40.7 L MCV 101.3 H MCH 32.2 H MCHC 31.8 RDW 13.1 Plt Count 226 MPV 7.7 Neut % (Auto) 61.9 Lymph % (Auto) 22.0 [place] % (Auto) 9.3 Eos % (Auto) 6.0 Baso % (Auto) 0.7 Neut # (Auto) 5.1 Lymph # (Auto) 1.8 [place] # (Auto) 0.8 Eos # (Auto) 0.5 H Baso # (Auto) 0.1 Sodium 136 Potassium 4.0 Chloride 103 Carbon Dioxide 23 Anion Gap 14.0 BUN 22 H Creatinine 1.50 H Estimated Creat Clear 37 Estimated GFR 45 L Est GFR ( Amer) 54 L Glucose 79 POC Glucose 114 H Calcium 9.0 DS: Diagnosis - Discharge Diagnosis (1) Acute exacerbation of CHF (congestive heart failure) Status: Resolved Discharge Plan - Patient Discharge Instructions ACTIVITY: Continue current activity DIET: continue same diet Patient Instructions: DI for Heart Failure, DI for Shortness of Breath - Follow up Plan Follow up with: Milton Smith MD [Primary Care Provider] - 05/09/19 Disposition: Home, Self-Detention Medications: Home Medications Medication Instructions Recorded Confirmed Type aspirin 81 mg tablet,delayed 81 mg PO DAILY 03/02/17 05/04/19 History release cyanocobalamin (vitamin B-12) 1,000 mcg IM MONTHLY ml 03/06/17 05/04/19 History 1,000 mcg/mL injection solution levothyroxine 50 mcg tablet 50 mcg PO DAILY #30 tab 11/04/18 05/04/19 Rx carvediloL [Carvedilol 6.25mg Tab] 3.125 mg PO BID 03/06/19 05/04/19 History bisoproloL fumarate [Zebeta 5mg 5 mg PO DAILY #30 tab 05/06/19 Rx tablet] Prescriptions/Medication Reconciliation: New bisoproloL fumarate [Zebeta 5mg tablet] 5 mg PO DAILY #30 tab Continued cyanocobalamin (vitamin B-12) 1,000 mcg/mL injection solution 1,000 mcg IM MONTHLY ml aspirin 81 mg tablet,delayed release 81 mg PO DAILY levothyroxine 50 mcg tablet 50 mcg PO DAILY #30 tab Discontinued carvediloL [Carvedilol 6.25mg Tab] 3.125 mg PO BID - Problem Reconciliation Problems Reviewed?: Yes
== END 2019-05-06 11:48 | disposition home or self-care (01) ==
LOC: ER 15:24 → 2ND 15:24
PROVIDERS: ADMIT Family Medicine; ATTEND Internal Medicine Adolescent Medicine
CPT/HCPCS: 71020; 71046; 71275; 80048; 80053; 81001; 82962; 83605; 83880; 84484; 85025; 85378; 87040; 93005; 93306; 96365; 96375; 99285; G0378; J1642; Q9967

== ENCOUNTER 2019-05-09 08:04 | Outpatient (CLI) | payer MEDICARE, BC, SELFPAY ==
[2019-05-09 08:05] VITALS: BMI 21.3
[2019-05-09 08:20] VITALS: BP 116/68; PULSE 79; RESP 18; O2SAT 100
[2019-05-09 08:49] LABS: Blood Urea Nitrogen 30 mg/dl (9-20); Calcium 9.3 mg/dl (8.4-10.2); Carbon Dioxide 23 mmol/L (22.0-30.0); Creatinine Clearance Estimated 39 mL/min (50-200); Estimated Glomerular Filt Rate 45 ml/min (>60); GFR (African American) 54 ML/MIN (>60); Glucose 101 mg/dl (74-100); Potassium 4.4 mmoL/L (3.5-5.1); Sodium 139 mmol/L (136-145)
[2019-05-09 08:58] LABS: NT Pro Brain Natriuretic Pep. 4600 pg/mL (0-450)
[2019-05-09 09:11] LABS: Anion Gap 16.4 mEq/L (5-15); Chloride 104 mmol/L (98-107)
[2019-05-09 10:22] VITALS: BP 120/70; PULSE 76; RESP 20; O2SAT 100
[2019-05-09 10:34] LABS: Prostate Specific Ag, Diagnost 7.29 ng/ml (0.0-4.0)
== END 2019-05-09 10:25 | disposition home or self-care (01) ==
LOC: INF 08:04
PROVIDERS: Urology; Visit Provider Internal Medicine Adolescent Medicine
DX: R97.20 Elevated prostate specific antigen [PSA] (principal); I50.9 Heart failure, unspecified; N18.3 Chronic kidney disease, stage 3 (moderate)
CPT/HCPCS: 80048; 83880; 84153; 96360; 96361; J1642

== ENCOUNTER 2019-05-13 08:13 | Outpatient (CLI) | payer MEDICARE, BC, SELFPAY ==
[2019-05-13 08:13] VITALS: BMI 21.7
[2019-05-13 08:20] VITALS: BP 113/65; PULSE 70; RESP 20; TEMP 36.9; O2SAT 95
[2019-05-13 08:52] LABS: Chloride 106 mmol/L (98-107); Potassium 4.7 mmoL/L (3.5-5.1); Sodium 138 mmol/L (136-145)
[2019-05-13 08:55] LABS: Anion Gap 14.7 mEq/L (5-15); Blood Urea Nitrogen 26 mg/dl (9-20); Carbon Dioxide 22 mmol/L (22.0-30.0); Creatinine Clearance Estimated 40 mL/min (50-200); Estimated Glomerular Filt Rate 45 ml/min (>60); GFR (African American) 54 ML/MIN (>60)
[2019-05-13 08:56] LABS: Calcium 8.9 mg/dl (8.4-10.2); Glucose 93 mg/dl (74-100)
[2019-05-13 09:05] LABS: NT Pro Brain Natriuretic Pep. 6820 pg/mL (0-450)
[2019-05-13 09:30] VITALS: BP 112/67; PULSE 74; RESP 20; TEMP 36.4
== END 2019-05-13 09:50 | disposition home or self-care (01) ==
LOC: INF 08:14
PROVIDERS: Visit Provider Internal Medicine Adolescent Medicine
DX: I50.22 Chronic systolic (congestive) heart failure (principal); N18.9 Chronic kidney disease, unspecified
CPT/HCPCS: 80048; 83880; 96360; 96375; J1642

== ENCOUNTER 2019-05-16 08:01 | Outpatient (CLI) | payer MEDICARE, BC, SELFPAY ==
[2019-05-16 08:04] VITALS: BMI 21.7
[2019-05-16 08:23] LABS: Chloride 105 mmol/L (98-107); Potassium 4.8 mmoL/L (3.5-5.1); Sodium 138 mmol/L (136-145)
[2019-05-16 08:26] LABS: Alanine Aminotransferase 16 U/L (12-78); Albumin Level 3.7 g/dl (3.5-5.0); Albumin/Globulin Ratio 1.3 (1.1-1.8); Alkaline Phosphatase 102 U/L (38-126); Anion Gap 16.8 mEq/L (5-15); Aspartate Amino Transferase 25 U/L (17-59); Bilirubin,Total 0.4 mg/dl (0.2-1.3); Blood Urea Nitrogen 27 mg/dl (9-20); Carbon Dioxide 21 mmol/L (22.0-30.0); Creatinine Clearance Estimated 37 mL/min (50-200); Estimated Glomerular Filt Rate 41 ml/min (>60); GFR (African American) 50 ML/MIN (>60); Globulin 2.9 g/dL (1.3-3.2); Total Protein,Serum 6.6 g/dl (6.3-8.2)
[2019-05-16 08:27] LABS: Calcium 9.1 mg/dl (8.4-10.2); Glucose 106 mg/dl (74-100)
[2019-05-16 08:36] LABS: NT Pro Brain Natriuretic Pep. 6730 pg/mL (0-450)
== END 2019-05-16 09:18 | disposition home or self-care (01) ==
LOC: INF 08:01
PROVIDERS: Visit Provider Internal Medicine Adolescent Medicine
DX: I50.9 Heart failure, unspecified (principal); N18.9 Chronic kidney disease, unspecified
CPT/HCPCS: 80053; 83880; J1642

== ENCOUNTER 2019-05-20 08:02 | Outpatient (CLI) | payer MEDICARE, BC, SELFPAY ==
[2019-05-20 08:03] VITALS: BMI 21.1
[2019-05-20 08:23] LABS: Chloride 103 mmol/L (98-107); Sodium 138 mmol/L (136-145)
[2019-05-20 08:24] LABS: Potassium 4.7 mmoL/L (3.5-5.1)
[2019-05-20 08:26] LABS: Blood Urea Nitrogen 23 mg/dl (9-20); Creatinine Clearance Estimated 36 mL/min (50-200); Estimated Glomerular Filt Rate 41 ml/min (>60); GFR (African American) 50 ML/MIN (>60)
[2019-05-20 08:27] LABS: Anion Gap 13.7 mEq/L (5-15); Calcium 9.3 mg/dl (8.4-10.2); Carbon Dioxide 26 mmol/L (22.0-30.0); Glucose 79 mg/dl (74-100)
[2019-05-20 08:36] LABS: NT Pro Brain Natriuretic Pep. 4020 pg/mL (0-450)
[2019-05-20 08:55] VITALS: BP 109/61; PULSE 61; RESP 18; O2SAT 99
[2019-05-20 11:05] VITALS: BP 130/79; PULSE 74; RESP 18
== END 2019-05-20 11:05 | disposition home or self-care (01) ==
LOC: INF 08:02
PROVIDERS: Visit Provider Internal Medicine Adolescent Medicine
DX: I50.22 Chronic systolic (congestive) heart failure (principal); I50.9 Heart failure, unspecified
CPT/HCPCS: 80048; 83880; 96360; 96361; J1642

== ENCOUNTER 2019-05-23 07:59 | Outpatient (CLI) | payer MEDICARE, BC, SELFPAY ==
[2019-05-23 08:00] VITALS: BMI 21.1
[2019-05-23 08:24] LABS: Chloride 103 mmol/L (98-107); Potassium 4.4 mmoL/L (3.5-5.1); Sodium 138 mmol/L (136-145)
[2019-05-23 08:27] LABS: Anion Gap 14.4 mEq/L (5-15); Blood Urea Nitrogen 27 mg/dl (9-20); Calcium 9.4 mg/dl (8.4-10.2); Carbon Dioxide 25 mmol/L (22.0-30.0); Creatinine Clearance Estimated 36 mL/min (50-200); Estimated Glomerular Filt Rate 41 ml/min (>60); GFR (African American) 50 ML/MIN (>60); Glucose 103 mg/dl (74-100)
[2019-05-23 08:36] LABS: NT Pro Brain Natriuretic Pep. 3320 pg/mL (0-450)
== END 2019-05-23 09:25 | disposition home or self-care (01) ==
LOC: INF 07:59
PROVIDERS: Visit Provider Internal Medicine Adolescent Medicine
DX: I50.9 Heart failure, unspecified (principal); Z45.2 Encounter for adjustment and management of vascular access device
CPT/HCPCS: 80048; 83880; J1642

== ENCOUNTER 2019-05-27 07:59 | Outpatient (CLI) | payer MEDICARE, BC, SELFPAY ==
[2019-05-27 08:05] VITALS: BMI 21.1
[2019-05-27 08:20] LABS: Chloride 102 mmol/L (98-107); Sodium 138 mmol/L (136-145)
[2019-05-27 08:21] LABS: Potassium 4.4 mmoL/L (3.5-5.1)
[2019-05-27 08:23] LABS: Blood Urea Nitrogen 31 mg/dl (9-20); Creatinine Clearance Estimated 38 mL/min (50-200); Estimated Glomerular Filt Rate 45 ml/min (>60); GFR (African American) 54 ML/MIN (>60)
[2019-05-27 08:24] LABS: Anion Gap 14.4 mEq/L (5-15); Calcium 9.4 mg/dl (8.4-10.2); Carbon Dioxide 26 mmol/L (22.0-30.0); Glucose 118 mg/dl (74-100)
[2019-05-27 08:33] LABS: NT Pro Brain Natriuretic Pep. 2600 pg/mL (0-450)
[2019-05-27 08:47] VITALS: BP 133/67; PULSE 64; RESP 18; O2SAT 98
[2019-05-27 10:56] VITALS: BP 128/71; PULSE 68; RESP 18
== END 2019-05-27 10:56 | disposition home or self-care (01) ==
LOC: INF 07:59
PROVIDERS: Visit Provider Internal Medicine Adolescent Medicine
DX: I50.22 Chronic systolic (congestive) heart failure (principal); N18.9 Chronic kidney disease, unspecified
CPT/HCPCS: 80048; 83880; 96360; 96361; J1642

== ENCOUNTER 2019-05-30 08:06 | Outpatient (CLI) | payer MEDICARE, BC, SELFPAY ==
[2019-05-30 08:13] VITALS: BMI 21.1
[2019-05-30 08:27] LABS: Chloride 104 mmol/L (98-107); Potassium 4.3 mmoL/L (3.5-5.1); Sodium 139 mmol/L (136-145)
[2019-05-30 08:30] LABS: Anion Gap 15.3 mEq/L (5-15); Blood Urea Nitrogen 32 mg/dl (9-20); Calcium 9.4 mg/dl (8.4-10.2); Carbon Dioxide 24 mmol/L (22.0-30.0); Creatinine Clearance Estimated 38 mL/min (50-200); Estimated Glomerular Filt Rate 45 ml/min (>60); GFR (African American) 54 ML/MIN (>60); Glucose 121 mg/dl (74-100)
[2019-05-30 08:40] LABS: NT Pro Brain Natriuretic Pep. 2530 pg/mL (0-450)
== END 2019-05-30 08:55 | disposition home or self-care (01) ==
LOC: INF 08:06
PROVIDERS: Visit Provider Internal Medicine Adolescent Medicine
DX: I50.9 Heart failure, unspecified (principal); N18.9 Chronic kidney disease, unspecified
CPT/HCPCS: 80048; 83880; J1642

== ENCOUNTER 2019-06-03 08:05 | Outpatient (CLI) | payer MEDICARE, BC, SELFPAY ==
[2019-06-03 08:06] VITALS: BMI 21.1
[2019-06-03 08:37] LABS: Basophils # 0.1 K/mm3 (0-0.2); Basophils % 0.8 % (0.1-2.0); Chloride 102 mmol/L (98-107); Chloride 104 mmol/L (98-107); Eosinophils # 0.4 K/mm3 (0.0-0.4); Eosinophils % 5.6 % (0.1-12.0); Hemoglobin 14.1 g/dL (14.1-18.0); Lymphocytes # 1.2 K/mm3 (0.7-4.5); Lymphocytes % 18.5 % (10-50); Mean Corpuscular HGB Conc 32.1 g/dL (31.8-35.4); Mean Corpuscular Hemoglobin 31.7 pg (27.0-31.2); Mean Corpuscular Volume 98.7 fl (80-94); Mean Platelet Volume 8.1 fl (7.4-10.4); Monocytes # 0.7 K/mm3 (0.1-1.0); Monocytes % 9.8 % (1.7-9.3); Neutrophils # 4.4 K/mm3 (1.8-7.8); Neutrophils % 65.3 % (37.0-80.0); Platelet Count 208 K/mm3 (142-424); Potassium 4.4 mmoL/L (3.5-5.1); Red Blood Count 4.46 M/mm3 (4.60-6.20); Red Cell Distribution Width 12.7 % (11.5-17.5); Sodium 137 mmol/L (136-145); White Blood Count 6.7 K/mm3 (4.8-10.8)
[2019-06-03 08:38] LABS: Potassium 4.4 mmoL/L (3.5-5.1); Sodium 138 mmol/L (136-145)
[2019-06-03 08:40] LABS: Anion Gap 14.4 mEq/L (5-15); Blood Urea Nitrogen 27 mg/dl (9-20); Blood Urea Nitrogen 28 mg/dl (9-20); Calcium 9.5 mg/dl (8.4-10.2); Carbon Dioxide 23 mmol/L (22.0-30.0); Creatinine Clearance Estimated 41 mL/min (50-200); Estimated Glomerular Filt Rate 48 ml/min (>60); GFR (African American) 59 ML/MIN (>60); Glucose 107 mg/dl (74-100)
[2019-06-03 08:41] LABS: Anion Gap 17.4 mEq/L (5-15); Calcium 9.5 mg/dl (8.4-10.2); Carbon Dioxide 23 mmol/L (22.0-30.0); Glucose 106 mg/dl (74-100); Phosphorous 3.6 mg/dl (2.5-4.5)
[2019-06-03 08:50] LABS: NT Pro Brain Natriuretic Pep. 2520 pg/mL (0-450)
[2019-06-03 09:22] LABS: Microscopic, Urine URINE MICROSCOPIC (MICROSCOPIC)
[2019-06-03 09:23] LABS: Appearance,Urine CLEAR (Clear); Bilirubin,Urine Negative (Negative); Blood, Urine TRACE-I (Negative); Color,Urine YELLOW (Yellow); Glucose,Urine (UA) Negative (Negative); Ketones,Urine Negative (Negative); Leukocyte Esterase,Urine Negative (Negative); Nitrate,Urine Negative (Negative); PH,Urine 5.5 (5.0-8.5); Protein,Urine Negative (Negative); Specific Gravity, Urine 1.025 (1.005-1.030); Urobilinogen,Urine 0.2 EU/dl (0.2)
[2019-06-03 09:30] LABS: Bacteria,Urine Trace /lpf; Squamous Epithelial Cell,Urine Occasional #/hpf (0-5)
[2019-06-03 09:38] LABS: Creatinine,Urine Random 85 mg/dL (Not Estab.)
[2019-06-04 07:33] LABS: Vitamin D 25 Hydroxy 32.3 ng/mL (30.0-100.0)
[2019-06-04 15:59] LABS: Parathyroid Hormone Intact 36 pg/mL (15-65)
== END 2019-06-03 09:15 | disposition home or self-care (01) ==
LOC: INF 08:05
PROVIDERS: Internal Medicine Nephrology; Visit Provider Internal Medicine Adolescent Medicine
DX: I50.9 Heart failure, unspecified (principal); N28.9 Disorder of kidney and ureter, unspecified
CPT/HCPCS: 80048; 80069; 81001; 82570; 82652; 83880; 83970; 84155; 85025; J1642

== ENCOUNTER → 2019-06-13 08:12 | Outpatient (CLI) | payer MEDICARE, BC, SELFPAY ==
[2019-06-13 08:13] VITALS: BMI 21.1
[2019-06-13 08:31] LABS: Chloride 105 mmol/L (98-107); Potassium 4.9 mmoL/L (3.5-5.1); Sodium 139 mmol/L (136-145)
[2019-06-13 08:34] LABS: Anion Gap 16.9 mEq/L (5-15); Blood Urea Nitrogen 39 mg/dl (9-20); Calcium 9.4 mg/dl (8.4-10.2); Carbon Dioxide 22 mmol/L (22.0-30.0); Creatinine Clearance Estimated 36 mL/min (50-200); Estimated Glomerular Filt Rate 41 ml/min (>60); GFR (African American) 50 ML/MIN (>60); Glucose 86 mg/dl (74-100)
[2019-06-13 08:43] LABS: NT Pro Brain Natriuretic Pep. 2590 pg/mL (0-450)
[2019-06-13 08:55] VITALS: BP 134/72; PULSE 63; RESP 18; O2SAT 99
[2019-06-13 11:10] VITALS: BP 128/70; PULSE 60; RESP 18; TEMP 36.8; O2SAT 99
== END ==
PROVIDERS: Visit Provider Internal Medicine Adolescent Medicine
DX: I50.9 Heart failure, unspecified (principal); N28.9 Disorder of kidney and ureter, unspecified
CPT/HCPCS: 80048; 83880; 96360; 96361; J1642

== ENCOUNTER 2019-06-20 08:05 | Outpatient (CLI) | payer MEDICARE, BC, SELFPAY ==
[2019-06-20 08:06] VITALS: BMI 20.7
[2019-06-20 08:29] LABS: Chloride 106 mmol/L (98-107); Potassium 4.2 mmoL/L (3.5-5.1); Sodium 139 mmol/L (136-145)
[2019-06-20 08:32] LABS: Anion Gap 13.2 mEq/L (5-15); Blood Urea Nitrogen 23 mg/dl (9-20); Calcium 9.5 mg/dl (8.4-10.2); Carbon Dioxide 24 mmol/L (22.0-30.0); Creatinine Clearance Estimated 42 mL/min (50-200); Estimated Glomerular Filt Rate 48 ml/min (>60); GFR (African American) 59 ML/MIN (>60); Glucose 118 mg/dl (74-100)
[2019-06-20 08:42] LABS: NT Pro Brain Natriuretic Pep. 2260 pg/mL (0-450)
[2019-06-20 08:55] VITALS: BP 135/66; PULSE 71; RESP 18; O2SAT 97
[2019-06-20 10:05] VITALS: BP 130/69; PULSE 68; RESP 20; O2SAT 98
== END 2019-06-20 10:05 | disposition home or self-care (01) ==
LOC: INF 08:05
PROVIDERS: Visit Provider Internal Medicine Adolescent Medicine
DX: I50.9 Heart failure, unspecified (principal); N28.9 Disorder of kidney and ureter, unspecified; Z45.2 Encounter for adjustment and management of vascular access device
CPT/HCPCS: 80048; 83880; 96360; J1642

== ENCOUNTER → 2019-06-27 08:09 | Outpatient (CLI) | payer MEDICARE, BC, SELFPAY ==
[2019-06-27 08:17] VITALS: BMI 21.1
[2019-06-27 08:29] LABS: Chloride 104 mmol/L (98-107); Sodium 138 mmol/L (136-145)
[2019-06-27 08:30] LABS: Potassium 4.6 mmoL/L (3.5-5.1)
[2019-06-27 08:33] LABS: Anion Gap 14.6 mEq/L (5-15); Blood Urea Nitrogen 24 mg/dl (9-20); Calcium 9.3 mg/dl (8.4-10.2); Carbon Dioxide 24 mmol/L (22.0-30.0); Creatinine Clearance Estimated 44 mL/min (50-200); Estimated Glomerular Filt Rate 53 ml/min (>60); GFR (African American) 64 ML/MIN (>60); Glucose 111 mg/dl (74-100)
[2019-06-27 08:43] LABS: NT Pro Brain Natriuretic Pep. 1710 pg/mL (0-450)
[2019-06-27 09:00] VITALS: BP 132/42; PULSE 70; RESP 18; TEMP 36.4; O2SAT 100
[2019-06-27 10:05] VITALS: BP 125/70; PULSE 91; RESP 18; O2SAT 96
== END ==
PROVIDERS: Visit Provider Internal Medicine Adolescent Medicine
DX: I50.9 Heart failure, unspecified (principal); N28.9 Disorder of kidney and ureter, unspecified
CPT/HCPCS: 80048; 83880; 96360; J1642

== ENCOUNTER 2019-07-04 08:07 | Outpatient (CLI) | payer MEDICARE, BC, SELFPAY ==
[2019-07-04 08:08] VITALS: BMI 21.3
[2019-07-04 08:27] LABS: Chloride 105 mmol/L (98-107); Potassium 4.6 mmoL/L (3.5-5.1); Sodium 139 mmol/L (136-145)
[2019-07-04 08:30] LABS: Anion Gap 15.6 mEq/L (5-15); Blood Urea Nitrogen 26 mg/dl (9-20); Calcium 9.1 mg/dl (8.4-10.2); Carbon Dioxide 23 mmol/L (22.0-30.0); Creatinine Clearance Estimated 34 mL/min (50-200); Estimated Glomerular Filt Rate 39 ml/min (>60); GFR (African American) 47 ML/MIN (>60); Glucose 110 mg/dl (74-100)
[2019-07-04 08:39] LABS: NT Pro Brain Natriuretic Pep. 2080 pg/mL (0-450)
[2019-07-04 09:00] VITALS: BP 123/70; PULSE 71; RESP 18; O2SAT 100
[2019-07-04 10:15] VITALS: BP 120/74; PULSE 73; RESP 18; O2SAT 100
== END 2019-07-04 10:15 | disposition home or self-care (01) ==
LOC: INF 08:07
PROVIDERS: PCP Internal Medicine Adolescent Medicine; Visit Provider Internal Medicine Adolescent Medicine
DX: I50.9 Heart failure, unspecified (principal); N28.9 Disorder of kidney and ureter, unspecified
CPT/HCPCS: 80048; 83880; 96360; J1642

== ENCOUNTER 2019-07-11 08:00 | Outpatient (CLI) | payer MEDICARE, BC, SELFPAY ==
[2019-07-11 08:04] VITALS: BMI 21.1
[2019-07-11 08:24] LABS: Chloride 105 mmol/L (98-107); Potassium 4.6 mmoL/L (3.5-5.1); Sodium 137 mmol/L (136-145)
[2019-07-11 08:27] LABS: Anion Gap 12.6 mEq/L (5-15); Blood Urea Nitrogen 22 mg/dl (9-20); Calcium 9.4 mg/dl (8.4-10.2); Carbon Dioxide 24 mmol/L (22.0-30.0); Creatinine Clearance Estimated 41 mL/min (50-200); Estimated Glomerular Filt Rate 48 ml/min (>60); GFR (African American) 59 ML/MIN (>60); Glucose 121 mg/dl (74-100)
[2019-07-11 08:37] LABS: NT Pro Brain Natriuretic Pep. 2030 pg/mL (0-450)
== END 2019-07-11 09:20 | disposition home or self-care (01) ==
LOC: INF 08:02
PROVIDERS: Visit Provider Internal Medicine Adolescent Medicine
DX: I50.9 Heart failure, unspecified (principal)
CPT/HCPCS: 80048; 83880; J1642

== ENCOUNTER → 2019-07-18 08:06 | Outpatient (CLI) | payer MEDICARE, BC, SELFPAY ==
[2019-07-18 08:09] VITALS: BMI 22.4
[2019-07-18 08:26] LABS: Chloride 105 mmol/L (98-107); Potassium 4.5 mmoL/L (3.5-5.1); Sodium 136 mmol/L (136-145)
[2019-07-18 08:29] LABS: Anion Gap 8.5 mEq/L (5-15); Blood Urea Nitrogen 22 mg/dl (9-20); Calcium 8.9 mg/dl (8.4-10.2); Carbon Dioxide 27 mmol/L (22.0-30.0); Creatinine Clearance Estimated 46 mL/min (50-200); Estimated Glomerular Filt Rate 53 ml/min (>60); GFR (African American) 64 ML/MIN (>60); Glucose 90 mg/dl (74-100)
[2019-07-18 08:39] LABS: NT Pro Brain Natriuretic Pep. 1810 pg/mL (0-450)
[2019-07-18 08:45] VITALS: BP 131/76; PULSE 70; RESP 18; O2SAT 100
[2019-07-18 09:55] VITALS: BP 129/78; PULSE 72; RESP 18; O2SAT 100
== END ==
PROVIDERS: Visit Provider Internal Medicine Adolescent Medicine
DX: Z45.2 Encounter for adjustment and management of vascular access device (principal); I50.9 Heart failure, unspecified
CPT/HCPCS: 80048; 83880; 96360; J1642

== ENCOUNTER → 2019-07-24 08:03 | Outpatient (CLI) | payer MEDICARE, BC, SELFPAY ==
[2019-07-24 08:05] VITALS: BMI 21.7
[2019-07-24 08:27] LABS: Anion Gap 12.7 mEq/L (5-15); Blood Urea Nitrogen 31 mg/dl (9-20); Calcium 9.2 mg/dl (8.4-10.2); Carbon Dioxide 24 mmol/L (22.0-30.0); Chloride 106 mmol/L (98-107); Creatinine Clearance Estimated 35 mL/min (50-200); Estimated Glomerular Filt Rate 39 ml/min (>60); GFR (African American) 47 ML/MIN (>60); Glucose 95 mg/dl (74-100); Potassium 4.7 mmoL/L (3.5-5.1); Sodium 138 mmol/L (136-145)
[2019-07-24 08:36] LABS: NT Pro Brain Natriuretic Pep. 2050 pg/mL (0-450)
[2019-07-24 08:45] VITALS: BP 131/66; PULSE 89; RESP 18; O2SAT 98
[2019-07-24 09:55] VITALS: BP 128/65; PULSE 85; RESP 18; O2SAT 97
== END ==
PROVIDERS: Visit Provider Internal Medicine Adolescent Medicine
DX: I50.9 Heart failure, unspecified (principal); N28.9 Disorder of kidney and ureter, unspecified
CPT/HCPCS: 80048; 83880; 96360; J1642

== ENCOUNTER 2019-08-01 09:00 | Outpatient (CLI) | payer MEDICARE, BC, SELFPAY ==
[2019-08-01 09:11] VITALS: BMI 22.4
[2019-08-01 09:37] LABS: Chloride 105 mmol/L (98-107)
[2019-08-01 09:38] LABS: Potassium 4.6 mmoL/L (3.5-5.1); Sodium 140 mmol/L (136-145)
[2019-08-01 09:40] LABS: Blood Urea Nitrogen 25 mg/dl (9-20); Creatinine Clearance Estimated 42 mL/min (50-200); Estimated Glomerular Filt Rate 48 ml/min (>60); GFR (African American) 59 ML/MIN (>60)
[2019-08-01 09:41] LABS: Anion Gap 12.6 mEq/L (5-15); Calcium 9.3 mg/dl (8.4-10.2); Carbon Dioxide 27 mmol/L (22.0-30.0); Glucose 86 mg/dl (74-100)
[2019-08-01 09:50] LABS: NT Pro Brain Natriuretic Pep. 2070 pg/mL (0-450)
[2019-08-01 10:05] VITALS: BP 112/67; PULSE 70; RESP 18; O2SAT 97
[2019-08-01 11:05] VITALS: BP 142/85; PULSE 69; RESP 18; O2SAT 98
== END 2019-08-01 11:05 | disposition home or self-care (01) ==
LOC: INF 09:05
PROVIDERS: Visit Provider Internal Medicine Adolescent Medicine
DX: I50.9 Heart failure, unspecified (principal)
CPT/HCPCS: 80048; 83880; 96360; J1642

== ENCOUNTER 2019-08-08 08:06 | Outpatient (CLI) | payer MEDICARE, BC, SELFPAY ==
[2019-08-08 08:07] VITALS: BMI 21.1
[2019-08-08 08:24] LABS: Chloride 107 mmol/L (98-107); Potassium 4.7 mmoL/L (3.5-5.1); Sodium 139 mmol/L (136-145)
[2019-08-08 08:27] LABS: Blood Urea Nitrogen 23 mg/dl (9-20); Creatinine Clearance Estimated 38 mL/min (50-200); Estimated Glomerular Filt Rate 45 ml/min (>60); GFR (African American) 54 ML/MIN (>60)
[2019-08-08 08:28] LABS: Anion Gap 12.7 mEq/L (5-15); Carbon Dioxide 24 mmol/L (22.0-30.0); Glucose 73 mg/dl (74-100)
[2019-08-08 08:37] LABS: NT Pro Brain Natriuretic Pep. 2260 pg/mL (0-450)
[2019-08-08 08:50] VITALS: BP 141/81; PULSE 70; RESP 18; O2SAT 96
[2019-08-08 10:06] VITALS: BP 145/81; PULSE 68; RESP 18; O2SAT 98
== END 2019-08-08 10:06 | disposition home or self-care (01) ==
LOC: INF 08:06
PROVIDERS: Visit Provider Internal Medicine Adolescent Medicine
DX: I50.9 Heart failure, unspecified (principal); N28.9 Disorder of kidney and ureter, unspecified
CPT/HCPCS: 80048; 83880; 96360; J1642

== ENCOUNTER 2019-08-15 08:00 | Outpatient (CLI) | payer MEDICARE, BC, SELFPAY ==
[2019-08-15 08:05] VITALS: BMI 21.7
[2019-08-15 08:30] LABS: Chloride 105 mmol/L (98-107)
[2019-08-15 08:31] LABS: Potassium 4.6 mmoL/L (3.5-5.1); Sodium 137 mmol/L (136-145)
[2019-08-15 08:34] LABS: Anion Gap 12.6 mEq/L (5-15); Blood Urea Nitrogen 23 mg/dl (9-20); Calcium 8.6 mg/dl (8.4-10.2); Carbon Dioxide 24 mmol/L (22.0-30.0); Creatinine Clearance Estimated 41 mL/min (50-200); Estimated Glomerular Filt Rate 48 ml/min (>60); GFR (African American) 59 ML/MIN (>60); Glucose 97 mg/dl (74-100)
[2019-08-15 08:43] LABS: NT Pro Brain Natriuretic Pep. 1430 pg/mL (0-450)
[2019-08-15 08:55] VITALS: BP 143/73; PULSE 71; RESP 18; TEMP 36.4; O2SAT 97
[2019-08-15 10:05] VITALS: BP 139/70; PULSE 70; RESP 18; O2SAT 98
== END 2019-08-15 10:05 | disposition home or self-care (01) ==
LOC: INF 08:04
PROVIDERS: Visit Provider Internal Medicine Adolescent Medicine
DX: I50.9 Heart failure, unspecified (principal)
CPT/HCPCS: 80048; 83880; 96360; J1642

== ENCOUNTER 2019-08-22 08:00 | Outpatient (CLI) | payer MEDICARE, BC, SELFPAY ==
[2019-08-22 08:13] VITALS: BMI 21.1
[2019-08-22 08:48] LABS: Chloride 105 mmol/L (98-107); Sodium 139 mmol/L (136-145)
[2019-08-22 08:49] LABS: Potassium 4.4 mmoL/L (3.5-5.1)
[2019-08-22 08:51] LABS: Anion Gap 13.4 mEq/L (5-15); Blood Urea Nitrogen 26 mg/dl (9-20); Carbon Dioxide 25 mmol/L (22.0-30.0); Creatinine Clearance Estimated 41 mL/min (50-200); Estimated Glomerular Filt Rate 48 ml/min (>60); GFR (African American) 59 ML/MIN (>60)
[2019-08-22 08:52] LABS: Calcium 8.9 mg/dl (8.4-10.2); Glucose 97 mg/dl (74-100)
[2019-08-22 09:01] LABS: NT Pro Brain Natriuretic Pep. 1310 pg/mL (0-450)
[2019-08-22 09:15] VITALS: BP 130/73; PULSE 69; RESP 18; TEMP 36.2; O2SAT 100
[2019-08-22 09:45] VITALS: BP 140/82; PULSE 69; RESP 18
[2019-08-22 10:15] VITALS: BP 131/78; PULSE 70; RESP 18
== END 2019-08-22 10:25 | disposition home or self-care (01) ==
LOC: INF 08:11
PROVIDERS: Visit Provider Internal Medicine Adolescent Medicine
DX: I50.9 Heart failure, unspecified (principal)
CPT/HCPCS: 80048; 83880; 96360; J1642

== ENCOUNTER 2019-08-29 08:00 | Outpatient (CLI) | payer MEDICARE, BC, SELFPAY ==
[2019-08-29 08:09] VITALS: BMI 22.4
[2019-08-29 08:34] LABS: Chloride 105 mmol/L (98-107); Potassium 4.5 mmoL/L (3.5-5.1); Sodium 138 mmol/L (136-145)
[2019-08-29 08:37] LABS: Anion Gap 12.5 mEq/L (5-15); Blood Urea Nitrogen 25 mg/dl (9-20); Carbon Dioxide 25 mmol/L (22.0-30.0); Creatinine Clearance Estimated 40 mL/min (50-200); Estimated Glomerular Filt Rate 45 ml/min (>60); GFR (African American) 54 ML/MIN (>60); Glucose 190 mg/dl (74-100)
[2019-08-29 08:54] LABS: NT Pro Brain Natriuretic Pep. 1660 pg/mL (0-450)
[2019-08-29 09:22] VITALS: BP 114/86; PULSE 79; RESP 18; O2SAT 99
[2019-08-29 10:30] VITALS: BP 120/85; PULSE 81; RESP 18; O2SAT 98
== END 2019-08-29 10:35 | disposition home or self-care (01) ==
LOC: INF 08:08
PROVIDERS: Visit Provider Internal Medicine Adolescent Medicine
DX: I50.9 Heart failure, unspecified (principal)
CPT/HCPCS: 80048; 83880; 96360; J1642

== ENCOUNTER 2019-09-05 09:00 | Outpatient (CLI) | payer MEDICARE, BC, SELFPAY ==
[2019-09-05 09:12] VITALS: BMI 21.1
[2019-09-05 09:33] LABS: Chloride 107 mmol/L (98-107); Sodium 138 mmol/L (136-145)
[2019-09-05 09:34] LABS: Potassium 4.8 mmoL/L (3.5-5.1)
[2019-09-05 09:37] LABS: Anion Gap 13.8 mEq/L (5-15); Blood Urea Nitrogen 27 mg/dl (9-20); Calcium 9.3 mg/dl (8.4-10.2); Carbon Dioxide 22 mmol/L (22.0-30.0); Creatinine Clearance Estimated 36 mL/min (50-200); Estimated Glomerular Filt Rate 41 ml/min (>60); GFR (African American) 50 ML/MIN (>60); Glucose 82 mg/dl (74-100)
[2019-09-05 09:46] LABS: NT Pro Brain Natriuretic Pep. 1560 pg/mL (0-450)
[2019-09-05 09:55] VITALS: BP 134/65; PULSE 70; RESP 18; O2SAT 100
[2019-09-05 11:12] VITALS: BP 130/62; PULSE 68; RESP 18
== END 2019-09-05 11:12 | disposition home or self-care (01) ==
LOC: INF 09:11
PROVIDERS: Visit Provider Internal Medicine Adolescent Medicine
DX: I50.9 Heart failure, unspecified (principal)
CPT/HCPCS: 80048; 83880; 96360; J1642

== ENCOUNTER 2019-09-10 08:00 | Outpatient (CLI) | payer MEDICARE, BC, SELFPAY ==
[2019-09-10 08:10] VITALS: BMI 21.7
[2019-09-10 08:34] LABS: Chloride 107 mmol/L (98-107)
[2019-09-10 08:35] LABS: Potassium 4.7 mmoL/L (3.5-5.1); Sodium 139 mmol/L (136-145)
[2019-09-10 08:37] LABS: Blood Urea Nitrogen 27 mg/dl (9-20); Creatinine Clearance Estimated 42 mL/min (50-200); Estimated Glomerular Filt Rate 48 ml/min (>60); GFR (African American) 59 ML/MIN (>60)
[2019-09-10 08:38] LABS: Anion Gap 11.7 mEq/L (5-15); Carbon Dioxide 25 mmol/L (22.0-30.0)
[2019-09-10 08:44] LABS: Calcium 9.3 mg/dl (8.4-10.2)
[2019-09-10 08:47] LABS: NT Pro Brain Natriuretic Pep. 1360 pg/mL (0-450)
[2019-09-10 08:57] LABS: Glucose 116 mg/dl (74-100)
== END 2019-09-10 09:30 | disposition home or self-care (01) ==
LOC: INF 08:09
PROVIDERS: Visit Provider Internal Medicine Adolescent Medicine
DX: I50.9 Heart failure, unspecified (principal)
CPT/HCPCS: 80048; 83880; J1642

== ENCOUNTER 2019-09-16 11:44 | Outpatient (CLI) | payer MEDICARE, BC, SELFPAY ==
[2019-09-16 11:46] VITALS: BMI 21.1
[2019-09-17 13:30] LABS: PSA, Free 1.21 ng/mL; Prostate Specific Ag 9.9 ng/mL (0.0-4.0)
== END 2019-09-16 11:55 | disposition home or self-care (01) ==
LOC: INF 11:44
PROVIDERS: PCP Internal Medicine Adolescent Medicine; Visit Provider Urology
DX: R97.20 Elevated prostate specific antigen [PSA] (principal)
CPT/HCPCS: 84153; 84154; J1642

== ENCOUNTER 2019-09-19 08:09 | Outpatient (CLI) | payer MEDICARE, BC, SELFPAY ==
[2019-09-19 08:10] VITALS: BMI 21.2
[2019-09-19 08:29] LABS: Chloride 103 mmol/L (98-107); Sodium 139 mmol/L (136-145)
[2019-09-19 08:30] LABS: Potassium 4.8 mmoL/L (3.5-5.1)
[2019-09-19 08:33] LABS: Anion Gap 12.8 mEq/L (5-15); Blood Urea Nitrogen 24 mg/dl (9-20); Calcium 9.2 mg/dl (8.4-10.2); Carbon Dioxide 28 mmol/L (22.0-30.0); Creatinine Clearance Estimated 36 mL/min (50-200); Estimated Glomerular Filt Rate 41 ml/min (>60); GFR (African American) 50 ML/MIN (>60); Glucose 114 mg/dl (74-100)
[2019-09-19 08:42] LABS: NT Pro Brain Natriuretic Pep. 2020 pg/mL (0-450)
[2019-09-19 08:50] VITALS: BP 136/73; PULSE 74; RESP 18; O2SAT 95
[2019-09-19 09:55] VITALS: BP 138/70; PULSE 76; RESP 18; O2SAT 98
== END 2019-09-19 09:55 | disposition home or self-care (01) ==
LOC: INF 08:09
PROVIDERS: Visit Provider Internal Medicine Adolescent Medicine
DX: I50.9 Heart failure, unspecified (principal)
CPT/HCPCS: 80048; 83880; 96360; J1642

== ENCOUNTER 2019-09-26 08:00 | Outpatient (CLI) | payer MEDICARE, BC, SELFPAY ==
[2019-09-26 08:11] VITALS: BMI 21.8
[2019-09-26 08:33] LABS: Chloride 102 mmol/L (98-107); Potassium 4.4 mmoL/L (3.5-5.1); Sodium 138 mmol/L (136-145)
[2019-09-26 08:36] LABS: Anion Gap 13.4 mEq/L (5-15); Blood Urea Nitrogen 19 mg/dl (9-20); Calcium 9.2 mg/dl (8.4-10.2); Carbon Dioxide 27 mmol/L (22.0-30.0); Creatinine Clearance Estimated 41 mL/min (50-200); Estimated Glomerular Filt Rate 48 ml/min (>60); GFR (African American) 59 ML/MIN (>60); Glucose 109 mg/dl (74-100)
[2019-09-26 08:46] LABS: NT Pro Brain Natriuretic Pep. 1460 pg/mL (0-450)
[2019-09-26 08:55] VITALS: BP 152/85; PULSE 74; RESP 18; TEMP 36.2; O2SAT 99
[2019-09-26 09:55] VITALS: BP 145/81; PULSE 69; RESP 18; O2SAT 99
== END 2019-09-26 10:00 | disposition home or self-care (01) ==
LOC: INF 08:09
PROVIDERS: Visit Provider Internal Medicine Adolescent Medicine
DX: I50.9 Heart failure, unspecified (principal)
CPT/HCPCS: 80048; 83880; 96360; J1642

== ENCOUNTER 2019-10-03 08:00 | Outpatient (CLI) | payer MEDICARE, BC, SELFPAY ==
[2019-10-03 08:14] VITALS: BMI 21.1
[2019-10-03 08:40] LABS: Chloride 105 mmol/L (98-107); Sodium 137 mmol/L (136-145)
[2019-10-03 08:43] LABS: Blood Urea Nitrogen 35 mg/dl (9-20); Creatinine Clearance Estimated 27 mL/min (50-200); Estimated Glomerular Filt Rate 30 ml/min (>60); GFR (African American) 37 ML/MIN (>60)
[2019-10-03 08:44] LABS: Calcium 9.2 mg/dl (8.4-10.2); Carbon Dioxide 25 mmol/L (22.0-30.0); Glucose 107 mg/dl (74-100)
[2019-10-03 08:54] LABS: NT Pro Brain Natriuretic Pep. 1550 pg/mL (0-450)
[2019-10-03 09:25] VITALS: BP 123/64; PULSE 71; RESP 18; O2SAT 99
[2019-10-03 10:38] VITALS: BP 131/63; PULSE 69; RESP 18; O2SAT 99
== END 2019-10-03 10:38 | disposition home or self-care (01) ==
LOC: INF 08:12
PROVIDERS: Visit Provider Internal Medicine Adolescent Medicine
DX: I50.9 Heart failure, unspecified (principal)
CPT/HCPCS: 80048; 83880; 96360; J1642

== ENCOUNTER 2019-10-10 08:03 | Outpatient (CLI) | payer MEDICARE, BC, SELFPAY ==
[2019-10-10 08:05] VITALS: BMI 21.8
[2019-10-10 08:27] LABS: Chloride 105 mmol/L (98-107); Potassium 4.5 mmoL/L (3.5-5.1); Sodium 140 mmol/L (136-145)
[2019-10-10 08:30] LABS: Anion Gap 14.5 mEq/L (5-15); Blood Urea Nitrogen 24 mg/dl (9-20); Calcium 9.3 mg/dl (8.4-10.2); Carbon Dioxide 25 mmol/L (22.0-30.0); Creatinine Clearance Estimated 36 mL/min (50-200); Estimated Glomerular Filt Rate 41 ml/min (>60); GFR (African American) 50 ML/MIN (>60); Glucose 114 mg/dl (74-100)
[2019-10-10 08:40] LABS: NT Pro Brain Natriuretic Pep. 1200 pg/mL (0-450)
[2019-10-10 08:50] VITALS: BP 143/69; PULSE 70; RESP 18; TEMP 36.3; O2SAT 98
== END 2019-10-10 10:00 | disposition home or self-care (01) ==
LOC: INF 08:03
PROVIDERS: Visit Provider Internal Medicine Adolescent Medicine
DX: I50.9 Heart failure, unspecified (principal)
CPT/HCPCS: 80048; 83880; 96360; J1642

== ENCOUNTER 2019-10-17 09:05 | Outpatient (CLI) | payer MEDICARE, BC, SELFPAY ==
[2019-10-17 09:08] VITALS: BMI 21.1
[2019-10-17 09:29] LABS: Chloride 104 mmol/L (98-107); Potassium 4.6 mmoL/L (3.5-5.1); Sodium 138 mmol/L (136-145)
[2019-10-17 09:32] LABS: Anion Gap 14.6 mEq/L (5-15); Blood Urea Nitrogen 23 mg/dl (9-20); Calcium 9.4 mg/dl (8.4-10.2); Carbon Dioxide 24 mmol/L (22.0-30.0); Creatinine Clearance Estimated 41 mL/min (50-200); Estimated Glomerular Filt Rate 48 ml/min (>60); GFR (African American) 59 ML/MIN (>60); Glucose 91 mg/dl (74-100)
[2019-10-17 09:42] LABS: NT Pro Brain Natriuretic Pep. 1430 pg/mL (0-450)
[2019-10-17 10:10] VITALS: BP 139/82; PULSE 69; RESP 18; O2SAT 99
[2019-10-17 11:20] VITALS: BP 157/77; PULSE 71; RESP 18
== END 2019-10-17 11:20 | disposition home or self-care (01) ==
LOC: INF 09:05
PROVIDERS: Visit Provider Internal Medicine Adolescent Medicine
DX: I50.9 Heart failure, unspecified (principal)
CPT/HCPCS: 80048; 83880; 96360; J1642

== ENCOUNTER 2019-10-24 08:16 | Outpatient (CLI) | payer MEDICARE, BC, SELFPAY ==
[2019-10-24 08:17] VITALS: BMI 21.1
[2019-10-24 08:41] LABS: Basophils % 0.6 % (0.1-2.0); Eosinophils # 0.5 K/mm3 (0.0-0.4); Eosinophils % 6.6 % (0.1-12.0); Hematocrit 43.3 % (42.0-52.0); Hemoglobin 14.5 g/dL (14.1-18.0); Lymphocytes # 1.5 K/mm3 (0.7-4.5); Lymphocytes % 20.5 % (10-50); Mean Corpuscular HGB Conc 33.4 g/dL (31.8-35.4); Mean Corpuscular Hemoglobin 34.1 pg (27.0-31.2); Mean Corpuscular Volume 102.1 fl (80-94); Mean Platelet Volume 8.3 fl (7.4-10.4); Monocytes # 0.7 K/mm3 (0.1-1.0); Monocytes % 9.1 % (1.7-9.3); Neutrophils # 4.7 K/mm3 (1.8-7.8); Neutrophils % 63.2 % (37.0-80.0); Platelet Count 222 K/mm3 (142-424); Red Blood Count 4.24 M/mm3 (4.60-6.20); Red Cell Distribution Width 13.4 % (11.5-17.5); White Blood Count 7.5 K/mm3 (4.8-10.8)
[2019-10-24 08:44] LABS: Chloride 105 mmol/L (98-107); Potassium 4.6 mmoL/L (3.5-5.1); Sodium 140 mmol/L (136-145)
[2019-10-24 08:47] LABS: Alanine Aminotransferase 16 U/L (12-78); Albumin/Globulin Ratio 1.3 (1.1-1.8); Alkaline Phosphatase 111 U/L (38-126); Anion Gap 13.6 mEq/L (5-15); Aspartate Amino Transferase 32 U/L (17-59); Bilirubin,Total 0.5 mg/dl (0.2-1.3); Blood Urea Nitrogen 21 mg/dl (9-20); Carbon Dioxide 26 mmol/L (22.0-30.0); Cholesterol 134 mg/dl (140-200); Creatinine Clearance Estimated 38 mL/min (50-200); Estimated Glomerular Filt Rate 45 ml/min (>60); GFR (African American) 54 ML/MIN (>60); Triglycerides 161 mg/dl (30-150); VLDL Cholesterol 32 mg/dL (0-40)
[2019-10-24 08:48] LABS: Calcium 9.4 mg/dl (8.4-10.2); Chol/HDL Ratio 4.5 (1-3.5); Glucose 110 mg/dl (74-100); HDL Cholesterol 30 mg/dl (40-60)
[2019-10-24 08:59] LABS: Direct LDL Cholesterol 86.64 mg/dL (100-129); NT Pro Brain Natriuretic Pep. 874 pg/mL (0-450)
[2019-10-24 09:10] VITALS: BP 153/73; PULSE 70; RESP 18; TEMP 36.6; O2SAT 98
[2019-10-24 09:21] LABS: Thyroid Stimulating Hormone 3.02 uIU/mL (0.465-4.68)
[2019-10-24 10:13] VITALS: BP 128/64; PULSE 70; RESP 18; O2SAT 98
== END 2019-10-24 10:13 | disposition home or self-care (01) ==
LOC: INF 08:16
PROVIDERS: Visit Provider Internal Medicine Adolescent Medicine
DX: I50.9 Heart failure, unspecified (principal)
CPT/HCPCS: 80053; 80061; 83880; 84443; 85025; 96360; J1642

== ENCOUNTER 2019-10-31 08:13 | Outpatient (CLI) | payer MEDICARE, BC, SELFPAY ==
[2019-10-31 08:10] VITALS: BMI 21.2
[2019-10-31 08:40] LABS: Anion Gap 14.4 mEq/L (5-15); Blood Urea Nitrogen 23 mg/dl (9-20); Calcium 9.3 mg/dl (8.4-10.2); Carbon Dioxide 27 mmol/L (22.0-30.0); Chloride 103 mmol/L (98-107); Creatinine Clearance Estimated 41 mL/min (50-200); Estimated Glomerular Filt Rate 48 ml/min (>60); GFR (African American) 59 ML/MIN (>60); Glucose 109 mg/dl (74-100); Potassium 4.4 mmoL/L (3.5-5.1); Sodium 140 mmol/L (136-145)
[2019-10-31 08:49] LABS: NT Pro Brain Natriuretic Pep. 1070 pg/mL (0-450)
[2019-10-31 09:10] VITALS: BP 140/73; PULSE 66; RESP 18; TEMP 36.4; O2SAT 98
[2019-10-31 10:10] VITALS: BP 130/84; PULSE 68; RESP 18; O2SAT 97
[2019-10-31 11:10] VITALS: BP 132/76; PULSE 75; RESP 18; TEMP 36.6; O2SAT 98
== END 2019-10-31 11:15 | disposition home or self-care (01) ==
LOC: INF 08:13
PROVIDERS: Visit Provider Internal Medicine Adolescent Medicine
DX: I50.9 Heart failure, unspecified (principal)
CPT/HCPCS: 80048; 83880; 96360; 96361; J1642

== ENCOUNTER 2019-11-07 08:09 | Outpatient (CLI) | payer MEDICARE, BC, SELFPAY ==
[2019-11-07 08:11] VITALS: BMI 21.2
[2019-11-07 08:27] LABS: Chloride 105 mmol/L (98-107); Sodium 141 mmol/L (136-145)
[2019-11-07 08:28] LABS: Potassium 4.5 mmoL/L (3.5-5.1)
[2019-11-07 08:30] LABS: Blood Urea Nitrogen 22 mg/dl (9-20); Creatinine Clearance Estimated 39 mL/min (50-200); Estimated Glomerular Filt Rate 45 ml/min (>60); GFR (African American) 54 ML/MIN (>60)
[2019-11-07 08:31] LABS: Anion Gap 15.5 mEq/L (5-15); Calcium 9.2 mg/dl (8.4-10.2); Carbon Dioxide 25 mmol/L (22.0-30.0); Glucose 118 mg/dl (74-100)
[2019-11-07 08:40] LABS: NT Pro Brain Natriuretic Pep. 1080 pg/mL (0-450)
[2019-11-07 08:55] VITALS: BP 139/67; PULSE 72; RESP 18; TEMP 36.4; O2SAT 98
[2019-11-07 10:10] VITALS: BP 135/81; PULSE 68; RESP 18
== END 2019-11-07 10:10 | disposition home or self-care (01) ==
LOC: INF 08:10
PROVIDERS: Visit Provider Internal Medicine Adolescent Medicine
DX: I50.9 Heart failure, unspecified (principal)
CPT/HCPCS: 80048; 83880; 96360; J1642

== ENCOUNTER 2019-11-14 08:00 | Outpatient (CLI) | payer MEDICARE, BC, SELFPAY ==
[2019-11-14 08:11] VITALS: BMI 21.7
[2019-11-14 08:27] LABS: Chloride 105 mmol/L (98-107); Sodium 138 mmol/L (136-145)
[2019-11-14 08:30] LABS: Blood Urea Nitrogen 31 mg/dl (9-20); Calcium 9.6 mg/dl (8.4-10.2); Carbon Dioxide 25 mmol/L (22.0-30.0); Creatinine Clearance Estimated 24 mL/min (50-200); Estimated Glomerular Filt Rate 26 ml/min (>60); GFR (African American) 31 ML/MIN (>60); Glucose 126 mg/dl (74-100)
[2019-11-14 08:39] LABS: NT Pro Brain Natriuretic Pep. 1350 pg/mL (0-450)
[2019-11-14 09:15] VITALS: BP 132/87; PULSE 69; RESP 18; O2SAT 99
[2019-11-14 10:15] VITALS: BP 143/81; PULSE 60; RESP 18
[2019-11-14 11:25] VITALS: BP 162/77; PULSE 70; RESP 18
== END 2019-11-14 11:25 | disposition home or self-care (01) ==
LOC: INF 08:09
PROVIDERS: Visit Provider Internal Medicine Adolescent Medicine
DX: I50.9 Heart failure, unspecified (principal)
CPT/HCPCS: 80048; 83880; 96360; 96361; J1642

== ENCOUNTER 2019-11-21 08:07 | Outpatient (CLI) | payer MEDICARE, BC, SELFPAY ==
[2019-11-21 08:10] VITALS: BMI 21.7
[2019-11-21 08:35] LABS: Chloride 105 mmol/L (98-107); Sodium 139 mmol/L (136-145)
[2019-11-21 08:36] LABS: Potassium 4.8 mmoL/L (3.5-5.1)
[2019-11-21 08:38] LABS: Blood Urea Nitrogen 27 mg/dl (9-20); Creatinine Clearance Estimated 36 mL/min (50-200); Estimated Glomerular Filt Rate 41 ml/min (>60); GFR (African American) 50 ML/MIN (>60)
[2019-11-21 08:39] LABS: Anion Gap 14.8 mEq/L (5-15); Calcium 9.4 mg/dl (8.4-10.2); Carbon Dioxide 24 mmol/L (22.0-30.0); Glucose 100 mg/dl (74-100)
[2019-11-21 08:48] LABS: NT Pro Brain Natriuretic Pep. 981 pg/mL (0-450)
[2019-11-21 09:15] VITALS: BP 156/83; PULSE 69; RESP 18; TEMP 36.4; O2SAT 98
[2019-11-21 10:25] VITALS: BP 143/83; PULSE 69; RESP 18; TEMP 36.4
== END 2019-11-21 10:25 | disposition home or self-care (01) ==
LOC: INF 08:07
PROVIDERS: Visit Provider Internal Medicine Adolescent Medicine
DX: I50.9 Heart failure, unspecified (principal)
CPT/HCPCS: 80048; 83880; 96360; J1642

== ENCOUNTER 2019-11-28 09:20 | Outpatient (CLI) | payer MEDICARE, BC, SELFPAY ==
[2019-11-28 09:21] VITALS: BMI 22.0
[2019-11-28 09:59] LABS: Chloride 104 mmol/L (98-107); Sodium 138 mmol/L (136-145)
[2019-11-28 10:00] LABS: Potassium 4.6 mmoL/L (3.5-5.1)
[2019-11-28 10:02] LABS: Blood Urea Nitrogen 22 mg/dl (9-20); Creatinine Clearance Estimated 40 mL/min (50-200); Estimated Glomerular Filt Rate 45 ml/min (>60); GFR (African American) 54 ML/MIN (>60)
[2019-11-28 10:03] LABS: Calcium 9.4 mg/dl (8.4-10.2); Glucose 104 mg/dl (74-100)
[2019-11-28 10:18] LABS: NT Pro Brain Natriuretic Pep. 967 pg/mL (0-450)
[2019-11-28 10:34] LABS: Anion Gap 12.6 mEq/L (5-15)
[2019-11-28 10:35] VITALS: BP 131/79; PULSE 63; RESP 18; TEMP 36.6; O2SAT 98
[2019-11-28 10:35] LABS: Carbon Dioxide 26 mmol/L (22.0-30.0)
[2019-11-28 11:00] VITALS: BP 140/76; PULSE 68; RESP 18; O2SAT 97
[2019-11-28 11:40] VITALS: BP 134/75; PULSE 69; RESP 16; TEMP 36.7; O2SAT 98
== END 2019-11-28 11:45 | disposition home or self-care (01) ==
LOC: INF 09:20
PROVIDERS: Visit Provider Internal Medicine Adolescent Medicine
DX: I50.9 Heart failure, unspecified (principal)
CPT/HCPCS: 80048; 83880; 96360; J1642

== ENCOUNTER 2019-12-05 08:08 | Outpatient (CLI) | payer MEDICARE, BC, SELFPAY ==
[2019-12-05 08:10] VITALS: BMI 21.1
[2019-12-05 08:28] LABS: Chloride 103 mmol/L (98-107); Sodium 138 mmol/L (136-145)
[2019-12-05 08:29] LABS: Potassium 4.3 mmoL/L (3.5-5.1)
[2019-12-05 08:31] LABS: Blood Urea Nitrogen 19 mg/dl (9-20); Creatinine Clearance Estimated 36 mL/min (50-200); Estimated Glomerular Filt Rate 41 ml/min (>60); GFR (African American) 50 ML/MIN (>60)
[2019-12-05 08:32] LABS: Anion Gap 13.3 mEq/L (5-15); Calcium 9.3 mg/dl (8.4-10.2); Carbon Dioxide 26 mmol/L (22.0-30.0); Glucose 128 mg/dl (74-100)
[2019-12-05 08:41] LABS: NT Pro Brain Natriuretic Pep. 781 pg/mL (0-450)
[2019-12-05 09:30] VITALS: BP 142/74; PULSE 61; RESP 18; TEMP 36.5; O2SAT 99
[2019-12-05 10:37] VITALS: BP 135/72; PULSE 63; RESP 18
== END 2019-12-05 10:38 | disposition home or self-care (01) ==
LOC: INF 08:08
PROVIDERS: Visit Provider Internal Medicine Adolescent Medicine
DX: I50.9 Heart failure, unspecified (principal)
CPT/HCPCS: 80048; 83880; 96360; J1642

== ENCOUNTER 2019-12-12 08:03 | Outpatient (CLI) | payer MEDICARE, BC, SELFPAY ==
[2019-12-12 08:00] VITALS: BMI 21.2
[2019-12-12 08:23] LABS: Chloride 105 mmol/L (98-107); Sodium 139 mmol/L (136-145)
[2019-12-12 08:24] LABS: Potassium 4.5 mmoL/L (3.5-5.1)
[2019-12-12 08:26] LABS: Blood Urea Nitrogen 20 mg/dl (9-20); Creatinine Clearance Estimated 39 mL/min (50-200); Estimated Glomerular Filt Rate 45 ml/min (>60); GFR (African American) 54 ML/MIN (>60)
[2019-12-12 08:27] LABS: Anion Gap 13.5 mEq/L (5-15); Calcium 9.1 mg/dl (8.4-10.2); Carbon Dioxide 25 mmol/L (22.0-30.0); Glucose 114 mg/dl (74-100)
[2019-12-12 08:36] LABS: NT Pro Brain Natriuretic Pep. 967 pg/mL (0-450)
[2019-12-12 08:50] VITALS: BP 137/74; PULSE 72; RESP 18; TEMP 36.3; O2SAT 98
[2019-12-12 10:02] VITALS: BP 151/76; PULSE 78; RESP 18
== END 2019-12-12 10:02 | disposition home or self-care (01) ==
LOC: INF 08:03
PROVIDERS: Visit Provider Internal Medicine Adolescent Medicine
DX: I50.9 Heart failure, unspecified (principal)
CPT/HCPCS: 80048; 83880; 96360; J1642

== ENCOUNTER 2019-12-18 08:07 | Outpatient (CLI) | payer MEDICARE, BC, SELFPAY ==
[2019-12-18 08:08] VITALS: BMI 21.8
[2019-12-18 08:45] LABS: Chloride 102 mmol/L (98-107); Sodium 137 mmol/L (136-145)
[2019-12-18 08:46] LABS: Potassium 4.3 mmoL/L (3.5-5.1)
[2019-12-18 08:48] LABS: Blood Urea Nitrogen 22 mg/dl (9-20); Creatinine Clearance Estimated 34 mL/min (50-200); Estimated Glomerular Filt Rate 39 ml/min (>60); GFR (African American) 47 ML/MIN (>60)
[2019-12-18 08:49] LABS: Anion Gap 14.3 mEq/L (5-15); Calcium 9.1 mg/dl (8.4-10.2); Carbon Dioxide 25 mmol/L (22.0-30.0); Glucose 116 mg/dl (74-100)
[2019-12-18 08:58] LABS: NT Pro Brain Natriuretic Pep. 759 pg/mL (0-450)
[2019-12-18 09:15] VITALS: BP 134/70; PULSE 70; RESP 18; TEMP 36.4; O2SAT 97
[2019-12-18 10:55] VITALS: BP 161/87; PULSE 71; RESP 18; O2SAT 96
== END 2019-12-18 11:04 | disposition home or self-care (01) ==
LOC: INF 08:07
PROVIDERS: Visit Provider Internal Medicine Adolescent Medicine
DX: I50.9 Heart failure, unspecified (principal); Z45.2 Encounter for adjustment and management of vascular access device
CPT/HCPCS: 80048; 83880; 96360; 96361; J1642

== ENCOUNTER 2019-12-26 08:00 | Outpatient (CLI) | payer MEDICARE, BC, SELFPAY ==
[2019-12-26 08:10] VITALS: BMI 21.8
[2019-12-26 08:34] LABS: Chloride 106 mmol/L (98-107)
[2019-12-26 08:35] LABS: Potassium 4.7 mmoL/L (3.5-5.1); Sodium 142 mmol/L (136-145)
[2019-12-26 08:37] LABS: Blood Urea Nitrogen 25 mg/dl (9-20); Creatinine Clearance Estimated 34 mL/min (50-200); Estimated Glomerular Filt Rate 39 ml/min (>60); GFR (African American) 47 ML/MIN (>60)
[2019-12-26 08:38] LABS: Anion Gap 15.7 mEq/L (5-15); Calcium 9.3 mg/dl (8.4-10.2); Carbon Dioxide 25 mmol/L (22.0-30.0); Glucose 110 mg/dl (74-100)
[2019-12-26 08:47] LABS: NT Pro Brain Natriuretic Pep. 1120 pg/mL (0-450)
[2019-12-26 09:15] VITALS: BP 128/73; PULSE 71; RESP 18; TEMP 36.1; O2SAT 97
[2019-12-26 11:25] VITALS: BP 156/74; PULSE 70; RESP 18
== END 2019-12-26 11:25 | disposition home or self-care (01) ==
LOC: INF 08:09
PROVIDERS: Visit Provider Internal Medicine Adolescent Medicine
DX: I50.9 Heart failure, unspecified (principal)
CPT/HCPCS: 80048; 83880; 96360; 96361; J1642

== ENCOUNTER 2020-01-02 08:06 | Outpatient (CLI) | payer MEDICARE, BC, SELFPAY ==
[2020-01-02 08:07] VITALS: BMI 21.2
[2020-01-02 08:28] LABS: Chloride 106 mmol/L (98-107); Potassium 4.5 mmoL/L (3.5-5.1); Sodium 140 mmol/L (136-145)
[2020-01-02 08:31] LABS: Anion Gap 15.5 mEq/L (5-15); Blood Urea Nitrogen 32 mg/dl (9-20); Calcium 9.2 mg/dl (8.4-10.2); Carbon Dioxide 23 mmol/L (22.0-30.0); Creatinine Clearance Estimated 32 mL/min (50-200); Estimated Glomerular Filt Rate 36 ml/min (>60); GFR (African American) 44 ML/MIN (>60); Glucose 124 mg/dl (74-100)
[2020-01-02 08:41] LABS: NT Pro Brain Natriuretic Pep. 812 pg/mL (0-450)
[2020-01-02 09:20] VITALS: BP 135/72; PULSE 70; RESP 18; TEMP 36.4; O2SAT 98
[2020-01-02 11:30] VITALS: BP 148/82; PULSE 78; RESP 18
== END 2020-01-02 11:30 | disposition home or self-care (01) ==
LOC: INF 08:06
PROVIDERS: Visit Provider Internal Medicine Adolescent Medicine
DX: I50.9 Heart failure, unspecified (principal)
CPT/HCPCS: 80048; 83880; 96360; 96361; J1642

== ENCOUNTER 2020-01-09 08:07 | Outpatient (CLI) | payer MEDICARE, BC, SELFPAY ==
[2020-01-09 08:09] VITALS: BMI 21.3
[2020-01-09 08:33] LABS: Chloride 103 mmol/L (98-107); Potassium 4.5 mmoL/L (3.5-5.1); Sodium 140 mmol/L (136-145)
[2020-01-09 08:36] LABS: Anion Gap 15.5 mEq/L (5-15); Blood Urea Nitrogen 27 mg/dl (9-20); Carbon Dioxide 26 mmol/L (22.0-30.0); Creatinine Clearance Estimated 39 mL/min (50-200); Estimated Glomerular Filt Rate 45 ml/min (>60); GFR (African American) 54 ML/MIN (>60)
[2020-01-09 08:37] LABS: Calcium 9.4 mg/dl (8.4-10.2); Glucose 106 mg/dl (74-100)
[2020-01-09 08:46] LABS: NT Pro Brain Natriuretic Pep. 1090 pg/mL (0-450)
[2020-01-09 09:00] VITALS: BP 153/87; PULSE 70; RESP 18; TEMP 36.3; O2SAT 96
[2020-01-09 11:07] VITALS: BP 146/83; PULSE 78; RESP 18
== END 2020-01-09 11:08 | disposition home or self-care (01) ==
LOC: INF 08:07
PROVIDERS: Visit Provider Internal Medicine Adolescent Medicine
DX: I50.9 Heart failure, unspecified (principal)
CPT/HCPCS: 80048; 83880; 96360; 96361; J1642

== ENCOUNTER → 2020-01-16 08:00 | Outpatient (CLI) | payer MEDICARE, BC, SELFPAY ==
[2020-01-16 08:01] VITALS: BMI 21.2
[2020-01-16 08:18] LABS: Chloride 105 mmol/L (98-107); Potassium 4.7 mmoL/L (3.5-5.1); Sodium 139 mmol/L (136-145)
[2020-01-16 08:20] LABS: Blood Urea Nitrogen 22 mg/dl (9-20); Creatinine Clearance Estimated 36 mL/min (50-200); Estimated Glomerular Filt Rate 41 ml/min (>60); GFR (African American) 50 ML/MIN (>60)
[2020-01-16 08:21] LABS: Anion Gap 13.7 mEq/L (5-15); Calcium 9.3 mg/dl (8.4-10.2); Carbon Dioxide 25 mmol/L (22.0-30.0); Glucose 115 mg/dl (74-100)
[2020-01-16 08:30] LABS: NT Pro Brain Natriuretic Pep. 1120 pg/mL (0-450)
[2020-01-16 08:37] VITALS: BP 144/74; PULSE 78; RESP 18; O2SAT 99
[2020-01-16 09:35] VITALS: BP 133/70; PULSE 72; RESP 18; O2SAT 98
== END ==
PROVIDERS: Visit Provider Internal Medicine Adolescent Medicine
DX: I50.9 Heart failure, unspecified (principal)
CPT/HCPCS: 80048; 83880; 96360; J1642

== ENCOUNTER 2020-01-21 08:00 | Outpatient (CLI) | payer MEDICARE, BC, SELFPAY ==
[2020-01-21 08:09] VITALS: BMI 21.3
[2020-01-21 08:41] LABS: Chloride 106 mmol/L (98-107); Potassium 4.5 mmoL/L (3.5-5.1); Sodium 138 mmol/L (136-145)
[2020-01-21 08:44] LABS: Anion Gap 13.5 mEq/L (5-15); Blood Urea Nitrogen 26 mg/dl (9-20); Calcium 9.4 mg/dl (8.4-10.2); Carbon Dioxide 23 mmol/L (22.0-30.0); Creatinine Clearance Estimated 34 mL/min (50-200); Estimated Glomerular Filt Rate 39 ml/min (>60); GFR (African American) 47 ML/MIN (>60); Glucose 118 mg/dl (74-100)
[2020-01-21 08:53] LABS: NT Pro Brain Natriuretic Pep. 1060 pg/mL (0-450)
[2020-01-21 09:20] VITALS: BP 144/83; PULSE 77; RESP 18; TEMP 36.3; O2SAT 98
[2020-01-21 11:30] VITALS: BP 140/81; PULSE 76; RESP 18
== END 2020-01-21 11:30 | disposition home or self-care (01) ==
LOC: INF 08:08
PROVIDERS: Visit Provider Internal Medicine Adolescent Medicine
DX: I50.9 Heart failure, unspecified (principal)
CPT/HCPCS: 80048; 83880; 96360; 96361; J1642

== ENCOUNTER 2020-01-30 08:00 | Outpatient (CLI) | payer MEDICARE, BC, SELFPAY ==
[2020-01-30 08:19] VITALS: BMI 22.5
[2020-01-30 08:31] LABS: Basophils % 0.5 % (0.1-2.0); Eosinophils # 0.1 K/mm3 (0.0-0.4); Eosinophils % 1.1 % (0.1-12.0); Hematocrit 51.4 % (42.0-52.0); Hemoglobin 16.8 g/dL (14.1-18.0); Lymphocytes # 1.2 K/mm3 (0.7-4.5); Mean Corpuscular HGB Conc 32.7 g/dL (31.8-35.4); Mean Corpuscular Hemoglobin 33.7 pg (27.0-31.2); Mean Corpuscular Volume 103.2 fl (80-94); Mean Platelet Volume 8.3 fl (7.4-10.4); Monocytes # 0.8 K/mm3 (0.1-1.0); Monocytes % 9.1 % (1.7-9.3); Neutrophils # 6.4 K/mm3 (1.8-7.8); Neutrophils % 75.3 % (37.0-80.0); Platelet Count 280 K/mm3 (142-424); Red Blood Count 4.98 M/mm3 (4.60-6.20); Red Cell Distribution Width 13.6 % (11.5-17.5); White Blood Count 8.6 K/mm3 (4.8-10.8)
[2020-01-30 08:34] LABS: Chloride 102 mmol/L (98-107)
[2020-01-30 08:35] LABS: Potassium 5.6 mmoL/L (3.5-5.1); Sodium 135 mmol/L (136-145)
[2020-01-30 08:38] LABS: Anion Gap 19.6 mEq/L (5-15); Blood Urea Nitrogen 54 mg/dl (9-20); Carbon Dioxide 19 mmol/L (22.0-30.0); Creatinine Clearance Estimated 24 mL/min (50-200); Estimated Glomerular Filt Rate 25 ml/min (>60); GFR (African American) 30 ML/MIN (>60); Glucose 124 mg/dl (74-100)
[2020-01-30 08:48] LABS: NT Pro Brain Natriuretic Pep. 1170 pg/mL (0-450)
[2020-01-30 09:00] VITALS: BP 144/78; PULSE 89; RESP 18; TEMP 36.3; O2SAT 97
[2020-01-30 10:09] LABS: Vitamin B12 > 1000 pg/mL (239-931)
[2020-01-30 11:05] VITALS: BP 147/76; PULSE 72; RESP 18
== END 2020-01-30 11:15 | disposition home or self-care (01) ==
LOC: INF 08:08
PROVIDERS: Visit Provider Internal Medicine Adolescent Medicine
DX: I50.9 Heart failure, unspecified (principal); E86.0 Dehydration
CPT/HCPCS: 80048; 82607; 83880; 84443; 85025; 96360; 96361; J1642

== ENCOUNTER 2020-02-02 08:05 | Outpatient (CLI) | payer MEDICARE, BC, SELFPAY ==
[2020-02-02 08:07] VITALS: BMI 22.4
[2020-02-02 08:28] LABS: Chloride 103 mmol/L (98-107); Potassium 4.8 mmoL/L (3.5-5.1); Sodium 137 mmol/L (136-145)
[2020-02-02 08:31] LABS: Anion Gap 17.8 mEq/L (5-15); Blood Urea Nitrogen 43 mg/dl (9-20); Carbon Dioxide 21 mmol/L (22.0-30.0); Creatinine Clearance Estimated 30 mL/min (50-200); Estimated Glomerular Filt Rate 32 ml/min (>60); GFR (African American) 39 ML/MIN (>60)
[2020-02-02 08:32] LABS: Calcium 9.3 mg/dl (8.4-10.2); Glucose 132 mg/dl (74-100)
[2020-02-02 08:50] VITALS: BP 136/69; PULSE 76; RESP 18; TEMP 36.1; O2SAT 100
[2020-02-02 11:27] VITALS: BP 144/85; PULSE 69; RESP 18
== END 2020-02-02 11:27 | disposition home or self-care (01) ==
LOC: INF 08:05
PROVIDERS: Visit Provider Internal Medicine Adolescent Medicine
DX: I50.9 Heart failure, unspecified (principal)
CPT/HCPCS: 80048; 96360; 96361; 96367; J1642

== ENCOUNTER 2020-02-04 08:00 | Outpatient (CLI) | payer MEDICARE, BC, SELFPAY ==
[2020-02-04 08:08] VITALS: BMI 22.5
[2020-02-04 08:27] LABS: Chloride 106 mmol/L (98-107); Sodium 137 mmol/L (136-145)
[2020-02-04 08:28] LABS: Potassium 4.8 mmoL/L (3.5-5.1)
[2020-02-04 08:31] LABS: Anion Gap 12.8 mEq/L (5-15); Blood Urea Nitrogen 28 mg/dl (9-20); Carbon Dioxide 23 mmol/L (22.0-30.0); Creatinine Clearance Estimated 38 mL/min (50-200); Estimated Glomerular Filt Rate 41 ml/min (>60); GFR (African American) 50 ML/MIN (>60); Glucose 119 mg/dl (74-100); Magnesium 2.1 mg/dl (1.6-2.3)
[2020-02-04 08:40] LABS: NT Pro Brain Natriuretic Pep. 1310 pg/mL (0-450)
[2020-02-04 09:00] VITALS: BP 140/82; PULSE 69; RESP 18; TEMP 36.3; O2SAT 98
[2020-02-04 10:10] VITALS: BP 138/80; PULSE 67; RESP 18
== END 2020-02-04 10:10 | disposition home or self-care (01) ==
LOC: INF 08:07
PROVIDERS: Visit Provider Internal Medicine Adolescent Medicine
DX: I50.9 Heart failure, unspecified (principal); E86.0 Dehydration
CPT/HCPCS: 80048; 83735; 83880; 96360; J1642

== ENCOUNTER 2020-02-06 08:00 | Outpatient (CLI) | payer MEDICARE, BC, SELFPAY ==
[2020-02-06 08:11] VITALS: BMI 22.4
[2020-02-06 08:29] LABS: Chloride 105 mmol/L (98-107); Sodium 138 mmol/L (136-145)
[2020-02-06 08:30] LABS: Potassium 4.4 mmoL/L (3.5-5.1)
[2020-02-06 08:32] LABS: Blood Urea Nitrogen 24 mg/dl (9-20); Creatinine Clearance Estimated 37 mL/min (50-200); Estimated Glomerular Filt Rate 41 ml/min (>60); GFR (African American) 50 ML/MIN (>60)
[2020-02-06 08:33] LABS: Anion Gap 13.4 mEq/L (5-15); Calcium 9.3 mg/dl (8.4-10.2); Carbon Dioxide 24 mmol/L (22.0-30.0); Glucose 115 mg/dl (74-100)
[2020-02-06 08:42] LABS: NT Pro Brain Natriuretic Pep. 1540 pg/mL (0-450)
[2020-02-06 08:58] VITALS: BP 138/71; PULSE 74; RESP 18; TEMP 36.2; O2SAT 100
[2020-02-06 10:10] VITALS: BP 137/87; PULSE 68; RESP 18
== END 2020-02-06 10:10 | disposition home or self-care (01) ==
LOC: INF 08:09
PROVIDERS: Visit Provider Internal Medicine Adolescent Medicine
DX: I50.9 Heart failure, unspecified (principal); E86.0 Dehydration
CPT/HCPCS: 80048; 83880; 96360; J1642

== ENCOUNTER 2020-02-13 08:00 | Outpatient (CLI) | payer MEDICARE, BC, SELFPAY ==
[2020-02-13 08:14] VITALS: BMI 22.4
[2020-02-13 08:35] LABS: Chloride 104 mmol/L (98-107)
[2020-02-13 08:36] LABS: Potassium 4.9 mmoL/L (3.5-5.1); Sodium 138 mmol/L (136-145)
[2020-02-13 08:39] LABS: Anion Gap 13.9 mEq/L (5-15); Blood Urea Nitrogen 28 mg/dl (9-20); Calcium 9.7 mg/dl (8.4-10.2); Carbon Dioxide 25 mmol/L (22.0-30.0); Creatinine Clearance Estimated 35 mL/min (50-200); Estimated Glomerular Filt Rate 39 ml/min (>60); GFR (African American) 47 ML/MIN (>60); Glucose 116 mg/dl (74-100)
[2020-02-13 08:48] LABS: NT Pro Brain Natriuretic Pep. 762 pg/mL (0-450)
[2020-02-13 08:58] VITALS: BP 129/69; PULSE 69; RESP 18; TEMP 36.3; O2SAT 97
[2020-02-13 10:10] VITALS: BP 148/75; PULSE 72; RESP 18
== END 2020-02-13 10:10 | disposition home or self-care (01) ==
LOC: INF 08:12
PROVIDERS: Visit Provider Internal Medicine Adolescent Medicine
DX: I50.9 Heart failure, unspecified (principal)
CPT/HCPCS: 80048; 83880; 96360; J1642

== ENCOUNTER 2020-02-18 08:00 | Outpatient (CLI) | payer MEDICARE, BC, SELFPAY ==
[2020-02-18 08:10] VITALS: BMI 22.4
[2020-02-18 08:29] LABS: Chloride 104 mmol/L (98-107); Potassium 4.5 mmoL/L (3.5-5.1); Sodium 139 mmol/L (136-145)
[2020-02-18 08:32] LABS: Anion Gap 13.5 mEq/L (5-15); Blood Urea Nitrogen 28 mg/dl (9-20); Calcium 9.4 mg/dl (8.4-10.2); Carbon Dioxide 26 mmol/L (22.0-30.0); Creatinine Clearance Estimated 37 mL/min (50-200); Estimated Glomerular Filt Rate 41 ml/min (>60); GFR (African American) 50 ML/MIN (>60); Glucose 126 mg/dl (74-100)
[2020-02-18 08:42] LABS: NT Pro Brain Natriuretic Pep. 857 pg/mL (0-450)
[2020-02-18 08:50] VITALS: BP 144/72; PULSE 79; RESP 18; TEMP 36.5; O2SAT 96
[2020-02-18 11:12] VITALS: BP 138/70; PULSE 72; RESP 18
== END 2020-02-18 11:12 | disposition home or self-care (01) ==
LOC: INF 08:09
PROVIDERS: Visit Provider Internal Medicine Adolescent Medicine
DX: I50.9 Heart failure, unspecified (principal); E86.0 Dehydration
CPT/HCPCS: 80048; 83880; 96360; 96361; J1642

== ENCOUNTER 2020-02-25 08:10 | Outpatient (CLI) | payer MEDICARE, BC, SELFPAY ==
[2020-02-25 08:16] VITALS: BMI 23.0
[2020-02-25 08:34] LABS: Chloride 105 mmol/L (98-107); Potassium 4.6 mmoL/L (3.5-5.1); Sodium 138 mmol/L (136-145)
[2020-02-25 08:37] LABS: Anion Gap 13.6 mEq/L (5-15); Blood Urea Nitrogen 26 mg/dl (9-20); Carbon Dioxide 24 mmol/L (22.0-30.0); Creatinine Clearance Estimated 37 mL/min (50-200); Estimated Glomerular Filt Rate 41 ml/min (>60); GFR (African American) 50 ML/MIN (>60)
[2020-02-25 08:38] LABS: Calcium 9.4 mg/dl (8.4-10.2); Glucose 120 mg/dl (74-100)
[2020-02-25 08:46] LABS: NT Pro Brain Natriuretic Pep. 1050 pg/mL (0-450)
[2020-02-25 09:05] VITALS: BP 144/70; PULSE 69; RESP 18; TEMP 36.2; O2SAT 98
[2020-02-25 11:15] VITALS: BP 166/84; PULSE 71; RESP 18
== END 2020-02-25 11:15 | disposition home or self-care (01) ==
LOC: INF 08:14
PROVIDERS: Visit Provider Internal Medicine Adolescent Medicine
DX: I50.9 Heart failure, unspecified (principal); E86.0 Dehydration
CPT/HCPCS: 80048; 83880; 96360; 96361; J1642

== ENCOUNTER 2020-03-05 08:00 | Outpatient (CLI) | payer MEDICARE, BC, SELFPAY ==
[2020-03-05 08:07] VITALS: BMI 23.0
[2020-03-05 08:42] LABS: Anion Gap 14.8 mEq/L (5-15); Blood Urea Nitrogen 36 mg/dl (9-20); Calcium 9.6 mg/dl (8.4-10.2); Carbon Dioxide 23 mmol/L (22.0-30.0); Chloride 104 mmol/L (98-107); Creatinine Clearance Estimated 27 mL/min (50-200); Estimated Glomerular Filt Rate 29 ml/min (>60); GFR (African American) 35 ML/MIN (>60); Glucose 125 mg/dl (74-100); Potassium 4.8 mmoL/L (3.5-5.1); Sodium 137 mmol/L (136-145)
[2020-03-05 08:51] LABS: NT Pro Brain Natriuretic Pep. 1060 pg/mL (0-450)
[2020-03-05 09:04] VITALS: BP 139/64; PULSE 69; RESP 18; TEMP 36.1; O2SAT 97
[2020-03-05 11:15] VITALS: BP 152/76; PULSE 71; RESP 18
== END 2020-03-05 11:15 | disposition home or self-care (01) ==
LOC: INF 08:06
PROVIDERS: Visit Provider Internal Medicine Adolescent Medicine
DX: I50.9 Heart failure, unspecified (principal)
CPT/HCPCS: 80048; 83880; 96360; 96361; J1642

== ENCOUNTER 2020-03-12 08:00 | Outpatient (CLI) | payer MEDICARE, BC, SELFPAY ==
[2020-03-12 08:13] VITALS: BMI 23.0
[2020-03-12 08:35] LABS: Anion Gap 15.8 mEq/L (5-15); Blood Urea Nitrogen 34 mg/dl (9-20); Calcium 9.6 mg/dl (8.4-10.2); Carbon Dioxide 23 mmol/L (22.0-30.0); Chloride 103 mmol/L (98-107); Creatinine Clearance Estimated 32 mL/min (50-200); Estimated Glomerular Filt Rate 34 ml/min (>60); GFR (African American) 41 ML/MIN (>60); Glucose 139 mg/dl (74-100); Potassium 4.8 mmoL/L (3.5-5.1); Sodium 137 mmol/L (136-145)
[2020-03-12 08:44] LABS: NT Pro Brain Natriuretic Pep. 739 pg/mL (0-450)
[2020-03-12 09:16] VITALS: BP 129/77; PULSE 68; RESP 18; TEMP 36.4; O2SAT 98
[2020-03-12 11:25] VITALS: BP 167/87; PULSE 69; RESP 18
== END 2020-03-12 11:25 | disposition home or self-care (01) ==
LOC: INF 08:12
PROVIDERS: Visit Provider Internal Medicine Adolescent Medicine
DX: I50.9 Heart failure, unspecified (principal)
CPT/HCPCS: 80048; 83880; 96360; 96361; J1642

== ENCOUNTER 2020-03-19 08:06 | Outpatient (CLI) | payer MEDICARE, BC, SELFPAY ==
[2020-03-19 08:32] LABS: Anion Gap 12.8 mEq/L (5-15); Blood Urea Nitrogen 39 mg/dl (9-20); Calcium 9.4 mg/dl (8.4-10.2); Carbon Dioxide 22 mmol/L (22.0-30.0); Chloride 108 mmol/L (98-107); Creatinine Clearance Estimated 1 mL/min (50-200); Estimated Glomerular Filt Rate 30 ml/min (>60); GFR (African American) 37 ML/MIN (>60); Glucose 127 mg/dl (74-100); Potassium 4.8 mmoL/L (3.5-5.1); Sodium 138 mmol/L (136-145)
[2020-03-19 08:42] LABS: NT Pro Brain Natriuretic Pep. 948 pg/mL (0-450)
[2020-03-19 09:20] VITALS: BP 143/78; PULSE 72; RESP 18; TEMP 36.2; O2SAT 100
[2020-03-19 11:25] VITALS: BP 167/80; PULSE 70; RESP 18
[2020-03-20 12:41] LABS: PSA, Free 1.43 ng/mL; Prostate Specific Ag 11.3 ng/mL (0.0-4.0)
== END 2020-03-19 11:25 | disposition home or self-care (01) ==
LOC: INF 08:06
PROVIDERS: Urology; Visit Provider Internal Medicine Adolescent Medicine
DX: I50.9 Heart failure, unspecified (principal); R97.20 Elevated prostate specific antigen [PSA]
CPT/HCPCS: 80048; 83880; 84153; 84154; 96360; 96361; J1642

== ENCOUNTER 2020-03-26 08:05 | Outpatient (CLI) | payer MEDICARE, BC, SELFPAY ==
[2020-03-26 08:07] VITALS: BMI 22.8
[2020-03-26 08:30] LABS: Anion Gap 15.6 mEq/L (5-15); Blood Urea Nitrogen 28 mg/dl (9-20); Calcium 9.5 mg/dl (8.4-10.2); Carbon Dioxide 24 mmol/L (22.0-30.0); Chloride 102 mmol/L (98-107); Creatinine Clearance Estimated 35 mL/min (50-200); Estimated Glomerular Filt Rate 39 ml/min (>60); GFR (African American) 47 ML/MIN (>60); Glucose 119 mg/dl (74-100); Potassium 4.6 mmoL/L (3.5-5.1); Sodium 137 mmol/L (136-145)
[2020-03-26 08:39] LABS: NT Pro Brain Natriuretic Pep. 866 pg/mL (0-450)
[2020-03-26 09:10] VITALS: BP 146/78; PULSE 74; RESP 18; O2SAT 99
[2020-03-26 10:24] VITALS: BP 158/81; PULSE 70; RESP 18
== END 2020-03-26 10:24 | disposition home or self-care (01) ==
LOC: INF 08:05
PROVIDERS: Visit Provider Internal Medicine Adolescent Medicine
DX: I50.9 Heart failure, unspecified (principal)
CPT/HCPCS: 80048; 83880; 96360; J1642

== ENCOUNTER 2020-04-02 08:05 | Outpatient (CLI) | payer MEDICARE, BC, SELFPAY ==
[2020-04-02 08:14] VITALS: BMI 22.4
[2020-04-02 08:36] LABS: Chloride 106 mmol/L (98-107)
[2020-04-02 08:37] LABS: Potassium 4.5 mmoL/L (3.5-5.1); Sodium 138 mmol/L (136-145)
[2020-04-02 08:39] LABS: Blood Urea Nitrogen 29 mg/dl (9-20); Creatinine Clearance Estimated 32 mL/min (50-200); Estimated Glomerular Filt Rate 36 ml/min (>60); GFR (African American) 44 ML/MIN (>60)
[2020-04-02 08:40] LABS: Anion Gap 14.5 mEq/L (5-15); Calcium 9.5 mg/dl (8.4-10.2); Carbon Dioxide 22 mmol/L (22.0-30.0); Glucose 130 mg/dl (74-100)
[2020-04-02 08:50] LABS: NT Pro Brain Natriuretic Pep. 834 pg/mL (0-450)
[2020-04-02 09:05] VITALS: BP 108/72; PULSE 68; RESP 18; TEMP 36.2; O2SAT 98
[2020-04-02 09:11] LABS: Thyroid Stimulating Hormone 0.04 uIU/mL (0.465-4.68)
[2020-04-02 11:20] VITALS: BP 135/73; PULSE 69; RESP 18
== END 2020-04-02 11:20 | disposition home or self-care (01) ==
LOC: INF 08:13
PROVIDERS: Visit Provider Internal Medicine Adolescent Medicine
DX: I50.9 Heart failure, unspecified (principal); N28.9 Disorder of kidney and ureter, unspecified
CPT/HCPCS: 80048; 83880; 84443; 96360; 96361; J1642

== ENCOUNTER 2020-04-09 08:06 | Outpatient (CLI) | payer MEDICARE, BC, SELFPAY ==
[2020-04-09 08:09] VITALS: BMI 22.4
[2020-04-09 08:32] LABS: Chloride 107 mmol/L (98-107); Potassium 4.8 mmoL/L (3.5-5.1); Sodium 139 mmol/L (136-145)
[2020-04-09 08:35] LABS: Blood Urea Nitrogen 31 mg/dl (9-20); Creatinine Clearance Estimated 32 mL/min (50-200); Estimated Glomerular Filt Rate 36 ml/min (>60); GFR (African American) 44 ML/MIN (>60)
[2020-04-09 08:36] LABS: Anion Gap 12.8 mEq/L (5-15); Calcium 9.6 mg/dl (8.4-10.2); Carbon Dioxide 24 mmol/L (22.0-30.0); Glucose 137 mg/dl (74-100)
[2020-04-09 08:45] LABS: NT Pro Brain Natriuretic Pep. 1020 pg/mL (0-450)
[2020-04-09 09:25] VITALS: BP 121/70; PULSE 74; RESP 18; TEMP 36.1; O2SAT 99
[2020-04-09 10:36] VITALS: BP 129/79; PULSE 67; RESP 18
== END 2020-04-09 10:38 | disposition home or self-care (01) ==
LOC: INF 08:06
PROVIDERS: Visit Provider Internal Medicine Adolescent Medicine
DX: I50.9 Heart failure, unspecified (principal)
CPT/HCPCS: 80048; 83880; 96360; J1642

== ENCOUNTER 2020-04-15 08:00 | Outpatient (CLI) | payer MEDICARE, BC, SELFPAY ==
[2020-04-15 08:10] VITALS: BMI 22.4
[2020-04-15 08:29] LABS: Chloride 106 mmol/L (98-107); Sodium 138 mmol/L (136-145)
[2020-04-15 08:30] LABS: Potassium 4.8 mmoL/L (3.5-5.1)
[2020-04-15 08:32] LABS: Blood Urea Nitrogen 43 mg/dl (9-20); Creatinine Clearance Estimated 31 mL/min (50-200); Estimated Glomerular Filt Rate 34 ml/min (>60); GFR (African American) 41 ML/MIN (>60)
[2020-04-15 08:33] LABS: Anion Gap 15.8 mEq/L (5-15); Calcium 9.6 mg/dl (8.4-10.2); Carbon Dioxide 21 mmol/L (22.0-30.0); Glucose 172 mg/dl (74-100)
[2020-04-15 08:42] LABS: NT Pro Brain Natriuretic Pep. 1060 pg/mL (0-450)
[2020-04-15 09:15] VITALS: BP 124/69; PULSE 80; RESP 18; TEMP 36.3; O2SAT 99
[2020-04-15 10:26] VITALS: BP 151/70; PULSE 69; RESP 18
== END 2020-04-15 10:26 | disposition home or self-care (01) ==
LOC: INF 08:08
PROVIDERS: Visit Provider Internal Medicine Adolescent Medicine
DX: I50.9 Heart failure, unspecified (principal)
CPT/HCPCS: 80048; 83880; 96360; J1642

== ENCOUNTER 2020-04-22 08:00 | Outpatient (CLI) | payer MEDICARE, BC, SELFPAY ==
[2020-04-22 08:06] VITALS: BMI 22.4
[2020-04-22 08:31] LABS: Chloride 106 mmol/L (98-107); Potassium 4.9 mmoL/L (3.5-5.1); Sodium 137 mmol/L (136-145)
[2020-04-22 08:34] LABS: Anion Gap 13.9 mEq/L (5-15); Blood Urea Nitrogen 34 mg/dl (9-20); Carbon Dioxide 22 mmol/L (22.0-30.0); Creatinine Clearance Estimated 29 mL/min (50-200); Estimated Glomerular Filt Rate 32 ml/min (>60); GFR (African American) 39 ML/MIN (>60)
[2020-04-22 08:35] LABS: Calcium 9.4 mg/dl (8.4-10.2); Glucose 139 mg/dl (74-100)
[2020-04-22 08:43] LABS: NT Pro Brain Natriuretic Pep. 1110 pg/mL (0-450)
[2020-04-22 09:05] VITALS: BP 122/70; PULSE 70; RESP 18; TEMP 36.4; O2SAT 100
[2020-04-22 11:14] VITALS: BP 142/80; PULSE 75; RESP 18
== END 2020-04-22 11:14 | disposition home or self-care (01) ==
LOC: INF 08:04
PROVIDERS: Visit Provider Internal Medicine Adolescent Medicine
DX: I50.9 Heart failure, unspecified (principal)
CPT/HCPCS: 80048; 83880; 96360; 96361; J1642

== ENCOUNTER 2020-04-27 09:19 | Observation (INO) | payer MEDICARE, BC, SELFPAY ==
[2020-04-27] VITALS (13 sets, daily range): BP systolic 86–145; BP diastolic 53–86; PULSE 66–95; RESP 11–24; TEMP 36.6–36.9; O2SAT 95–99; BMI 22.5
--- NOTE | 2020-04-27 09:34 | ECG_ITS ---
APPROVED REPORT Exam: Resting ECG HR:94 bpm ECG Measurements Heart Rate 94 AXES NC 120 P 66 QRSd 132 QRS -85 QT 384 T 66 QTc 480 Conclusion Electronic ventricular pacemaker Electronically signed by : Milton Smith, 04/27/2020 17:19:07
--- NOTE | 2020-04-27 10:11 | XR_ITS ---
PROCEDURE: XR CHEST PORTABLE CLINICAL HISTORY: soa Shortness of air, heart disease COMPARISON: CR XR CHEST AP from 12/25/2018 CR XR CHEST PORTABLE from 01/09/[address] ANGIO CHEST from 05/04/2019 CR XR CHEST 2V from 05/04/2019 FINDINGS: Normal heart size. Biventricular pacemaker with right atrial lead noted from left subclavian approach. Right subclavian MediPort catheter is present with tip in the region the SVC. No lobar consolidation or collapse. COPD changes. There are degenerative changes in the right shoulder and there is a left shoulder replacement. IMPRESSION: As above, no acute finding Dictated by: Keith Krishnamurthy MD 04/27/2020 12:18 Keith Krishnamurthy MD in [place] 04/27/2020 12:18
--- NOTE | 2020-04-27 10:18 | HMH.EDGENADL ---
ED Disposition Clinical Impression: Dehydration Tpfqh-[id number] kidney injury Qualifiers: Acute renal failure type: unspecified Chronic kidney disease stage: unspecified stage Qualified Code(s): N17.9 - Acute kidney failure, unspecified; N18.9 - Chronic kidney disease, unspecified Disposition: Admitted as Observation Condition on Discharge: Fair Referrals: Milton Smith MD [Primary Care Provider] - - Critical Care Critical Care Time: No Attestation: On 04/27/20, the high probability of a clinically significant, sudden or life threatening deterioration of the following system(s) required my full and direct attention, intervention and personal management. The time I documented below is in addition to time spent performing reported procedures but includes the following listed in this critical care notation. Medical Decision Making - Chandana Inquiry Pt receiving controlled substance: No Vital Signs: 04/27/20 09:20 04/27/20 09:31 04/27/20 10:32 Temperature 98.2 F Temperature Source Oral Pulse Rate [Orthostatic Lying] Pulse Rate [Orthostatic Sitting] Pulse Rate [Orthostatic Standing] Pulse Rate [Right Radial] 95 H 88 79 Respiratory Rate 22 15 Blood Pressure [Orthostatic Lying Right Arm] Blood Pressure [Orthostatic Sitting Right Arm] Blood Pressure [Orthostatic Standing Right Arm] Blood Pressure [Right Arm] 111/74 111/74 138/86 Blood Pressure Mean [Right Arm] 86 86 103 Blood Pressure Source [Right Arm] Automatic Cuff Automatic Cuff Automatic Cuff Blood Pressure Position [Right Arm] Sitting Supine Supine 02 Sat by Pulse Oximetry 98 99 99 Oxygen Delivery Method Room Air Room Air Room Air 04/27/20 11:30 04/27/20 11:55 Temperature Temperature Source Pulse Rate [Orthostatic Lying] 70 Pulse Rate [Orthostatic Sitting] 74 Pulse Rate [Orthostatic Standing] 86 Pulse Rate [Right Radial] 70 Respiratory Rate 17 Blood Pressure [Orthostatic Lying Right Arm] 133/76 Blood Pressure [Orthostatic Sitting Right Arm] 135/86 Blood Pressure [Orthostatic Standing Right Arm] 86/55 L Blood Pressure [Right Arm] 125/82 Blood Pressure Mean [Right Arm] 96 Blood Pressure Source [Right Arm] Automatic Cuff Blood Pressure Position [Right Arm] Supine 02 Sat by Pulse Oximetry Oxygen Delivery Method - Lab Data Lab Results 04/27/20 09:56: WBC 8.6, RBC 4.22 L, Hgb 14.0 L, Hct 42.4, MCV 100.4 H, MCH 33.1 H, MCHC 33.0, RDW 13.1, Plt Count 273, MPV 8.0, Neut % (Auto) 74.5, Lymph % (Auto) 15.5, [place] % (Auto) 8.1, Eos % (Auto) 1.6, Baso % (Auto) 0.3, Neut # (Auto) 6.4, Lymph # (Auto) 1.3, [place] # (Auto) 0.7, Eos # (Auto) 0.1, Baso # (Auto) 0.0 04/27/20 09:56: Sodium 132 L, Potassium 4.9, Chloride 102, Carbon Dioxide 21 L, Anion Gap 13.9, BUN 38 H, Creatinine 2.40 H, Estimated Creat Clear 24, Estimated GFR 26 L, Est GFR ( Amer) 31 L, Glucose 165 H, Calcium 10.0, Total Bilirubin 0.7, AST 40, ALT 29, Alkaline Phosphatase 118, Troponin I 0.02, NT-Pro-B Natriuret Pep 890 H, Total Protein 7.7, Albumin 4.3, Globulin 3.4 H, Albumin/Globulin Ratio 1.3 04/27/20 09:56: Lactate 2.2 H Result diagrams: 04/27/20 09:56 04/27/20 09:56 Orders (Tests/Meds): ED MEDICATIONS Generic Name Dose Route Start Last Admin Trade Name Freq PRN Reason Stop Dose Admin Sodium Chloride 1,000 mls @ 150 mls/hr 04/27/20 12:00 04/27/20 12:28 Sod Chlor 0.9% 1000ml Bag IV 05/27/20 11:59 150 mls/hr .[id number] [facility] Administration ORDERS Category Date Time Status Troponin I Q3H Lab 04/27/20 13:15 Ordered Troponin I Q3H Lab 04/27/20 16:15 Ordered Urinalysis and Microscopic Stat Lab 04/27/20 10:11 Ordered Blood Culture Stat Micro 04/27/20 09:56 Received - ECG Data Tracing #1 EKG interpreted by Rory Perez MD: Rhythm: Electronic ventricular pacemaker Rate: 94 No evidence of acute ischemia or injury - Physician Consults Physician Consulted: Zack Time: 12:53 Reason -: Admission Commen
[2020-04-27 10:26] LABS: Basophils % 0.3 % (0.1-2.0); Eosinophils # 0.1 K/mm3 (0.0-0.4); Eosinophils % 1.6 % (0.1-12.0); Hematocrit 42.4 % (42.0-52.0); Lymphocytes # 1.3 K/mm3 (0.7-4.5); Lymphocytes % 15.5 % (10-50); Mean Corpuscular Hemoglobin 33.1 pg (27.0-31.2); Mean Corpuscular Volume 100.4 fl (80-94); Monocytes # 0.7 K/mm3 (0.1-1.0); Monocytes % 8.1 % (1.7-9.3); Neutrophils # 6.4 K/mm3 (1.8-7.8); Neutrophils % 74.5 % (37.0-80.0); Platelet Count 273 K/mm3 (142-424); Red Blood Count 4.22 M/mm3 (4.60-6.20); Red Cell Distribution Width 13.1 % (11.5-17.5); White Blood Count 8.6 K/mm3 (4.8-10.8)
[2020-04-27 10:32] LABS: Alanine Aminotransferase 29 U/L (12-78); Albumin Level 4.3 g/dl (3.5-5.0); Albumin/Globulin Ratio 1.3 (1.1-1.8); Alkaline Phosphatase 118 U/L (38-126); Anion Gap 13.9 mEq/L (5-15); Aspartate Amino Transferase 40 U/L (17-59); Bilirubin,Total 0.7 mg/dl (0.2-1.3); Blood Urea Nitrogen 38 mg/dl (9-20); Carbon Dioxide 21 mmol/L (22.0-30.0); Chloride 102 mmol/L (98-107); Creatinine Clearance Estimated 24 mL/min (50-200); Estimated Glomerular Filt Rate 26 ml/min (>60); GFR (African American) 31 ML/MIN (>60); Globulin 3.4 g/dL (1.3-3.2); Glucose 165 mg/dl (74-100); Potassium 4.9 mmoL/L (3.5-5.1); Sodium 132 mmol/L (136-145); Total Protein,Serum 7.7 g/dl (6.3-8.2)
[2020-04-27 10:33] LABS: Lactic Acid 2.2 mmol/L (0.7-2.1)
[2020-04-27 10:44] LABS: NT Pro Brain Natriuretic Pep. 890 pg/mL (0-450); Troponin I 0.02 ng/ml (0.00-0.034)
--- NOTE | 2020-04-27 12:54 | PC.NURSE ---
called care management for admission.
[2020-04-27 13:57] LABS: Adenovirus,PCR Not Detected (NotDetected); Bordetella Pertussis Not Detected (NotDetected); Chlamydophila Pneumoniae, PCR Not Detected (NotDetected); Coronavirus 19, PCR Not Detected (NotDetected); Coronavirus 229E Not Detected (NotDetected); Coronavirus NL63 Not Detected (NotDetected); Coronavirus OC43 Not Detected (NotDetected); Coronovirus HKU1,PCR Not Detected (NotDetected); Human Metapneumovirus Not Detected (NotDetected); Influenza A, PCR Not Detected (NotDetected); Influenza AH1, 2009 Not Detected (NotDetected); Influenza AH1, PCR Not Detected (NotDetected); Influenza AH3,PCR Not Detected (NotDetected); Influenza B, PCR Not Detected (NotDetected); Mycoplasma Pneumoniae, PCR Not Detected (NotDetected); Parainfluenza 1, PCR Not Detected (NotDetected); Parainfluenza 2, PCR Not Detected (NotDetected); Parainfluenza 3, PCR Not Detected (NotDetected); Parainfluenza 4, PCR Not Detected (NotDetected); Respiratory Syncytial Virus Not Detected (NotDetected); Rhinovirus/Enterovirus Not Detected (NotDetected)
[2020-04-27 14:04] LABS: Reflex Lactic Add Lactic Reflex
[2020-04-27 14:53] LABS: Lactic Acid Follow Up (RFLX 1) 1.3 mmol/L (0.7-2.1)
--- NOTE | 2020-04-27 14:57 | HMH.PHAINT ---
MEDICATION RECONCILIATION COMPLETED ON PATIENT USING EXTERNAL FILL HISTORY FROM PHARMACY. -MELANY SEXTON, MARYANND
[2020-04-27 15:06] LABS: Troponin I 0.15 ng/ml (0.00-0.034)
--- NOTE | 2020-04-27 15:59 | HMH.HP ---
*Admission Date: 04/27/20 *Chief complaint: fatigue, shortness of breath *History of present illness: Mr. Krueger is an 85-year-old male with history of ileostomy and high output necessitating regular IV fluid infusions. Presented to the ER today because of fatigue, weakness, near syncope. This is an ongoing chronic problem however today felt worse than usual for him. On presentation to the ER he was noted to be hypotensive with orthostatic hypotension. Labs obtained showing worsening kidney function, electrolyte disturbances. Received some IV fluid rehydration but given acute issues, organ dysfunction, orthostasis, medicine was consulted for admission and further management. On interview, he states his symptoms have been getting worse for the past 2 weeks. States eh has felt like he was going to pass out when standing and has had to sit down multiple times, did not have full syncope. He states that he comes into the infusion department once a week to get IV fluid infusion. He gets 500 to 2000 cc infused depending on need. His last infusion was on of last week and he received 1000 cc. He states the last time he felt this bad he had to get admitted to the hospital for 2 days for a slow infusion of IV fluids. He says if he gets IV fluids too fast it just goes straight through him and comes out of his colostomy. Denies chest pain, c/o shortness of breath with exertion, denies swelling, Denies vomiting or fever. [facility] History Medical History: Reports:: Arrhythmia, Atherosclerotic Heart Disease, Atrial Fibrillation, Cancer, Cardiomyopathy, Congestive Heart Failure, Coronary Artery Disease, Hyperlipidemia, Hypertension, Internal Pacemaker, MRSA, Myocardial Infarction, Palpitations, Seizures Denies:: Diabetes Mellitus Type 1, Diabetes Mellitus Type 2 *Have you ever received a pneumonia vaccine?: No *Have you received a flu vaccine this season?: No Other Medical History: Reports: Anemia, Arthritis, Hypothyroidism, Thyroid Disease. Denies: Blood Transfusion Reaction Laterality Cases: Left: Arthroscopy Shoulder, Bilateral: Arthroscopy Hip, Total Hip Replacement, Other Other Surgeries: Yes: No Previous Surgery, Appendectomy, Cancer Surgery, Cardiac Catheterization, Cardiac Surgery, Cholecystectomy, Colonoscopy, Colon Resection, Coronary Stent, EGD, Hernia Repair, Pacemaker, OtherComment Only: Colostomy (ileostomy), Other Valve Replacement (R portacath placement) Amputation: No Fractures: No - *Social History Smoking Status: Never smoker Tobacco Type: cigarettes # Packs/Day (cigarettes): 1 #Yrs smoked (if former smoker): 10 Alcohol Intake: never Alcohol Intake Frequency:: 0-2 drinks per day Substance Use Type: denies use *Occupational Status:: retired Housing: house Household Members: spouse *Travel in the last 8 weeks: None Family Hx:: Cancer, Heart Attack, Hyperlipidemia, Hypertension, Kidney Disease, Stroke Review of Systems - Review of Systems Review of systems:: pertinent systems reviewed and negative unless documented below (14 point review of systems performed, pertinent positives and negatives as per HPI) - *Neurologic Reports weakness, Denies localized weakness Meds Home Medications Medication Instructions Recorded Confirmed Type aspirin 81 mg tablet,delayed 81 mg PO DAILY 03/02/17 04/27/20 History release bisoproloL fumarate [Zebeta 5mg 5 mg PO DAILY 05/13/19 04/27/20 History tablet] Furosemide [Furosemide 20mg Tab] 20 mg PO DAILY 08/29/19 04/27/20 History Levothyroxine Sodium 100 mcg PO DAILY 02/06/20 04/27/20 History [Levothyroxine 50mcg (0.05mg) Tab] Allergies Allergy/AdvReac Type Severity Reaction Status Date / Time doxycycline Allergy Intermediate Verified 03/18/20 10:49 morphine Allergy Intermediate HALLUCINATI Verified 03/18/20 10:49 ONS Exam Vital signs and Labs for Last 24 Hours: Temp Pulse Resp BP Pulse Ox 98.2 F 69 11 L 145/85 H 97 04/27/20 09:20 04/27/20 13:30
--- NOTE | 2020-04-27 16:21 | ECG_ITS ---
APPROVED REPORT Exam: Resting ECG HR:70 bpm ECG Measurements Heart Rate 70 AXES OH 146 P 34 QRSd 126 QRS -65 QT 422 T 182 QTc 455 Conclusion Electronic ventricular pacemaker Electronically signed by : Milton Smith, 04/27/2020 17:17:58
[2020-04-27 17:05] LABS: Troponin I 0.18 ng/ml (0.00-0.034)
[2020-04-28] VITALS (7 sets, daily range): BP systolic 115–131; BP diastolic 57–77; PULSE 60–86; RESP 16–18; TEMP 36.3–36.7; O2SAT 97–99; BMI 22.5; BMI 22.4
--- NOTE | 2020-04-28 05:06 | PC.NURSE ---
pt a&o x4 and slept well through the night. no c/o pain, fluids infusing NS @150. lung CTA, bowel sounds x4, no edema present. Pt able to ambulate to BR with stand by assist. VSS, call light in reach, no concerns at this time.
[2020-04-28 06:44] LABS: Basophils # 0.1 K/mm3 (0-0.2); Basophils % 0.6 % (0.1-2.0); Eosinophils # 0.3 K/mm3 (0.0-0.4); Eosinophils % 3.3 % (0.1-12.0); Hematocrit 41.9 % (42.0-52.0); Hemoglobin 13.3 g/dL (14.1-18.0); Lymphocytes # 1.7 K/mm3 (0.7-4.5); Mean Corpuscular HGB Conc 31.8 g/dL (31.8-35.4); Mean Corpuscular Hemoglobin 33.1 pg (27.0-31.2); Mean Platelet Volume 7.4 fl (7.4-10.4); Monocytes # 0.7 K/mm3 (0.1-1.0); Monocytes % 8.3 % (1.7-9.3); Neutrophils # 5.8 K/mm3 (1.8-7.8); Neutrophils % 67.8 % (37.0-80.0); Platelet Count 255 K/mm3 (142-424); Red Blood Count 4.03 M/mm3 (4.60-6.20); Red Cell Distribution Width 13.2 % (11.5-17.5); White Blood Count 8.6 K/mm3 (4.8-10.8)
[2020-04-28 07:20] LABS: Anion Gap 14.2 mEq/L (5-15); Blood Urea Nitrogen 37 mg/dl (9-20); Calcium 9.2 mg/dl (8.4-10.2); Carbon Dioxide 19 mmol/L (22.0-30.0); Chloride 108 mmol/L (98-107); Creatinine Clearance Estimated 33 mL/min (50-200); Estimated Glomerular Filt Rate 36 ml/min (>60); GFR (African American) 44 ML/MIN (>60); Glucose 92 mg/dl (74-100); Potassium 5.2 mmoL/L (3.5-5.1); Sodium 136 mmol/L (136-145)
[2020-04-28 07:21] LABS: Magnesium 1.8 mg/dl (1.6-2.3)
--- NOTE | 2020-04-28 07:25 | HMH.PHAVTE ---
[facility] Pharm[facility] VTE Monitoring - Patient Demographics Admission date: 04/27/20 Report Date: 04/28/20 Time: 07:25 Allergies/Adverse Reactions: Patient Allergies doxycycline Allergy (Intermediate, Verified 03/18/20 10:49) morphine Allergy (Intermediate, Verified 03/18/20 10:49) HALLUCINATIONS Height: 1.83 m Weight: 75.353 kg Patient Problems: Current Active Problems (Last Reviewed 04/03/18 @ 09:53 by Anaid Johnson RN) Non-ST elevation [place] (NSTEMI) (Acute) AICD (automatic cardioverter/defibrillator) present (Chronic) Dyspnea on exertion (Acute) Systolic CHF, chronic (Chronic) Dehydration (Acute) Epeje-yf-pahaanv kidney injury (Acute) Hypothyroidism (Chronic) Fatigue (Chronic) - VTE Risk Labs: VTE Related Lab Results Hgb 13.3 g/dL (14.1-18.0) L 04/28/20 06:00 Hct 41.9 % (42.0-52.0) L 04/28/20 06:00 Plt Count 255 K/mm3 (142-424) 04/28/20 06:00 BUN 37 mg/dl (9-20) H 04/28/20 06:00 Creatinine 1.80 mg/dl (0.66-1.25) H D 04/28/20 06:00 Estimated Creat Clear 33 mL/min (50-200) 04/28/20 06:00 Was VTE Risk Assessment Performed: Yes VTE Score: 9 VTE Risk Level: Moderate Risk Clinical Trial Participant: No - Prophylaxis VTE Prophylaxis Ordered?: Yes Types of VTE Prophylaxis: TEDS Knee High
--- NOTE | 2020-04-28 08:20 | HMH.ACPN2 ---
Internal Medicine - PN: Subj *Date: 04/28/20 *Time: 08:20 Interval history: Patient feels more energetic, has eaten most of his breakfast. Exam Vital signs and Labs for Last 24 Hours: Temp Pulse Resp BP Pulse Ox 97.7 F 71 17 119/67 99 04/28/20 08:00 04/28/20 08:00 04/28/20 08:00 04/28/20 08:00 04/28/20 08:00 Laboratory Results - last 24 hr 04/27/20 09:56: WBC 8.6, RBC 4.22 L, Hgb 14.0 L, Hct 42.4, MCV 100.4 H, MCH 33.1 H, MCHC 33.0, RDW 13.1, Plt Count 273, MPV 8.0, Neut % (Auto) 74.5, Lymph % (Auto) 15.5, [place] % (Auto) 8.1, Eos % (Auto) 1.6, Baso % (Auto) 0.3, Neut # (Auto) 6.4, Lymph # (Auto) 1.3, [place] # (Auto) 0.7, Eos # (Auto) 0.1, Baso # (Auto) 0.0 04/27/20 09:56: Sodium 132 L, Potassium 4.9, Chloride 102, Carbon Dioxide 21 L, Anion Gap 13.9, BUN 38 H, Creatinine 2.40 H, Estimated Creat Clear 24, Estimated GFR 26 L, Est GFR ( Amer) 31 L, Glucose 165 H, Calcium 10.0, Total Bilirubin 0.7, AST 40, ALT 29, Alkaline Phosphatase 118, Troponin I 0.02, NT-Pro-B Natriuret Pep 890 H, Total Protein 7.7, Albumin 4.3, Globulin 3.4 H, Albumin/Globulin Ratio 1.3 04/27/20 09:56: Lactate 2.2 H 04/27/20 13:40: Chlamy pneumoniae PCR Not detected, Adenovirus (PCR) Not detected, B. pertussis DNA (PCR) Not detected, Coronavirus OC43 (PCR) Not detected, Coronavirus HKU1 (PCR) Not detected, Coronavirus 229E (PCR) Not detected, SARS-CoV-2 (PCR) Not detected, Coronavirus NL63 (PCR) Not detected, Human Metapneumovir PCR Not detected, Influenza A (H1) PCR Not detected, Influ A (H1N1/09) PCR Not detected, Influenza A (H3) PCR Not detected, Influenza Type A (PCR) Not detected, Influenza Type B (PCR) Not detected, M. pneumoniae (PCR) Not detected, Parainfluenza 1 (PCR) Not detected, Parainfluenza 2 (PCR) Not detected, Parainfluenza 3 (PCR) Not detected, Parainfluenza 4 (PCR) Not detected, RSV (PCR) Not detected, Entero/Rhino (PCR) Not detected 04/27/20 14:20: Troponin I 0.15 H 04/27/20 14:20: Lactate 1.3 04/27/20 16:26: Troponin I 0.18 H 04/28/20 06:00: Sodium 136, Potassium 5.2 H, Chloride 108 H, Carbon Dioxide 19 L, Anion Gap 14.2, BUN 37 H, Creatinine 1.80 H D, Estimated Creat Clear 33, Estimated GFR 36 L, Est GFR ( Amer) 44 L D, Glucose 92 D, Calcium 9.2 04/28/20 06:00: WBC 8.6, RBC 4.03 L, Hgb 13.3 L, Hct 41.9 L, MCV 104.0 H, MCH 33.1 H, MCHC 31.8, RDW 13.2, Plt Count 255, MPV 7.4, Neut % (Auto) 67.8, Lymph % (Auto) 20.0, [place] % (Auto) 8.3, Eos % (Auto) 3.3, Baso % (Auto) 0.6, Neut # (Auto) 5.8, Lymph # (Auto) 1.7, [place] # (Auto) 0.7, Eos # (Auto) 0.3, Baso # (Auto) 0.1 04/28/20 06:00: Magnesium 1.8 I & O for Last 24 hours: Intake & Output 04/25/20 04/26/20 04/27/20 04/28/20 11:59 11:59 11:59 11:59 Intake Total 2228 222 Balance 2228 / 222 Weight 166 lb 166 lb 2 oz Narrative: Pleasant, talkative, abdomen soft. Colostomy bag functioning well. Heart rate regular. Lungs clear, oropharynx slightly dry, skin turgor is good Assessment and Plan (1) Tsjpv-vw-vvzgeqk kidney injury Status: Acute Qualifiers: Acute renal failure type: unspecified Chronic kidney disease stage: unspecified stage Qualified Code(s): N17.9 - Acute kidney failure, unspecified; N18.9 - Chronic kidney disease, unspecified Category: Medical Code(s): N17.9 - Acute kidney failure, unspecified; N18.9 - Chronic kidney disease, unspecified (2) Dehydration Status: Acute Category: Medical Code(s): E86.0 - Dehydration (3) Dyspnea on exertion Status: Acute Category: Medical Code(s): R06.09 - Other forms of dyspnea (4) Non-ST elevation [place] (NSTEMI) Status: Acute Category: Medical Code(s): I21.4 - Non-ST elevation (NSTEMI) myocardial infarction (5) AICD (automatic cardioverter/defibrillator) present Status: Chronic Category: Surgical Code(s): Z95.810 - Presence of automatic (implantable) cardiac defibrillator (6) Fatigue Status: Chronic Qualifiers: Fatigue type: chronic, unspecified Qualifie
--- NOTE | 2020-04-28 10:26 | HMH.CNCARD ---
History of Present Illness Consult date: 04/28/20 Requesting physician: Milton Smith Consult reason: shortness of breath Chief complaint: weakness and shortness of breath History of present illness: 85-year-old male presented to [facility] with increased weakness and shortness of breath. Patient states for the past week or so he has been having increase fatigue and weakness. Patient states the increased shortness of breath seems to have been gradual. He states shortness of breath mostly is apparent with exertion. States walking 100 feet is when he becomes short of breath and needs to take a rest. Resting seems to resolve his shortness of breath. Patient has chronic fatigue and weakness. Patient has history of hyponatremia. Patient denies chest pain, tightness or pressure. No swelling noted in the lower extremities. Patient denies palpitations or dizziness. Patient states a few times in the past couple weeks though he has been experiencing some dizziness with no syncopal episodes. Patient does have history of ileostomy and output necessity requiring IV fluids on a regular basis. This occurs usually once a week depending on lab work. Patient does have a colostomy and has fluid leakage quite often. Is managed by PCP. Patient does have AICD placement. This was due to generalized myocardial ischemia dysfunction. Echo noted from 05/15 revealed apical akinesis with EF of 30 to 45%. Trace of mitral regurgitation, trace tricuspid regurgitation and RV systolic was elevated 50 to 60. Last heart catheterization in 2018 revealed mild to moderate CAD. Medical management was advised. Creatinine level 1.80 with a BUN of 37. Troponins were noted to be elevated from 0.15-0.18. Patient is currently receiving normal saline IV maintenance. Last download of AICD was in February 14. Patient noted to have nonsustained atrial episodes the longest lasting 8 seconds. No atrial fibrillation was noted no ventricular episodes noted SVT?AT noted longest lasting 2 minutes and 51 seconds. Corvue was negative. Patient is scheduled to follow-up in the pacemaker clinic in 2 weeks. [facility] (2019)ANGIOGRAPHIC RESULTS: The left main artery is normal The left anterior descending arteryis calcified throughout its entire course. Proximally there are 30-40% stenoses. Mid vessel there is a 60-70% eccentric stenosis immediately proximal to a stent which is widely patent. The distal vessel has 40% stenoses. There is a dominant vessel and has calcifications throughout its proximal and mid segment. There are no focal stenoses greater than 30-40% of the mid segment The right coronary artery is a small nondominant tortuous vessel with mid vessel 40% calcifications The [facility] ventriculogram reveals Mildly reduced ejection fraction at 40-45% The left ventricular end-diastolic pressure is 10 mmHg IMPRESSION: 1. Coronary artery disease as described above 2. Mildly reduced ejection fraction 3. Normal left ventricular end-diastolic pressure Discussed plan of care with Dr. Odom and PCP. Echocardiogram was obtained to assess LV function and valve status. No result noted at this time. No further cardiac testing is recommended at this time. We will continue medical management. Patient is on the appropriate medications for ischemic cardiopathy. We will continue to monitor patient and health status. Thank you for allowing cardiology to participate in the care of this patient. [facility] History I have reviewed the patient's past medical history: Yes Medical History: Reports:: Arrhythmia, Atherosclerotic Heart Disease, Atrial Fibrillation, Cancer, Cardiomyopathy, Congestive Heart Failure, Coronary Artery Disease, Hyperlipidemia, Hypertension, Internal Pacemaker, MRSA, Myocardial Infarction, Palpitations, Seizures Denies:: Diabetes Mellitus Type 1, Diabetes Mellitus Type 2 *Have you ever received a pneumonia vaccine?: Yes *Have you received a flu vaccine this season?: Yes
[2020-04-29] VITALS: PULSE 80
--- NOTE | 2020-04-29 02:46 | PC.NURSE ---
PT IS RESTING IN BED. NO COMPLAINTS OF DISCOMFORT. PT HAS AMBULATED TO THE BATHROOM WITH 1 ASSIST. PT HAS BEEN SLEEPING MOST OF THE SHIFT. LUNG SOUNDS CLEAR. ABDOMEN SOFT/NON TENDER WITH ACTIVE BOWEL SOUNDS. COLOSTOMY NOTED. VSS. PACED ON THE MONITOR. WILL CONTINUE TO MONITOR.
[2020-04-29 03:35] VITALS: BP 132/72; PULSE 71; RESP 18; TEMP 36.6; O2SAT 97
[2020-04-29 04:00] VITALS: PULSE 74
[2020-04-29 05:46] VITALS: BMI 22.6
[2020-04-29 07:54] VITALS: BP 118/66; PULSE 85; RESP 16; TEMP 36.7; O2SAT 96
[2020-04-29 08:00] VITALS: PULSE 70
[2020-04-29 08:38] LABS: Anion Gap 13.5 mEq/L (5-15); Blood Urea Nitrogen 26 mg/dl (9-20); Calcium 8.3 mg/dl (8.4-10.2); Carbon Dioxide 18 mmol/L (22.0-30.0); Chloride 111 mmol/L (98-107); Creatinine Clearance Estimated 45 mL/min (50-200); Estimated Glomerular Filt Rate 53 ml/min (>60); GFR (African American) 64 ML/MIN (>60); Glucose 138 mg/dl (74-100); Potassium 4.5 mmoL/L (3.5-5.1); Sodium 138 mmol/L (136-145)
--- NOTE | 2020-04-29 08:45 | HMH.DCSUM ---
General - General Admission date:: 04/27/20 Discharge date: 04/29/20 HPI HPI: Mr. Krueger is an 85-year-old male with history of ileostomy and high output necessitating regular IV fluid infusions. Presented to the ER today because of fatigue, weakness, near syncope. This is an ongoing chronic problem however today felt worse than usual for him. On presentation to the ER he was noted to be hypotensive with orthostatic hypotension. Labs obtained showing worsening kidney function, electrolyte disturbances. Received some IV fluid rehydration but given acute issues, organ dysfunction, orthostasis, medicine was consulted for admission and further management. On interview, he states his symptoms have been getting worse for the past 2 weeks. States eh has felt like he was going to pass out when standing and has had to sit down multiple times, did not have full syncope. He states that he comes into the infusion department once a week to get IV fluid infusion. He gets 500 to 2000 cc infused depending on need. His last infusion was on of last week and he received 1000 cc. He states the last time he felt this bad he had to get admitted to the hospital for 2 days for a slow infusion of IV fluids. He says if he gets IV fluids too fast it just goes straight through him and comes out of his colostomy. Denies chest pain, c/o shortness of breath with exertion, denies swelling, Denies vomiting or fever. Hospital Course Hospital Course: Patient was admitted to hospital, low-dose IV fluids were started. Echocardiogram was done which revealed segmental wall motion abnormalities consistent with his pacemaker use but preserved ejection fraction over his baseline with 35% EF. This is not significantly changed from his baseline. Cautious IV fluids were given and his acute kidney injury resolved with creatinine normalizing to his baseline of 1.3 this morning. He will be discharged home. Encouraged to drink elevate more fluid. We will research medicines or therapies that might be able to slow down his ostomy output and I will see him at his regularly scheduled appointment in May. He will return on a weekly basis here for his saline infusions. Objective Vital signs: Temp Pulse Resp BP Pulse Ox 98.1 F 85 16 118/66 96 04/29/20 07:54 04/29/20 07:54 04/29/20 07:54 04/29/20 07:54 04/29/20 07:54 no acute distress - *Routine HEENT Exam Head: Present: normocephalic Eye: Present: EOMI, PERRL ENT: Present: mucous membranes moist - *Routine Neck Exam Present: supple - *Routine Respiratory Exam Present: CTA bilaterally - *Routine Cardiovascular Exam Present: RRR - *Routine Abdominal Exam Present: soft, normoactive bowel sounds. Absent: tenderness Comments: ostomy functioning well. - *Routine Extremities Exam Present: full ROM. Absent: cyanosis, clubbing, edema - *Routine Skin Exam Present: warm. Absent: rash - Detailed Eye Exam Eyelids: Bilateral normal inspection Results Labs on day of discharge: Labs from last 24 hours 04/29/20 08:03 Sodium 138 Potassium 4.5 Chloride 111 H Carbon Dioxide 18 L Anion Gap 13.5 BUN 26 H D Creatinine 1.30 H D Estimated Creat Clear 45 Estimated GFR 53 L Est GFR ( Amer) 64 D Glucose 138 H Calcium 8.3 L DS: Diagnosis - Discharge Diagnosis (1) Kyeqq-bi-lpcebwa kidney injury Status: Resolved (2) Dehydration Status: Resolved (3) Dyspnea on exertion Status: Resolved (4) Non-ST elevation [place] (NSTEMI) Status: Resolved (5) AICD (automatic cardioverter/defibrillator) present Status: Chronic (6) Fatigue Status: Chronic (7) Hypothyroidism Status: Chronic (8) Systolic CHF, chronic Status: Chronic Discharge Plan - Patient Discharge Instructions ACTIVITY: Continue current activity DIET: continue same diet - Follow up Plan [facility] with: [facility]
[2020-04-29 09:25] LABS: Basophils % 0.2 % (0.1-2.0); Eosinophils # 0.2 K/mm3 (0.0-0.4); Eosinophils % 3.1 % (0.1-12.0); Hematocrit 30.7 % (42.0-52.0); Hemoglobin 9.9 g/dL (14.1-18.0); Lymphocytes # 0.8 K/mm3 (0.7-4.5); Lymphocytes % 15.7 % (10-50); Mean Corpuscular HGB Conc 32.3 g/dL (31.8-35.4); Mean Corpuscular Hemoglobin 33.3 pg (27.0-31.2); Mean Corpuscular Volume 103.2 fl (80-94); Mean Platelet Volume 7.6 fl (7.4-10.4); Monocytes # 0.4 K/mm3 (0.1-1.0); Monocytes % 8.5 % (1.7-9.3); Neutrophils # 3.6 K/mm3 (1.8-7.8); Neutrophils % 72.4 % (37.0-80.0); Platelet Count 156 K/mm3 (142-424); Red Blood Count 2.97 M/mm3 (4.60-6.20); Red Cell Distribution Width 13.3 % (11.5-17.5); White Blood Count 4.9 K/mm3 (4.8-10.8)
[2020-04-29 11:18] VITALS: BP 131/67; PULSE 68; RESP 16; TEMP 36.4; O2SAT 100
== END 2020-04-29 13:00 | disposition home or self-care (01) ==
LOC: ER 12:54 → 2ND 17:13
PROVIDERS: Admitting Provider Internal Medicine Adolescent Medicine; Emergency Provider Emergency Medicine; PCP Internal Medicine Adolescent Medicine; Visit Provider Internal Medicine Adolescent Medicine
DX: E86.0 Dehydration (principal); I13.0 Hypertensive heart and chronic kidney disease with heart failure and stage 1 through stage 4 chronic kidney disease, or unspecified chronic kidney disease; N18.9 Chronic kidney disease, unspecified; N17.9 Acute kidney failure, unspecified; I50.22 Chronic systolic (congestive) heart failure; Z95.810 Presence of automatic (implantable) cardiac defibrillator; I21.4 Non-ST elevation (NSTEMI) myocardial infarction; Z95.5 Presence of coronary angioplasty implant and graft; I48.91 Unspecified atrial fibrillation; I42.9 Cardiomyopathy, unspecified; I25.2 Old myocardial infarction; Z93.2 Ileostomy status; Z93.3 Colostomy status; E03.9 Hypothyroidism, unspecified; Z79.899 Other long term (current) drug therapy
CPT/HCPCS: 36415; 71045; 80048; 80053; 83605; 83735; 83880; 84484; 85025; 87040; 87581; 87633; 87798; 93005; 93306; 96365; 99285; G0378; J1642

== ENCOUNTER 2020-05-07 08:07 | Outpatient (CLI) | payer MEDICARE, BC, SELFPAY ==
[2020-05-07 08:08] VITALS: BMI 22.6
[2020-05-07 08:29] LABS: Anion Gap 13.6 mEq/L (5-15); Blood Urea Nitrogen 27 mg/dl (9-20); Calcium 9.5 mg/dl (8.4-10.2); Carbon Dioxide 21 mmol/L (22.0-30.0); Chloride 106 mmol/L (98-107); Creatinine Clearance Estimated 37 mL/min (50-200); Estimated Glomerular Filt Rate 41 ml/min (>60); GFR (African American) 50 ML/MIN (>60); Glucose 133 mg/dl (74-100); Potassium 4.6 mmoL/L (3.5-5.1); Sodium 136 mmol/L (136-145)
[2020-05-07 08:38] LABS: NT Pro Brain Natriuretic Pep. 760 pg/mL (0-450)
[2020-05-07 09:00] VITALS: BP 130/61; PULSE 74; RESP 18; TEMP 36.1; O2SAT 98
[2020-05-07 11:00] VITALS: BP 138/73; PULSE 71; RESP 18
== END 2020-05-07 11:10 | disposition home or self-care (01) ==
LOC: INF 08:07
PROVIDERS: Visit Provider Internal Medicine Adolescent Medicine
DX: I50.9 Heart failure, unspecified (principal)
CPT/HCPCS: 80048; 83880; 96360; 96361; J1642

== ENCOUNTER → 2020-05-14 08:10 | Outpatient (CLI) | payer MEDICARE, BC, SELFPAY ==
[2020-05-14 08:11] VITALS: BMI 22.4
[2020-05-14 08:36] LABS: Anion Gap 13.8 mEq/L (5-15); Blood Urea Nitrogen 30 mg/dl (9-20); Calcium 9.3 mg/dl (8.4-10.2); Carbon Dioxide 22 mmol/L (22.0-30.0); Chloride 105 mmol/L (98-107); Creatinine Clearance Estimated 35 mL/min (50-200); Estimated Glomerular Filt Rate 39 ml/min (>60); GFR (African American) 47 ML/MIN (>60); Glucose 131 mg/dl (74-100); Potassium 4.8 mmoL/L (3.5-5.1); Sodium 136 mmol/L (136-145)
[2020-05-14 08:45] LABS: NT Pro Brain Natriuretic Pep. 837 pg/mL (0-450)
[2020-05-14 09:15] VITALS: BP 129/74; PULSE 69; RESP 18; TEMP 36.2; O2SAT 96
[2020-05-14 10:25] VITALS: BP 130/75; PULSE 72; RESP 18
== END ==
PROVIDERS: Visit Provider Internal Medicine Adolescent Medicine
DX: I50.9 Heart failure, unspecified (principal)
CPT/HCPCS: 80048; 83880; 96360; J1642

== ENCOUNTER 2020-05-20 08:05 | Outpatient (CLI) | payer MEDICARE, BC, SELFPAY ==
[2020-05-20 08:10] VITALS: BMI 22.4
[2020-05-20 08:30] LABS: Chloride 105 mmol/L (98-107); Sodium 138 mmol/L (136-145)
[2020-05-20 08:33] LABS: Blood Urea Nitrogen 34 mg/dl (9-20); Creatinine Clearance Estimated 29 mL/min (50-200); Estimated Glomerular Filt Rate 32 ml/min (>60); GFR (African American) 39 ML/MIN (>60)
[2020-05-20 08:34] LABS: Calcium 9.7 mg/dl (8.4-10.2); Carbon Dioxide 24 mmol/L (22.0-30.0); Glucose 113 mg/dl (74-100)
[2020-05-20 08:43] LABS: NT Pro Brain Natriuretic Pep. 769 pg/mL (0-450)
[2020-05-20 09:25] VITALS: BP 132/74; PULSE 70; RESP 18; TEMP 36.4; O2SAT 100
[2020-05-20 11:33] VITALS: BP 153/76; PULSE 72; RESP 18
== END 2020-05-20 11:33 | disposition home or self-care (01) ==
LOC: INF 08:09
PROVIDERS: Visit Provider Internal Medicine Adolescent Medicine
DX: I50.9 Heart failure, unspecified (principal)
CPT/HCPCS: 80048; 83880; 96360; 96361; J1642

== ENCOUNTER 2020-05-28 08:05 | Outpatient (CLI) | payer MEDICARE, BC, SELFPAY ==
[2020-05-28 08:13] VITALS: BMI 21.7
[2020-05-28 08:39] LABS: Chloride 105 mmol/L (98-107); Potassium 4.8 mmoL/L (3.5-5.1); Sodium 138 mmol/L (136-145)
[2020-05-28 08:42] LABS: Blood Urea Nitrogen 30 mg/dl (9-20); Creatinine Clearance Estimated 34 mL/min (50-200); Estimated Glomerular Filt Rate 39 ml/min (>60); GFR (African American) 47 ML/MIN (>60)
[2020-05-28 08:43] LABS: Anion Gap 14.8 mEq/L (5-15); Calcium 9.5 mg/dl (8.4-10.2); Carbon Dioxide 23 mmol/L (22.0-30.0); Glucose 126 mg/dl (74-100)
[2020-05-28 08:52] LABS: NT Pro Brain Natriuretic Pep. 841 pg/mL (0-450)
[2020-05-28 09:15] LABS: Thyroid Stimulating Hormone < 0.02 uIU/mL (0.465-4.68)
[2020-05-28 09:30] VITALS: BP 150/87; PULSE 69; RESP 18; TEMP 36.2; O2SAT 99
[2020-05-28 10:40] VITALS: BP 145/70; PULSE 75; RESP 18
== END 2020-05-28 10:40 | disposition home or self-care (01) ==
LOC: INF 08:12
PROVIDERS: Visit Provider Internal Medicine Adolescent Medicine
DX: I50.9 Heart failure, unspecified (principal); E03.9 Hypothyroidism, unspecified
CPT/HCPCS: 80048; 83880; 84443; 96360; J1642

== ENCOUNTER 2020-06-03 13:50 | Outpatient (CLI) | payer MEDICARE, BC, SELFPAY ==
[2020-06-03 13:59] VITALS: BMI 22.4
[2020-06-03 14:22] LABS: Anion Gap 18.1 mEq/L (5-15); Blood Urea Nitrogen 34 mg/dl (9-20); Calcium 9.7 mg/dl (8.4-10.2); Carbon Dioxide 18 mmol/L (22.0-30.0); Chloride 103 mmol/L (98-107); Creatinine Clearance Estimated 29 mL/min (50-200); Estimated Glomerular Filt Rate 32 ml/min (>60); GFR (African American) 39 ML/MIN (>60); Glucose 88 mg/dl (74-100); Magnesium 1.9 mg/dl (1.6-2.3); Potassium 5.1 mmoL/L (3.5-5.1); Sodium 134 mmol/L (136-145)
[2020-06-03 14:31] LABS: NT Pro Brain Natriuretic Pep. 1220 pg/mL (0-450)
[2020-06-03 15:10] VITALS: BP 126/75; PULSE 99; RESP 20; TEMP 36.4; O2SAT 99
[2020-06-03 16:50] VITALS: BP 134/49; PULSE 88; RESP 18
== END 2020-06-03 16:50 | disposition home or self-care (01) ==
LOC: INF 13:55
PROVIDERS: Visit Provider Internal Medicine Adolescent Medicine
DX: I50.9 Heart failure, unspecified (principal)
CPT/HCPCS: 80048; 83735; 83880; 96360; J1642

== ENCOUNTER 2020-06-07 08:08 | Outpatient (CLI) | payer MEDICARE, BC, SELFPAY ==
[2020-06-07 08:11] VITALS: BMI 21.7
[2020-06-07 08:32] LABS: Chloride 104 mmol/L (98-107); Potassium 4.5 mmoL/L (3.5-5.1); Sodium 134 mmol/L (136-145)
[2020-06-07 08:35] LABS: Blood Urea Nitrogen 30 mg/dl (9-20); Creatinine Clearance Estimated 26 mL/min (50-200); Estimated Glomerular Filt Rate 29 ml/min (>60); GFR (African American) 35 ML/MIN (>60)
[2020-06-07 08:36] LABS: Anion Gap 13.5 mEq/L (5-15); Calcium 9.5 mg/dl (8.4-10.2); Carbon Dioxide 21 mmol/L (22.0-30.0); Glucose 120 mg/dl (74-100); Magnesium 1.8 mg/dl (1.6-2.3)
[2020-06-07 08:45] LABS: NT Pro Brain Natriuretic Pep. 1250 pg/mL (0-450)
[2020-06-07 09:00] VITALS: BP 131/67; PULSE 71; RESP 20; TEMP 36.3; O2SAT 98
[2020-06-07 11:15] VITALS: BP 132/71; PULSE 70; RESP 18; O2SAT 97
== END 2020-06-07 11:15 | disposition home or self-care (01) ==
LOC: INF 08:08
PROVIDERS: Visit Provider Internal Medicine Adolescent Medicine
DX: I50.9 Heart failure, unspecified (principal)
CPT/HCPCS: 80048; 83735; 83880; 96360; 96361; J1642

== ENCOUNTER 2020-06-08 14:00 | Emergency (ER) | payer MEDICARE, BC, SELFPAY ==
[2020-06-08] VITALS (7 sets, daily range): BP systolic 104–128; BP diastolic 60–71; PULSE 64–86; RESP 14–18; TEMP 36.9; O2SAT 97–100; BMI 22.5
--- NOTE | 2020-06-08 14:06 | HMH.EDGENADL ---
ED Disposition Clinical Impression: Dizziness Disposition: Home, Self-Care Condition on Discharge: Good Referrals: Milton Smith MD [Primary Care Provider] - 3 days Time of Disposition: 16:44 - Critical Care Critical Care Time: No Attestation: On , the high probability of a clinically significant, sudden or life threatening deterioration of the following system(s) required my full and direct attention, intervention and personal management. The time I documented below is in addition to time spent performing reported procedures but includes the following listed in this critical care notation. Medical Decision Making - Medical Records Medical records reviewed: Yes: I reviewed the patient's medical records. - Chandana Inquiry Pt receiving controlled substance: No Vital Signs: 06/08/20 14:14 06/08/20 14:52 06/08/20 15:00 Temperature 98.4 F Temperature Source Oral Pulse Rate 76 71 Pulse Rate [Right Brachial] 86 Respiratory Rate 18 18 18 Blood Pressure 104/61 L Blood Pressure [Right Arm] 110/71 Blood Pressure Mean 69 Blood Pressure Mean [Right Arm] 84 Blood Pressure Source [Right Arm] Automatic Cuff Blood Pressure Position [Right Arm] Supine 02 Sat by Pulse Oximetry 100 97 98 Oxygen Delivery Method Room Air 06/08/20 15:30 06/08/20 16:00 06/08/20 16:30 Temperature Temperature Source Pulse Rate 69 64 72 Pulse Rate [Right Brachial] Respiratory Rate 17 17 16 Blood Pressure 106/60 L 119/61 128/65 Blood Pressure [Right Arm] Blood Pressure Mean 75 69 76 Blood Pressure Mean [Right Arm] Blood Pressure Source [Right Arm] Blood Pressure Position [Right Arm] 02 Sat by Pulse Oximetry 98 98 99 Oxygen Delivery Method - Lab Data Lab results reviewed: Yes: I reviewed the patient's lab results. Lab Results 06/08/20 14:30: WBC 7.8, RBC 4.12 L, Hgb 13.3 L, Hct 40.8 L, MCV 99.1 H, MCH 32.4 H, MCHC 32.6, RDW 13.2, Plt Count 261, MPV 7.3 L, Neut % (Auto) 69.8, Lymph % (Auto) 17.3, [place] % (Auto) 9.9 H, Eos % (Auto) 2.7, Baso % (Auto) 0.4, Neut # (Auto) 5.5, Lymph # (Auto) 1.4, [place] # (Auto) 0.8, Eos # (Auto) 0.2, Baso # (Auto) 0.0 06/08/20 14:30: Sodium 134 L, Potassium 4.6, Chloride 102, Carbon Dioxide 20 L, Anion Gap 16.6 H, BUN 32 H, Creatinine 1.90 H, Estimated Creat Clear 31, Estimated GFR 34 L, Est GFR ( Amer) 41 L, Glucose 104 H, Calcium 9.3 Result diagrams: 06/08/20 14:30 06/08/20 14:30 Orders (Tests/Meds): ED MEDICATIONS Discontinued Medications Generic Name Dose Route Start Last Admin Trade Name Freq PRN Reason Stop Dose Admin Lactated Ringer's 1,000 mls @ 999 mls/hr 06/08/20 15:00 06/08/20 15:13 Lactated Ringer's 1000 Ml Bag IV 06/08/20 16:00 999 mls/hr .Q1H1M SHAYAN Administration Loperamide HCl 2 mg 06/08/20 16:14 06/08/20 16:19 Loperamide 2mg Capsule PO 06/08/20 16:15 2 mg ONCE ONE Administration - ECG Data Tracing #1 72 bpm, normal sinus rhythm, right bundle branch block, no ST elevation or depression. ECG initial impression date: 06/08/20 ECG initial impression time: 15:10 Medical Decision Narrative: 85yo M evaluated for occasional dizzy episodes and increased ileostomy output. Patient is in no acute distress on initial evaluation. Routine abdominal labs are ordered. Patient is treated with IV fluids. EKG is obtained. EKG reviewed as above. Patient's labs are unremarkable except for mild increase in his anion gap. Patient has not had significant ostomy output during his observation in the emergency department. The family would like to try something to slow it down. Patient provided loperamide 2 mg p.o. Encouraged to follow-up with PCP for further management and evaluation. At the time of our closing conversation, the patient had approximately 350 mL of fluid to go and they requested he be allowed to stay until he complete his fluid. I stated that was very reasonable and we would be back when his fluids we
[2020-06-08 14:41] LABS: Basophils % 0.4 % (0.1-2.0); Eosinophils # 0.2 K/mm3 (0.0-0.4); Eosinophils % 2.7 % (0.1-12.0); Hematocrit 40.8 % (42.0-52.0); Hemoglobin 13.3 g/dL (14.1-18.0); Lymphocytes # 1.4 K/mm3 (0.7-4.5); Lymphocytes % 17.3 % (10-50); Mean Corpuscular HGB Conc 32.6 g/dL (31.8-35.4); Mean Corpuscular Hemoglobin 32.4 pg (27.0-31.2); Mean Corpuscular Volume 99.1 fl (80-94); Mean Platelet Volume 7.3 fl (7.4-10.4); Monocytes # 0.8 K/mm3 (0.1-1.0); Monocytes % 9.9 % (1.7-9.3); Neutrophils # 5.5 K/mm3 (1.8-7.8); Neutrophils % 69.8 % (37.0-80.0); Platelet Count 261 K/mm3 (142-424); Red Blood Count 4.12 M/mm3 (4.60-6.20); Red Cell Distribution Width 13.2 % (11.5-17.5); White Blood Count 7.8 K/mm3 (4.8-10.8)
[2020-06-08 14:44] LABS: Chloride 102 mmol/L (98-107)
[2020-06-08 14:45] LABS: Potassium 4.6 mmoL/L (3.5-5.1); Sodium 134 mmol/L (136-145)
[2020-06-08 14:48] LABS: Anion Gap 16.6 mEq/L (5-15); Blood Urea Nitrogen 32 mg/dl (9-20); Calcium 9.3 mg/dl (8.4-10.2); Carbon Dioxide 20 mmol/L (22.0-30.0); Creatinine Clearance Estimated 31 mL/min (50-200); Estimated Glomerular Filt Rate 34 ml/min (>60); GFR (African American) 41 ML/MIN (>60); Glucose 104 mg/dl (74-100)
--- NOTE | 2020-06-08 15:06 | ECG_ITS ---
APPROVED REPORT Exam: Resting ECG HR:72 bpm ECG Measurements Heart Rate 72 AXES KS 114 P 56 QRSd 134 QRS 264 QT 424 T 101 QTc 464 Conclusion Normal sinus rhythm Right bundle branch block Lateral infarct, age undetermined Inferior infarct, age undetermined Abnormal ECG Electronically signed by : Milton Smith, 06/10/2020 13:58:03
== END 2020-06-08 16:51 | disposition home or self-care (01) ==
PROVIDERS: Emergency Provider Family Medicine; PCP Internal Medicine Adolescent Medicine
DX: R42 Dizziness and giddiness (principal); I48.91 Unspecified atrial fibrillation; I25.10 Atherosclerotic heart disease of native coronary artery without angina pectoris; I50.9 Heart failure, unspecified; E78.5 Hyperlipidemia, unspecified; I10 Essential (primary) hypertension; Z95.0 Presence of cardiac pacemaker; I25.2 Old myocardial infarction; E03.9 Hypothyroidism, unspecified; Z79.899 Other long term (current) drug therapy
CPT/HCPCS: 80048; 85025; 93005; 96365; 99282; J1642

== ENCOUNTER → 2020-06-11 08:00 | Outpatient (CLI) | payer MEDICARE, BC, SELFPAY ==
[2020-06-11 08:08] VITALS: BMI 21.7
[2020-06-11 08:31] LABS: Chloride 104 mmol/L (98-107); Potassium 4.6 mmoL/L (3.5-5.1); Sodium 136 mmol/L (136-145)
[2020-06-11 08:34] LABS: Blood Urea Nitrogen 28 mg/dl (9-20); Creatinine Clearance Estimated 34 mL/min (50-200); Estimated Glomerular Filt Rate 39 ml/min (>60); GFR (African American) 47 ML/MIN (>60)
[2020-06-11 08:35] LABS: Anion Gap 15.6 mEq/L (5-15); Calcium 9.6 mg/dl (8.4-10.2); Carbon Dioxide 21 mmol/L (22.0-30.0); Glucose 157 mg/dl (74-100)
[2020-06-11 08:43] LABS: NT Pro Brain Natriuretic Pep. 1030 pg/mL (0-450)
[2020-06-11 09:00] VITALS: BP 125/71; PULSE 83; RESP 18
[2020-06-11 10:10] VITALS: BP 150/78; PULSE 72; RESP 18
== END ==
PROVIDERS: Visit Provider Internal Medicine Adolescent Medicine
DX: I50.9 Heart failure, unspecified (principal)
CPT/HCPCS: 80048; 83880; 96360; J1642

== ENCOUNTER → 2020-06-18 08:00 | Outpatient (CLI) | payer MEDICARE, BC, SELFPAY ==
[2020-06-18 08:07] VITALS: BMI 21.7
[2020-06-18 08:34] LABS: Chloride 104 mmol/L (98-107); Sodium 137 mmol/L (136-145)
[2020-06-18 08:35] LABS: Potassium 4.7 mmoL/L (3.5-5.1)
[2020-06-18 08:37] LABS: Blood Urea Nitrogen 34 mg/dl (9-20); Creatinine Clearance Estimated 30 mL/min (50-200); Estimated Glomerular Filt Rate 34 ml/min (>60); GFR (African American) 41 ML/MIN (>60)
[2020-06-18 08:38] LABS: Anion Gap 16.7 mEq/L (5-15); Calcium 9.5 mg/dl (8.4-10.2); Carbon Dioxide 21 mmol/L (22.0-30.0); Glucose 124 mg/dl (74-100)
[2020-06-18 08:46] LABS: NT Pro Brain Natriuretic Pep. 816 pg/mL (0-450)
[2020-06-18 09:23] VITALS: BP 113/56; PULSE 71; RESP 18; TEMP 36.7; O2SAT 98
--- NOTE | 2020-06-18 11:00 | PC.NURSE ---
1100-v/o written for 48hr holter monitor to be applied to pt today given to rt; rt in infusion to place holter monitor on pt
[2020-06-18 11:40] VITALS: BP 161/68; PULSE 69; RESP 18
== END ==
PROVIDERS: PCP Internal Medicine Adolescent Medicine; Visit Provider Internal Medicine Adolescent Medicine
DX: I50.9 Heart failure, unspecified (principal); E86.0 Dehydration
CPT/HCPCS: 80048; 83880; 93225; 93226; 96360; 96361; J1642

== ENCOUNTER 2020-06-24 08:08 | Outpatient (CLI) | payer MEDICARE, BC, SELFPAY ==
[2020-06-24 08:28] LABS: Chloride 104 mmol/L (98-107)
[2020-06-24 08:29] LABS: Potassium 4.8 mmoL/L (3.5-5.1); Sodium 135 mmol/L (136-145)
[2020-06-24 08:32] LABS: Anion Gap 15.8 mEq/L (5-15); Blood Urea Nitrogen 32 mg/dl (9-20); Calcium 9.4 mg/dl (8.4-10.2); Carbon Dioxide 20 mmol/L (22.0-30.0); Creatinine Clearance Estimated 3 mL/min (50-200); Estimated Glomerular Filt Rate 32 ml/min (>60); GFR (African American) 39 ML/MIN (>60); Glucose 138 mg/dl (74-100)
[2020-06-24 08:42] LABS: NT Pro Brain Natriuretic Pep. 793 pg/mL (0-450)
[2020-06-24 09:12] VITALS: BP 118/69; PULSE 71; RESP 18; TEMP 36.2; O2SAT 98
[2020-06-24 11:20] VITALS: BP 120/78; PULSE 70; RESP 18
== END 2020-06-24 11:20 | disposition home or self-care (01) ==
LOC: INF 08:08
PROVIDERS: Visit Provider Internal Medicine Adolescent Medicine
DX: I50.9 Heart failure, unspecified (principal)
CPT/HCPCS: 80048; 83880; 96360; 96361; J1642

== ENCOUNTER 2020-07-02 08:00 | Outpatient (CLI) | payer MEDICARE, BC, SELFPAY ==
[2020-07-02 08:06] VITALS: BMI 22.4
[2020-07-02 08:34] LABS: Blood Urea Nitrogen 31 mg/dl (9-20); Calcium 9.5 mg/dl (8.4-10.2); Chloride 106 mmol/L (98-107); Creatinine Clearance Estimated 32 mL/min (50-200); Estimated Glomerular Filt Rate 36 ml/min (>60); GFR (African American) 44 ML/MIN (>60); Glucose 122 mg/dl (74-100); Potassium 4.7 mmoL/L (3.5-5.1)
[2020-07-02 08:43] LABS: NT Pro Brain Natriuretic Pep. 655 pg/mL (0-450)
[2020-07-02 08:44] LABS: Anion Gap 12.7 mEq/L (5-15); Carbon Dioxide 23 mmol/L (22.0-30.0); Sodium 137 mmol/L (136-145)
[2020-07-02 09:00] VITALS: BP 113/61; PULSE 71; RESP 18; TEMP 36.3; O2SAT 97
[2020-07-02 10:03] VITALS: BP 131/67; PULSE 72; RESP 18
== END 2020-07-02 10:03 | disposition home or self-care (01) ==
LOC: INF 08:04
PROVIDERS: Visit Provider Internal Medicine Adolescent Medicine
DX: I50.9 Heart failure, unspecified (principal)
CPT/HCPCS: 80048; 83880; 96360; J1642

== ENCOUNTER 2020-07-06 08:23 | Outpatient (CLI) | payer MEDICARE, BC, SELFPAY ==
[2020-07-06 08:25] VITALS: BMI 23.8
[2020-07-06 08:47] LABS: Blood Urea Nitrogen 33 mg/dl (9-20); Calcium 9.5 mg/dl (8.4-10.2); Carbon Dioxide 23 mmol/L (22.0-30.0); Chloride 105 mmol/L (98-107); Creatinine Clearance Estimated 31 mL/min (50-200); Estimated Glomerular Filt Rate 32 ml/min (>60); GFR (African American) 39 ML/MIN (>60); Glucose 136 mg/dl (74-100); Sodium 135 mmol/L (136-145)
[2020-07-06 08:56] LABS: NT Pro Brain Natriuretic Pep. 681 pg/mL (0-450)
[2020-07-06 09:40] VITALS: BP 118/76; PULSE 72; RESP 18; O2SAT 96
[2020-07-06 11:55] VITALS: BP 139/68; PULSE 70; RESP 18
== END 2020-07-06 11:55 | disposition home or self-care (01) ==
LOC: INF 08:23
PROVIDERS: PCP Internal Medicine Adolescent Medicine; Visit Provider Internal Medicine Adolescent Medicine
DX: I50.9 Heart failure, unspecified (principal)
CPT/HCPCS: 80048; 83880; 96360; 96361; J1642

== ENCOUNTER 2020-07-09 08:05 | Outpatient (CLI) | payer MEDICARE, BC, SELFPAY ==
[2020-07-09 08:08] VITALS: BMI 22.4
[2020-07-09 08:43] LABS: Anion Gap 14.6 mEq/L (5-15); Blood Urea Nitrogen 31 mg/dl (9-20); Calcium 9.6 mg/dl (8.4-10.2); Carbon Dioxide 23 mmol/L (22.0-30.0); Chloride 103 mmol/L (98-107); Creatinine Clearance Estimated 31 mL/min (50-200); Estimated Glomerular Filt Rate 34 ml/min (>60); GFR (African American) 41 ML/MIN (>60); Glucose 147 mg/dl (74-100); Potassium 4.6 mmoL/L (3.5-5.1); Sodium 136 mmol/L (136-145)
[2020-07-09 08:53] LABS: NT Pro Brain Natriuretic Pep. 639 pg/mL (0-450)
[2020-07-09 09:35] VITALS: BP 122/65; PULSE 72; RESP 18; O2SAT 96
[2020-07-09 12:55] VITALS: BP 141/69; PULSE 75; RESP 18
== END 2020-07-09 12:55 | disposition home or self-care (01) ==
LOC: INF 08:06
PROVIDERS: Visit Provider Internal Medicine Adolescent Medicine
DX: I50.9 Heart failure, unspecified (principal)
CPT/HCPCS: 80048; 83880; 96360; 96361; J1642

== ENCOUNTER 2020-07-14 08:34 | Outpatient (CLI) | payer MEDICARE, BC, SELFPAY ==
[2020-07-14 08:36] VITALS: BMI 22.4
[2020-07-14 09:20] LABS: Chloride 102 mmol/L (98-107)
[2020-07-14 09:21] LABS: Potassium 4.5 mmoL/L (3.5-5.1); Sodium 136 mmol/L (136-145)
[2020-07-14 09:24] LABS: Anion Gap 16.5 mEq/L (5-15); Blood Urea Nitrogen 27 mg/dl (9-20); Calcium 9.1 mg/dl (8.4-10.2); Carbon Dioxide 22 mmol/L (22.0-30.0); Creatinine Clearance Estimated 32 mL/min (50-200); Estimated Glomerular Filt Rate 36 ml/min (>60); GFR (African American) 44 ML/MIN (>60); Glucose 152 mg/dl (74-100)
[2020-07-14 09:33] LABS: NT Pro Brain Natriuretic Pep. 688 pg/mL (0-450)
[2020-07-14 10:20] VITALS: BP 164/75; PULSE 70; RESP 18; TEMP 36.1; O2SAT 97
[2020-07-14 13:20] VITALS: BP 144/65; PULSE 68; RESP 18
== END 2020-07-14 13:33 | disposition home or self-care (01) ==
LOC: INF 08:34
PROVIDERS: PCP Internal Medicine Adolescent Medicine; Visit Provider Internal Medicine Adolescent Medicine
DX: I50.9 Heart failure, unspecified (principal)
CPT/HCPCS: 80048; 83880; 96360; 96361; J1642

== ENCOUNTER 2020-07-16 08:00 | Outpatient (CLI) | payer MEDICARE, BC, SELFPAY ==
[2020-07-16 08:10] VITALS: BMI 21.7
[2020-07-16 08:36] LABS: Chloride 107 mmol/L (98-107); Sodium 139 mmol/L (136-145)
[2020-07-16 08:37] LABS: Potassium 4.2 mmoL/L (3.5-5.1)
[2020-07-16 08:40] LABS: Anion Gap 13.2 mEq/L (5-15); Blood Urea Nitrogen 25 mg/dl (9-20); Calcium 9.2 mg/dl (8.4-10.2); Carbon Dioxide 23 mmol/L (22.0-30.0); Creatinine Clearance Estimated 34 mL/min (50-200); Estimated Glomerular Filt Rate 39 ml/min (>60); GFR (African American) 47 ML/MIN (>60); Glucose 125 mg/dl (74-100)
[2020-07-16 08:49] LABS: NT Pro Brain Natriuretic Pep. 869 pg/mL (0-450)
[2020-07-16 09:20] VITALS: BP 127/66; PULSE 70; RESP 18; TEMP 36; O2SAT 98
[2020-07-16 10:20] VITALS: BP 136/74; PULSE 69; RESP 16
[2020-07-16 11:20] VITALS: BP 136/69; PULSE 70; RESP 16; O2SAT 99
== END 2020-07-16 11:30 | disposition home or self-care (01) ==
LOC: INF 08:09
PROVIDERS: Visit Provider Internal Medicine Adolescent Medicine
DX: I50.9 Heart failure, unspecified (principal)
CPT/HCPCS: 80048; 83880; 96360; 96361; J1642

== ENCOUNTER 2020-07-21 08:05 | Outpatient (CLI) | payer MEDICARE, BC, SELFPAY ==
[2020-07-21 08:09] VITALS: BMI 21.7
[2020-07-21 08:38] LABS: Anion Gap 15.6 mEq/L (5-15); Blood Urea Nitrogen 27 mg/dl (9-20); Calcium 9.4 mg/dl (8.4-10.2); Carbon Dioxide 22 mmol/L (22.0-30.0); Chloride 104 mmol/L (98-107); Creatinine Clearance Estimated 28 mL/min (50-200); Estimated Glomerular Filt Rate 30 ml/min (>60); GFR (African American) 37 ML/MIN (>60); Glucose 138 mg/dl (74-100); Potassium 4.6 mmoL/L (3.5-5.1); Sodium 137 mmol/L (136-145)
[2020-07-21 08:47] LABS: NT Pro Brain Natriuretic Pep. 660 pg/mL (0-450)
[2020-07-21 09:00] VITALS: BP 129/69; PULSE 79; RESP 18; TEMP 36.3; O2SAT 97
[2020-07-21 12:15] VITALS: BP 139/76; PULSE 72; RESP 18
== END 2020-07-21 12:15 | disposition home or self-care (01) ==
LOC: INF 08:07
PROVIDERS: Visit Provider Internal Medicine Adolescent Medicine
DX: I50.9 Heart failure, unspecified (principal)
CPT/HCPCS: 80048; 83880; 96360; 96361; J1642

== ENCOUNTER 2020-07-23 08:10 | Outpatient (CLI) | payer MEDICARE, BC, SELFPAY ==
[2020-07-23 08:12] VITALS: BMI 21.7
[2020-07-23 08:39] LABS: Anion Gap 11.7 mEq/L (5-15); Blood Urea Nitrogen 28 mg/dl (9-20); Calcium 9.1 mg/dl (8.4-10.2); Carbon Dioxide 22 mmol/L (22.0-30.0); Chloride 106 mmol/L (98-107); Creatinine Clearance Estimated 32 mL/min (50-200); Estimated Glomerular Filt Rate 36 ml/min (>60); GFR (African American) 44 ML/MIN (>60); Glucose 135 mg/dl (74-100); Potassium 4.7 mmoL/L (3.5-5.1); Sodium 135 mmol/L (136-145)
[2020-07-23 08:48] LABS: NT Pro Brain Natriuretic Pep. 861 pg/mL (0-450)
[2020-07-23 09:10] VITALS: BP 128/70; PULSE 78; RESP 18
[2020-07-23 12:20] VITALS: BP 135/75; PULSE 79; RESP 18
== END 2020-07-23 12:20 | disposition home or self-care (01) ==
LOC: INF 08:10
PROVIDERS: Visit Provider Internal Medicine Adolescent Medicine
DX: I50.9 Heart failure, unspecified (principal)
CPT/HCPCS: 80048; 83880; 96360; 96361; J1642

== ENCOUNTER 2020-07-27 08:00 | Outpatient (CLI) | payer MEDICARE, BC, SELFPAY ==
[2020-07-27 08:11] VITALS: BMI 21.7
[2020-07-27 08:37] LABS: Anion Gap 14.7 mEq/L (5-15); Blood Urea Nitrogen 35 mg/dl (9-20); Calcium 9.2 mg/dl (8.4-10.2); Carbon Dioxide 21 mmol/L (22.0-30.0); Chloride 102 mmol/L (98-107); Creatinine Clearance Estimated 28 mL/min (50-200); Estimated Glomerular Filt Rate 30 ml/min (>60); GFR (African American) 37 ML/MIN (>60); Glucose 140 mg/dl (74-100); Potassium 4.7 mmoL/L (3.5-5.1); Sodium 133 mmol/L (136-145)
[2020-07-27 08:48] LABS: NT Pro Brain Natriuretic Pep. 539 pg/mL (0-450)
[2020-07-27 09:00] VITALS: BP 132/60; PULSE 72; RESP 18
[2020-07-27 13:05] VITALS: BP 113/62; PULSE 77; RESP 18
== END 2020-07-27 13:05 | disposition home or self-care (01) ==
LOC: INF 08:09
PROVIDERS: PCP Internal Medicine Adolescent Medicine; Visit Provider Internal Medicine Adolescent Medicine
DX: I50.9 Heart failure, unspecified (principal)
CPT/HCPCS: 80048; 83880; 96360; 96361; J1642

== ENCOUNTER 2020-07-30 09:05 | Outpatient (CLI) | payer MEDICARE, BC, SELFPAY ==
[2020-07-30 08:18] VITALS: BMI 22.4
[2020-07-30 08:47] LABS: Anion Gap 13.7 mEq/L (5-15); Blood Urea Nitrogen 22 mg/dl (9-20); Carbon Dioxide 23 mmol/L (22.0-30.0); Chloride 106 mmol/L (98-107); Creatinine Clearance Estimated 34 mL/min (50-200); Estimated Glomerular Filt Rate 39 ml/min (>60); GFR (African American) 47 ML/MIN (>60); Glucose 105 mg/dl (74-100); Potassium 4.7 mmoL/L (3.5-5.1); Sodium 138 mmol/L (136-145)
[2020-07-30 08:57] LABS: NT Pro Brain Natriuretic Pep. 769 pg/mL (0-450)
[2020-07-30 09:30] VITALS: BP 131/78; PULSE 72; RESP 18
[2020-07-30 11:39] VITALS: BP 128/66; PULSE 71; RESP 18
== END 2020-07-30 11:39 | disposition home or self-care (01) ==
LOC: INF 09:25
PROVIDERS: Visit Provider Internal Medicine Adolescent Medicine
DX: I50.9 Heart failure, unspecified (principal)
CPT/HCPCS: 80048; 83880; 96360; 96361; J1642

== ENCOUNTER 2020-08-03 08:07 | Outpatient (CLI) | payer MEDICARE, BC, SELFPAY ==
[2020-08-03 08:10] VITALS: BMI 22.4
[2020-08-03 08:31] LABS: Chloride 100 mmol/L (98-107); Sodium 136 mmol/L (136-145)
[2020-08-03 08:34] LABS: Blood Urea Nitrogen 25 mg/dl (9-20); Calcium 9.4 mg/dl (8.4-10.2); Carbon Dioxide 24 mmol/L (22.0-30.0); Creatinine Clearance Estimated 31 mL/min (50-200); Estimated Glomerular Filt Rate 34 ml/min (>60); GFR (African American) 41 ML/MIN (>60); Glucose 147 mg/dl (74-100)
[2020-08-03 08:43] LABS: NT Pro Brain Natriuretic Pep. 616 pg/mL (0-450)
[2020-08-03 09:28] VITALS: BP 118/76; PULSE 77; RESP 18; TEMP 36.1
[2020-08-03 11:40] VITALS: BP 146/76; PULSE 72; RESP 17
== END 2020-08-03 11:40 | disposition home or self-care (01) ==
LOC: INF 08:07
PROVIDERS: PCP Internal Medicine Adolescent Medicine; Visit Provider Internal Medicine Adolescent Medicine
DX: I50.9 Heart failure, unspecified (principal)
CPT/HCPCS: 80048; 83880; 96360; 96361; J1642

== ENCOUNTER 2020-08-06 08:00 | Outpatient (CLI) | payer MEDICARE, BC, SELFPAY ==
[2020-08-06 08:10] VITALS: BMI 21.7
[2020-08-06 08:41] LABS: Anion Gap 10.3 mEq/L (5-15); Blood Urea Nitrogen 24 mg/dl (9-20); Calcium 8.8 mg/dl (8.4-10.2); Carbon Dioxide 26 mmol/L (22.0-30.0); Chloride 105 mmol/L (98-107); Creatinine Clearance Estimated 36 mL/min (50-200); Estimated Glomerular Filt Rate 41 ml/min (>60); GFR (African American) 50 ML/MIN (>60); Glucose 111 mg/dl (74-100); Potassium 4.3 mmoL/L (3.5-5.1); Sodium 137 mmol/L (136-145)
[2020-08-06 08:50] LABS: NT Pro Brain Natriuretic Pep. 613 pg/mL (0-450)
[2020-08-06 09:05] VITALS: BP 114/61; PULSE 69; RESP 16; TEMP 36.2
[2020-08-06 10:05] VITALS: BP 122/77; PULSE 69; RESP 16
[2020-08-06 11:05] VITALS: BP 129/77; PULSE 69; RESP 16
== END 2020-08-06 11:15 | disposition home or self-care (01) ==
LOC: INF 08:08
PROVIDERS: Visit Provider Internal Medicine Adolescent Medicine
DX: I50.9 Heart failure, unspecified (principal)
CPT/HCPCS: 80048; 83880; 96360; 96361; J1642

== ENCOUNTER 2020-08-11 08:33 | Outpatient (CLI) | payer MEDICARE, BC, SELFPAY ==
[2020-08-11 08:34] VITALS: BMI 21.7
[2020-08-11 09:21] LABS: Blood Urea Nitrogen 23 mg/dl (9-20); Calcium 9.2 mg/dl (8.4-10.2); Creatinine Clearance Estimated 34 mL/min (50-200); Estimated Glomerular Filt Rate 39 ml/min (>60); GFR (African American) 47 ML/MIN (>60); Glucose 88 mg/dl (74-100)
[2020-08-11 09:30] LABS: NT Pro Brain Natriuretic Pep. 707 pg/mL (0-450)
[2020-08-11 09:41] VITALS: BP 115/67; PULSE 77; RESP 18; TEMP 36.7; O2SAT 100
[2020-08-11 10:11] VITALS: BP 118/66; PULSE 78; RESP 18; O2SAT 99
[2020-08-11 10:41] VITALS: BP 116/69; PULSE 75; RESP 18; O2SAT 99
[2020-08-11 11:11] VITALS: BP 112/70; PULSE 72; RESP 18; O2SAT 100
[2020-08-11 11:21] LABS: Anion Gap 17.7 mEq/L (5-15); Carbon Dioxide 23 mmol/L (22.0-30.0); Chloride 102 mmol/L (98-107); Potassium 4.7 mmoL/L (3.5-5.1); Sodium 138 mmol/L (136-145)
[2020-08-11 11:45] VITALS: BP 114/68; PULSE 73; RESP 18; O2SAT 99
== END 2020-08-11 11:45 | disposition home or self-care (01) ==
LOC: INF 08:33
PROVIDERS: PCP Internal Medicine Adolescent Medicine; Visit Provider Internal Medicine Adolescent Medicine
DX: I50.9 Heart failure, unspecified (principal)
CPT/HCPCS: 80048; 83880; 96360; 96361; J1642

== ENCOUNTER 2020-08-13 08:08 | Outpatient (CLI) | payer MEDICARE, BC, SELFPAY ==
[2020-08-13 08:10] VITALS: BMI 22.4
[2020-08-13 08:36] LABS: Chloride 103 mmol/L (98-107); Potassium 4.3 mmoL/L (3.5-5.1); Sodium 138 mmol/L (136-145)
[2020-08-13 08:39] LABS: Anion Gap 16.3 mEq/L (5-15); Blood Urea Nitrogen 22 mg/dl (9-20); Calcium 9.1 mg/dl (8.4-10.2); Carbon Dioxide 23 mmol/L (22.0-30.0); Creatinine Clearance Estimated 34 mL/min (50-200); Estimated Glomerular Filt Rate 39 ml/min (>60); GFR (African American) 47 ML/MIN (>60); Glucose 111 mg/dl (74-100)
[2020-08-13 08:49] LABS: NT Pro Brain Natriuretic Pep. 726 pg/mL (0-450)
[2020-08-13 09:40] VITALS: BP 132/74; PULSE 71; RESP 18; O2SAT 99
[2020-08-13 13:50] VITALS: BP 134/65; PULSE 69; RESP 18
== END 2020-08-13 13:52 | disposition home or self-care (01) ==
LOC: INF 08:09
PROVIDERS: Visit Provider Internal Medicine Adolescent Medicine
DX: I50.9 Heart failure, unspecified (principal)
CPT/HCPCS: 80048; 83880; 96360; 96361; J1642

== ENCOUNTER 2020-08-20 08:07 | Outpatient (CLI) | payer MEDICARE, BC, SELFPAY ==
[2020-08-20 08:09] VITALS: BMI 21.7
[2020-08-20 08:26] LABS: Chloride 103 mmol/L (98-107); Potassium 3.9 mmoL/L (3.5-5.1); Sodium 138 mmol/L (136-145)
[2020-08-20 08:29] LABS: Blood Urea Nitrogen 20 mg/dl (9-20); Creatinine Clearance Estimated 39 mL/min (50-200); Estimated Glomerular Filt Rate 45 ml/min (>60); GFR (African American) 54 ML/MIN (>60)
[2020-08-20 08:30] LABS: Anion Gap 14.9 mEq/L (5-15); Calcium 8.7 mg/dl (8.4-10.2); Carbon Dioxide 24 mmol/L (22.0-30.0); Glucose 119 mg/dl (74-100)
[2020-08-20 08:39] LABS: NT Pro Brain Natriuretic Pep. 845 pg/mL (0-450)
[2020-08-20 08:56] VITALS: BP 130/69; PULSE 86; RESP 18; O2SAT 97
[2020-08-20 11:05] VITALS: BP 157/87; PULSE 77; RESP 18
== END 2020-08-20 11:05 | disposition home or self-care (01) ==
LOC: INF 08:07
PROVIDERS: Visit Provider Internal Medicine Adolescent Medicine
DX: I50.9 Heart failure, unspecified (principal)
CPT/HCPCS: 80048; 83880; 96360; 96361; J1642

== ENCOUNTER 2020-08-27 08:05 | Outpatient (CLI) | payer MEDICARE, BC, SELFPAY ==
[2020-08-27 08:07] VITALS: BMI 22.4
[2020-08-27 08:31] LABS: Chloride 104 mmol/L (98-107); Potassium 4.5 mmoL/L (3.5-5.1); Sodium 139 mmol/L (136-145)
[2020-08-27 08:34] LABS: Anion Gap 14.5 mEq/L (5-15); Blood Urea Nitrogen 27 mg/dl (9-20); Carbon Dioxide 25 mmol/L (22.0-30.0); Creatinine Clearance Estimated 31 mL/min (50-200); Estimated Glomerular Filt Rate 34 ml/min (>60); GFR (African American) 41 ML/MIN (>60)
[2020-08-27 08:35] LABS: Calcium 8.9 mg/dl (8.4-10.2); Glucose 110 mg/dl (74-100)
[2020-08-27 08:44] LABS: NT Pro Brain Natriuretic Pep. 1120 pg/mL (0-450)
[2020-08-27 09:00] VITALS: BP 132/69; PULSE 69; RESP 18
[2020-08-27 11:18] VITALS: BP 145/76; PULSE 68; RESP 18
== END 2020-08-27 11:18 | disposition home or self-care (01) ==
LOC: INF 08:05
PROVIDERS: Visit Provider Internal Medicine Adolescent Medicine
DX: I50.9 Heart failure, unspecified (principal); N17.9 Acute kidney failure, unspecified
CPT/HCPCS: 80048; 83880; 96360; 96361; J1642

== ENCOUNTER 2020-09-03 08:10 | Outpatient (CLI) | payer MEDICARE, BC, SELFPAY ==
[2020-09-03 08:11] VITALS: BMI 21.7
[2020-09-03 08:42] LABS: Anion Gap 15.6 mEq/L (5-15); Blood Urea Nitrogen 28 mg/dl (9-20); Carbon Dioxide 23 mmol/L (22.0-30.0); Chloride 103 mmol/L (98-107); Creatinine Clearance Estimated 34 mL/min (50-200); Estimated Glomerular Filt Rate 39 ml/min (>60); GFR (African American) 47 ML/MIN (>60); Glucose 150 mg/dl (74-100); Potassium 4.6 mmoL/L (3.5-5.1); Sodium 137 mmol/L (136-145)
[2020-09-03 08:51] LABS: NT Pro Brain Natriuretic Pep. 825 pg/mL (0-450)
[2020-09-03 09:30] VITALS: BP 122/50; PULSE 70; RESP 18; O2SAT 97
[2020-09-03 11:30] VITALS: BP 131/61; PULSE 69; RESP 18
== END 2020-09-03 11:30 | disposition home or self-care (01) ==
LOC: INF 08:10
PROVIDERS: Visit Provider Internal Medicine Adolescent Medicine
DX: I50.9 Heart failure, unspecified (principal)
CPT/HCPCS: 80048; 83880; 96360; 96361; J1642

== ENCOUNTER 2020-09-08 08:06 | Outpatient (CLI) | payer MEDICARE, BC, SELFPAY ==
[2020-09-08 08:09] VITALS: BMI 21.7
[2020-09-08 08:43] LABS: Anion Gap 15.4 mEq/L (5-15); Blood Urea Nitrogen 26 mg/dl (9-20); Carbon Dioxide 24 mmol/L (22.0-30.0); Chloride 103 mmol/L (98-107); Creatinine Clearance Estimated 36 mL/min (50-200); Estimated Glomerular Filt Rate 41 ml/min (>60); GFR (African American) 50 ML/MIN (>60); Glucose 137 mg/dl (74-100); Potassium 4.4 mmoL/L (3.5-5.1); Sodium 138 mmol/L (136-145)
[2020-09-08 08:52] LABS: NT Pro Brain Natriuretic Pep. 678 pg/mL (0-450)
[2020-09-08 09:00] VITALS: BP 146/72; PULSE 76; RESP 18; O2SAT 98
[2020-09-08 13:15] VITALS: BP 150/73; PULSE 69; RESP 18
== END 2020-09-08 13:18 | disposition home or self-care (01) ==
LOC: INF 08:06
PROVIDERS: Visit Provider Internal Medicine Adolescent Medicine
DX: I50.9 Heart failure, unspecified (principal)
CPT/HCPCS: 80048; 83880; 96360; 96361; J1642

== ENCOUNTER → 2020-09-17 08:05 | Outpatient (CLI) | payer MEDICARE, BC, SELFPAY ==
[2020-09-17 08:14] VITALS: BMI 22.4
[2020-09-17 08:44] LABS: Basophils % 0.6 % (0.1-2.0); Eosinophils # 0.3 K/mm3 (0.0-0.4); Eosinophils % 4.6 % (0.1-12.0); Hematocrit 39.8 % (42.0-52.0); Hemoglobin 13.1 g/dL (14.1-18.0); Lymphocytes # 1.3 K/mm3 (0.7-4.5); Lymphocytes % 18.2 % (10-50); Mean Corpuscular Hemoglobin 32.5 pg (27.0-31.2); Mean Corpuscular Volume 98.3 fl (80-94); Mean Platelet Volume 7.9 fl (7.4-10.4); Monocytes # 0.6 K/mm3 (0.1-1.0); Monocytes % 8.2 % (1.7-9.3); Neutrophils % 68.4 % (37.0-80.0); Platelet Count 276 K/mm3 (142-424); Red Blood Count 4.05 M/mm3 (4.60-6.20); Red Cell Distribution Width 13.4 % (11.5-17.5); White Blood Count 7.3 K/mm3 (4.8-10.8)
[2020-09-17 08:53] LABS: Albumin Level 4.1 g/dl (3.5-5.0); Chloride 103 mmol/L (98-107); Potassium 4.7 mmoL/L (3.5-5.1); Sodium 139 mmol/L (136-145)
[2020-09-17 08:54] LABS: Potassium 4.6 mmoL/L (3.5-5.1); Sodium 138 mmol/L (136-145)
[2020-09-17 08:56] LABS: Anion Gap 13.7 mEq/L (5-15); Blood Urea Nitrogen 22 mg/dl (9-20); Carbon Dioxide 27 mmol/L (22.0-30.0); Creatinine Clearance Estimated 36 mL/min (50-200); Estimated Glomerular Filt Rate 41 ml/min (>60); GFR (African American) 50 ML/MIN (>60); Phosphorous 3.7 mg/dl (2.5-4.5)
[2020-09-17 08:57] LABS: Anion Gap 13.6 mEq/L (5-15); Calcium 9.1 mg/dl (8.4-10.2); Calcium 9.2 mg/dl (8.4-10.2); Carbon Dioxide 26 mmol/L (22.0-30.0); Glucose 110 mg/dl (74-100); Glucose 111 mg/dl (74-100)
[2020-09-17 09:08] LABS: NT Pro Brain Natriuretic Pep. 713 pg/mL (0-450)
[2020-09-17 09:09] LABS: Intact Parathyroid Hormone 82.4 pg/mL (7.5-53.5)
[2020-09-17 09:23] LABS: 25-OH Vitamin D, Total 46.5 ng/mL (30-100)
[2020-09-17 09:40] VITALS: BP 144/80; PULSE 79; RESP 18; TEMP 36.4; O2SAT 99
[2020-09-17 14:00] VITALS: BP 137/67; PULSE 69; RESP 18
[2020-09-18 08:16] LABS: PSA, Free 1.42 ng/mL; Prostate Specific Ag 14.8 ng/mL (0.0-4.0)
== END ==
PROVIDERS: Internal Medicine Nephrology; Urology; Visit Provider Internal Medicine Adolescent Medicine
DX: I50.9 Heart failure, unspecified (principal); N18.31 Chronic kidney disease, stage 3a; N18.32 Chronic kidney disease, stage 3b; R97.20 Elevated prostate specific antigen [PSA]
CPT/HCPCS: 80048; 80069; 82306; 83880; 83970; 84153; 84154; 85025; 96360; 96361; J1642

== ENCOUNTER 2020-09-24 08:00 | Outpatient (CLI) | payer MEDICARE, BC, SELFPAY ==
[2020-09-24 08:10] VITALS: BMI 21.7
[2020-09-24 08:39] LABS: Anion Gap 13.1 mEq/L (5-15); Blood Urea Nitrogen 20 mg/dl (9-20); Calcium 8.7 mg/dl (8.4-10.2); Carbon Dioxide 24 mmol/L (22.0-30.0); Chloride 103 mmol/L (98-107); Creatinine Clearance Estimated 42 mL/min (50-200); Estimated Glomerular Filt Rate 48 ml/min (>60); GFR (African American) 58 ML/MIN (>60); Glucose 134 mg/dl (74-100); Potassium 4.1 mmoL/L (3.5-5.1); Sodium 136 mmol/L (136-145)
[2020-09-24 08:48] LABS: NT Pro Brain Natriuretic Pep. 741 pg/mL (0-450)
[2020-09-24 10:05] VITALS: BP 134/72; PULSE 75; RESP 18; O2SAT 98
[2020-09-24 11:35] VITALS: BP 129/63; PULSE 72; RESP 16
[2020-09-24 13:05] VITALS: BP 140/67; PULSE 74; RESP 16
== END 2020-09-24 13:15 | disposition home or self-care (01) ==
LOC: INF 08:09
PROVIDERS: Visit Provider Internal Medicine Adolescent Medicine
DX: I50.9 Heart failure, unspecified (principal)
CPT/HCPCS: 80048; 83880; 96360; 96361; J1642

== ENCOUNTER → 2020-09-30 12:40 | Outpatient (POV) | payer MEDICARE, BC, SELFPAY | PROVIDERS: Visit Provider Internal Medicine Nephrology | DX: Z00.00 Encounter for general adult medical examination without abnormal findings (principal) ==

== ENCOUNTER 2020-10-01 08:09 | Outpatient (CLI) | payer MEDICARE, BC, SELFPAY ==
[2020-10-01 08:11] VITALS: BMI 22.4
[2020-10-01 08:31] LABS: Chloride 102 mmol/L (98-107); Sodium 134 mmol/L (136-145)
[2020-10-01 08:32] LABS: Potassium 5.2 mmoL/L (3.5-5.1)
[2020-10-01 08:35] LABS: Anion Gap 16.2 mEq/L (5-15); Blood Urea Nitrogen 33 mg/dl (9-20); Calcium 8.8 mg/dl (8.4-10.2); Carbon Dioxide 21 mmol/L (22.0-30.0); Creatinine Clearance Estimated 24 mL/min (50-200); Estimated Glomerular Filt Rate 26 ml/min (>60); GFR (African American) 31 ML/MIN (>60); Glucose 120 mg/dl (74-100)
[2020-10-01 08:44] LABS: NT Pro Brain Natriuretic Pep. 758 pg/mL (0-450)
[2020-10-01 09:03] VITALS: BP 111/63; PULSE 62; RESP 18; O2SAT 99
[2020-10-01 13:10] VITALS: BP 149/76; PULSE 65; RESP 18
== END 2020-10-01 13:10 | disposition home or self-care (01) ==
LOC: INF 08:09
PROVIDERS: Visit Provider Internal Medicine Adolescent Medicine
DX: I50.9 Heart failure, unspecified (principal)
CPT/HCPCS: 80048; 83880; 96360; 96361; J1642

== ENCOUNTER 2020-10-06 08:00 | Outpatient (CLI) | payer MEDICARE, BC, SELFPAY ==
[2020-10-06 08:21] VITALS: BMI 21.7
[2020-10-06 09:01] LABS: Chloride 103 mmol/L (98-107); Sodium 137 mmol/L (136-145)
[2020-10-06 09:04] LABS: Blood Urea Nitrogen 27 mg/dl (9-20); Carbon Dioxide 24 mmol/L (22.0-30.0); Creatinine Clearance Estimated 36 mL/min (50-200); Estimated Glomerular Filt Rate 41 ml/min (>60); GFR (African American) 50 ML/MIN (>60); Glucose 137 mg/dl (74-100)
[2020-10-06 09:14] LABS: NT Pro Brain Natriuretic Pep. 781 pg/mL (0-450)
[2020-10-06 09:30] VITALS: BP 116/64; PULSE 70; RESP 18; TEMP 35.9; O2SAT 100
[2020-10-06 10:30] VITALS: BP 128/71; PULSE 71; RESP 16
[2020-10-06 11:30] VITALS: BP 141/78; PULSE 70; RESP 16
== END 2020-10-06 11:40 | disposition home or self-care (01) ==
LOC: INF 08:19
PROVIDERS: Visit Provider Internal Medicine Adolescent Medicine
DX: I50.9 Heart failure, unspecified (principal)
CPT/HCPCS: 80048; 83880; 96360; 96361; J1642

== ENCOUNTER 2020-10-15 08:12 | Outpatient (CLI) | payer MEDICARE, BC, SELFPAY ==
[2020-10-15 08:13] VITALS: BMI 21.7
[2020-10-15 08:51] LABS: Chloride 104 mmol/L (98-107); Potassium 4.8 mmoL/L (3.5-5.1); Sodium 140 mmol/L (136-145)
[2020-10-15 08:54] LABS: Anion Gap 13.8 mEq/L (5-15); Blood Urea Nitrogen 24 mg/dl (9-20); Carbon Dioxide 27 mmol/L (22.0-30.0); Creatinine Clearance Estimated 36 mL/min (50-200); Estimated Glomerular Filt Rate 41 ml/min (>60); GFR (African American) 50 ML/MIN (>60)
[2020-10-15 08:55] LABS: Calcium 9.1 mg/dl (8.4-10.2); Glucose 99 mg/dl (74-100)
[2020-10-15 09:04] LABS: NT Pro Brain Natriuretic Pep. 577 pg/mL (0-450)
[2020-10-15 09:21] VITALS: BP 126/67; PULSE 70; RESP 18; TEMP 36.4; O2SAT 100
[2020-10-15 10:15] VITALS: BP 139/70; PULSE 69; RESP 16; O2SAT 99
[2020-10-15 11:20] VITALS: BP 132/69; PULSE 69; RESP 16; TEMP 36.4; O2SAT 99
== END 2020-10-15 11:25 | disposition home or self-care (01) ==
LOC: INF 08:12
PROVIDERS: Visit Provider Internal Medicine Adolescent Medicine
DX: I50.9 Heart failure, unspecified (principal)
CPT/HCPCS: 80048; 83880; 96360; 96361; J1642

== ENCOUNTER 2020-10-22 08:03 | Outpatient (CLI) | payer MEDICARE, BC, SELFPAY ==
[2020-10-22 08:10] VITALS: BMI 21.7
[2020-10-22 08:35] LABS: Anion Gap 17.7 mEq/L (5-15); Blood Urea Nitrogen 24 mg/dl (9-20); Carbon Dioxide 24 mmol/L (22.0-30.0); Chloride 103 mmol/L (98-107); Creatinine Clearance Estimated 32 mL/min (50-200); Estimated Glomerular Filt Rate 36 ml/min (>60); GFR (African American) 44 ML/MIN (>60); Glucose 110 mg/dl (74-100); Potassium 4.7 mmoL/L (3.5-5.1); Sodium 140 mmol/L (136-145)
[2020-10-22 08:45] LABS: NT Pro Brain Natriuretic Pep. 705 pg/mL (0-450)
[2020-10-22 09:05] VITALS: BP 131/70; PULSE 70; RESP 18; O2SAT 97
[2020-10-22 11:15] VITALS: BP 162/70; PULSE 73; RESP 18
== END 2020-10-22 11:15 | disposition home or self-care (01) ==
LOC: INF 08:05
PROVIDERS: PCP Internal Medicine Adolescent Medicine; Visit Provider Internal Medicine Adolescent Medicine
DX: I50.9 Heart failure, unspecified (principal)
CPT/HCPCS: 80048; 83880; 96360; 96361; J1642

== ENCOUNTER 2020-10-29 07:30 | Outpatient (CLI) | payer MEDICARE, BC, SELFPAY ==
[2020-10-29 08:10] VITALS: BMI 22.4
[2020-10-29 08:37] LABS: Anion Gap 13.3 mEq/L (5-15); Blood Urea Nitrogen 25 mg/dl (9-20); Calcium 8.8 mg/dl (8.4-10.2); Carbon Dioxide 24 mmol/L (22.0-30.0); Chloride 104 mmol/L (98-107); Creatinine Clearance Estimated 36 mL/min (50-200); Estimated Glomerular Filt Rate 41 ml/min (>60); GFR (African American) 50 ML/MIN (>60); Glucose 136 mg/dl (74-100); Potassium 4.3 mmoL/L (3.5-5.1); Sodium 137 mmol/L (136-145)
[2020-10-29 08:46] LABS: NT Pro Brain Natriuretic Pep. 669 pg/mL (0-450)
[2020-10-29 09:00] VITALS: BP 119/62; PULSE 69; RESP 18; O2SAT 96
[2020-10-29 11:15] VITALS: BP 150/65; PULSE 68; RESP 18
== END 2020-10-29 11:15 | disposition home or self-care (01) ==
LOC: INF 07:31
PROVIDERS: PCP Internal Medicine Adolescent Medicine; Visit Provider Internal Medicine Adolescent Medicine
DX: I50.9 Heart failure, unspecified (principal); E86.0 Dehydration
CPT/HCPCS: 80048; 83880; 96360; 96361; J1642

== ENCOUNTER 2020-11-05 07:29 | Outpatient (CLI) | payer MEDICARE, BC, SELFPAY ==
[2020-11-05 08:11] VITALS: BMI 21.3
[2020-11-05 08:34] LABS: Anion Gap 13.3 mEq/L (5-15); Blood Urea Nitrogen 20 mg/dl (9-20); Calcium 8.9 mg/dl (8.4-10.2); Carbon Dioxide 25 mmol/L (22.0-30.0); Chloride 101 mmol/L (98-107); Creatinine Clearance Estimated 41 mL/min (50-200); Estimated Glomerular Filt Rate 48 ml/min (>60); GFR (African American) 58 ML/MIN (>60); Glucose 145 mg/dl (74-100); Potassium 4.3 mmoL/L (3.5-5.1); Sodium 135 mmol/L (136-145)
[2020-11-05 08:43] LABS: NT Pro Brain Natriuretic Pep. 824 pg/mL (0-450)
[2020-11-05 09:07] VITALS: BP 129/71; PULSE 70; RESP 18; TEMP 36.4; O2SAT 97
[2020-11-05 10:05] VITALS: BP 141/77; PULSE 69; RESP 16; O2SAT 98
[2020-11-05 11:10] VITALS: BP 144/70; PULSE 69; RESP 16; TEMP 36.5; O2SAT 98
== END 2020-11-05 11:15 | disposition home or self-care (01) ==
LOC: INF 07:30
PROVIDERS: PCP Internal Medicine Adolescent Medicine; Visit Provider Internal Medicine Adolescent Medicine
DX: I50.9 Heart failure, unspecified (principal)
CPT/HCPCS: 80048; 83880; 96360; 96361; J1642

== ENCOUNTER 2020-11-12 07:32 | Outpatient (CLI) | payer MEDICARE, BC, SELFPAY ==
[2020-11-12 08:07] VITALS: BMI 22.4
[2020-11-12 08:34] LABS: Chloride 106 mmol/L (98-107); Potassium 4.3 mmoL/L (3.5-5.1); Sodium 139 mmol/L (136-145)
[2020-11-12 08:37] LABS: Anion Gap 14.3 mEq/L (5-15); Blood Urea Nitrogen 26 mg/dl (9-20); Calcium 8.9 mg/dl (8.4-10.2); Carbon Dioxide 23 mmol/L (22.0-30.0); Creatinine Clearance Estimated 32 mL/min (50-200); Estimated Glomerular Filt Rate 36 ml/min (>60); GFR (African American) 44 ML/MIN (>60); Glucose 86 mg/dl (74-100)
[2020-11-12 08:46] LABS: NT Pro Brain Natriuretic Pep. 856 pg/mL (0-450)
[2020-11-12 08:50] VITALS: BP 144/76; PULSE 69; RESP 18; O2SAT 98
[2020-11-12 11:00] VITALS: BP 167/69; PULSE 77; RESP 18
== END 2020-11-12 11:00 | disposition home or self-care (01) ==
LOC: INF 07:33
PROVIDERS: PCP Internal Medicine Adolescent Medicine; Visit Provider Internal Medicine Adolescent Medicine
DX: I50.9 Heart failure, unspecified (principal); Z45.2 Encounter for adjustment and management of vascular access device
CPT/HCPCS: 80048; 83880; 96360; 96361; J1642

== ENCOUNTER 2020-11-16 07:36 | Outpatient (CLI) | payer MEDICARE, BC, SELFPAY ==
[2020-11-16 08:09] VITALS: BMI 21.9
[2020-11-16 08:43] LABS: Anion Gap 15.8 mEq/L (5-15); Blood Urea Nitrogen 30 mg/dl (9-20); Carbon Dioxide 23 mmol/L (22.0-30.0); Chloride 104 mmol/L (98-107); Creatinine Clearance Estimated 27 mL/min (50-200); Estimated Glomerular Filt Rate 30 ml/min (>60); GFR (African American) 37 ML/MIN (>60); Glucose 127 mg/dl (74-100); Potassium 4.8 mmoL/L (3.5-5.1); Sodium 138 mmol/L (136-145)
[2020-11-16 08:52] LABS: NT Pro Brain Natriuretic Pep. 792 pg/mL (0-450)
[2020-11-16 09:08] VITALS: BP 125/69; PULSE 75; RESP 18; O2SAT 98
[2020-11-16 11:15] VITALS: BP 151/76; PULSE 69; RESP 18
[2020-11-16 13:20] VITALS: BP 143/67; PULSE 71; RESP 18
== END 2020-11-16 13:20 | disposition home or self-care (01) ==
LOC: INF 07:38
PROVIDERS: PCP Internal Medicine Adolescent Medicine; Visit Provider Internal Medicine Adolescent Medicine
DX: I50.9 Heart failure, unspecified (principal)
CPT/HCPCS: 80048; 83880; 96360; 96361; J1642

== ENCOUNTER 2020-11-19 07:41 | Outpatient (CLI) | payer MEDICARE, BC, SELFPAY ==
[2020-11-19 08:10] VITALS: BMI 21.9
[2020-11-19 09:04] LABS: Anion Gap 17.7 mEq/L (5-15); Blood Urea Nitrogen 23 mg/dl (9-20); Calcium 9.3 mg/dl (8.4-10.2); Carbon Dioxide 23 mmol/L (22.0-30.0); Chloride 106 mmol/L (98-107); Creatinine Clearance Estimated 36 mL/min (50-200); Estimated Glomerular Filt Rate 41 ml/min (>60); GFR (African American) 50 ML/MIN (>60); Glucose 134 mg/dl (74-100); Potassium 4.7 mmoL/L (3.5-5.1); Sodium 142 mmol/L (136-145)
[2020-11-19 09:14] LABS: NT Pro Brain Natriuretic Pep. 676 pg/mL (0-450)
[2020-11-19 09:45] VITALS: BP 142/73; PULSE 71; RESP 18; O2SAT 97
[2020-11-19 13:00] VITALS: BP 137/70; PULSE 80; RESP 18; O2SAT 98
== END 2020-11-19 13:00 | disposition home or self-care (01) ==
LOC: INF 07:42
PROVIDERS: PCP Internal Medicine Adolescent Medicine; Visit Provider Internal Medicine Adolescent Medicine
DX: I50.9 Heart failure, unspecified (principal)
CPT/HCPCS: 80048; 83880; 96360; 96361; J1642

== ENCOUNTER 2020-11-24 07:36 | Outpatient (CLI) | payer MEDICARE, BC, SELFPAY ==
[2020-11-24 08:11] VITALS: BMI 21.9
[2020-11-24 08:36] LABS: Anion Gap 12.1 mEq/L (5-15); Blood Urea Nitrogen 15 mg/dl (9-20); Calcium 8.9 mg/dl (8.4-10.2); Carbon Dioxide 26 mmol/L (22.0-30.0); Chloride 104 mmol/L (98-107); Creatinine Clearance Estimated 48 mL/min (50-200); Estimated Glomerular Filt Rate 58 ml/min (>60); GFR (African American) 70 ML/MIN (>60); Glucose 145 mg/dl (74-100); Potassium 4.1 mmoL/L (3.5-5.1); Sodium 138 mmol/L (136-145)
[2020-11-24 08:45] LABS: NT Pro Brain Natriuretic Pep. 712 pg/mL (0-450)
[2020-11-24 09:05] VITALS: BP 162/77; PULSE 69; RESP 18; TEMP 35.8; O2SAT 96
[2020-11-24 11:15] VITALS: BP 141/72; PULSE 68; RESP 18
== END 2020-11-24 11:15 | disposition home or self-care (01) ==
LOC: INF 07:37
PROVIDERS: PCP Internal Medicine Adolescent Medicine; Visit Provider Internal Medicine Adolescent Medicine
DX: I50.9 Heart failure, unspecified (principal)
CPT/HCPCS: 80048; 83880; 96360; 96361; J1642

== ENCOUNTER 2020-12-03 07:35 | Outpatient (CLI) | payer MEDICARE, BC, SELFPAY ==
[2020-12-03 08:14] VITALS: BMI 21.9
[2020-12-03 08:50] LABS: Chloride 104 mmol/L (98-107); Potassium 4.4 mmoL/L (3.5-5.1); Sodium 137 mmol/L (136-145)
[2020-12-03 08:53] LABS: Anion Gap 12.4 mEq/L (5-15); Blood Urea Nitrogen 21 mg/dl (9-20); Carbon Dioxide 25 mmol/L (22.0-30.0); Creatinine Clearance Estimated 41 mL/min (50-200); Estimated Glomerular Filt Rate 48 ml/min (>60); GFR (African American) 58 ML/MIN (>60)
[2020-12-03 08:54] LABS: Calcium 8.9 mg/dl (8.4-10.2); Glucose 87 mg/dl (74-100)
[2020-12-03 09:03] LABS: NT Pro Brain Natriuretic Pep. 724 pg/mL (0-450)
[2020-12-03 09:20] VITALS: BP 142/78; PULSE 69; RESP 17; TEMP 36.6; O2SAT 97
[2020-12-03 10:20] VITALS: BP 139/81; PULSE 65
[2020-12-03 11:30] VITALS: BP 137/74; PULSE 66; RESP 17; TEMP 36.4; O2SAT 98
== END 2020-12-03 11:35 | disposition home or self-care (01) ==
LOC: INF 07:36
PROVIDERS: PCP Internal Medicine Adolescent Medicine; Visit Provider Internal Medicine Adolescent Medicine
DX: I50.9 Heart failure, unspecified (principal)
CPT/HCPCS: 80048; 83880; 96360; 96361; J1642

== ENCOUNTER 2020-12-10 07:32 | Outpatient (CLI) | payer MEDICARE, BC, SELFPAY ==
[2020-12-10 08:08] VITALS: BMI 22.4
[2020-12-10 08:47] LABS: Anion Gap 13.1 mEq/L (5-15); Blood Urea Nitrogen 17 mg/dl (9-20); Calcium 8.7 mg/dl (8.4-10.2); Carbon Dioxide 24 mmol/L (22.0-30.0); Chloride 104 mmol/L (98-107); Creatinine Clearance Estimated 42 mL/min (50-200); Estimated Glomerular Filt Rate 48 ml/min (>60); GFR (African American) 58 ML/MIN (>60); Glucose 115 mg/dl (74-100); Potassium 4.1 mmoL/L (3.5-5.1); Sodium 137 mmol/L (136-145)
[2020-12-10 08:57] LABS: NT Pro Brain Natriuretic Pep. 679 pg/mL (0-450)
[2020-12-10 09:15] VITALS: BP 144/72; PULSE 68; RESP 18; O2SAT 98
[2020-12-10 09:15] LABS: Prostate Specific Ag, Diagnost 11.2 ng/ml (0.0-4.0)
[2020-12-10 11:20] VITALS: BP 149/79; PULSE 69; RESP 18
== END 2020-12-10 11:20 | disposition home or self-care (01) ==
LOC: INF 07:33
PROVIDERS: PCP Internal Medicine Adolescent Medicine; Visit Provider Internal Medicine Adolescent Medicine
DX: I50.9 Heart failure, unspecified (principal); R97.20 Elevated prostate specific antigen [PSA]
CPT/HCPCS: 80048; 83880; 84153; 96360; 96361; J1642

== ENCOUNTER 2020-12-17 07:33 | Outpatient (CLI) | payer MEDICARE, BC, SELFPAY ==
[2020-12-17 08:09] VITALS: BMI 22.4
[2020-12-17 08:33] LABS: Chloride 103 mmol/L (98-107); Sodium 140 mmol/L (136-145)
[2020-12-17 08:34] LABS: Potassium 4.5 mmoL/L (3.5-5.1)
[2020-12-17 08:36] LABS: Blood Urea Nitrogen 16 mg/dl (9-20); Creatinine Clearance Estimated 42 mL/min (50-200); Estimated Glomerular Filt Rate 48 ml/min (>60); GFR (African American) 58 ML/MIN (>60)
[2020-12-17 08:37] LABS: Anion Gap 16.5 mEq/L (5-15); Calcium 9.1 mg/dl (8.4-10.2); Carbon Dioxide 25 mmol/L (22.0-30.0); Glucose 104 mg/dl (74-100)
[2020-12-17 08:47] LABS: NT Pro Brain Natriuretic Pep. 710 pg/mL (0-450)
[2020-12-17 09:00] VITALS: BP 130/75; PULSE 71; RESP 18; TEMP 36.6; O2SAT 99
[2020-12-17 11:06] VITALS: BP 160/79; PULSE 68; RESP 18
== END 2020-12-17 11:06 | disposition home or self-care (01) ==
LOC: INF 07:34
PROVIDERS: PCP Internal Medicine Adolescent Medicine; Visit Provider Internal Medicine Adolescent Medicine
DX: I50.9 Heart failure, unspecified (principal); E86.0 Dehydration; N28.9 Disorder of kidney and ureter, unspecified
CPT/HCPCS: 80048; 83880; 96360; 96361; J1642

== ENCOUNTER 2020-12-19 12:29 | Emergency (ER) | payer MEDICARE, BC, SELFPAY ==
[2020-12-19 12:30] VITALS: BMI 22.2
[2020-12-19 13:56] VITALS: BP 176/102; PULSE 70; RESP 18; TEMP 36.6; O2SAT 96; BMI 22.4
--- NOTE | 2020-12-19 13:57 | CT_ITS ---
PROCEDURE INFORMATION: Exam: CT Abdomen And Pelvis With Contrast Exam date and time: 12/19/2020 1:57 PM Age: 85 years old Clinical indication: Abdominal pain; Acute; Prior surgery; Surgery date: 6+ months; Surgery type: Had large intestine previously removed // has colostomy; Additional info: Abd pain TECHNIQUE: Imaging protocol: Computed tomography of the abdomen and pelvis with contrast. Radiation optimization: All CT scans at this facility use at least one of these dose optimization techniques: automated exposure control; mA and/or kV adjustment per patient size (includes targeted exams where dose is matched to clinical indication); or iterative reconstruction. Contrast material: ISOVUE; Contrast volume: 75 ml; Contrast route: IV; COMPARISON: 1. CT ABDOMEN PELVIS WO CON 03/05/2019 4:[address] ABD PELVIS W/ CONTRAST 12/28/2016 9:33:27 AM FINDINGS: Liver: No mass. Gallbladder and bile ducts: Cholecystectomy. No biliary ductal dilatation. Pancreas: Normal. No ductal dilation. Spleen: Normal. No splenomegaly. Adrenal glands: Normal. No mass. Kidneys and ureters: 3 mm proximal left ureteral calculus located approximately at the level of the L3 vertebral body, minimal left hydronephrosis. No solid mass. Right upper pole renal atrophy. Stomach and bowel: Colectomy, right lower quadrant ileostomy. No bowel dilatation or wall thickening. Underdistention of the stomach, gastric wall thickening cannot be excluded. Intraperitoneal space: Unremarkable. No free air. No significant fluid collection. Vasculature: No abdominal aortic aneurysm. Lymph nodes: No significant adenopathy. Urinary bladder: Partially obscured, no acute findings. Reproductive: Partially obscured. Bones/joints: Bilateral hip replacements, metallic artifact. Lumbar degenerative disc disease. No acute fracture. Soft tissues: Unremarkable. IMPRESSION: 3 mm proximal left ureteral calculus, minimal left hydronephrosis. Additional findings as above.
[2020-12-19 14:32] LABS: Basophils # 0.1 K/mm3 (0-0.2); Basophils % 0.4 % (0.1-2.0); Eosinophils # 0.1 K/mm3 (0.0-0.4); Eosinophils % 0.6 % (0.1-12.0); Hematocrit 44.6 % (42.0-52.0); Hemoglobin 14.4 g/dL (14.1-18.0); Lymphocytes # 1.1 K/mm3 (0.7-4.5); Lymphocytes % 9.5 % (10-50); Mean Corpuscular HGB Conc 32.3 g/dL (31.8-35.4); Mean Corpuscular Hemoglobin 32.7 pg (27.0-31.2); Mean Corpuscular Volume 101.5 fl (80-94); Mean Platelet Volume 8.1 fl (7.4-10.4); Monocytes # 0.9 K/mm3 (0.1-1.0); Monocytes % 7.1 % (1.7-9.3); Neutrophils % 82.5 % (37.0-80.0); Platelet Count 301 K/mm3 (142-424); Red Cell Distribution Width 13.6 % (11.5-17.5); White Blood Count 12.1 K/mm3 (4.8-10.8)
[2020-12-19 14:39] LABS: Chloride 104 mmol/L (98-107); Potassium 5.3 mmoL/L (3.5-5.1); Sodium 137 mmol/L (136-145)
[2020-12-19 14:41] LABS: Alanine Aminotransferase 18 U/L (12-78); Amylase 133 U/L (30-110); Aspartate Amino Transferase 32 U/L (17-59); Bilirubin,Total 0.6 mg/dl (0.2-1.3); Blood Urea Nitrogen 18 mg/dl (9-20); Estimated Glomerular Filt Rate 48 ml/min (>60); GFR (African American) 58 ML/MIN (>60)
[2020-12-19 14:42] LABS: Albumin Level 4.1 g/dl (3.5-5.0); Albumin/Globulin Ratio 1.3 (1.1-1.8); Alkaline Phosphatase 143 U/L (38-126); Anion Gap 15.3 mEq/L (5-15); Calcium 9.4 mg/dl (8.4-10.2); Carbon Dioxide 23 mmol/L (22.0-30.0); Globulin 3.2 g/dL (1.3-3.2); Glucose 100 mg/dl (74-100); Lipase 73 U/L (23-300); Total Protein,Serum 7.3 g/dl (6.3-8.2)
[2020-12-19 14:47] LABS: Creatinine Clearance Estimated 42 mL/min (50-200)
[2020-12-19 14:58] LABS: Troponin I 0.01 ng/ml (0.00-0.034)
[2020-12-19 15:00] VITALS: BP 123/74; PULSE 78; RESP 20; O2SAT 98
[2020-12-19 16:00] VITALS: BP 134/74; PULSE 68; RESP 20; O2SAT 98
[2020-12-19 16:47] LABS: Microscopic, Urine URINE MICROSCOPIC (MICROSCOPIC)
[2020-12-19 16:49] LABS: Appearance,Urine CLEAR (Clear); Bilirubin,Urine Negative (Negative); Blood, Urine 3+ (Negative); Color,Urine YELLOW (Yellow); Glucose,Urine (UA) Negative (Negative); Ketones,Urine Negative (Negative); Leukocyte Esterase,Urine 1+ (Negative); Nitrate,Urine Negative (Negative); PH,Urine 5.5 (5.0-8.5); Protein,Urine Negative (Negative); Urobilinogen,Urine 0.2 EU/dl (0.2)
--- NOTE | 2020-12-19 16:58 | HMH.EDABDPAI ---
ED Disposition Clinical Impression: Ureterolithiasis Disposition: Home, Self-Care Condition on Discharge: Good Instructions: DI for Acute Abdominal Pain Additional Instructions: You were evaluated in the emergency department today for abdominal pain and found to have a left-sided ureteral stone. Use ibuprofen and acetaminophen as needed for pain control, urine strainer provided to, as well as Zofran prescription provided to you for control of nausea and follow-up as directed with Dr. Marcelino as well as your primary care physician in the next 1 to 2 days for monitoring of any persistent symptoms and coordination of ongoing care needs. Return to the emergency department without hesitation with any new or worsening symptoms. Prescriptions: Ondansetron [Zofran 4mg ODT] 4 mg PO TIDP PRN #12 tab PRN Reason: Nausea Transmission Status: Pending to [facility] Referrals: Milton Smith MD [Primary Care Provider] - Artemio Marcelino MD [Staff Physician] - - Critical Care Critical Care Time: No Attestation: On 12/19/20, the high probability of a clinically significant, sudden or life threatening deterioration of the following system(s) required my full and direct attention, intervention and personal management. The time I documented below is in addition to time spent performing reported procedures but includes the following listed in this critical care notation. Medical Decision Making - Chandana Inquiry Pt receiving controlled substance: Yes Chandana was queried for this patient: No Risks and benefits of using a controlled substance: were discussed with pt by me Vital Signs: 12/19/20 13:56 Temperature 98 F Temperature Source Oral Pulse Rate [Radial] 70 Respiratory Rate 18 Blood Pressure [Right Arm] 176/102 H Blood Pressure Mean [Right Arm] 126 Blood Pressure Position [Right Arm] Sitting 02 Sat by Pulse Oximetry 96 Oxygen Delivery Method Room Air - Lab Data Lab Results 12/19/20 14:25: WBC 12.1 H, RBC 4.40 L, Hgb 14.4, Hct 44.6, MCV 101.5 H, MCH 32.7 H, MCHC 32.3, RDW 13.6, Plt Count 301, MPV 8.1, Neut % (Auto) 82.5 H, Lymph % (Auto) 9.5 L, [place] % (Auto) 7.1, Eos % (Auto) 0.6, Baso % (Auto) 0.4, Neut # (Auto) 10.0 H, Lymph # (Auto) 1.1, [place] # (Auto) 0.9, Eos # (Auto) 0.1, Baso # (Auto) 0.1 12/19/20 14:25: Sodium 137, Potassium 5.3 H, Chloride 104, Carbon Dioxide 23, Anion Gap 15.3 H, BUN 18, Creatinine 1.40 H, Estimated Creat Clear 42, Estimated GFR 48 L, Est GFR ( Amer) 58 L, Glucose 100, Calcium 9.4, Total Bilirubin 0.6, AST 32, ALT 18, Alkaline Phosphatase 143 H, Troponin I 0.01, Total Protein 7.3, Albumin 4.1, Globulin 3.2, Albumin/Globulin Ratio 1.3, Amylase 133 H, Lipase 73 12/19/20 16:40: Urine Color Yellow, Urine Appearance Clear, Urine pH 5.5, Ur Specific [place] 1.020, Urine Protein Negative, Urine Glucose (UA) Negative, Urine Ketones Negative, Urine Blood 3+, Urine Nitrate Negative, Urine Bilirubin Negative, Urine Urobilinogen 0.2, Ur Leukocyte Esterase 1+ A Result diagrams: 12/19/20 14:25 12/19/20 14:25 Orders (Tests/Meds): ED MEDICATIONS Discontinued Medications Generic Name Dose Route Start Last Admin Trade Name Freq PRN Reason Stop Dose Admin Iopamidol 75 ml 12/19/20 16:12 12/19/20 16:16 Iopamidol-370 (76%);100ml Bottle IV 12/19/20 16:13 75 ml ONCE ONE Administration Sodium Chloride 10 ml 12/19/20 16:12 12/19/20 16:16 Sodium Chloride 0.9% 10ml Syr (Rad Only) IV 12/19/20 16:13 10 ml ONCE ONE Administration ORDERS Category Date Time Status Troponin I Q3H Lab 12/19/20 17:00 Ordered Troponin I Q3H Lab 12/19/20 20:00 Ordered Urinalysis and Microscopic Stat Lab 12/19/20 16:40 Results Urine Culture Stat Micro 12/19/20 16:40 Received Medical Decision Narrative: In summary, the patient is an 85-year-old male presenting for evaluation of acute abdominal pain with nausea and vomiting. He is in no acute distress, afebrile and hemodynamical
[2020-12-19 17:05] LABS: RBC,Urine 20-50 #/hpf (0-3)
[2020-12-19 18:46] VITALS: BP 123/74; PULSE 74; RESP 18; TEMP 36.6; O2SAT 98
== END 2020-12-19 18:48 | disposition home or self-care (01) ==
PROVIDERS: Emergency Provider Student in an Organized Health Care Education/Training Program; PCP Internal Medicine Adolescent Medicine
DX: N20.1 Calculus of ureter (principal); I10 Essential (primary) hypertension; I50.9 Heart failure, unspecified; I48.0 Paroxysmal atrial fibrillation; I25.2 Old myocardial infarction; E03.9 Hypothyroidism, unspecified; Z95.0 Presence of cardiac pacemaker; E78.5 Hyperlipidemia, unspecified; Z79.899 Other long term (current) drug therapy
CPT/HCPCS: 74177; 80053; 81001; 82150; 83690; 84484; 85025; 87086; 96365; 96375; 96376; 99283; J1642; J2405; Q9967

== ENCOUNTER → 2020-12-23 08:38 | Outpatient (CLI) | payer MEDICARE, BC, SELFPAY ==
--- NOTE | 2020-12-23 08:41 | XR_ITS ---
PROCEDURE: XR KUB CLINICAL INDICATION: kidney stone COMPARISON: CT CT ABDOMEN PELVIS W CON from 12/19/2020 FINDINGS: Gas pattern-The bowel gas pattern is unremarkable. No obvious obstruction. Calcifications-No abnormal calcifications are evident in the area of the proximal left ureter as noted on recent CT scan. There are couple of tiny faint calcifications seen through the density of the partially filled urinary bladder on the left side and possibly the previously noted calculus has passed into the urinary bladder.. Bones there are bilateral total hip arthroplasties. There multiple surgical clips overlying the lower abdomen and mid pelvis. Prominent multilevel degenerate changes are seen in the lower lumbar spine. IMPRESSION: Probable interval movement inferiorly and or opacities into the urinary bladder of the previously noted proximal left ureteral calculi Dictated by: Dr. Jm Barron MD 12/24/2020 15:16 Dr. Jm Barron MD in [place] 12/24/2020 15:16
== END ==
PROVIDERS: PCP Internal Medicine Adolescent Medicine; Visit Provider Urology
DX: N20.0 Calculus of kidney (principal)
CPT/HCPCS: 74018

== ENCOUNTER 2020-12-24 07:31 | Outpatient (CLI) | payer MEDICARE, BC, SELFPAY ==
[2020-12-24 08:10] VITALS: BMI 21.7
[2020-12-24 08:39] LABS: Chloride 104 mmol/L (98-107); Potassium 4.3 mmoL/L (3.5-5.1); Sodium 139 mmol/L (136-145)
[2020-12-24 08:42] LABS: Blood Urea Nitrogen 19 mg/dl (9-20); Creatinine Clearance Estimated 42 mL/min (50-200); Estimated Glomerular Filt Rate 48 ml/min (>60); GFR (African American) 58 ML/MIN (>60)
[2020-12-24 08:43] LABS: Anion Gap 14.3 mEq/L (5-15); Carbon Dioxide 25 mmol/L (22.0-30.0); Glucose 156 mg/dl (74-100)
[2020-12-24 08:51] LABS: NT Pro Brain Natriuretic Pep. 653 pg/mL (0-450)
[2020-12-24 09:20] VITALS: BP 126/63; PULSE 70; RESP 18; O2SAT 99
[2020-12-24 11:30] VITALS: BP 160/74; PULSE 70; RESP 18
== END 2020-12-24 11:30 | disposition home or self-care (01) ==
LOC: INF 07:32
PROVIDERS: PCP Internal Medicine Adolescent Medicine; Visit Provider Internal Medicine Adolescent Medicine
DX: I50.9 Heart failure, unspecified (principal)
CPT/HCPCS: 80048; 83880; 96360; 96361; J1642

== ENCOUNTER 2020-12-31 07:31 | Outpatient (CLI) | payer MEDICARE, BC, SELFPAY ==
[2020-12-31 08:07] VITALS: BMI 22.4
[2020-12-31 08:29] LABS: Anion Gap 13.6 mEq/L (5-15); Blood Urea Nitrogen 22 mg/dl (9-20); Calcium 9.2 mg/dl (8.4-10.2); Carbon Dioxide 25 mmol/L (22.0-30.0); Chloride 103 mmol/L (98-107); Creatinine Clearance Estimated 36 mL/min (50-200); Estimated Glomerular Filt Rate 41 ml/min (>60); GFR (African American) 50 ML/MIN (>60); Glucose 124 mg/dl (74-100); Potassium 4.6 mmoL/L (3.5-5.1); Sodium 137 mmol/L (136-145)
[2020-12-31 08:39] LABS: NT Pro Brain Natriuretic Pep. 538 pg/mL (0-450)
[2020-12-31 08:55] VITALS: BP 124/65; PULSE 71; RESP 18; O2SAT 97
[2020-12-31 11:00] VITALS: BP 166/85; PULSE 70; RESP 18
== END 2020-12-31 11:00 | disposition home or self-care (01) ==
LOC: INF 07:32
PROVIDERS: PCP Internal Medicine Adolescent Medicine; Visit Provider Internal Medicine Adolescent Medicine
DX: I50.9 Heart failure, unspecified (principal)
CPT/HCPCS: 80048; 83880; 96360; 96361; J1642

== ENCOUNTER 2021-01-07 07:32 | Outpatient (CLI) | payer MEDICARE, BC, SELFPAY ==
[2021-01-07 08:04] VITALS: BMI 22.4
[2021-01-07 08:40] LABS: Anion Gap 14.5 mEq/L (5-15); Blood Urea Nitrogen 24 mg/dl (9-20); Calcium 9.3 mg/dl (8.4-10.2); Carbon Dioxide 23 mmol/L (22.0-30.0); Chloride 103 mmol/L (98-107); Creatinine Clearance Estimated 39 mL/min (50-200); Estimated Glomerular Filt Rate 45 ml/min (>60); GFR (African American) 54 ML/MIN (>60); Glucose 116 mg/dl (74-100); Potassium 4.5 mmoL/L (3.5-5.1); Sodium 136 mmol/L (136-145)
[2021-01-07 08:50] LABS: NT Pro Brain Natriuretic Pep. 665 pg/mL (0-450)
[2021-01-07 09:10] VITALS: BP 146/73; PULSE 69; RESP 18; TEMP 36.4; O2SAT 98
[2021-01-07 11:20] VITALS: BP 163/89; PULSE 73; RESP 18
== END 2021-01-07 11:25 | disposition home or self-care (01) ==
LOC: INF 07:34
PROVIDERS: PCP Internal Medicine Adolescent Medicine; Visit Provider Internal Medicine Adolescent Medicine
DX: I50.9 Heart failure, unspecified (principal)
CPT/HCPCS: 80048; 83880; 96360; 96361; J1642

== ENCOUNTER 2021-01-12 07:33 | Outpatient (CLI) | payer MEDICARE, BC, SELFPAY ==
[2021-01-12 08:18] VITALS: BMI 21.3
[2021-01-12 08:43] LABS: Blood Urea Nitrogen 31 mg/dl (9-20); Calcium 9.3 mg/dl (8.4-10.2); Carbon Dioxide 22 mmol/L (22.0-30.0); Chloride 103 mmol/L (98-107); Creatinine Clearance Estimated 32 mL/min (50-200); Estimated Glomerular Filt Rate 36 ml/min (>60); GFR (African American) 44 ML/MIN (>60); Glucose 138 mg/dl (74-100); Sodium 137 mmol/L (136-145)
[2021-01-12 08:52] LABS: NT Pro Brain Natriuretic Pep. 774 pg/mL (0-450)
[2021-01-12 09:30] VITALS: BP 106/52; PULSE 74; RESP 18; TEMP 36.1; O2SAT 98
[2021-01-12 10:30] VITALS: BP 111/56; PULSE 69; RESP 16
[2021-01-12 11:30] VITALS: BP 114/66; PULSE 69; RESP 16
[2021-01-12 12:30] VITALS: BP 124/66; PULSE 78; RESP 16
== END 2021-01-12 12:45 | disposition home or self-care (01) ==
LOC: INF 07:35
PROVIDERS: PCP Internal Medicine Adolescent Medicine; Visit Provider Internal Medicine Adolescent Medicine
DX: I50.9 Heart failure, unspecified (principal)
CPT/HCPCS: 80048; 83880; 96360; 96361; J1642

== ENCOUNTER 2021-01-19 07:35 | Outpatient (CLI) | payer MEDICARE, BC, SELFPAY ==
[2021-01-19 08:03] VITALS: BMI 22.4
[2021-01-19 08:38] LABS: Anion Gap 17.4 mEq/L (5-15); Blood Urea Nitrogen 28 mg/dl (9-20); Calcium 9.2 mg/dl (8.4-10.2); Carbon Dioxide 22 mmol/L (22.0-30.0); Chloride 104 mmol/L (98-107); Creatinine Clearance Estimated 31 mL/min (50-200); Estimated Glomerular Filt Rate 34 ml/min (>60); GFR (African American) 41 ML/MIN (>60); Glucose 159 mg/dl (74-100); Potassium 4.4 mmoL/L (3.5-5.1); Sodium 139 mmol/L (136-145)
[2021-01-19 08:46] LABS: NT Pro Brain Natriuretic Pep. 885 pg/mL (0-450)
[2021-01-19 09:30] VITALS: BP 133/67; PULSE 69; RESP 18; O2SAT 98
[2021-01-19 11:39] VITALS: BP 160/77; PULSE 69; RESP 18
== END 2021-01-19 11:39 | disposition home or self-care (01) ==
LOC: INF 07:36
PROVIDERS: PCP Internal Medicine Adolescent Medicine; Visit Provider Internal Medicine Adolescent Medicine
DX: I50.9 Heart failure, unspecified (principal)
CPT/HCPCS: 80048; 83880; 96360; 96361; J1642

== ENCOUNTER 2021-01-28 07:35 | Outpatient (CLI) | payer MEDICARE, BC, SELFPAY ==
[2021-01-28 08:10] VITALS: BMI 22.4
[2021-01-28 08:39] LABS: Chloride 104 mmol/L (98-107); Potassium 4.4 mmoL/L (3.5-5.1); Sodium 138 mmol/L (136-145)
[2021-01-28 08:42] LABS: Anion Gap 15.4 mEq/L (5-15); Blood Urea Nitrogen 22 mg/dl (9-20); Calcium 9.2 mg/dl (8.4-10.2); Carbon Dioxide 23 mmol/L (22.0-30.0); Creatinine Clearance Estimated 38 mL/min (50-200); Estimated Glomerular Filt Rate 44 ml/min (>60); GFR (African American) 54 ML/MIN (>60); Glucose 114 mg/dl (74-100)
[2021-01-28 08:52] LABS: NT Pro Brain Natriuretic Pep. 773 pg/mL (0-450)
[2021-01-28 09:05] VITALS: BP 137/75; PULSE 71; RESP 18; TEMP 36.7; O2SAT 96
[2021-01-28 11:20] VITALS: BP 161/77; PULSE 71; RESP 18
== END 2021-01-28 11:20 | disposition home or self-care (01) ==
LOC: INF 07:36
PROVIDERS: PCP Internal Medicine Adolescent Medicine; Visit Provider Internal Medicine Adolescent Medicine
DX: I50.9 Heart failure, unspecified (principal)
CPT/HCPCS: 80048; 83880; 96360; 96361; J1642

== ENCOUNTER 2021-02-04 07:39 | Outpatient (CLI) | payer MEDICARE, BC, SELFPAY ==
[2021-02-04 08:10] VITALS: BMI 22.4
[2021-02-04 08:41] LABS: Chloride 104 mmol/L (98-107); Potassium 4.6 mmoL/L (3.5-5.1); Sodium 138 mmol/L (136-145)
[2021-02-04 08:44] LABS: Anion Gap 16.6 mEq/L (5-15); Blood Urea Nitrogen 34 mg/dl (9-20); Calcium 9.1 mg/dl (8.4-10.2); Carbon Dioxide 22 mmol/L (22.0-30.0); Creatinine Clearance Estimated 25 mL/min (50-200); Estimated Glomerular Filt Rate 27 ml/min (>60); GFR (African American) 33 ML/MIN (>60); Glucose 141 mg/dl (74-100)
[2021-02-04 09:21] LABS: NT Pro Brain Natriuretic Pep. 601 pg/mL (0-450)
[2021-02-04 09:40] VITALS: BP 133/72; PULSE 75; RESP 18; O2SAT 98
[2021-02-04 11:50] VITALS: BP 136/66; PULSE 70; RESP 18
[2021-02-04 12:59] VITALS: BP 136/66; PULSE 70; RESP 18
== END 2021-02-04 12:59 | disposition home or self-care (01) ==
LOC: INF 07:40
PROVIDERS: PCP Internal Medicine Adolescent Medicine; Visit Provider Internal Medicine Adolescent Medicine
DX: I50.9 Heart failure, unspecified (principal)
CPT/HCPCS: 80048; 83880; 96360; 96361; J1642

== ENCOUNTER 2021-02-11 07:33 | Outpatient (CLI) | payer MEDICARE, BC, SELFPAY ==
[2021-02-11 08:11] VITALS: BMI 22.4
[2021-02-11 08:30] LABS: Chloride 106 mmol/L (98-107)
[2021-02-11 08:31] LABS: Potassium 4.8 mmoL/L (3.5-5.1); Sodium 138 mmol/L (136-145)
[2021-02-11 08:33] LABS: Blood Urea Nitrogen 30 mg/dl (9-20); Creatinine Clearance Estimated 32 mL/min (50-200); Estimated Glomerular Filt Rate 36 ml/min (>60); GFR (African American) 44 ML/MIN (>60)
[2021-02-11 08:34] LABS: Anion Gap 13.8 mEq/L (5-15); Calcium 9.1 mg/dl (8.4-10.2); Carbon Dioxide 23 mmol/L (22.0-30.0); Glucose 125 mg/dl (74-100)
[2021-02-11 08:43] LABS: NT Pro Brain Natriuretic Pep. 563 pg/mL (0-450)
[2021-02-11 09:25] VITALS: BP 118/63; PULSE 69; RESP 18; O2SAT 98
[2021-02-11 11:35] VITALS: BP 135/73; PULSE 69; RESP 18
== END 2021-02-11 11:35 | disposition home or self-care (01) ==
LOC: INF 07:34
PROVIDERS: PCP Internal Medicine Adolescent Medicine; Visit Provider Internal Medicine Adolescent Medicine
DX: I50.9 Heart failure, unspecified (principal)
CPT/HCPCS: 80048; 83880; 96360; 96361; J1642

== ENCOUNTER 2021-02-16 07:33 | Outpatient (CLI) | payer MEDICARE, BC, SELFPAY ==
[2021-02-16 08:12] VITALS: BMI 22.4
[2021-02-16 08:33] LABS: Chloride 102 mmol/L (98-107); Potassium 4.9 mmoL/L (3.5-5.1); Sodium 137 mmol/L (136-145)
[2021-02-16 08:36] LABS: Blood Urea Nitrogen 28 mg/dl (9-20); Creatinine Clearance Estimated 32 mL/min (50-200); Estimated Glomerular Filt Rate 36 ml/min (>60); GFR (African American) 44 ML/MIN (>60)
[2021-02-16 08:37] LABS: Anion Gap 16.9 mEq/L (5-15); Calcium 9.2 mg/dl (8.4-10.2); Carbon Dioxide 23 mmol/L (22.0-30.0); Glucose 130 mg/dl (74-100)
[2021-02-16 08:46] LABS: NT Pro Brain Natriuretic Pep. 589 pg/mL (0-450)
[2021-02-16 09:24] VITALS: BP 127/64; PULSE 72; RESP 18; O2SAT 100
[2021-02-16 11:35] VITALS: BP 160/90; PULSE 70; RESP 18
== END 2021-02-16 11:35 | disposition home or self-care (01) ==
LOC: INF 07:34
PROVIDERS: PCP Internal Medicine Adolescent Medicine; Visit Provider Internal Medicine Adolescent Medicine
DX: I50.9 Heart failure, unspecified (principal)
CPT/HCPCS: 80048; 83880; 96360; 96361; J1642

== ENCOUNTER 2021-02-25 07:36 | Outpatient (CLI) | payer MEDICARE, BC, SELFPAY ==
[2021-02-25 08:05] VITALS: BMI 22.4
[2021-02-25 08:49] LABS: Chloride 103 mmol/L (98-107); Potassium 4.7 mmoL/L (3.5-5.1); Sodium 136 mmol/L (136-145)
[2021-02-25 08:52] LABS: Anion Gap 17.7 mEq/L (5-15); Blood Urea Nitrogen 28 mg/dl (9-20); Calcium 9.4 mg/dl (8.4-10.2); Carbon Dioxide 20 mmol/L (22.0-30.0); Creatinine Clearance Estimated 30 mL/min (50-200); Estimated Glomerular Filt Rate 34 ml/min (>60); GFR (African American) 41 ML/MIN (>60); Glucose 127 mg/dl (74-100)
[2021-02-25 09:01] LABS: NT Pro Brain Natriuretic Pep. 587 pg/mL (0-450)
[2021-02-25 09:18] VITALS: BP 130/64; PULSE 69; RESP 18; TEMP 36.6; O2SAT 100
[2021-02-25 11:25] VITALS: BP 135/63; PULSE 69; RESP 18
[2021-02-25 12:33] VITALS: BP 159/72; PULSE 69; RESP 18
== END 2021-02-25 12:33 | disposition home or self-care (01) ==
LOC: INF 07:37
PROVIDERS: PCP Internal Medicine Adolescent Medicine; Visit Provider Internal Medicine Adolescent Medicine
DX: I50.9 Heart failure, unspecified (principal)
CPT/HCPCS: 80048; 83880; 96360; 96361; J1642

== ENCOUNTER 2021-03-04 07:28 | Outpatient (CLI) | payer MEDICARE, BC, SELFPAY ==
[2021-03-04 08:12] VITALS: BMI 21.7
[2021-03-04 08:44] LABS: Chloride 103 mmol/L (98-107); Potassium 4.7 mmoL/L (3.5-5.1); Sodium 134 mmol/L (136-145)
[2021-03-04 08:47] LABS: Blood Urea Nitrogen 26 mg/dl (9-20); Creatinine Clearance Estimated 35 mL/min (50-200); Estimated Glomerular Filt Rate 41 ml/min (>60); GFR (African American) 50 ML/MIN (>60)
[2021-03-04 08:48] LABS: Anion Gap 11.7 mEq/L (5-15); Calcium 9.1 mg/dl (8.4-10.2); Carbon Dioxide 24 mmol/L (22.0-30.0); Glucose 125 mg/dl (74-100)
[2021-03-04 08:57] LABS: NT Pro Brain Natriuretic Pep. 656 pg/mL (0-450)
[2021-03-04 09:20] VITALS: BP 130/70; PULSE 69; RESP 18; TEMP 36.4; O2SAT 99
[2021-03-04 11:30] VITALS: BP 150/73; PULSE 68; RESP 18
== END 2021-03-04 11:30 | disposition home or self-care (01) ==
LOC: INF 07:29
PROVIDERS: PCP Internal Medicine Adolescent Medicine; Visit Provider Internal Medicine Adolescent Medicine
DX: I50.9 Heart failure, unspecified (principal); E86.0 Dehydration
CPT/HCPCS: 80048; 83880; 96360; 96361; J1642

== ENCOUNTER 2021-03-11 07:28 | Outpatient (CLI) | payer MEDICARE, BC, SELFPAY ==
[2021-03-11 08:10] VITALS: BMI 21.7
[2021-03-11 08:47] LABS: Anion Gap 12.5 mEq/L (5-15); Blood Urea Nitrogen 28 mg/dl (9-20); Calcium 9.1 mg/dl (8.4-10.2); Carbon Dioxide 24 mmol/L (22.0-30.0); Chloride 104 mmol/L (98-107); Creatinine Clearance Estimated 31 mL/min (50-200); Estimated Glomerular Filt Rate 36 ml/min (>60); GFR (African American) 44 ML/MIN (>60); Glucose 122 mg/dl (74-100); Potassium 4.5 mmoL/L (3.5-5.1); Sodium 136 mmol/L (136-145)
[2021-03-11 08:56] LABS: NT Pro Brain Natriuretic Pep. 592 pg/mL (0-450)
[2021-03-11 09:00] VITALS: BP 140/76; PULSE 70; RESP 18; O2SAT 96
[2021-03-11 12:10] VITALS: BP 175/85; PULSE 68; RESP 18
== END 2021-03-11 12:10 | disposition home or self-care (01) ==
LOC: INF 07:30
PROVIDERS: PCP Internal Medicine Adolescent Medicine; Visit Provider Internal Medicine Adolescent Medicine
DX: I50.9 Heart failure, unspecified (principal); E86.0 Dehydration
CPT/HCPCS: 80048; 83880; 96360; 96361; J1642

== ENCOUNTER 2021-03-18 07:37 | Outpatient (CLI) | payer MEDICARE, BC, SELFPAY ==
[2021-03-18 08:13] VITALS: BMI 21.7
[2021-03-18 08:40] LABS: Basophils # 0.1 K/mm3 (0-0.2); Basophils % 1.1 % (0.1-2.0); Eosinophils # 0.2 K/mm3 (0.0-0.4); Eosinophils % 2.6 % (0.1-12.0); Hematocrit 44.1 % (42.0-52.0); Hemoglobin 13.6 g/dL (14.1-18.0); Lymphocytes # 1.2 K/mm3 (0.7-4.5); Lymphocytes % 15.7 % (10-50); Mean Corpuscular HGB Conc 30.9 g/dL (31.8-35.4); Mean Corpuscular Hemoglobin 32.5 pg (27.0-31.2); Mean Corpuscular Volume 105.3 fl (80-94); Mean Platelet Volume 8.1 fl (7.4-10.4); Monocytes # 0.7 K/mm3 (0.1-1.0); Monocytes % 8.8 % (1.7-9.3); Neutrophils # 5.4 K/mm3 (1.8-7.8); Neutrophils % 71.9 % (37.0-80.0); Platelet Count 240 K/mm3 (142-424); Red Blood Count 4.19 M/mm3 (4.60-6.20); Red Cell Distribution Width 13.9 % (11.5-17.5); White Blood Count 7.5 K/mm3 (4.8-10.8)
[2021-03-18 08:54] LABS: Anion Gap 13.6 mEq/L (5-15); Blood Urea Nitrogen 31 mg/dl (9-20); Calcium 9.4 mg/dl (8.4-10.2); Carbon Dioxide 25 mmol/L (22.0-30.0); Chloride 102 mmol/L (98-107); Chol/HDL Ratio 3.8 (1-3.5); Cholesterol 126 mg/dl (140-200); Creatinine Clearance Estimated 31 mL/min (50-200); Estimated Glomerular Filt Rate 36 ml/min (>60); GFR (African American) 44 ML/MIN (>60); Glucose 130 mg/dl (74-100); HDL Cholesterol 33 mg/dl (40-60); Potassium 4.6 mmoL/L (3.5-5.1); Sodium 136 mmol/L (136-145); Triglycerides 141 mg/dl (30-150); VLDL Cholesterol 28 mg/dL (0-40)
[2021-03-18 09:04] LABS: Direct LDL Cholesterol 74.23 mg/dL (100-129)
[2021-03-18 09:11] LABS: NT Pro Brain Natriuretic Pep. 524 pg/mL (0-450)
[2021-03-18 09:40] VITALS: BP 128/74; PULSE 75; RESP 18; TEMP 36.4; O2SAT 100
[2021-03-18 09:51] LABS: Vitamin B12 314 pg/mL (239-931)
[2021-03-18 09:55] LABS: Triiodothryronine (T3) Uptake 32 % (23.5-40.5)
[2021-03-18 09:56] LABS: Free Thyroxine Index 3.3 ug/dL (5.93-13.13); T4 (Thyroxine) 10.3 ug/dl (5.53-11.0)
[2021-03-18 10:09] LABS: Thyroid Stimulating Hormone 1.43 uIU/mL (0.465-4.68)
[2021-03-18 10:40] VITALS: BP 124/84; PULSE 79; RESP 16; O2SAT 99
[2021-03-18 11:48] VITALS: BP 143/79; PULSE 69; RESP 16; TEMP 36.6; O2SAT 99
== END 2021-03-18 11:55 | disposition home or self-care (01) ==
LOC: INF 07:38
PROVIDERS: PCP Internal Medicine Adolescent Medicine; Visit Provider Internal Medicine Adolescent Medicine
DX: I50.9 Heart failure, unspecified (principal); I25.10 Atherosclerotic heart disease of native coronary artery without angina pectoris; E03.9 Hypothyroidism, unspecified; E86.0 Dehydration
CPT/HCPCS: 80048; 80061; 82607; 83880; 84436; 84443; 84479; 85025; 96360; 96361; J1642

== ENCOUNTER 2021-03-25 07:34 | Outpatient (CLI) | payer MEDICARE, BC, SELFPAY ==
[2021-03-25 08:13] VITALS: BMI 21.7
[2021-03-25 08:41] LABS: Chloride 105 mmol/L (98-107); Potassium 4.6 mmoL/L (3.5-5.1); Sodium 137 mmol/L (136-145)
[2021-03-25 08:44] LABS: Anion Gap 11.6 mEq/L (5-15); Blood Urea Nitrogen 25 mg/dl (9-20); Carbon Dioxide 25 mmol/L (22.0-30.0); Creatinine Clearance Estimated 35 mL/min (50-200); Estimated Glomerular Filt Rate 41 ml/min (>60); GFR (African American) 50 ML/MIN (>60); Glucose 140 mg/dl (74-100)
[2021-03-25 08:54] LABS: NT Pro Brain Natriuretic Pep. 624 pg/mL (0-450)
[2021-03-25 09:07] VITALS: BP 144/76; PULSE 71; RESP 18; TEMP 36.6; O2SAT 99
[2021-03-25 11:20] VITALS: BP 155/78; PULSE 70; RESP 18
[2021-03-26 08:18] LABS: PSA, Free 1.72 ng/mL; Prostate Specific Ag 14.8 ng/mL (0.0-4.0)
== END 2021-03-25 11:20 | disposition home or self-care (01) ==
LOC: INF 07:35
PROVIDERS: Urology; PCP Internal Medicine Adolescent Medicine; Visit Provider Internal Medicine Adolescent Medicine
DX: I50.9 Heart failure, unspecified (principal); E86.0 Dehydration; R97.20 Elevated prostate specific antigen [PSA]
CPT/HCPCS: 80048; 83880; 84153; 84154; 96361; J1642

== ENCOUNTER 2021-04-04 07:41 | Outpatient (CLI) | payer MEDICARE, BC, SELFPAY ==
[2021-04-04 08:08] VITALS: BMI 22.4
[2021-04-04 08:30] LABS: Chloride 100 mmol/L (98-107); Potassium 4.5 mmoL/L (3.5-5.1); Sodium 134 mmol/L (136-145)
[2021-04-04 08:33] LABS: Anion Gap 15.5 mEq/L (5-15); Blood Urea Nitrogen 28 mg/dl (9-20); Calcium 9.3 mg/dl (8.4-10.2); Carbon Dioxide 23 mmol/L (22.0-30.0); Creatinine Clearance Estimated 32 mL/min (50-200); Estimated Glomerular Filt Rate 36 ml/min (>60); GFR (African American) 44 ML/MIN (>60); Glucose 130 mg/dl (74-100)
[2021-04-04 08:44] LABS: NT Pro Brain Natriuretic Pep. 592 pg/mL (0-450)
[2021-04-04 09:20] VITALS: BP 120/71; PULSE 63; RESP 18; TEMP 36.4; O2SAT 98
[2021-04-04 11:24] VITALS: BP 158/78; PULSE 66; RESP 18
== END 2021-04-04 11:25 | disposition home or self-care (01) ==
LOC: INF 07:42
PROVIDERS: PCP Internal Medicine Adolescent Medicine; Visit Provider Internal Medicine Adolescent Medicine
DX: I50.9 Heart failure, unspecified (principal); N28.9 Disorder of kidney and ureter, unspecified; E86.0 Dehydration
CPT/HCPCS: 80048; 83880; 96360; 96361; J1642

== ENCOUNTER 2021-04-08 07:27 | Outpatient (CLI) | payer MEDICARE, BC, SELFPAY ==
[2021-04-08 08:07] VITALS: BMI 22.4
[2021-04-08 08:31] LABS: Chloride 105 mmol/L (98-107); Potassium 4.3 mmoL/L (3.5-5.1); Sodium 133 mmol/L (136-145)
[2021-04-08 08:33] LABS: Alanine Aminotransferase 23 U/L (12-78); Aspartate Amino Transferase 36 U/L (17-59); Blood Urea Nitrogen 23 mg/dl (9-20); Creatinine Clearance Estimated 36 mL/min (50-200); Estimated Glomerular Filt Rate 41 ml/min (>60); GFR (African American) 50 ML/MIN (>60)
[2021-04-08 08:34] LABS: Albumin/Globulin Ratio 1.3 (1.1-1.8); Alkaline Phosphatase 144 U/L (38-126); Anion Gap 8.3 mEq/L (5-15); Bilirubin,Total 0.7 mg/dl (0.2-1.3); Calcium 8.2 mg/dl (8.4-10.2); Carbon Dioxide 24 mmol/L (22.0-30.0); Globulin 3.1 g/dL (1.3-3.2); Glucose 112 mg/dl (74-100); Total Protein,Serum 7.1 g/dl (6.3-8.2)
[2021-04-08 08:40] LABS: Basophils # 0.2 K/mm3 (0-0.2); Basophils % 2.2 % (0.1-2.0); Eosinophils # 0.2 K/mm3 (0.0-0.4); Eosinophils % 3.1 % (0.1-12.0); Hematocrit 41.1 % (42.0-52.0); Hemoglobin 13.3 g/dL (14.1-18.0); Lymphocytes # 1.2 K/mm3 (0.7-4.5); Lymphocytes % 16.8 % (10-50); Mean Corpuscular HGB Conc 32.3 g/dL (31.8-35.4); Mean Corpuscular Volume 105.3 fl (80-94); Mean Platelet Volume 8.3 fl (7.4-10.4); Monocytes # 0.6 K/mm3 (0.1-1.0); Monocytes % 8.7 % (1.7-9.3); Neutrophils # 4.7 K/mm3 (1.8-7.8); Neutrophils % 69.2 % (37.0-80.0); Platelet Count 293 K/mm3 (142-424); White Blood Count 6.8 K/mm3 (4.8-10.8)
[2021-04-08 08:43] LABS: NT Pro Brain Natriuretic Pep. 685 pg/mL (0-450)
[2021-04-08 08:55] VITALS: BP 128/70; PULSE 70; RESP 18; TEMP 36.6; O2SAT 98
[2021-04-08 11:05] VITALS: BP 140/76; PULSE 72; RESP 18
== END 2021-04-08 11:05 | disposition home or self-care (01) ==
LOC: INF 07:28
PROVIDERS: PCP Internal Medicine Adolescent Medicine; Visit Provider Internal Medicine Adolescent Medicine
DX: I50.9 Heart failure, unspecified (principal); E86.0 Dehydration
CPT/HCPCS: 80053; 83880; 85025; 96360; 96361; J1642

== ENCOUNTER 2021-04-13 07:26 | Outpatient (CLI) | payer MEDICARE, BC, SELFPAY ==
[2021-04-13 08:07] VITALS: BMI 21.7
[2021-04-13 08:34] LABS: Chloride 99 mmol/L (98-107); Sodium 131 mmol/L (136-145)
[2021-04-13 08:37] LABS: Blood Urea Nitrogen 31 mg/dl (9-20); Calcium 8.8 mg/dl (8.4-10.2); Carbon Dioxide 21 mmol/L (22.0-30.0); Creatinine Clearance Estimated 28 mL/min (50-200); Estimated Glomerular Filt Rate 32 ml/min (>60); GFR (African American) 39 ML/MIN (>60); Glucose 93 mg/dl (74-100)
[2021-04-13 08:47] LABS: NT Pro Brain Natriuretic Pep. 513 pg/mL (0-450)
[2021-04-13 09:20] VITALS: BP 112/69; PULSE 72; RESP 18; O2SAT 100
[2021-04-13 13:30] VITALS: BP 153/78; PULSE 80; RESP 18
== END 2021-04-13 13:30 | disposition home or self-care (01) ==
LOC: INF 07:27
PROVIDERS: PCP Internal Medicine Adolescent Medicine; Visit Provider Internal Medicine Adolescent Medicine
DX: I50.9 Heart failure, unspecified (principal); E86.0 Dehydration
CPT/HCPCS: 80048; 83880; 96360; 96361; J1642

== ENCOUNTER 2021-04-18 07:23 | Outpatient (CLI) | payer MEDICARE, BC, SELFPAY ==
[2021-04-18 08:05] VITALS: BMI 21.7
[2021-04-18 08:27] LABS: Chloride 103 mmol/L (98-107)
[2021-04-18 08:28] LABS: Potassium 4.8 mmoL/L (3.5-5.1); Sodium 132 mmol/L (136-145)
[2021-04-18 08:31] LABS: Anion Gap 11.8 mEq/L (5-15); Blood Urea Nitrogen 33 mg/dl (9-20); Calcium 8.5 mg/dl (8.4-10.2); Carbon Dioxide 22 mmol/L (22.0-30.0); Creatinine Clearance Estimated 31 mL/min (50-200); Estimated Glomerular Filt Rate 36 ml/min (>60); GFR (African American) 44 ML/MIN (>60); Glucose 101 mg/dl (74-100)
[2021-04-18 08:40] LABS: NT Pro Brain Natriuretic Pep. 638 pg/mL (0-450)
[2021-04-18 09:00] VITALS: BP 148/73; PULSE 68; RESP 18; O2SAT 98
[2021-04-18 11:10] VITALS: BP 148/71; PULSE 69; RESP 18
== END 2021-04-18 11:10 | disposition home or self-care (01) ==
LOC: INF 07:24
PROVIDERS: PCP Internal Medicine Adolescent Medicine; Visit Provider Internal Medicine Adolescent Medicine
DX: I50.9 Heart failure, unspecified (principal)
CPT/HCPCS: 80048; 83880; 96361; J1642

== ENCOUNTER → 2021-04-22 08:19 | Outpatient (CLI) | payer MEDICARE, BC, SELFPAY | PROVIDERS: PCP Internal Medicine Adolescent Medicine; Visit Provider Internal Medicine Adolescent Medicine | DX: I50.9 Heart failure, unspecified (principal) ==

== ENCOUNTER 2021-04-25 07:34 | Outpatient (CLI) | payer MEDICARE, BC, SELFPAY ==
[2021-04-25 08:10] VITALS: BMI 22.4
[2021-04-25 08:39] LABS: Chloride 100 mmol/L (98-107); Potassium 4.8 mmoL/L (3.5-5.1); Sodium 133 mmol/L (136-145)
[2021-04-25 08:42] LABS: Anion Gap 12.8 mEq/L (5-15); Blood Urea Nitrogen 22 mg/dl (9-20); Calcium 8.3 mg/dl (8.4-10.2); Carbon Dioxide 25 mmol/L (22.0-30.0); Creatinine Clearance Estimated 36 mL/min (50-200); Estimated Glomerular Filt Rate 41 ml/min (>60); GFR (African American) 50 ML/MIN (>60); Glucose 105 mg/dl (74-100)
[2021-04-25 08:52] LABS: NT Pro Brain Natriuretic Pep. 578 pg/mL (0-450)
[2021-04-25 09:10] VITALS: BP 131/74; PULSE 69; RESP 18; O2SAT 99
[2021-04-25 12:20] VITALS: BP 147/83; PULSE 74; RESP 18
== END 2021-04-25 12:20 | disposition home or self-care (01) ==
LOC: INF 07:35
PROVIDERS: PCP Internal Medicine Adolescent Medicine; Visit Provider Internal Medicine Adolescent Medicine
DX: I50.9 Heart failure, unspecified (principal); E86.0 Dehydration
CPT/HCPCS: 80048; 83880; 96360; 96361; J1642

== ENCOUNTER 2021-05-02 07:32 | Outpatient (CLI) | payer MEDICARE, BC, SELFPAY ==
[2021-05-02 08:05] VITALS: BMI 22.4
[2021-05-02 08:37] LABS: Anion Gap 16.5 mEq/L (5-15); Blood Urea Nitrogen 45 mg/dl (9-20); Calcium 8.9 mg/dl (8.4-10.2); Carbon Dioxide 22 mmol/L (22.0-30.0); Chloride 102 mmol/L (98-107); Creatinine Clearance Estimated 25 mL/min (50-200); Estimated Glomerular Filt Rate 27 ml/min (>60); GFR (African American) 33 ML/MIN (>60); Glucose 106 mg/dl (74-100); Potassium 5.5 mmoL/L (3.5-5.1); Sodium 135 mmol/L (136-145)
[2021-05-02 08:46] LABS: NT Pro Brain Natriuretic Pep. 496 pg/mL (0-450)
[2021-05-02 09:00] VITALS: BP 123/61; PULSE 69; RESP 18; O2SAT 99
[2021-05-02 13:15] VITALS: BP 154/69; PULSE 65; RESP 18; O2SAT 98
== END 2021-05-02 13:05 | disposition home or self-care (01) ==
LOC: INF 07:33
PROVIDERS: PCP Internal Medicine Adolescent Medicine; Visit Provider Internal Medicine Adolescent Medicine
DX: I50.9 Heart failure, unspecified (principal); Z45.2 Encounter for adjustment and management of vascular access device
CPT/HCPCS: 80048; 83880; 96360; 96361; J1642

== ENCOUNTER 2021-05-06 07:35 | Outpatient (CLI) | payer MEDICARE, BC, SELFPAY ==
[2021-05-06 08:09] VITALS: BMI 21.7
[2021-05-06 08:32] LABS: Anion Gap 15.6 mEq/L (5-15); Blood Urea Nitrogen 28 mg/dl (9-20); Calcium 8.9 mg/dl (8.4-10.2); Carbon Dioxide 22 mmol/L (22.0-30.0); Chloride 104 mmol/L (98-107); Creatinine Clearance Estimated 37 mL/min (50-200); Estimated Glomerular Filt Rate 44 ml/min (>60); GFR (African American) 54 ML/MIN (>60); Glucose 104 mg/dl (74-100); Potassium 4.6 mmoL/L (3.5-5.1); Sodium 137 mmol/L (136-145)
[2021-05-06 08:40] LABS: NT Pro Brain Natriuretic Pep. 997 pg/mL (0-450)
[2021-05-06 09:10] VITALS: BP 138/76; PULSE 71; RESP 18; O2SAT 100
[2021-05-06 11:20] VITALS: BP 174/86; PULSE 80; RESP 18
== END 2021-05-06 11:20 | disposition home or self-care (01) ==
LOC: INF 07:36
PROVIDERS: PCP Internal Medicine Adolescent Medicine; Visit Provider Internal Medicine Adolescent Medicine
DX: I50.9 Heart failure, unspecified (principal)
CPT/HCPCS: 80048; 83880; 96360; 96361; J1642

== ENCOUNTER 2021-05-11 07:31 | Outpatient (CLI) | payer MEDICARE, BC, SELFPAY ==
[2021-05-11 08:14] VITALS: BMI 21.7
[2021-05-11 08:55] LABS: Blood Urea Nitrogen 35 mg/dl (9-20); Calcium 9.1 mg/dl (8.4-10.2); Carbon Dioxide 20 mmol/L (22.0-30.0); Chloride 104 mmol/L (98-107); Creatinine Clearance Estimated 26 mL/min (50-200); Estimated Glomerular Filt Rate 30 ml/min (>60); GFR (African American) 37 ML/MIN (>60); Glucose 136 mg/dl (74-100); Sodium 136 mmol/L (136-145)
[2021-05-11 09:05] LABS: NT Pro Brain Natriuretic Pep. 470 pg/mL (0-450)
[2021-05-11 09:50] VITALS: BP 134/69; PULSE 73; RESP 18; O2SAT 99
[2021-05-11 13:10] VITALS: BP 136/79; PULSE 62; RESP 18
== END 2021-05-11 13:10 | disposition home or self-care (01) ==
LOC: INF 07:32
PROVIDERS: PCP Internal Medicine Adolescent Medicine; Visit Provider Internal Medicine Adolescent Medicine
DX: I50.9 Heart failure, unspecified (principal)
CPT/HCPCS: 80048; 83880; 96360; 96361; J1642

== ENCOUNTER 2021-05-16 07:54 | Outpatient (CLI) | payer MEDICARE, BC, SELFPAY ==
[2021-05-16 08:31] VITALS: BMI 21.7
[2021-05-16 09:40] LABS: Chloride 101 mmol/L (98-107); Potassium 4.9 mmoL/L (3.5-5.1); Sodium 135 mmol/L (136-145)
[2021-05-16 09:43] LABS: Anion Gap 17.9 mEq/L (5-15); Blood Urea Nitrogen 32 mg/dl (9-20); Calcium 8.5 mg/dl (8.4-10.2); Carbon Dioxide 21 mmol/L (22.0-30.0); Creatinine Clearance Estimated 26 mL/min (50-200); Estimated Glomerular Filt Rate 30 ml/min (>60); GFR (African American) 37 ML/MIN (>60); Glucose 126 mg/dl (74-100)
[2021-05-16 09:52] LABS: NT Pro Brain Natriuretic Pep. 767 pg/mL (0-450)
[2021-05-16 10:30] VITALS: BP 123/61; PULSE 65; RESP 18; O2SAT 96
[2021-05-16 13:55] VITALS: BP 142/70; PULSE 70; RESP 18
== END 2021-05-16 13:55 | disposition home or self-care (01) ==
LOC: INF 07:55
PROVIDERS: PCP Internal Medicine Adolescent Medicine; Visit Provider Internal Medicine Adolescent Medicine
DX: I50.9 Heart failure, unspecified (principal); E86.0 Dehydration; N28.9 Disorder of kidney and ureter, unspecified
CPT/HCPCS: 80048; 83880; 96360; 96361; J1642

== ENCOUNTER 2021-05-20 07:36 | Outpatient (CLI) | payer MEDICARE, BC, SELFPAY ==
[2021-05-20 08:07] VITALS: BMI 21.7
[2021-05-20 08:30] LABS: Chloride 104 mmol/L (98-107); Potassium 4.4 mmoL/L (3.5-5.1); Sodium 136 mmol/L (136-145)
[2021-05-20 08:33] LABS: Anion Gap 13.4 mEq/L (5-15); Blood Urea Nitrogen 27 mg/dl (9-20); Calcium 8.4 mg/dl (8.4-10.2); Carbon Dioxide 23 mmol/L (22.0-30.0); Creatinine Clearance Estimated 33 mL/min (50-200); Estimated Glomerular Filt Rate 38 ml/min (>60); GFR (African American) 47 ML/MIN (>60); Glucose 96 mg/dl (74-100)
[2021-05-20 08:42] LABS: NT Pro Brain Natriuretic Pep. 720 pg/mL (0-450)
[2021-05-20 09:22] VITALS: BP 126/66; PULSE 69; RESP 18; O2SAT 100
[2021-05-20 11:00] VITALS: BP 148/75; PULSE 69; RESP 18
== END 2021-05-20 11:00 | disposition home or self-care (01) ==
LOC: INF 07:37
PROVIDERS: PCP Internal Medicine Adolescent Medicine; Visit Provider Internal Medicine Adolescent Medicine
DX: I50.9 Heart failure, unspecified (principal); N28.9 Disorder of kidney and ureter, unspecified
CPT/HCPCS: 80048; 83880; 96360; 96361; J1642

== ENCOUNTER 2021-05-26 08:26 | Outpatient (CLI) | payer MEDICARE, BC, SELFPAY ==
[2021-05-26 08:27] VITALS: BMI 21.7
[2021-05-26 08:50] LABS: Potassium 4.8 mmoL/L (3.5-5.1); Sodium 138 mmol/L (136-145)
[2021-05-26 08:54] LABS: Calcium 8.4 mg/dl (8.4-10.2); Carbon Dioxide 22 mmol/L (22.0-30.0); Glucose 115 mg/dl (74-100)
[2021-05-26 08:59] LABS: Blood Urea Nitrogen 25 mg/dl (9-20); Creatinine Clearance Estimated 29 mL/min (50-200); Estimated Glomerular Filt Rate 34 ml/min (>60); GFR (African American) 41 ML/MIN (>60)
[2021-05-26 09:02] LABS: NT Pro Brain Natriuretic Pep. 636 pg/mL (0-450)
[2021-05-26 09:29] VITALS: BP 133/70; PULSE 77; RESP 18; O2SAT 98
[2021-05-26 10:14] LABS: Anion Gap 15.8 mEq/L (5-15); Chloride 105 mmol/L (98-107)
[2021-05-26 11:40] VITALS: BP 140/85; PULSE 76; RESP 18
== END 2021-05-26 11:40 | disposition home or self-care (01) ==
LOC: INF 08:27
PROVIDERS: PCP Internal Medicine Adolescent Medicine; Visit Provider Internal Medicine Adolescent Medicine
DX: I50.9 Heart failure, unspecified (principal)
CPT/HCPCS: 80048; 83880; 96360; 96361; J1642

== ENCOUNTER 2021-05-31 07:27 | Outpatient (CLI) | payer MEDICARE, BC, SELFPAY ==
[2021-05-31 08:06] VITALS: BMI 21.7
[2021-05-31 08:24] LABS: Chloride 102 mmol/L (98-107)
[2021-05-31 08:25] LABS: Potassium 4.8 mmoL/L (3.5-5.1); Sodium 135 mmol/L (136-145)
[2021-05-31 08:28] LABS: Anion Gap 13.8 mEq/L (5-15); Blood Urea Nitrogen 27 mg/dl (9-20); Calcium 8.5 mg/dl (8.4-10.2); Carbon Dioxide 24 mmol/L (22.0-30.0); Creatinine Clearance Estimated 29 mL/min (50-200); Estimated Glomerular Filt Rate 34 ml/min (>60); GFR (African American) 41 ML/MIN (>60); Glucose 132 mg/dl (74-100)
[2021-05-31 08:37] LABS: NT Pro Brain Natriuretic Pep. 545 pg/mL (0-450)
[2021-05-31 08:50] VITALS: BP 128/62; PULSE 74; RESP 18; TEMP 36.7; O2SAT 100
[2021-05-31 12:10] VITALS: BP 145/86; PULSE 70; RESP 18
== END 2021-05-31 12:10 | disposition home or self-care (01) ==
LOC: INF 07:28
PROVIDERS: PCP Internal Medicine Adolescent Medicine; Visit Provider Internal Medicine Adolescent Medicine
DX: I50.9 Heart failure, unspecified (principal)
CPT/HCPCS: 80048; 83880; 96360; 96361; J1642

== ENCOUNTER 2021-06-03 07:26 | Outpatient (CLI) | payer MEDICARE, BC, SELFPAY ==
[2021-06-03 08:12] VITALS: BMI 22.4
[2021-06-03 08:36] LABS: Chloride 103 mmol/L (98-107); Potassium 4.6 mmoL/L (3.5-5.1); Sodium 135 mmol/L (136-145)
[2021-06-03 08:39] LABS: Anion Gap 11.6 mEq/L (5-15); Blood Urea Nitrogen 21 mg/dl (9-20); Calcium 8.4 mg/dl (8.4-10.2); Carbon Dioxide 25 mmol/L (22.0-30.0); Creatinine Clearance Estimated 36 mL/min (50-200); Estimated Glomerular Filt Rate 41 ml/min (>60); GFR (African American) 50 ML/MIN (>60); Glucose 86 mg/dl (74-100)
[2021-06-03 08:49] LABS: NT Pro Brain Natriuretic Pep. 1060 pg/mL (0-450)
[2021-06-03 09:25] VITALS: BP 142/56; PULSE 74; RESP 18; O2SAT 100
[2021-06-03 12:40] VITALS: BP 153/72; PULSE 76; RESP 18
== END 2021-06-03 12:40 | disposition home or self-care (01) ==
LOC: INF 07:27
PROVIDERS: PCP Internal Medicine Adolescent Medicine; Visit Provider Internal Medicine Adolescent Medicine
DX: I50.9 Heart failure, unspecified (principal); N28.9 Disorder of kidney and ureter, unspecified
CPT/HCPCS: 80048; 83880; 96360; 96361; J1642

== ENCOUNTER 2021-06-07 07:28 | Outpatient (CLI) | payer MEDICARE, BC, SELFPAY ==
[2021-06-07 08:05] VITALS: BMI 22.4
[2021-06-07 08:25] LABS: Chloride 106 mmol/L (98-107); Potassium 4.3 mmoL/L (3.5-5.1); Sodium 136 mmol/L (136-145)
[2021-06-07 08:28] LABS: Anion Gap 10.3 mEq/L (5-15); Blood Urea Nitrogen 20 mg/dl (9-20); Calcium 8.1 mg/dl (8.4-10.2); Carbon Dioxide 24 mmol/L (22.0-30.0); Creatinine Clearance Estimated 38 mL/min (50-200); Estimated Glomerular Filt Rate 44 ml/min (>60); GFR (African American) 54 ML/MIN (>60); Glucose 99 mg/dl (74-100)
[2021-06-07 08:38] LABS: NT Pro Brain Natriuretic Pep. 831 pg/mL (0-450)
[2021-06-07 09:00] VITALS: BP 139/73; PULSE 70; RESP 18; O2SAT 100
[2021-06-07 12:15] VITALS: BP 179/91; PULSE 70; RESP 18
== END 2021-06-07 12:15 | disposition home or self-care (01) ==
LOC: INF 07:29
PROVIDERS: PCP Internal Medicine Adolescent Medicine; Visit Provider Internal Medicine Adolescent Medicine
DX: I50.9 Heart failure, unspecified (principal); N28.9 Disorder of kidney and ureter, unspecified
CPT/HCPCS: 80048; 83880; 96360; 96361; J1642

== ENCOUNTER 2021-06-10 07:25 | Outpatient (CLI) | payer MEDICARE, BC, SELFPAY ==
[2021-06-10 08:10] VITALS: BMI 21.7
[2021-06-10 08:29] LABS: Chloride 103 mmol/L (98-107); Potassium 4.1 mmoL/L (3.5-5.1); Sodium 136 mmol/L (136-145)
[2021-06-10 08:32] LABS: Anion Gap 13.1 mEq/L (5-15); Blood Urea Nitrogen 19 mg/dl (9-20); Calcium 8.1 mg/dl (8.4-10.2); Carbon Dioxide 24 mmol/L (22.0-30.0); Creatinine Clearance Estimated 37 mL/min (50-200); Estimated Glomerular Filt Rate 44 ml/min (>60); GFR (African American) 54 ML/MIN (>60); Glucose 123 mg/dl (74-100)
[2021-06-10 08:42] LABS: NT Pro Brain Natriuretic Pep. 828 pg/mL (0-450)
[2021-06-10 08:55] VITALS: BP 147/71; PULSE 63; RESP 18; O2SAT 99
[2021-06-10 11:00] VITALS: BP 162/83; PULSE 71; RESP 18
== END 2021-06-10 11:00 | disposition home or self-care (01) ==
LOC: INF 07:26
PROVIDERS: PCP Internal Medicine Adolescent Medicine; Visit Provider Internal Medicine Adolescent Medicine
DX: I50.9 Heart failure, unspecified (principal); N28.9 Disorder of kidney and ureter, unspecified
CPT/HCPCS: 80048; 83880; 96360; 96361; J1642

== ENCOUNTER 2021-06-14 07:35 | Outpatient (CLI) | payer MEDICARE, BC, SELFPAY ==
[2021-06-14 08:09] VITALS: BMI 21.7
[2021-06-14 08:36] LABS: Chloride 103 mmol/L (98-107); Sodium 134 mmol/L (136-145)
[2021-06-14 08:39] LABS: Blood Urea Nitrogen 29 mg/dl (9-20); Calcium 8.5 mg/dl (8.4-10.2); Carbon Dioxide 22 mmol/L (22.0-30.0); Creatinine Clearance Estimated 25 mL/min (50-200); Estimated Glomerular Filt Rate 29 ml/min (>60); GFR (African American) 35 ML/MIN (>60); Glucose 137 mg/dl (74-100)
[2021-06-14 08:48] LABS: NT Pro Brain Natriuretic Pep. 661 pg/mL (0-450)
[2021-06-14 09:10] VITALS: BP 145/72; PULSE 78; RESP 18; O2SAT 100
[2021-06-14 11:20] VITALS: BP 171/77; PULSE 76; RESP 18
[2021-06-14 13:35] VITALS: BP 156/74; PULSE 69; RESP 18
== END 2021-06-14 13:35 | disposition home or self-care (01) ==
LOC: INF 07:35
PROVIDERS: PCP Internal Medicine Adolescent Medicine; Visit Provider Internal Medicine Adolescent Medicine
DX: I50.9 Heart failure, unspecified (principal); N17.9 Acute kidney failure, unspecified
CPT/HCPCS: 80048; 83880; 96360; 96361; J1642

== ENCOUNTER 2021-06-17 07:28 | Outpatient (CLI) | payer MEDICARE, BC, SELFPAY ==
[2021-06-17 08:08] VITALS: BP 116/66; PULSE 69; RESP 16; TEMP 36.4; O2SAT 99; BMI 21.7
[2021-06-17 08:28] LABS: Chloride 104 mmol/L (98-107); Sodium 136 mmol/L (136-145)
[2021-06-17 08:29] LABS: Potassium 4.5 mmoL/L (3.5-5.1)
[2021-06-17 08:31] LABS: Blood Urea Nitrogen 21 mg/dl (9-20); Creatinine Clearance Estimated 35 mL/min (50-200); Estimated Glomerular Filt Rate 41 ml/min (>60); GFR (African American) 50 ML/MIN (>60)
[2021-06-17 08:32] LABS: Anion Gap 11.5 mEq/L (5-15); Calcium 8.2 mg/dl (8.4-10.2); Carbon Dioxide 25 mmol/L (22.0-30.0); Glucose 130 mg/dl (74-100)
[2021-06-17 08:41] LABS: NT Pro Brain Natriuretic Pep. 730 pg/mL (0-450)
[2021-06-17 11:09] VITALS: BP 160/74; PULSE 81; RESP 16; TEMP 36.6; O2SAT 99
== END 2021-06-17 11:09 | disposition home or self-care (01) ==
LOC: INF 07:29
PROVIDERS: PCP Internal Medicine Adolescent Medicine; Visit Provider Internal Medicine Adolescent Medicine
DX: I50.9 Heart failure, unspecified (principal); N28.9 Disorder of kidney and ureter, unspecified
CPT/HCPCS: 80048; 83880; 96365; 96366; J1642

== ENCOUNTER 2021-06-21 07:33 | Outpatient (CLI) | payer MEDICARE, BC, SELFPAY ==
[2021-06-21 08:05] VITALS: BMI 22.4
[2021-06-21 08:29] LABS: Chloride 100 mmol/L (98-107); Sodium 134 mmol/L (136-145)
[2021-06-21 08:30] LABS: Potassium 4.5 mmoL/L (3.5-5.1)
[2021-06-21 08:33] LABS: Anion Gap 13.5 mEq/L (5-15); Blood Urea Nitrogen 25 mg/dl (9-20); Calcium 9.3 mg/dl (8.4-10.2); Carbon Dioxide 25 mmol/L (22.0-30.0); Creatinine Clearance Estimated 30 mL/min (50-200); Estimated Glomerular Filt Rate 34 ml/min (>60); GFR (African American) 41 ML/MIN (>60); Glucose 159 mg/dl (74-100)
[2021-06-21 08:42] LABS: NT Pro Brain Natriuretic Pep. 604 pg/mL (0-450)
[2021-06-21 09:00] VITALS: BP 120/72; PULSE 77; RESP 18; O2SAT 98
[2021-06-21 11:10] VITALS: BP 136/76; PULSE 78; RESP 18
== END 2021-06-21 11:10 | disposition home or self-care (01) ==
LOC: INF 07:34
PROVIDERS: PCP Internal Medicine Adolescent Medicine; Visit Provider Internal Medicine Adolescent Medicine
DX: I50.9 Heart failure, unspecified (principal); N28.9 Disorder of kidney and ureter, unspecified
CPT/HCPCS: 80048; 83880; 96360; 96361; J1642

== ENCOUNTER 2021-06-24 07:34 | Outpatient (CLI) | payer MEDICARE, BC, SELFPAY ==
[2021-06-24 08:08] VITALS: BMI 21.7
[2021-06-24 08:38] LABS: Chloride 101 mmol/L (98-107); Potassium 4.6 mmoL/L (3.5-5.1); Sodium 136 mmol/L (136-145)
[2021-06-24 08:41] LABS: Blood Urea Nitrogen 23 mg/dl (9-20); Creatinine Clearance Estimated 33 mL/min (50-200); Estimated Glomerular Filt Rate 38 ml/min (>60); GFR (African American) 47 ML/MIN (>60)
[2021-06-24 08:42] LABS: Anion Gap 14.6 mEq/L (5-15); Calcium 9.3 mg/dl (8.4-10.2); Carbon Dioxide 25 mmol/L (22.0-30.0); Glucose 157 mg/dl (74-100)
[2021-06-24 08:51] LABS: NT Pro Brain Natriuretic Pep. 732 pg/mL (0-450)
[2021-06-24 09:00] VITALS: BP 114/54; PULSE 72; RESP 18; O2SAT 100
[2021-06-24 12:10] VITALS: BP 142/79; PULSE 69; RESP 18
== END 2021-06-24 12:10 | disposition home or self-care (01) ==
LOC: INF 07:35
PROVIDERS: PCP Internal Medicine Adolescent Medicine; Visit Provider Internal Medicine Adolescent Medicine
DX: I50.9 Heart failure, unspecified (principal); N28.9 Disorder of kidney and ureter, unspecified
CPT/HCPCS: 80048; 83880; 96360; 96361; J1642

== ENCOUNTER 2021-06-28 07:31 | Outpatient (CLI) | payer MEDICARE, BC, SELFPAY ==
[2021-06-28 08:10] VITALS: BMI 21.7
[2021-06-28 08:30] LABS: Chloride 102 mmol/L (98-107); Sodium 135 mmol/L (136-145)
[2021-06-28 08:31] LABS: Potassium 4.6 mmoL/L (3.5-5.1)
[2021-06-28 08:33] LABS: Blood Urea Nitrogen 20 mg/dl (9-20); Creatinine Clearance Estimated 33 mL/min (50-200); Estimated Glomerular Filt Rate 38 ml/min (>60); GFR (African American) 47 ML/MIN (>60)
[2021-06-28 08:34] LABS: Anion Gap 12.6 mEq/L (5-15); Carbon Dioxide 25 mmol/L (22.0-30.0); Glucose 134 mg/dl (74-100)
[2021-06-28 08:43] LABS: NT Pro Brain Natriuretic Pep. 500 pg/mL (0-450)
[2021-06-28 09:00] VITALS: BP 134/60; PULSE 71; RESP 18; O2SAT 99
[2021-06-28 11:06] VITALS: BP 150/77; PULSE 69; RESP 18
== END 2021-06-28 11:10 | disposition home or self-care (01) ==
LOC: INF 07:32
PROVIDERS: PCP Internal Medicine Adolescent Medicine; Visit Provider Internal Medicine Adolescent Medicine
DX: I50.9 Heart failure, unspecified (principal); Z45.2 Encounter for adjustment and management of vascular access device
CPT/HCPCS: 80048; 83880; 96360; 96361; J1642

== ENCOUNTER 2021-07-01 07:27 | Outpatient (CLI) | payer MEDICARE, BC, SELFPAY ==
[2021-07-01 08:08] VITALS: BMI 21.7
[2021-07-01 08:30] LABS: Chloride 102 mmol/L (98-107); Potassium 4.7 mmoL/L (3.5-5.1); Sodium 136 mmol/L (136-145)
[2021-07-01 08:33] LABS: Anion Gap 13.7 mEq/L (5-15); Blood Urea Nitrogen 17 mg/dl (9-20); Carbon Dioxide 25 mmol/L (22.0-30.0); Creatinine Clearance Estimated 35 mL/min (50-200); Estimated Glomerular Filt Rate 41 ml/min (>60); GFR (African American) 50 ML/MIN (>60); Glucose 98 mg/dl (74-100)
[2021-07-01 08:34] LABS: Calcium 9.4 mg/dl (8.4-10.2)
[2021-07-01 08:44] LABS: NT Pro Brain Natriuretic Pep. 1120 pg/mL (0-450)
[2021-07-01 09:13] VITALS: BP 107/61; PULSE 70; RESP 18; O2SAT 100
[2021-07-01 11:24] VITALS: BP 150/66; PULSE 68; RESP 18
== END 2021-07-01 11:28 | disposition home or self-care (01) ==
LOC: INF 07:28
PROVIDERS: PCP Internal Medicine Adolescent Medicine; Visit Provider Internal Medicine Adolescent Medicine
DX: I50.9 Heart failure, unspecified (principal)
CPT/HCPCS: 36415; 80048; 83880; 96360; 96361; J1642

== ENCOUNTER 2021-07-07 07:28 | Outpatient (CLI) | payer MEDICARE, BC, SELFPAY ==
[2021-07-07 08:08] VITALS: BMI 21.7
[2021-07-07 08:38] LABS: Anion Gap 16.3 mEq/L (5-15); Blood Urea Nitrogen 58 mg/dl (9-20); Calcium 8.5 mg/dl (8.4-10.2); Carbon Dioxide 20 mmol/L (22.0-30.0); Chloride 102 mmol/L (98-107); Creatinine Clearance Estimated 28 mL/min (50-200); Estimated Glomerular Filt Rate 32 ml/min (>60); GFR (African American) 39 ML/MIN (>60); Glucose 174 mg/dl (74-100); Potassium 4.3 mmoL/L (3.5-5.1); Sodium 134 mmol/L (136-145)
[2021-07-07 08:48] LABS: NT Pro Brain Natriuretic Pep. 1530 pg/mL (0-450)
[2021-07-07 09:00] VITALS: BP 147/86; PULSE 72; O2SAT 99
[2021-07-07 13:15] VITALS: BP 156/71; PULSE 70; O2SAT 99
== END 2021-07-07 13:15 | disposition home or self-care (01) ==
LOC: INF 07:29
PROVIDERS: PCP Internal Medicine Adolescent Medicine; Visit Provider Internal Medicine Adolescent Medicine
DX: I50.9 Heart failure, unspecified (principal)
CPT/HCPCS: 80048; 83880; 96360; 96361; J1642

== ENCOUNTER 2021-07-12 07:32 | Outpatient (CLI) | payer MEDICARE, BC, SELFPAY ==
[2021-07-12 08:08] VITALS: BMI 21.7
[2021-07-12 08:37] LABS: Anion Gap 13.4 mEq/L (5-15); Blood Urea Nitrogen 31 mg/dl (9-20); Carbon Dioxide 24 mmol/L (22.0-30.0); Chloride 100 mmol/L (98-107); Creatinine Clearance Estimated 40 mL/min (50-200); Estimated Glomerular Filt Rate 48 ml/min (>60); GFR (African American) 58 ML/MIN (>60); Glucose 156 mg/dl (74-100); Potassium 4.4 mmoL/L (3.5-5.1); Sodium 133 mmol/L (136-145)
[2021-07-12 08:45] LABS: NT Pro Brain Natriuretic Pep. 1680 pg/mL (0-450)
[2021-07-12 09:19] VITALS: BP 129/69; PULSE 74; RESP 18; O2SAT 99
[2021-07-12 11:25] VITALS: BP 145/69; PULSE 68; O2SAT 99
== END 2021-07-12 11:25 | disposition home or self-care (01) ==
LOC: INF 07:33
PROVIDERS: PCP Internal Medicine Adolescent Medicine; Visit Provider Internal Medicine Adolescent Medicine
DX: I50.9 Heart failure, unspecified (principal)
CPT/HCPCS: 80048; 83880; 96360; 96361; J1642

== ENCOUNTER → 2021-07-15 07:30 | Outpatient (CLI) | payer MEDICARE, BC, SELFPAY ==
[2021-07-15 08:05] VITALS: BMI 21.7
[2021-07-15 08:27] LABS: Anion Gap 12.4 mEq/L (5-15); Blood Urea Nitrogen 37 mg/dl (9-20); Calcium 8.2 mg/dl (8.4-10.2); Carbon Dioxide 23 mmol/L (22.0-30.0); Chloride 101 mmol/L (98-107); Creatinine Clearance Estimated 40 mL/min (50-200); Estimated Glomerular Filt Rate 48 ml/min (>60); GFR (African American) 58 ML/MIN (>60); Glucose 167 mg/dl (74-100); Potassium 4.4 mmoL/L (3.5-5.1); Sodium 132 mmol/L (136-145)
[2021-07-15 08:36] LABS: NT Pro Brain Natriuretic Pep. 2180 pg/mL (0-450)
[2021-07-15 08:55] VITALS: BP 135/56; PULSE 71; RESP 18; TEMP 36.3; O2SAT 100
[2021-07-15 11:00] VITALS: BP 145/65; PULSE 69; RESP 18
== END ==
PROVIDERS: PCP Internal Medicine Adolescent Medicine; Visit Provider Internal Medicine Adolescent Medicine
DX: I50.9 Heart failure, unspecified (principal); N28.9 Disorder of kidney and ureter, unspecified
CPT/HCPCS: 80048; 83880; 96360; 96361; J1642

== ENCOUNTER 2021-07-19 07:39 | Outpatient (CLI) | payer MEDICARE, BC, SELFPAY ==
[2021-07-19 08:11] VITALS: BMI 21.7
[2021-07-19 08:40] LABS: Anion Gap 10.2 mEq/L (5-15); Blood Urea Nitrogen 23 mg/dl (9-20); Calcium 8.2 mg/dl (8.4-10.2); Carbon Dioxide 24 mmol/L (22.0-30.0); Chloride 102 mmol/L (98-107); Creatinine Clearance Estimated 46 mL/min (50-200); Estimated Glomerular Filt Rate 58 ml/min (>60); GFR (African American) 70 ML/MIN (>60); Glucose 124 mg/dl (74-100); Potassium 4.2 mmoL/L (3.5-5.1); Sodium 132 mmol/L (136-145)
[2021-07-19 08:49] LABS: NT Pro Brain Natriuretic Pep. 2970 pg/mL (0-450)
[2021-07-19 09:10] VITALS: BP 146/93; PULSE 69; RESP 18; O2SAT 100
[2021-07-19 11:15] VITALS: BP 186/93; PULSE 69; RESP 18
== END 2021-07-19 11:15 | disposition home or self-care (01) ==
LOC: INF 07:40
PROVIDERS: PCP Internal Medicine Adolescent Medicine; Visit Provider Internal Medicine Adolescent Medicine
DX: I50.9 Heart failure, unspecified (principal)
CPT/HCPCS: 80048; 83880; 96360; 96361; J1642

== ENCOUNTER 2021-07-22 07:31 | Outpatient (CLI) | payer MEDICARE, BC, SELFPAY ==
[2021-07-22 08:10] VITALS: BMI 21.7
[2021-07-22 08:37] LABS: Anion Gap 11.1 mEq/L (5-15); Blood Urea Nitrogen 23 mg/dl (9-20); Calcium 8.7 mg/dl (8.4-10.2); Carbon Dioxide 25 mmol/L (22.0-30.0); Chloride 102 mmol/L (98-107); Creatinine Clearance Estimated 46 mL/min (50-200); Estimated Glomerular Filt Rate 58 ml/min (>60); GFR (African American) 70 ML/MIN (>60); Glucose 110 mg/dl (74-100); Potassium 4.1 mmoL/L (3.5-5.1); Sodium 134 mmol/L (136-145)
[2021-07-22 08:47] LABS: NT Pro Brain Natriuretic Pep. 997 pg/mL (0-450)
[2021-07-22 09:10] VITALS: BP 148/73; PULSE 69; RESP 18; TEMP 36.4; O2SAT 97
[2021-07-22 11:40] VITALS: BP 139/66; PULSE 74; RESP 18
== END 2021-07-22 11:40 | disposition home or self-care (01) ==
LOC: INF 07:32
PROVIDERS: PCP Internal Medicine Adolescent Medicine; Visit Provider Internal Medicine Adolescent Medicine
DX: I50.9 Heart failure, unspecified (principal); N28.9 Disorder of kidney and ureter, unspecified; Z45.2 Encounter for adjustment and management of vascular access device
CPT/HCPCS: 80048; 83880; 96360; 96361; J1642

== ENCOUNTER 2021-07-26 07:32 | Outpatient (CLI) | payer MEDICARE, BC, SELFPAY ==
[2021-07-26 08:11] VITALS: BMI 21.7
[2021-07-26 08:39] LABS: Anion Gap 12.6 mEq/L (5-15); Blood Urea Nitrogen 23 mg/dl (9-20); Calcium 8.9 mg/dl (8.4-10.2); Carbon Dioxide 25 mmol/L (22.0-30.0); Chloride 101 mmol/L (98-107); Creatinine Clearance Estimated 40 mL/min (50-200); Estimated Glomerular Filt Rate 48 ml/min (>60); GFR (African American) 58 ML/MIN (>60); Glucose 138 mg/dl (74-100); Potassium 4.6 mmoL/L (3.5-5.1); Sodium 134 mmol/L (136-145)
[2021-07-26 08:48] LABS: NT Pro Brain Natriuretic Pep. 628 pg/mL (0-450)
[2021-07-26 09:10] VITALS: BP 125/84; PULSE 84; O2SAT 99
[2021-07-26 11:43] VITALS: BP 136/76; PULSE 69; O2SAT 100
== END 2021-07-26 11:43 | disposition home or self-care (01) ==
LOC: INF 07:32
PROVIDERS: PCP Internal Medicine Adolescent Medicine; Visit Provider Internal Medicine Adolescent Medicine
DX: I50.9 Heart failure, unspecified (principal); N28.9 Disorder of kidney and ureter, unspecified; E86.0 Dehydration; Z45.2 Encounter for adjustment and management of vascular access device
CPT/HCPCS: 80048; 83880; 96360; 96361; J1642

== ENCOUNTER 2021-07-29 07:34 | Outpatient (CLI) | payer MEDICARE, BC, SELFPAY ==
[2021-07-29 08:05] VITALS: BMI 21.7
[2021-07-29 08:25] LABS: Chloride 102 mmol/L (98-107); Sodium 135 mmol/L (136-145)
[2021-07-29 08:26] LABS: Potassium 4.2 mmoL/L (3.5-5.1)
[2021-07-29 08:28] LABS: Anion Gap 12.2 mEq/L (5-15); Blood Urea Nitrogen 16 mg/dl (9-20); Carbon Dioxide 25 mmol/L (22.0-30.0); Creatinine Clearance Estimated 46 mL/min (50-200); Estimated Glomerular Filt Rate 58 ml/min (>60); GFR (African American) 70 ML/MIN (>60)
[2021-07-29 08:29] LABS: Glucose 136 mg/dl (74-100)
[2021-07-29 08:38] LABS: NT Pro Brain Natriuretic Pep. 936 pg/mL (0-450)
[2021-07-29 08:50] VITALS: BP 133/69; PULSE 73; RESP 18; O2SAT 98
[2021-07-29 11:00] VITALS: BP 141/72; PULSE 73; RESP 18
== END 2021-07-29 11:00 | disposition home or self-care (01) ==
LOC: INF 07:34
PROVIDERS: PCP Internal Medicine Adolescent Medicine; Visit Provider Internal Medicine Adolescent Medicine
DX: I50.9 Heart failure, unspecified (principal); N28.9 Disorder of kidney and ureter, unspecified
CPT/HCPCS: 80048; 83880; 96360; 96361; J1642

== ENCOUNTER 2021-08-02 07:37 | Outpatient (CLI) | payer MEDICARE, BC, SELFPAY ==
[2021-08-02 08:07] VITALS: BMI 22.4
[2021-08-02 08:28] LABS: Chloride 105 mmol/L (98-107); Sodium 137 mmol/L (136-145)
[2021-08-02 08:29] LABS: Potassium 4.2 mmoL/L (3.5-5.1)
[2021-08-02 08:31] LABS: Blood Urea Nitrogen 20 mg/dl (9-20); Creatinine Clearance Estimated 44 mL/min (50-200); Estimated Glomerular Filt Rate 52 ml/min (>60); GFR (African American) 63 ML/MIN (>60)
[2021-08-02 08:32] LABS: Anion Gap 12.2 mEq/L (5-15); Calcium 9.1 mg/dl (8.4-10.2); Carbon Dioxide 24 mmol/L (22.0-30.0); Glucose 129 mg/dl (74-100)
[2021-08-02 08:40] LABS: NT Pro Brain Natriuretic Pep. 1270 pg/mL (0-450)
[2021-08-02 09:18] VITALS: BP 138/68; PULSE 73; RESP 18; O2SAT 98
[2021-08-02 11:30] VITALS: BP 162/79; PULSE 70; RESP 18
== END 2021-08-02 11:30 | disposition home or self-care (01) ==
LOC: INF 07:38
PROVIDERS: PCP Internal Medicine Adolescent Medicine; Visit Provider Internal Medicine Adolescent Medicine
DX: I50.9 Heart failure, unspecified (principal); E86.0 Dehydration
CPT/HCPCS: 80048; 83880; 96360; 96361; J1642

== ENCOUNTER 2021-08-05 07:32 | Outpatient (CLI) | payer MEDICARE, BC, SELFPAY ==
[2021-08-05 08:00] VITALS: BMI 21.7
[2021-08-05 08:19] LABS: Chloride 104 mmol/L (98-107); Potassium 4.4 mmoL/L (3.5-5.1); Sodium 136 mmol/L (136-145)
[2021-08-05 08:22] LABS: Anion Gap 11.4 mEq/L (5-15); Blood Urea Nitrogen 16 mg/dl (9-20); Carbon Dioxide 25 mmol/L (22.0-30.0); Creatinine Clearance Estimated 43 mL/min (50-200); Estimated Glomerular Filt Rate 52 ml/min (>60); GFR (African American) 63 ML/MIN (>60)
[2021-08-05 08:23] LABS: Calcium 9.1 mg/dl (8.4-10.2); Glucose 133 mg/dl (74-100)
[2021-08-05 08:32] LABS: NT Pro Brain Natriuretic Pep. 751 pg/mL (0-450)
[2021-08-05 09:00] VITALS: BP 119/59; PULSE 69; RESP 18; O2SAT 98
[2021-08-05 11:05] VITALS: BP 136/85; PULSE 71; RESP 18
== END 2021-08-05 11:05 | disposition home or self-care (01) ==
LOC: INF 07:33
PROVIDERS: PCP Internal Medicine Adolescent Medicine; Visit Provider Internal Medicine Adolescent Medicine
DX: I50.9 Heart failure, unspecified (principal)
CPT/HCPCS: 80048; 83880; 96360; 96361; J1642

== ENCOUNTER 2021-08-09 07:31 | Outpatient (CLI) | payer MEDICARE, BC, SELFPAY ==
[2021-08-09 08:08] VITALS: BMI 21.7
[2021-08-09 08:33] LABS: Chloride 103 mmol/L (98-107); Sodium 135 mmol/L (136-145)
[2021-08-09 08:34] LABS: Potassium 4.5 mmoL/L (3.5-5.1)
[2021-08-09 08:37] LABS: Anion Gap 12.5 mEq/L (5-15); Blood Urea Nitrogen 17 mg/dl (9-20); Carbon Dioxide 24 mmol/L (22.0-30.0); Creatinine Clearance Estimated 40 mL/min (50-200); Estimated Glomerular Filt Rate 48 ml/min (>60); GFR (African American) 58 ML/MIN (>60); Glucose 126 mg/dl (74-100)
[2021-08-09 08:46] LABS: NT Pro Brain Natriuretic Pep. 663 pg/mL (0-450)
[2021-08-09 09:34] VITALS: BP 148/83; PULSE 72; RESP 16; TEMP 36.4; O2SAT 98
[2021-08-09 10:34] VITALS: BP 146/79; PULSE 72; RESP 18; O2SAT 99
[2021-08-09 11:34] VITALS: BP 158/80; PULSE 74; RESP 16; TEMP 36.6; O2SAT 98
== END 2021-08-09 11:40 | disposition home or self-care (01) ==
LOC: INF 07:32
PROVIDERS: PCP Internal Medicine Adolescent Medicine; Visit Provider Internal Medicine Adolescent Medicine
DX: I50.9 Heart failure, unspecified (principal)
CPT/HCPCS: 80048; 83880; 96360; 96361; J1642

== ENCOUNTER 2021-08-12 07:31 | Outpatient (CLI) | payer MEDICARE, BC, SELFPAY ==
[2021-08-12 08:08] VITALS: BMI 21.7
[2021-08-12 08:25] LABS: Chloride 103 mmol/L (98-107)
[2021-08-12 08:26] LABS: Sodium 136 mmol/L (136-145)
[2021-08-12 08:27] LABS: Potassium 4.6 mmoL/L (3.5-5.1)
[2021-08-12 08:29] LABS: Anion Gap 12.6 mEq/L (5-15); Blood Urea Nitrogen 15 mg/dl (9-20); Carbon Dioxide 25 mmol/L (22.0-30.0); Creatinine Clearance Estimated 40 mL/min (50-200); Estimated Glomerular Filt Rate 48 ml/min (>60); GFR (African American) 58 ML/MIN (>60)
[2021-08-12 08:30] LABS: Calcium 9.2 mg/dl (8.4-10.2); Glucose 107 mg/dl (74-100)
[2021-08-12 08:39] LABS: NT Pro Brain Natriuretic Pep. 749 pg/mL (0-450)
[2021-08-12 09:10] VITALS: BP 119/69; PULSE 69; RESP 18; O2SAT 99
[2021-08-12 11:25] VITALS: BP 175/83; PULSE 72; RESP 18
== END 2021-08-12 11:25 | disposition home or self-care (01) ==
LOC: INF 07:32
PROVIDERS: PCP Internal Medicine Adolescent Medicine; Visit Provider Internal Medicine Adolescent Medicine
DX: I50.9 Heart failure, unspecified (principal); E86.0 Dehydration
CPT/HCPCS: 80048; 83880; 96360; 96361; J1642

== ENCOUNTER 2021-08-16 07:31 | Outpatient (CLI) | payer MEDICARE, BC, SELFPAY ==
[2021-08-16 08:01] VITALS: BMI 21.7
[2021-08-16 08:21] LABS: Chloride 104 mmol/L (98-107); Potassium 4.5 mmoL/L (3.5-5.1); Sodium 136 mmol/L (136-145)
[2021-08-16 08:24] LABS: Anion Gap 10.5 mEq/L (5-15); Blood Urea Nitrogen 20 mg/dl (9-20); Carbon Dioxide 26 mmol/L (22.0-30.0); Creatinine Clearance Estimated 35 mL/min (50-200); Estimated Glomerular Filt Rate 41 ml/min (>60); GFR (African American) 50 ML/MIN (>60)
[2021-08-16 08:25] LABS: Calcium 8.9 mg/dl (8.4-10.2); Glucose 164 mg/dl (74-100)
[2021-08-16 08:34] LABS: NT Pro Brain Natriuretic Pep. 489 pg/mL (0-450)
[2021-08-16 09:00] VITALS: BP 138/77; PULSE 71; RESP 18; O2SAT 99
[2021-08-16 11:15] VITALS: BP 158/73; PULSE 70; RESP 18
== END 2021-08-16 11:15 | disposition home or self-care (01) ==
LOC: INF 07:32
PROVIDERS: PCP Internal Medicine Adolescent Medicine; Visit Provider Internal Medicine Adolescent Medicine
DX: I50.9 Heart failure, unspecified (principal); N28.9 Disorder of kidney and ureter, unspecified
CPT/HCPCS: 80048; 83880; 96360; 96361; J1642

== ENCOUNTER 2021-08-22 07:34 | Outpatient (CLI) | payer MEDICARE, BC, SELFPAY ==
[2021-08-22 08:08] VITALS: BP 138/74; PULSE 71; RESP 18; O2SAT 99; BMI 21.7
[2021-08-22 08:30] LABS: Chloride 99 mmol/L (98-107); Sodium 132 mmol/L (136-145)
[2021-08-22 08:31] LABS: Potassium 4.3 mmoL/L (3.5-5.1)
[2021-08-22 08:33] LABS: Anion Gap 13.3 mEq/L (5-15); Blood Urea Nitrogen 28 mg/dl (9-20); Carbon Dioxide 24 mmol/L (22.0-30.0); Creatinine Clearance Estimated 33 mL/min (50-200); Estimated Glomerular Filt Rate 38 ml/min (>60); GFR (African American) 47 ML/MIN (>60)
[2021-08-22 08:34] LABS: Calcium 9.1 mg/dl (8.4-10.2); Glucose 136 mg/dl (74-100)
[2021-08-22 08:43] LABS: NT Pro Brain Natriuretic Pep. 746 pg/mL (0-450)
[2021-08-22 12:05] VITALS: BP 159/72; PULSE 71; RESP 18; O2SAT 99
== END 2021-08-22 12:05 | disposition home or self-care (01) ==
LOC: INF 07:35
PROVIDERS: PCP Internal Medicine Adolescent Medicine; Visit Provider Internal Medicine Adolescent Medicine
DX: I50.9 Heart failure, unspecified (principal)
CPT/HCPCS: 80048; 83880; 96360; 96361; J1642

== ENCOUNTER 2021-08-26 07:34 | Outpatient (CLI) | payer MEDICARE, BC, SELFPAY ==
[2021-08-26 08:05] VITALS: BMI 21.7
[2021-08-26 08:29] LABS: Anion Gap 11.5 mEq/L (5-15); Blood Urea Nitrogen 17 mg/dl (9-20); Calcium 8.8 mg/dl (8.4-10.2); Carbon Dioxide 25 mmol/L (22.0-30.0); Chloride 102 mmol/L (98-107); Creatinine Clearance Estimated 43 mL/min (50-200); Estimated Glomerular Filt Rate 52 ml/min (>60); GFR (African American) 63 ML/MIN (>60); Glucose 158 mg/dl (74-100); Potassium 4.5 mmoL/L (3.5-5.1); Sodium 134 mmol/L (136-145)
[2021-08-26 08:38] LABS: NT Pro Brain Natriuretic Pep. 827 pg/mL (0-450)
[2021-08-26 09:00] VITALS: BP 136/68; PULSE 70; RESP 18; O2SAT 98
[2021-08-26 11:10] VITALS: BP 145/72; PULSE 71; RESP 18
== END 2021-08-26 11:10 | disposition home or self-care (01) ==
LOC: INF 07:35
PROVIDERS: PCP Internal Medicine Adolescent Medicine; Visit Provider Internal Medicine Adolescent Medicine
DX: I50.9 Heart failure, unspecified (principal)
CPT/HCPCS: 80048; 83880; 96360; 96361; J1642

== ENCOUNTER 2021-08-30 07:35 | Outpatient (CLI) | payer MEDICARE, BC, SELFPAY ==
[2021-08-30 08:07] VITALS: BMI 21.7
[2021-08-30 08:33] LABS: Anion Gap 14.4 mEq/L (5-15); Blood Urea Nitrogen 19 mg/dl (9-20); Calcium 8.9 mg/dl (8.4-10.2); Carbon Dioxide 25 mmol/L (22.0-30.0); Chloride 102 mmol/L (98-107); Creatinine Clearance Estimated 43 mL/min (50-200); Estimated Glomerular Filt Rate 52 ml/min (>60); GFR (African American) 63 ML/MIN (>60); Glucose 112 mg/dl (74-100); Potassium 4.4 mmoL/L (3.5-5.1); Sodium 137 mmol/L (136-145)
[2021-08-30 08:42] LABS: NT Pro Brain Natriuretic Pep. 675 pg/mL (0-450)
[2021-08-30 08:53] VITALS: BP 137/68; PULSE 78; RESP 18; O2SAT 98
[2021-08-30 11:01] VITALS: BP 158/84; PULSE 76; RESP 18
== END 2021-08-30 11:01 | disposition home or self-care (01) ==
LOC: INF 07:36
PROVIDERS: PCP Internal Medicine Adolescent Medicine; Visit Provider Internal Medicine Adolescent Medicine
DX: I50.9 Heart failure, unspecified (principal); N28.9 Disorder of kidney and ureter, unspecified
CPT/HCPCS: 80048; 83880; 96360; 96361; J1642

== ENCOUNTER 2021-09-02 07:31 | Outpatient (CLI) | payer MEDICARE, BC, SELFPAY ==
[2021-09-02 08:08] VITALS: BMI 22.4
[2021-09-02 08:41] LABS: Anion Gap 13.2 mEq/L (5-15); Blood Urea Nitrogen 15 mg/dl (9-20); Calcium 8.7 mg/dl (8.4-10.2); Carbon Dioxide 25 mmol/L (22.0-30.0); Chloride 100 mmol/L (98-107); Creatinine Clearance Estimated 48 mL/min (50-200); Estimated Glomerular Filt Rate 58 ml/min (>60); GFR (African American) 70 ML/MIN (>60); Glucose 150 mg/dl (74-100); Potassium 4.2 mmoL/L (3.5-5.1); Sodium 134 mmol/L (136-145)
[2021-09-02 08:50] LABS: NT Pro Brain Natriuretic Pep. 934 pg/mL (0-450)
[2021-09-02 09:00] VITALS: BP 124/67; PULSE 71; RESP 18; O2SAT 97
[2021-09-02 11:10] VITALS: BP 143/98; PULSE 73; RESP 18
== END 2021-09-02 11:10 | disposition home or self-care (01) ==
LOC: INF 07:31
PROVIDERS: PCP Internal Medicine Adolescent Medicine; Visit Provider Internal Medicine Adolescent Medicine
DX: I50.9 Heart failure, unspecified (principal); Z45.2 Encounter for adjustment and management of vascular access device
CPT/HCPCS: 80048; 83880; 96360; 96361; J1642

== ENCOUNTER 2021-09-05 07:33 | Outpatient (CLI) | payer MEDICARE, BC, SELFPAY ==
[2021-09-05 08:08] VITALS: BMI 21.7
[2021-09-05 08:37] LABS: Anion Gap 14.3 mEq/L (5-15); Blood Urea Nitrogen 24 mg/dl (9-20); Calcium 8.6 mg/dl (8.4-10.2); Carbon Dioxide 24 mmol/L (22.0-30.0); Chloride 97 mmol/L (98-107); Creatinine Clearance Estimated 37 mL/min (50-200); Estimated Glomerular Filt Rate 44 ml/min (>60); GFR (African American) 54 ML/MIN (>60); Glucose 137 mg/dl (74-100); Potassium 4.3 mmoL/L (3.5-5.1); Sodium 131 mmol/L (136-145)
[2021-09-05 08:46] LABS: NT Pro Brain Natriuretic Pep. 502 pg/mL (0-450)
[2021-09-05 08:57] VITALS: BP 128/72; PULSE 80; RESP 18; O2SAT 98
[2021-09-05 11:05] VITALS: BP 155/72; PULSE 70; RESP 18
== END 2021-09-05 11:05 | disposition home or self-care (01) ==
LOC: INF 07:34
PROVIDERS: PCP Internal Medicine Adolescent Medicine; Visit Provider Internal Medicine Adolescent Medicine
DX: I50.9 Heart failure, unspecified (principal)
CPT/HCPCS: 80048; 83880; 96360; 96361; J1642

== ENCOUNTER 2021-09-08 07:33 | Outpatient (CLI) | payer MEDICARE, BC, SELFPAY ==
[2021-09-08 08:07] VITALS: BMI 21.7
[2021-09-08 08:28] LABS: Anion Gap 14.4 mEq/L (5-15); Blood Urea Nitrogen 20 mg/dl (9-20); Calcium 8.9 mg/dl (8.4-10.2); Carbon Dioxide 22 mmol/L (22.0-30.0); Chloride 102 mmol/L (98-107); Creatinine Clearance Estimated 46 mL/min (50-200); Estimated Glomerular Filt Rate 58 ml/min (>60); GFR (African American) 70 ML/MIN (>60); Glucose 155 mg/dl (74-100); Potassium 4.4 mmoL/L (3.5-5.1); Sodium 134 mmol/L (136-145)
[2021-09-08 08:37] LABS: NT Pro Brain Natriuretic Pep. 1480 pg/mL (0-450)
[2021-09-08 08:45] VITALS: BP 141/74; PULSE 83; RESP 18; O2SAT 100
[2021-09-08 10:00] VITALS: BP 150/72; PULSE 80; RESP 18
== END 2021-09-08 10:00 | disposition home or self-care (01) ==
LOC: INF 07:34
PROVIDERS: PCP Internal Medicine Adolescent Medicine; Visit Provider Internal Medicine Adolescent Medicine
DX: I50.9 Heart failure, unspecified (principal); N28.9 Disorder of kidney and ureter, unspecified
CPT/HCPCS: 80048; 83880; 96360; J1642

== ENCOUNTER 2021-09-13 07:31 | Outpatient (CLI) | payer MEDICARE, BC, SELFPAY ==
[2021-09-13 08:09] VITALS: BMI 21.7
[2021-09-13 08:34] LABS: Anion Gap 11.4 mEq/L (5-15); Blood Urea Nitrogen 19 mg/dl (9-20); Calcium 8.7 mg/dl (8.4-10.2); Carbon Dioxide 24 mmol/L (22.0-30.0); Chloride 103 mmol/L (98-107); Creatinine Clearance Estimated 40 mL/min (50-200); Estimated Glomerular Filt Rate 48 ml/min (>60); GFR (African American) 58 ML/MIN (>60); Glucose 144 mg/dl (74-100); Potassium 4.4 mmoL/L (3.5-5.1); Sodium 134 mmol/L (136-145)
[2021-09-13 08:43] LABS: NT Pro Brain Natriuretic Pep. 1030 pg/mL (0-450)
[2021-09-13 08:53] VITALS: BP 146/86; PULSE 80; RESP 18; O2SAT 99
[2021-09-13 10:58] VITALS: BP 145/78; PULSE 72; RESP 18
== END 2021-09-13 11:00 | disposition home or self-care (01) ==
LOC: INF 07:31
PROVIDERS: PCP Internal Medicine Adolescent Medicine; Visit Provider Internal Medicine Adolescent Medicine
DX: I50.9 Heart failure, unspecified (principal)
CPT/HCPCS: 80048; 83880; 96360; 96361; J1642

== ENCOUNTER 2021-09-16 07:30 | Outpatient (CLI) | payer MEDICARE, BC, SELFPAY ==
[2021-09-16 08:11] VITALS: BMI 21.7
[2021-09-16 08:32] LABS: Anion Gap 13.4 mEq/L (5-15); Blood Urea Nitrogen 17 mg/dl (9-20); Calcium 8.7 mg/dl (8.4-10.2); Carbon Dioxide 24 mmol/L (22.0-30.0); Chloride 102 mmol/L (98-107); Creatinine Clearance Estimated 46 mL/min (50-200); Estimated Glomerular Filt Rate 58 ml/min (>60); GFR (African American) 70 ML/MIN (>60); Glucose 139 mg/dl (74-100); Potassium 4.4 mmoL/L (3.5-5.1); Sodium 135 mmol/L (136-145)
[2021-09-16 08:41] LABS: NT Pro Brain Natriuretic Pep. 1230 pg/mL (0-450)
[2021-09-16 08:50] VITALS: BP 141/86; PULSE 75; RESP 18; O2SAT 100
[2021-09-16 11:00] VITALS: BP 160/98; PULSE 78; RESP 18
== END 2021-09-16 11:00 | disposition home or self-care (01) ==
LOC: INF 07:30
PROVIDERS: PCP Internal Medicine Adolescent Medicine; Visit Provider Internal Medicine Adolescent Medicine
DX: I50.9 Heart failure, unspecified (principal)
CPT/HCPCS: 80048; 83880; 96360; 96361; J1642

== ENCOUNTER 2021-09-18 15:50 | Inpatient (IN) | payer MEDICARE, BC, SELFPAY ==
[2021-09-18] VITALS (8 sets, daily range): BP systolic 138–163; BP diastolic 71–103; PULSE 65–144; RESP 16–32; TEMP 36.7–37.9; O2SAT 95–100; BMI 21.7; BMI 22.4
--- NOTE | 2021-09-18 15:50 | ECG_ITS ---
APPROVED REPORT Exam: Resting ECG HR:147 bpm ECG Measurements Heart Rate 147 AXES MI 82 P 11 QRSd 127 QRS -12 QT 306 T 17 QTc 390 Conclusion SINUS TACHYCARDIA WITH SHORT MI INTERVAL WITH OCCASIONAL VENTRICULAR PREMATURE COMPLEXES RIGHT BUNDLE BRANCH BLOCK ABNORMALITY, Right axis deviation ABNORMAL ECG UNCONFIRMED REPORT Electronically signed by : Milton Smith MD 09/20/2021 21:13:49
--- NOTE | 2021-09-18 15:54 | XR_ITS ---
PROCEDURE INFORMATION: Exam: XR Chest Exam date and time: 09/18/2021 4:24 PM Age: 86 years old Clinical indication: Pain; Angina pectoris; Additional info: Chest pain and nausea TECHNIQUE: Imaging protocol: Radiologic exam of the chest. Views: 1 view. COMPARISON: CR XR CHEST PORTABLE 04/27/2020 10:18 AM FINDINGS: Tubes, catheters and devices: Triple chamber pacemaker appears in place. A right infusion port is present. Airway: The airways are patent. Lungs: Low lung volumes causes crowding of the bronchovascular structures. Pulmonary vascular prominence. No acute interstitial or airspace disease. Pleural spaces: There is blunting of the right costophrenic angle. There is blunting of the left costophrenic angle. There is no evidence of pneumothorax. Heart/Mediastinum: The heart is moderately enlarged. Vasculature: Calcified aortic knob. Bones/joints: Stable left shoulder arthroplasty. No acute skeletal abnormality or aggressive osseous lesion. Old/healed left mid clavicular fracture. IMPRESSION: 1. Concern for small bilateral pleural effusions versus scarring/atelectasis. 2. Pulmonary vascular prominence. 3. No other acute thoracic pathology identified.
[2021-09-18 16:03] LABS: Coronavirus 19, PCR Not Detected (NotDetected); Influenza A, PCR Not Detected (NotDetected); Influenza B, PCR Not Detected (NotDetected)
--- NOTE | 2021-09-18 16:07 | HMH.EDGENADL ---
ED Disposition Clinical Impression: Choledocholithiasis, Jaundice Disposition: Admitted as Observation Condition on Discharge: Fair Referrals: Milton Smith MD [Primary Care Provider] - Time of Disposition: 18:34 - Critical Care Critical Care Time: No Attestation: On 09/18/21, the high probability of a clinically significant, sudden or life threatening deterioration of the following system(s) required my full and direct attention, intervention and personal management. The time I documented below is in addition to time spent performing reported procedures but includes the following listed in this critical care notation. Medical Decision Making - Medical Records Medical records reviewed: Yes: I reviewed the patient's medical records. - Chandana Inquiry Pt receiving controlled substance: No Vital Signs: 09/18/21 15:54 09/18/21 16:00 09/18/21 16:30 Temperature 100.3 F H Temperature Source Oral Pulse Rate 144 H 135 H Pulse Rate [Left Radial] 140 H Respiratory Rate 19 32 H 29 H Blood Pressure 163/103 H 155/103 H Blood Pressure [Right Arm] 163/103 H Blood Pressure Mean 114 113 Blood Pressure Mean [Right Arm] 123 Blood Pressure Source [Right Arm] Automatic Cuff Blood Pressure Position [Right Arm] Sitting 02 Sat by Pulse Oximetry 100 96 98 Oxygen Delivery Method Room Air 09/18/21 16:43 09/18/21 17:30 Temperature Temperature Source Pulse Rate 131 H 121 H Pulse Rate [Left Radial] Respiratory Rate 21 22 Blood Pressure 153/94 H 156/95 H Blood Pressure [Right Arm] Blood Pressure Mean 113 115 Blood Pressure Mean [Right Arm] Blood Pressure Source [Right Arm] Blood Pressure Position [Right Arm] 02 Sat by Pulse Oximetry 98 95 Oxygen Delivery Method - Lab Data Lab Results 09/18/21 16:00: WBC 15.7 H, RBC 4.12 L, Hgb 13.4 L, Hct 40.1 L, MCV 97.4 H, MCH 32.5 H, MCHC 33.4, RDW 13.2, Plt Count 344, MPV 7.5, Neut % (Auto) 89.7 H, Lymph % (Auto) 3.2 L, [place] % (Auto) 6.0, Eos % (Auto) 1.0, Baso % (Auto) 0.1, Neut # (Auto) 14.1 H, Lymph # (Auto) 0.5 L, [place] # (Auto) 0.9, Eos # (Auto) 0.2, Baso # (Auto) 0.0, Total Counted 100, Neutrophils % (Manual) 92 H, Lymphocytes % (Manual) 6 L, Monocytes % (Manual) 2, Platelet Estimate Normal, Hypochromasia 2+ 09/18/21 16:00: Sodium 132 L, Potassium 4.3, Chloride 101, Carbon Dioxide 20 L, Anion Gap 15.3 H, BUN 17, Creatinine 1.60 H D, Estimated Creat Clear 35, Estimated GFR 41 L, Est GFR ( Amer) 50 L D, Glucose 158 H, Calcium 9.1, Total Bilirubin 8.3 H, AST 106 H, ALT 92 H, Alkaline Phosphatase 469 H, Troponin I 0.51 H, Total Protein 7.2, Albumin 3.6, Globulin 3.6 H, Albumin/Globulin Ratio 1.0 L, Lipase 1532 H 09/18/21 16:00: SARS-CoV-2 (PCR) Not detected, Influenza A Untype (PCR) Not detected, Influenza Type B (PCR) Not detected 09/18/21 16:00: PT 11.5, INR 1.02 Result diagrams: 09/18/21 16:00 09/18/21 16:00 Orders (Tests/Meds): ED MEDICATIONS Generic Name Dose Route Start Last Admin Trade Name Freq PRN Reason Stop Dose Admin Sodium Chloride 1,000 mls @ 999 mls/hr 09/18/21 16:30 09/18/21 16:28 Sod Chlor 0.9% 1000ml Bag IV 09/18/21 17:30 999 mls/hr .Q1H1M SHAYAN Administration Piperacillin Sod/Tazobactam 50 mls @ 100 mls/hr 09/18/21 18:00 09/18/21 17:53 Sod 3.375 gm/ Sodium Chloride IV 10/02/21 17:59 100 mls/hr Q8H SHAYAN Administration Sodium Chloride 1,000 mls @ 999 mls/hr 09/18/21 18:00 09/18/21 18:21 Sod Chlor 0.9% 1000ml Bag IV 09/18/21 19:00 999 mls/hr .Q1H1M SHAYAN Administration Sodium Chloride 10 ml 09/18/21 15:56 Sodium Chloride 0.9% 10ml Flush Syringe IV 10/18/21 15:55 NEEDED PRN Maintain IV Site Discontinued Medications Generic Name Dose Route Start Last Admin Trade Name Ibis PRN Reason Stop Dose Admin Aspirin 325 mg 09/18/21 15:55 09/18/21 16:00 Aspirin 325mg Tablet PO 09/18/21 15:56 325 mg ONCE ONE Administration Fentanyl Citrate 50 mcg 09/18/21 17:47 0
[2021-09-18 16:14] LABS: Alanine Aminotransferase 92 U/L (12-78); Albumin Level 3.6 g/dl (3.5-5.0); Alkaline Phosphatase 469 U/L (38-126); Anion Gap 15.3 mEq/L (5-15); Aspartate Amino Transferase 106 U/L (17-59); Bilirubin,Total 8.3 mg/dl (0.2-1.3); Blood Urea Nitrogen 17 mg/dl (9-20); Calcium 9.1 mg/dl (8.4-10.2); Carbon Dioxide 20 mmol/L (22.0-30.0); Chloride 101 mmol/L (98-107); Creatinine Clearance Estimated 35 mL/min (50-200); Estimated Glomerular Filt Rate 41 ml/min (>60); GFR (African American) 50 ML/MIN (>60); Globulin 3.6 g/dL (1.3-3.2); Glucose 158 mg/dl (74-100); Lipase 1532 U/L (23-300); Potassium 4.3 mmoL/L (3.5-5.1); Sodium 132 mmol/L (136-145); Total Protein,Serum 7.2 g/dl (6.3-8.2)
[2021-09-18 16:16] LABS: Basophils % 0.1 % (0.1-2.0); Eosinophils # 0.2 K/mm3 (0.0-0.4); Hematocrit 40.1 % (42.0-52.0); Hemoglobin 13.4 g/dL (14.1-18.0); Lymphocytes # 0.5 K/mm3 (0.7-4.5); Lymphocytes % 3.2 % (10-50); Mean Corpuscular HGB Conc 33.4 g/dL (31.8-35.4); Mean Corpuscular Hemoglobin 32.5 pg (27.0-31.2); Mean Corpuscular Volume 97.4 fl (80-94); Mean Platelet Volume 7.5 fl (7.4-10.4); Monocytes # 0.9 K/mm3 (0.1-1.0); Neutrophils # 14.1 K/mm3 (1.8-7.8); Neutrophils % 89.7 % (37.0-80.0); Platelet Count 344 K/mm3 (142-424); Red Blood Count 4.12 M/mm3 (4.60-6.20); Red Cell Distribution Width 13.2 % (11.5-17.5); White Blood Count 15.7 K/mm3 (4.8-10.8)
[2021-09-18 16:19] LABS: MANUAL DIFFERENTIAL MANUAL DIFFERENTIAL (MANUAL DIFF)
[2021-09-18 16:27] LABS: Troponin I 0.51 ng/ml (0.00-0.034)
--- NOTE | 2021-09-18 16:29 | PC.NURSE ---
critical result reported to
[2021-09-18 16:32] LABS: INR 1.02 (0.9-1.1); Prothrombin Time 11.5 seconds (10.1-12.5)
--- NOTE | 2021-09-18 16:48 | CT_ITS ---
PROCEDURE INFORMATION: Exam: CT Abdomen And Pelvis With Contrast Exam date and time: 09/18/2021 5:01 PM Age: 86 years old Clinical indication: Abdominal pain; Localized; Right upper quadrant (ruq); Additional info: Ruq pain TECHNIQUE: Imaging protocol: Computed tomography of the abdomen and pelvis with contrast. Radiation optimization: All CT scans at this facility use at least one of these dose optimization techniques: automated exposure control; mA and/or kV adjustment per patient size (includes targeted exams where dose is matched to clinical indication); or iterative reconstruction. Contrast material: ISOVUE; Contrast volume: 75 ml; Contrast route: IV; COMPARISON: 1. CT ABDOMEN PELVIS W CON 12/19/2020 2:[address] abdomen and pelvis 03/05/2019. FINDINGS: Limitations: Evaluation of the pelvis limited by streak artifact. Lungs: Stable bilateral basal chronic interstitial lung disease. Diaphragm: A small hiatal hernia is present. Liver: The liver is normal. Gallbladder and bile ducts: 8 mm x 9 mm filling defect in the distal CBD almost at the level of the ampulla. Severe upstream biliary ductal dilation with the CBD measuring 20 mm. Severe intrahepatic biliary ductal dilation. Please note that the cystic duct inserts distally into the CBD, almost at the level of the pancreatic head. This is an anatomical variant. Prior cholecystectomy. Pancreas: Stable rim calcified 14 mm cyst at the level of the pancreatic tail. This has been stable since 03/05/2019 is most probably of benign etiology. The pancreas is otherwise unremarkable. Spleen: The spleen is normal. Adrenal glands: The adrenal glands are normal. Kidneys and ureters: Scattered multifocal areas of bilateral renal cortical scarring. The kidneys are otherwise unremarkable. The ureters are normal. Stomach and bowel: Prior colectomy. Right lower quadrant ileostomy. No bowel obstruction or significant bowel wall thickening. Appendix: Prior appendectomy. Intraperitoneal space: No free fluid, fluid collections, or pneumoperitoneum. Vasculature: The arterial vasculature demonstrates diffuse moderate atherosclerotic calcification. Lymph nodes: There is no evidence of lymphadenopathy. Urinary bladder: Visualized urinary bladder is unremarkable. Reproductive: Reproductive organs not confidently evaluated in this examination. Bones/joints: Complete bilateral hip arthroplasties without complications. No acute skeletal pathology. Severe multilevel degenerative changes of the spine, as manifested by multilevel anterior osteophytes and multilevel decrease in intervertebral disc space. Soft tissues: No acute body wall soft tissue findings. IMPRESSION: 1. Findings are most in favor with choledocholithiasis with severe intra and extrahepatic biliary ductal dilation. Correlation with MRCP is recommended. 2. Incidental findings as above.
[2021-09-18 17:01] LABS: Hypochromasia 2+; Lymphocytes % 6 % (10-50); Monocytes % 2 % (2-9); Neutrophils % 92 % (42-76); Platelet Estimate Normal; Total Cells Counted 100
--- NOTE | 2021-09-18 17:03 | PC.NURSE ---
pt gone to rad
--- NOTE | 2021-09-18 17:14 | PC.NURSE ---
pt back from rad
--- NOTE | 2021-09-18 17:54 | PC.NURSE ---
calling [facility] to talk about transfer for gi
--- NOTE | 2021-09-18 18:05 | PC.NURSE ---
dr louis on the phone with dr espinoza about transfer for gi problems
--- NOTE | 2021-09-18 18:09 | PC.NURSE ---
pt states that he does not want any pain medicine at this time, his pain is not that bad yet. Family at [facility]
--- NOTE | 2021-09-18 18:12 | PC.NURSE ---
on the wait list for will probably take about [address] louis wants us to call [facility]
--- NOTE | 2021-09-18 18:17 | PC.NURSE ---
called [facility] and they stated that there was a wait list and it to would take longer then 24 hrs, dr louis would like us to call to see if he could get in there.
--- NOTE | 2021-09-18 18:28 | PC.NURSE ---
on the phone with about having the pt transfered to there hospital for gi problems, stated that they had a wait list but would have the hospitalist call and talk to dr louis about placement
--- NOTE | 2021-09-18 18:30 | PC.NURSE ---
spoke with dr longo for admission. char house supervisor notified. at the bedside updating family and pt of POC
--- NOTE | 2021-09-18 18:41 | PC.NURSE ---
dr mclain on the phone to talk to dr louis about admitting pt.
[2021-09-18 18:51] LABS: Microscopic, Urine URINE MICROSCOPIC (MICROSCOPIC)
[2021-09-18 18:56] LABS: Appearance,Urine SL CLOUDY (Clear); Blood, Urine TRACE-I (Negative); Color,Urine YELLOW (Yellow); Glucose,Urine (UA) Negative (Negative); Ketones,Urine Negative (Negative); Leukocyte Esterase,Urine 1+ (Negative); Nitrate,Urine Negative (Negative); Protein,Urine Negative (Negative); Specific Gravity, Urine 1.015 (1.005-1.030); Urobilinogen,Urine 0.2 EU/dl (0.2)
[2021-09-18 18:58] LABS: Bilirubin,Urine 3+ (Negative)
[2021-09-18 19:04] LABS: Bacteria,Urine 3+ /lpf
--- NOTE | 2021-09-18 19:52 | PC.NURSE ---
Called report to Suresh Montes De Oca RN
--- NOTE | 2021-09-18 20:06 | PC.NURSE ---
patient up to floor via wheelchair @ this time.
[2021-09-19] VITALS: BP 149/73; PULSE 98; RESP 18; TEMP 36.5; O2SAT 99
[2021-09-19 04:00] VITALS: BP 135/75; PULSE 97; RESP 20; TEMP 37; O2SAT 97
--- NOTE | 2021-09-19 04:35 | PC.NURSE ---
pt has rested well this shift, A&Ox4, has complained of mild pain in abdomen and was treated per APR, has ambulated to BR with standby assist, remains on room air, HR has been 97-107
[2021-09-19 04:43] VITALS: BMI 22.7
[2021-09-19 06:14] LABS: Basophils % 0.2 % (0.1-2.0); Eosinophils # 0.1 K/mm3 (0.0-0.4); Eosinophils % 0.8 % (0.1-12.0); Hematocrit 35.7 % (42.0-52.0); Lymphocytes # 0.5 K/mm3 (0.7-4.5); Lymphocytes % 3.6 % (10-50); Mean Corpuscular HGB Conc 33.1 g/dL (31.8-35.4); Mean Corpuscular Hemoglobin 32.3 pg (27.0-31.2); Mean Corpuscular Volume 97.8 fl (80-94); Mean Platelet Volume 7.4 fl (7.4-10.4); Monocytes % 6.8 % (1.7-9.3); Neutrophils # 12.7 K/mm3 (1.8-7.8); Neutrophils % 88.6 % (37.0-80.0); Platelet Count 265 K/mm3 (142-424); Red Blood Count 3.65 M/mm3 (4.60-6.20); White Blood Count 14.3 K/mm3 (4.8-10.8)
[2021-09-19 06:16] LABS: MANUAL DIFFERENTIAL MANUAL DIFFERENTIAL (MANUAL DIFF)
[2021-09-19 06:17] LABS: Alanine Aminotransferase 54 U/L (12-78); Albumin Level 2.8 g/dl (3.5-5.0); Albumin/Globulin Ratio 0.9 (1.1-1.8); Alkaline Phosphatase 360 U/L (38-126); Anion Gap 12.7 mEq/L (5-15); Aspartate Amino Transferase 69 U/L (17-59); Bilirubin,Total 8.6 mg/dl (0.2-1.3); Blood Urea Nitrogen 14 mg/dl (9-20); Calcium 8.1 mg/dl (8.4-10.2); Carbon Dioxide 18 mmol/L (22.0-30.0); Chloride 107 mmol/L (98-107); Creatinine Clearance Estimated 45 mL/min (50-200); Estimated Glomerular Filt Rate 52 ml/min (>60); GFR (African American) 63 ML/MIN (>60); Globulin 3.1 g/dL (1.3-3.2); Glucose 91 mg/dl (74-100); Potassium 3.7 mmoL/L (3.5-5.1); Sodium 134 mmol/L (136-145); Total Protein,Serum 5.9 g/dl (6.3-8.2)
[2021-09-19 06:32] LABS: Lymphocytes % 7 % (10-50); Monocytes % 2 % (2-9); Neutrophils % 83 % (42-76); Platelet Estimate Normal; RBC Morphology Normal; Total Cells Counted 100
[2021-09-19 06:46] LABS: Hemoglobin 11.8 g/dL (14.1-18.0)
--- NOTE | 2021-09-19 07:32 | HMH.PHAVTE ---
[facility] Pharmacy VTE Monitoring - Patient Demographics Admission date: 09/18/21 Report Date: 09/19/21 Time: 07:32 Allergies/Adverse Reactions: Patient Allergies doxycycline Allergy (Intermediate, Verified 09/18/21 20:16) morphine Allergy (Intermediate, Verified 09/18/21 20:16) HALLUCINATIONS Height: 1.83 m Weight: 76.249 kg Patient Problems: Current Active Problems (Last Reviewed 04/03/18 @ 09:53 by Anaid Johnson RN) Choledocholithiasis (Acute) Jaundice (Acute) - VTE Risk Labs: VTE Related Lab Results Hgb 11.8 g/dL (14.1-18.0) L D 09/19/21 05:53 Hct 35.7 % (42.0-52.0) L 09/19/21 05:53 Plt Count 265 K/mm3 (142-424) 09/19/21 05:53 PT 11.5 seconds (10.1-12.5) 09/18/21 16:00 INR 1.02 (0.9-1.1) 09/18/21 16:00 BUN 14 mg/dl (9-20) 09/19/21 05:53 Creatinine 1.30 mg/dl (0.66-1.25) H 09/19/21 05:53 Estimated Creat Clear 45 mL/min (50-200) 09/19/21 05:53 VTE Score: 8 VTE Risk Level: Moderate Risk - Prophylaxis VTE Prophylaxis Ordered?: Yes Types of VTE Prophylaxis: TEDS Knee High Location of Applied Device: Bilateral Lower Extremeties
--- NOTE | 2021-09-19 07:35 | HMH.PHAINT ---
MEDICATION RECONCILIATION COMPLETED ON PATIENT USING EXTERNAL FILL HISTORY FROM PHARMACY. -MELANY SEXTON, MARYANND
[2021-09-19 08:00] VITALS: BP 131/76; PULSE 96; RESP 14; TEMP 36.5; O2SAT 97
--- NOTE | 2021-09-19 08:35 | HMH.HP ---
*Admission Date: 09/18/21 *Chief complaint: Right upper quadrant pain with nausea and vomiting *History of present illness: 86-year-old white male with remote history of cholecystectomy, who has well compensated systolic heart failure, and colostomy status with short gut syndrome and chronic abdominal pain who has a Port-A-Cath placed and requires IV fluids a couple times a week for maintenance hydration, came to the emergency department yesterday with a chief complaint of nausea, vomiting and significant right upper quadrant pain Found to be jaundiced, elevated obstructive pattern LFTs and CT scan showed evidence of choledocholithiasis with ductal inflammation. Was determined the patient requires ERCP for sphincterotomy and stone removal but no bed was found at a tertiary care center in [place] and patient is on the waiting list a couple of different facilities. He was admitted overnight for pain control and antibiotic therapy. [facility] History I have reviewed the patient's past medical history: Yes Medical History: Reports:: Arrhythmia, Atherosclerotic Heart Disease, Atrial Fibrillation, Cardiomyopathy, Congestive Heart Failure, Coronary Artery Disease, Deep Vein Thrombosis, Hyperlipidemia, Hypertension, Internal Pacemaker, MRSA, Myocardial Infarction, Palpitations, Peripheral Artery Disease, Seizures Denies:: Cancer, Diabetes Mellitus Type 1, Diabetes Mellitus Type 2 *Have you ever received a pneumonia vaccine?: No *Have you received a flu vaccine this season?: No Other Medical History: Reports: Anemia, Arthritis, Blood Transfusion Reaction, Cataracts, Hormone Therapy, Hypothyroidism, Thyroid Disease Laterality Cases: Left: Arthroscopy Shoulder, Bilateral: Arthroscopy Hip, Total Hip Replacement, Other Other Surgeries: Yes: No Previous Surgery, Appendectomy, Cancer Surgery, Cardiac Catheterization, Cardiac Surgery, Cholecystectomy, Colonoscopy, Colon Resection, Colostomy, Coronary Stent, EGD, Hernia Repair, Pacemaker, Other (right pac)Comment Only: Other Valve Replacement (R portacath placement) Amputation: No Fractures: No - *Social History Smoking Status: Never smoker # Packs/Day (cigarettes): 1 #Yrs smoked (if former smoker): 10 Alcohol Intake: never Alcohol Intake Frequency:: 0-2 drinks per day Substance Use Type: denies use *Occupational Status:: retired Housing: house Household Members: spouse *Travel in the last 8 weeks: None Family Hx:: No significant family history Review of Systems - Review of Systems Review of systems:: pertinent systems reviewed and negative unless documented below - *Neurologic Denies dizziness, Denies headache(s) Meds Home Medications Medication Instructions Recorded Confirmed Type aspirin 81 mg tablet,delayed 81 mg PO DAILY 03/02/17 09/18/21 History release bisoproloL fumarate [Zebeta 5mg 5 mg PO DAILY 05/13/19 09/18/21 History tablet] Furosemide [Furosemide 20mg Tab*] 20 mg PO DAILY 08/29/19 09/18/21 History Loperamide HCl [Imodium 2 mg 2 mg PO BIDP PRN 07/30/20 09/19/21 History capsule] Levothyroxine Sodium 75 mcg PO DAILY 09/19/21 09/19/21 History [Levothyroxine 75mcg (0.075mg) Tab] Allergies Allergy/AdvReac Type Severity Reaction Status Date / Time doxycycline Allergy Intermediate Verified 09/18/21 20:16 morphine Allergy Intermediate HALLUCINATI Verified 09/18/21 20:16 ONS Exam Vital signs and Labs for Last 24 Hours: Temp Pulse Resp BP Pulse Ox 97.7 F 96 H 14 131/76 97 09/19/21 08:00 09/19/21 08:00 09/19/21 08:00 09/19/21 08:00 09/19/21 08:00 Laboratory Results - last 24 hr 09/18/21 16:00: WBC 15.7 H, RBC 4.12 L, Hgb 13.4 L, Hct 40.1 L, MCV 97.4 H, MCH 32.5 H, MCHC 33.4, RDW 13.2, Plt Count 344, MPV 7.5, Neut % (Auto) 89.7 H, Lymph % (Auto) 3.2 L, [place] % (Auto) 6.0, Eos % (Auto) 1.0, Baso % (Auto) 0.1, Neut # (Auto) 14.1 H, Lymph # (Auto) 0.5 L, [place] # (Auto) 0.9, Eos # (Auto) 0.2, Baso # (Auto) 0.0, Total Counted 100, Neutrophils % (Manual
[2021-09-19 11:06] VITALS: BMI 22.8
--- NOTE | 2021-09-19 15:54 | PC.NURSE ---
patient has done okay. some pain noted in abdomen medicated per apr. remains to be jaundiced. cares for colostomy independently has been up walking to bathroom with assistance. rings out as needed. called [facility] for update, stated they were still waiting on transport for their discharges, no bed as of now. did update family on this and stated we could keep them updated as we hear things. patient comlaints of being week, and hungry. has been eating ice chips.
[2021-09-19 15:59] VITALS: BP 135/86; PULSE 94; RESP 16; TEMP 36.7; O2SAT 95
--- NOTE | 2021-09-19 17:00 | PC.NURSE ---
spoke to [facility] about bed availability. was informed that they had 23 discharges and there should be a bed available soon. this nurse informed patient and family of this information. all home medications and pt belongings were given to family to take home so that nothing would be lost in transport if this occurred in the middle of the night.
[2021-09-19 20:00] VITALS: BP 133/71; PULSE 91; RESP 20; TEMP 36.6; O2SAT 97
[2021-09-20 03:49] VITALS: BP 104/50; PULSE 74; RESP 16; TEMP 36.5; O2SAT 97
--- NOTE | 2021-09-20 04:24 | PC.NURSE ---
pt has rested intermittently t/o shift, has no complaints of pain or N/V, HR 74-91, ambulating to BR with standby assist, remains on room air
[2021-09-20 05:23] VITALS: BMI 22.7
[2021-09-20 08:00] VITALS: BP 104/56; PULSE 58; RESP 16; TEMP 36.5; O2SAT 91
--- NOTE | 2021-09-20 08:41 | HMH.ACPN2 ---
Internal Medicine - PN: Subj *Date: 09/20/21 *Time: 08:41 Interval history: Patient remains afebrile and hemodynamically stable. Labs this morning pending. Tolerated liquids yesterday. P.o. this morning, had clear liquids for breakfast approximately 7:30am. Denies significant pain, regimen of NSAIDs. Denies shortness of breath, cough, significant stool output from his ostomy, chest pain. Exam Vital signs and Labs for Last 24 Hours: Temp Pulse Resp BP Pulse Ox 97.7 F 74 16 104/50 L 97 09/20/21 03:49 09/20/21 03:49 09/20/21 03:49 09/20/21 03:49 09/20/21 03:49 I & O for Last 24 hours: Intake & Output 09/17/21 09/18/21 09/19/21 09/20/21 23:59 23:59 23:59 23:59 Intake Total 1039 / 1039 243 / 243 Balance 1039 / 1039 243 / 243 Weight 75.16 kg 76.3 kg 76.067 kg Microbiology Reports for the Last 24 Hours: Microbiology 09/18/21 18:35 Urine,Clean Catch Urine Culture - Preliminary NO GROWTH AFTER 24 HOURS - Constitutional no acute distress - *Routine HEENT Exam Head: Present: normocephalic Eye: Present: EOMI, PERRL ENT: Present: mucous membranes moist - *Routine Neck Exam Present: supple. Absent: lymphadenopathy - *Routine Respiratory Exam Present: CTA bilaterally - *Routine Cardiovascular Exam Present: RRR Comments: pacemaker in left upper chest. - *Routine Abdominal Exam Present: soft, normoactive bowel sounds, tenderness (minimal upper abdominal tenderness. no rebound or guarding.), other (no significant stool output from ostomy.) - *Routine Extremities Exam Absent: cyanosis, clubbing, edema - *Routine Skin Exam Present: warm. Absent: rash - *Routine Neurological Exam Present: alert, oriented X3 Assessment and Plan (1) Choledocholithiasis Status: Acute Category: Medical Code(s): K80.50 - Calculus of bile duct without cholangitis or cholecystitis without obstruction (2) Systolic heart failure Status: Acute Category: Medical Code(s): I50.20 - Unspecified systolic (congestive) heart failure (3) Colostomy status Status: Acute Category: Surgical Code(s): Z93.3 - Colostomy status (4) ERWIN (acute kidney injury) Status: Acute Category: Medical Code(s): N17.9 - Acute kidney failure, unspecified (5) Hypothyroidism (acquired) Status: Chronic Category: Medical Code(s): E03.9 - Hypothyroidism, unspecified (6) Kidney disease, chronic, stage III (GFR 30-59 ml/min) Status: Chronic Category: Medical Code(s): N18.3 - Chronic kidney disease, stage 3 (moderate) - Assessment and plan all Dx Assessment and Plan for all problems:: 86-year-old male with history of pacemaker dependence, systolic CHF, colostomy (present for 32 years), kidney disease who presented with upper abdominal pain. CT of abdomen shows suspected approximately 1 cm stone in common bile duct with significant biliary dilatation up to 20 mm. Admitted for bowel rest, antibiotics, and pain control. Showing some improvement this morning. Patient entirely denies ERCP to address obstruction. Numerous facilities been contacted for transfer, currently awaiting transfer to [facility], or [facility]. Will broaden the search today. Medically stable. Pain tolerable on current regimen. Awaiting morning labs. Problems addressed as follows: Obstructing choledocholithiasis Biliary dilatation Obstructive hepatitis -repeat labs this morning pending, LFTs showed slight improvement yesterday. -Patient needs ERCP, unable to perform at our facility. Have contacted numerous facilities for transfer. Currently on a list at [place]. We will reach out to [facility] today. -Had clear liquids for breakfast, likely n.p.o. at this time anticipation of possible transfer and removal ultrasound later today. -Continue empiric antibiotics. 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
[2021-09-20 10:04] LABS: Basophils % 0.3 % (0.1-2.0); Eosinophils # 0.4 K/mm3 (0.0-0.4); Hematocrit 30.7 % (42.0-52.0); Hemoglobin 10.7 g/dL (14.1-18.0); Lymphocytes # 0.8 K/mm3 (0.7-4.5); Lymphocytes % 6.6 % (10-50); Mean Corpuscular Hemoglobin 33.7 pg (27.0-31.2); Mean Corpuscular Volume 96.3 fl (80-94); Mean Platelet Volume 7.6 fl (7.4-10.4); Monocytes # 0.8 K/mm3 (0.1-1.0); Monocytes % 6.5 % (1.7-9.3); Neutrophils # 9.7 K/mm3 (1.8-7.8); Neutrophils % 83.5 % (37.0-80.0); Platelet Count 248 K/mm3 (142-424); Red Blood Count 3.19 M/mm3 (4.60-6.20); Red Cell Distribution Width 13.5 % (11.5-17.5); White Blood Count 11.7 K/mm3 (4.8-10.8)
[2021-09-20 10:11] LABS: Chloride 108 mmol/L (98-107); Sodium 133 mmol/L (136-145)
[2021-09-20 10:12] LABS: Potassium 3.6 mmoL/L (3.5-5.1)
[2021-09-20 10:13] LABS: Alanine Aminotransferase 43 U/L (12-78); Aspartate Amino Transferase 78 U/L (17-59)
[2021-09-20 10:14] LABS: Albumin Level 2.5 g/dl (3.5-5.0); Albumin/Globulin Ratio 0.8 (1.1-1.8); Alkaline Phosphatase 297 U/L (38-126); Anion Gap 8.6 mEq/L (5-15); Carbon Dioxide 20 mmol/L (22.0-30.0); Total Protein,Serum 5.5 g/dl (6.3-8.2)
[2021-09-20 10:15] LABS: Glucose 96 mg/dl (74-100)
[2021-09-20 10:19] LABS: Blood Urea Nitrogen 17 mg/dl (9-20)
--- NOTE | 2021-09-20 10:43 | PC.NURSE ---
I spoke with Kellie at [facility] who states they have several discharges in and a bed should be available for patient today. If/when one comes available they will call me.
[2021-09-20 10:46] LABS: Creatinine Clearance Estimated 45 mL/min (50-200); Estimated Glomerular Filt Rate 52 ml/min (>60); GFR (African American) 63 ML/MIN (>60)
--- NOTE | 2021-09-20 12:10 | PC.NURSE ---
Report called to Ramona at [facility] [phone]; transferring to [address]
--- NOTE | 2021-09-20 12:12 | PC.NURSE ---
Late entry: Spoke with Clayton in Dr. Castillo office to let him know pt got a bed assignment at [facility], and we will need Discharge order.
--- NOTE | 2021-09-20 12:28 | HMH.DCSUM ---
General - General Admission date:: 09/18/21 Discharge date: 09/20/21 HPI HPI: 86-year-old white male with remote history of cholecystectomy, who has well compensated systolic heart failure, and colostomy status with short gut syndrome and chronic abdominal pain who has a Port-A-Cath placed and requires IV fluids a couple times a week for maintenance hydration, came to the emergency department yesterday with a chief complaint of nausea, vomiting and significant right upper quadrant pain Found to be jaundiced, elevated obstructive pattern LFTs and CT scan showed evidence of choledocholithiasis with ductal inflammation. Was determined the patient requires ERCP for sphincterotomy and stone removal but no bed was found at a tertiary care center in [place] and patient is on the waiting list a couple of different facilities. He was admitted overnight for pain control and antibiotic therapy. Hospital Course Hospital Course: 86-year-old male with history of pacemaker dependence, systolic CHF, colostomy (present for 32 years), kidney disease who presented with upper abdominal pain. CT of abdomen shows suspected approximately 1 cm stone in common bile duct with significant biliary dilatation up to 20 mm. Admitted for bowel rest, antibiotics, and pain control. Showing some improvement this morning. Patient entirely denies ERCP to address obstruction. Numerous facilities been contacted for transfer, currently awaiting transfer to [facility], or [facility]. Will broaden the search today. Medically stable. Pain tolerable on current regimen. Awaiting morning labs. Problems addressed as follows: Obstructing choledocholithiasis Biliary dilatation Obstructive hepatitis -repeat labs this morning with stable LFTs, continues to have elevated Bilirubin. -Patient needs ERCP, unable to perform at our facility. Have contacted numerous facilities for transfer. Currently on a list at [place]. We will reach out to [facility] today. -Had clear liquids for breakfast (last PO intake at 7:30 AM), Made NPO this morning in anticipation of possible transfer and removal ultrasound later today. -Continue empiric antibiotics. CKD -ERWIN improved, CKD stage Hypothyroidism -Present on admission, continued home medication Chronic systolic CHF Essential hypertension -Continued home medications full code NPO stop MIVF, will administer boluses as needed if see decrease in UOP or hypotension. DC to [place] for further management. Pt accepted to their service. Stable at [place]. Objective Vital signs: Temp Pulse Resp BP Pulse Ox 97.7 F 58 L 16 104/56 L 91 L 09/20/21 08:00 09/20/21 08:00 09/20/21 08:00 09/20/21 08:00 09/20/21 08:00 Narrative: - Constitutional no acute distress - *Routine HEENT Exam Head: Present: normocephalic Eye: Present: EOMI, PERRL ENT: Present: mucous membranes moist - *Routine Neck Exam Present: supple. Absent: lymphadenopathy - *Routine Respiratory Exam Present: CTA bilaterally - *Routine Cardiovascular Exam Present: RRR; pacemaker in left upper chest. - *Routine Abdominal Exam Present: soft, normoactive bowel sounds, tenderness (minimal upper abdominal tenderness. no rebound or guarding.), other (no significant stool output from ostomy.) - *Routine Extremities Exam Absent: cyanosis, clubbing, edema - *Routine Skin Exam Present: warm. Absent: rash - *Routine Neurological Exam Present: alert, oriented X3 Results Labs on day of discharge: Labs from last 24 hours 09/20/21 09/20/21 09:50 09:50 WBC 11.7 H RBC 3.19 L Hgb 10.7 L Hct 30.7 L MCV 96.3 H MCH 33.7 H MCHC 35.0 RDW 13.5 Plt Count 248 MPV 7.6 Neut % (Auto) 83.5 H Lymph % (Auto) 6.6 L [place] % (Auto) 6.5 Eos % (Auto) 3.0 Baso % (Auto) 0.3 Neut # (Auto) 9.7 H Lymph # (Auto) 0.8 [place] # (Auto) 0.8 Eos # (Auto) 0.4 Baso # (Auto) 0.0 Sodium 133 L
--- NOTE | 2021-09-20 12:28 | PC.NURSE ---
Notified [facility] of need for transport; they stated they will be here shortly
== END 2021-09-20 13:15 | disposition short-term general hospital (02) | DRG 445 ==
LOC: ER 18:43 → 2ND 19:24
PROVIDERS: Internal Medicine Adolescent Medicine; Admitting Provider Emergency Medicine; Emergency Provider Emergency Medicine; PCP Internal Medicine Adolescent Medicine; Visit Provider Internal Medicine Adolescent Medicine
DX: K80.51 Calculus of bile duct without cholangitis or cholecystitis with obstruction (principal); I13.0 Hypertensive heart and chronic kidney disease with heart failure and stage 1 through stage 4 chronic kidney disease, or unspecified chronic kidney disease; I50.22 Chronic systolic (congestive) heart failure; N17.9 Acute kidney failure, unspecified; I42.9 Cardiomyopathy, unspecified; I25.10 Atherosclerotic heart disease of native coronary artery without angina pectoris; I48.91 Unspecified atrial fibrillation; Z86.718 Personal history of other venous thrombosis and embolism; I25.2 Old myocardial infarction; I73.9 Peripheral vascular disease, unspecified; E03.9 Hypothyroidism, unspecified; Z95.5 Presence of coronary angioplasty implant and graft; N18.9 Chronic kidney disease, unspecified; Z96.649 Presence of unspecified artificial hip joint; Z95.0 Presence of cardiac pacemaker; Z93.3 Colostomy status; G89.29 Other chronic pain; R10.9 Unspecified abdominal pain
CPT/HCPCS: 71045; 74177; 80048; 80053; 81001; 83690; 83880; 84484; 85007; 85025; 85610; 87086; 93005; 96360; 96361; 99285; C9803; J1642; J2405; J2543; Q9967; U0003; U0005